=== PATIENT | female | born 1950 ===

== ENCOUNTER 2023-12-14 06:57 | Inpatient (IN) | payer MEDICARE, OTHER, SELFPAY ==
[2023-12-14] VITALS (9 sets, daily range): BP systolic 97–155; BP diastolic 64–88; BMI 22.2
--- NOTE | 2023-12-14 07:18 | PTCARENOTE ---
Rec'd Pt as transfer from [facility], A,A+Ox3, denies pain. R radial dsg intact with tiny spot of bloody drainage noted. Heparin drip infusing at 3.8 ml/hr. CV WATER TRUCK DRIVER notified.
--- NOTE | 2023-12-14 08:16 | HPS.HSE ---
Addendum entered and electronically signed by FAMILIA Lopez 12/15/23 07:37:
STS RISK SCORE
Procedure Type:�Isolated CABG
PERIOPERATIVE OUTCOME ESTIMATE %
Operative Mortality 3.9%
Morbidity & Mortality 10.1%
Stroke 1.61%
Renal Failure 1.23%
Reoperation 3.51%
Prolonged Ventilation 5.26%
Deep Sternal Wound Infection 0.145%
Long Hospital Stay (>14 days) 7%
Short Hospital Stay (<6 days)* 33.1%
Clinical Summary
Planned Surgery: Isolated CABG, Urgent, First cardiovascular surgery
Demographics: 73 year old, White, female, 61.5kg, 166cm, BMI: 22.3 kg/m�
Lab Values: Creatinine: 0.8 mg/dL, Hematocrit: 34.9%, WBC Count: 6 10�/�L, Platelet Count: 532844 cells/�L
Substance Abuse: Never smoker
Risk Factors / Comorbidities: Hypertension
Vascular RF: Peripheral Artery Disease
Cardiac Status: Chronic heart failure, NYHA Class II, Ejection Fraction = 32%
Coronary Artery Disease: 2 vessels diseased, Left Main Stenosis >=50%, Proximal LAD Stenosis >=70%, Non-ST Elevation MO, MO: 1 to 7 Days
Valve Disease: Mild MR
Original Note:
Family Physician
-
Family Physician: Andrew Underwood
Chief Complaint
-
NSTEMI
History of Present Illness
Cynthia Saavedra is a 73-year-old , [id number] female, followed by Dr. Hogan, who was admitted to [facility] on senior hardware engineer of 12/13/2023 for escalating midsternal chest pressure. Patient recounts having similar
midsternal chest pressure during the past few months that worsened with reclining and after eating heavy meals. On Wednesday evening, patient sought help for the pain that remained unresolved after a few hours. Patient has known coronary disease with
prior stenting to LAD and cardiomyopathy (EF 30-35%), hypertension, hyperlipidemia, depression, PAD status post stenting of left SFA and right external iliac arteries. Patient ruled in for non-STEMI and was taken to the cardiac Blender Operator on 12/13/23
and found to have left main/two-vessel coronary disease. Patient is transferred to [facility] for CABG evaluation. Her last dose of Plavix was 12/13/2023. She is currently pain-free.
[facility] (R radial 12/12-Dr. Monique):
Left main: 70-80%
LAD: 90% proximal prior to LAD stent. Both diagonals with moderate diffuse disease
Left circumflex: 60 to 70%. 70-80% proximal OM1. Mid 90% OM 2.
Dominant RCA: Up to 50% stenosis of vessel
TTE 09/22/23:
Moderate hypokinesis of the mid to distal anterior wall with apical akinesis. Mild�moderate distal inferior hypokinesis. EF 30-35%.
Normal RV size and function.
Mild�moderate mitral regurgitation.
Medical History
Past Medical History
Past Medical History: Reports CAD (ICM w/HFrEF (30-35%)), HTN, Hypercholesterolemia, Psychiatric (depression) and Other (viral subacute thyroiditis (2022-resolved); PAD; GIB d/t diverticulitis 2013; chronic LBBB)
Past Surgical History: Reports Tonsilectomy and Other (tubal ligation, B/L cataract extraction w intraocular lens implant; breast augmentation with subsequent removal of implants 70 left superficial femoral artery stent 06/29/2023 right external
iliac artery stent 07/16/2023)
Social History
Tobacco: Non-smoker
Alcohol: Occasional
Drug: None
Living: Alone
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
Family History
Family History: Not pertinent
Allergies / Home Medications
Allergies reflects when Allergies were last updated in [facility].
Home Medications with original date entered in [facility]
Allergy/Medication List:
Allergies
Allergy/AdvReac Type Severity Reaction Status Date / Time
No Known Allergies Allergy Unverified 12/14/23 08:02
Home Medications
�Medication �Instructions �Recorded
aspirin 81 mg chewable tablet 81 mg PO DAILY 12/14/23
clopidogrel 75 mg tablet (Plavix) 75 mg PO DAILY 12/14/23
dapagliflozin propanediol 10 mg 10 mg PO DAILY 12/14/23
tablet (Farxiga)
ezetimibe 10 mg tablet (Zetia) 10 mg PO DAILY 12/14/23
furosemide 20 mg tablet (Lasix) 20 mg PO DAILY 12/14/23
metoprolol succinate 25 mg 25 mg PO DAILY 12/14/23
tablet,extended release 24 hr
(Toprol XL)
rosuvastatin 40 mg tablet 40 mg PO DAILY 12/14/23
sacubitril 24 mg-valsartan 26 mg 1 tab PO BID 12/14/23
tablet (Entresto)
valsartan 40 mg tablet 40 mg PO DAILY 12/14/23
TAKES VALSARTAN WHEN UNABLE TO RECEIVE ENTRESTO SAMPLES!!!!!
Review of Systems
-
History Source: Patient
A 12 point ROS was completed and negative except as noted: Yes
Constitutional: Reports No Symptoms
EENT: Reports No Symptoms
Respiratory: Reports No Symptoms
Cardiac: Reports See HPI
Abdomen/GI: Reports No Symptoms
: Reports No Symptoms
Musculoskeletal: Reports No Symptoms
Skin: Reports No Symptoms
Neurological: Reports No Symptoms
Endocrine: Reports No Symptoms
Hematologic/Lymphatic: Reports No Symptoms
Psych: Reports No Symptoms
Physical Exam
Physical Exam
General: Well Developed, Well Nourished, Comfortable and Conversant
HEENT: NormoCephalic, Anicteric, Moist mucous membranes, PERRLA, Maynard Conjunctivae, No Ptosis, Nose Appears Normal, Ears Appear Normal and Neck Nontender
Respiratory: Clear
Cardiac: S1/S2 and Regular Rhythm
Breast: Deferred by me
GI: Soft, Non Tender, Non Distended, Normal Bowel Sounds and No Hepatosplenomegaly
Rectal: Deferred by Provider
Genito-urinary: Deferred by me
Musculoskeletal: No Edema and Normal Gait & Station
Skin: Warm and Dry
Neuro: AO x 3, No Motor Deficits and Cranial Nerves Intact
Hematologic/Lymphatic: No Lymphadenopathy
Psych: Calm
Laboratory Results
-
Labs from [facility] (12/12):
CBC: WBC 6.8; HB 11.8; Plt 233
INR: 0.9
BMP: Na+ 134; K+ 3.9; BUN 17; Creat 0.61; Glucose 88
Data Reviewed
-
Lab Data: Labs Reviewed by me and Discussed with Physician
Old Records: Reviewed
Impression/Plan
-
IMPRESSION: NSTEMI, LM/3VCAD, ICM w/HFrEF (30-35%)
PLAN:
Last Plavix dose 12/12 >hold further doses
Continue IV Heparin
Surgeon to review imaging an discuss surgical risk/benefit and expected recovery trajectory
Need to hold ARB, Entresto, SGLT2i x 2 days prior to surgery
Preop diagnostics ordered including echocardiogram and carotid ultrasound
[2023-12-14 09:28] LABS: APTT 44.1 Sec (23.4-35.0)
--- NOTE | 2023-12-14 10:31 | CON.CAR ---
Addendum entered and electronically signed by Char Ghosh MD 12/14/23 17:12:
I saw and examined the patient.
The QUALITY ASSURANCE ASSOCIATE's note was reviewed and I agree with the note.
Comment: She is feeling well now, no cp, walking from the bathroom. exam is rrr no m/r/g, lungs cta. Ext wwp. Echo done with moderate LV depression, mild to mod mr. She is being evaluated for CAB in setting of NSTEMI, received clopidogrel
yesterday will need wash out, will continue med management otherwise. HFrEF is not decompensated, continue current medicaitons.
Will follow along.
TTE: CONCLUSIONS
Left ventricle is mildly dilated. Stage I diastolic dysfunction suggestive of
abnormal relaxation.Moderately reduced left ventricular systolic function. Left ventricular
ejection fraction is 32% by volumetric assessment.
Global hypokinesis with the anterior and anterolateral waldrop moving best.
Mild to moderate mitral regurgitation.
Compared to previous echo report from 09/22/23, the ejection fraction sounds to
be similar but the regionality of the hypokinesis described is different, but
no images available for direct comparison.
Original Note:
Consultation
Consultation Request
Date/Time Consultation Requested: 12/14/2023 08:15
Date/Time Consultation Performed: 12/14/2023 10:20
Requesting Provider: FAMILIA Lopez
Performing Provider: FAMILIA Cutler for Dr. Ghosh
Reason for Consultation: CAD, CABG evaluation
Medical History
-
Chief Complaint: Chest pressure
History of Present Illness:
Bertha Saavedra is a 73-year-old female (known to Dr. Hogan, her primary frog catcher), with coronary artery disease, ischemic cardiomyopathy, hypertension, dyslipidemia, PAD, and LBBB who presented to [facility] yesterday morning with chest
pressure. She has been having issues with chest discomfort. She changed her oral intake to smaller meals and was avoiding eating closely to bedtime. 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 She called EMS.
She was found to have an NSTEMI. She was taken for cardiac catheterization and was found to have left main/two-vessel coronary artery disease. She has been transferred to [facility] for CABG evaluation.
Past Medical History
Past Medical History: CAD, CHF (ICM), HTN, Hypercholesterolemia and Other (PAD, LBBB)
Past Surgical History: Gynecological and Tonsilectomy
Social History
Tobacco: Non-Smoker
Alcohol: None
Drug: None
Living: Alone
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
Family History
Family History: Reviewed & Not Pertinent
Allergies / Home Medications
Allergy/AdvReac Type Severity Reaction Status Date / Time
No Known Allergies Allergy Unverified 12/14/23 08:02
Review of Systems
-
History Source: Patient
All other systems: Negative unless noted
Constitutional: No Symptoms
EENT: No Symptoms
Respiratory: No Symptoms
Cardiac: No Symptoms
Abdomen/GI: No Symptoms
: No Symptoms
Musculoskeletal: No Symptoms
Skin: No Symptoms
Neurological: No Symptoms
Endocrine: No Symptoms
Hematologic/Lymphatic: No Symptoms
Physical Exam
Vital Signs
Temp Pulse Resp BP Pulse Ox
97.4 F 84 14 155/80 98
12/14/23 07:38 12/14/23 08:15 12/14/23 07:38 12/14/23 07:05 12/14/23 07:38
Physical Exam
General: Well Developed, Well Nourished, No Apparent Distress and Comfortable
HEENT: Normocephalic, Anicteric and Moist Mucous Membranes
Respiratory: Clear and Non Labored Respirations
Cardiac: S1/S2, Regular Rhythm and Peripheral Edema
Breast: Deferred by me
GI: Soft, Non Tender, Non Distended and Normal Bowel Sounds
Rectal: Deferred by Provider
Genito-urinary: No Costovertebral Tender
Musculoskeletal: No Clubbing, No Cyanosis and No Edema
Skin: Warm and Dry
Neuro: AO x 3
Hematologic/Lymphatic: No Lymphadenopathy
Psych: Calm
Impression / Plan
-
BACKGROUND: 73F with ischemic cardiomyopathy, coronary artery disease, hypertension, dyslipidemia, and PAD who initially presented to [facility] and was found to have an NSTEMI and was transferred to this facility for CABG evaluation.
Form Maker Plaster: Dr. Hogan
NSTEMI
MVCAD
-Chest pain-free at present
-Continue heparin drip
-CABG evaluation per CT surgery
-Last dose of clopidogrel 12/13/2023
-Entresto and SGLT2i will need to be held 48 hours prior to OR
ICM (LVEF 30-35%, 09/2023), chronic
-She does not appear to be in acute/decompensated heart failure
-GDMT as tolerated
-ACEi/ARB: She is on both valsartan 40 mg and Entresto...
-Beta marcelo: metoprolol succinate 25mg daily
-SGLT2: Farxiga on hold
-Diuretic: furosemide 20mg po daily to maintain euvolemia
-Outpatient note from Dr. Hogan reports she does not have prescription coverage and requires samples of all name-brand medications
-Update echocardiogram, lowest documented LVEF was 25-30% in May of this year
-She declined ICD and LifeVest in the outpatient setting
-HF education provided, trend daily weight & I/O
Dyslipidemia
-Outpatient notes reflect she may require PCSK9 as she is not at goal with rosuvastatin 40 mg and ezetimibe 10mg
-Given her lack of prescription drug coverage by outpatient notes, Leqvio may be the best option
-Continue current medical therapy, fasting lipid panel in a.m.
HTN
PSVT, seen on Holter monitor
PAD, left superficial femoral artery stent (06/29/2023) & right external iliac artery stent (07/16/2023)
SUBJECTIVE:
As above.
DATA:
Echocardiogram, 09/22/2023:
Regional wall motion abnormalities include moderate hypokinesis of the mid to
distal anterior wall and apical akinesis. Mild to moderate distal inferior
hypokinesis.
The ejection fraction is estimated at 30-35%.
Diastolic function is indeterminate.
Normal right ventricular size and function.
Moderate left atrial enlargement.
Normal right atrium.
Structurally normal mitral valve without significant stenosis w/ mild to
moderate regurgitation.
Structurally normal aortic valve without significant stenosis or regurgitation.
Structurally normal tricuspid valve without significant stenosis w/ mild
regurgitation.
Estimated pulmonary artery pressure is 32 mmHg.
Structurally normal pulmonic valve without significant stenosis or
regurgitation.
Normal pericardium without effusion.
Normal aortic root.
IVC demonstrates normal respiratory variation.
Data Reviewed
-
Medical Tests (Nuc Med, Echo etc): Report Reviewed by me (Cardiac catheterization)
Labs: Labs Reviewed by me
Old Records: Reviewed (Outpatient ECW notes)
--- NOTE | 2023-12-14 11:17 | CM ---
Chart reviewed. Patient is indepedent of ADLS, lives alone in a 2nd floor apartment of a [facility], [address], 0 [address]. Patient's landlords are out of town for 2 weeks. Patient has 4 children who live at least [address] away[address] on [address] Surgery
Evaluation for plan of care. CM to follow
[2023-12-14] MEDS: FARXIGA 10 MG PO (12:25)
[2023-12-14] MEDS: TOPROL XL 25 MG PO (12:25)
[2023-12-14] MEDS: LOW STRENGTH ASPIRIN 81 MG PO (12:25)
[2023-12-14] MEDS: ZETIA 10 MG PO (12:25)
[2023-12-14] MEDS: CRESTOR 40 MG PO (12:25)
[2023-12-14] MEDS: LASIX 20 MG PO (12:26)
[2023-12-14 16:08] LABS: APTT 102.3 Sec (23.4-35.0)
[2023-12-14] MEDS: HEPARIN 25000 UNITS/250 ML IV (18:47)
[2023-12-14 21:40] LABS: APTT 94.2 Sec (23.4-35.0)
--- NOTE | 2023-12-14 22:39 | PTCARENOTE ---
Heparin gtt infusing at 750 units/hr. Tele- SR w/ BBBC. VSS. Assessment completed as documented. Currently has no c/o chest pain/discomfort at this time. R radial site is c/d/i. Currently in bed; call meagan w/in reach.
[2023-12-15] VITALS (7 sets, daily range): BP systolic 95–136; BP diastolic 55–75; BMI 22.0
[2023-12-15 03:35] LABS: Hematocrit 34.9 % (37.0-47.0); Hemoglobin 12.2 g/dL (12.0-16.0); Mean Corpuscular Volume 88.8 fL (81.0-99.0); Mean Platelet Volume 9.9 fL (7.4-10.4); Platelet Count 236 10^3/uL (130-400); Red Blood Cell Count 3.93 10^6/uL (4.20-5.40); Red Cell Dist. Width 15.2 % (11.5-14.5)
[2023-12-15 03:46] LABS: INR 1.03; PT 13.3 Sec (11.4-14.6)
[2023-12-15 03:48] LABS: APTT 131.5 Sec (23.4-35.0)
[2023-12-15 03:58] LABS: ALT (SGPT) 13 U/L (0-35); AST (SGOT) 45 U/L (14-36); Alkaline Phosphatase 58 U/L (38-126); Blood Urea Nitrogen 22 mg/dl (7-17); Calcium 9.1 mg/dl (8.4-10.2); Carbon Dioxide 20 mmol/L (22-30); Chloride 99 mmol/L (98-107); Estimated Creatinine Clearance 57 ml/min; Glucose 84 mg/dl (70-99); HDL Cholesterol 91 mg/dl; Magnesium 2.2 mg/dl (1.6-2.3); Sodium 132 mmol/L (135-145); Total Bilirubin 0.6 mg/dl (0.2-1.3); Total Protein 6.1 g/dl (6.3-8.2); Triglyceride 90 mg/dl (10-149); Very Low Density Lipoprotein 18 mg/dl (0-30); eGFR > 60.00
[2023-12-15 04:09] LABS: LDL Cholesterol, Calculated 529 mg/dl; Total Cholesterol 638 mg/dl (50-199)
--- NOTE | 2023-12-15 06:16 | W.PN.CT ---
Addendum entered and electronically signed by Vincenzo Owusu MD 12/15/23 14:07:
I saw and examined the patient.
The PA's note was reviewed and I agree with the note.
Comment:
I met with Mrs. Saavedra at the bedside. We reviewed her [facility] findings as well as went through her index event in March and then her serial echocardiograms. She tells me her main symptoms are indigestion type. She has been on plavix since her stent
in March and last dose was 12/12. She understands that her ventricular is not normal, and that her mitral valve pathology is mild-mod in severity. Given her plavix and since she remains comfortable without chest pain, we will give her a 5-7 day
washout period. She is aware that one of my partners will be by and likely taking over her case for next week. For now, no plans for surgery this week.
Original Note:
Today's Communication / Plan
-
-no CP overnight
-continue iv Heparin (renewed), ASA, Crestor, Zetia, Toprol, Lasix
-significant CAD with 70-80% LM, 90% prox LAD, 60-70% Circ, 70-80% proximal OM1, 90% mid OM 2.
-will need to hold Farxiga 3 days prior to surgery
-holding Plavix (last dose 12/13/23)
-s/p Echo (EF 32 % with wma, mild-mod MR), Carotid US (50-69% LICA and <50% SUJATHA), Chest CT
-2v-CXR pending
-Surgeon to review imaging an discuss surgical risk/benefit and expected recovery trajectory
Assessment / Plan
-
Impression:
- Unstable angina/ NSTEMI- admitted to [facility] on 12/13/23, transferred to on 12/14/23 for evaluation for CABG (last Plavix 12/13/23)- currently, on iv Heparin
- Cath 12/13/23 with LM/mv-CAD
- ICM, EF 32% by Echo 12/13/23
- Chronic LBBB
- PAD- s/p L SFA stent 06/29/23 and R external iliac stent 07/16/23
- Carotid dz with 50-69% LICA
- HTN/HLD
- Depression
- Viral subacute thyroditis 2022 - resolved
- Hx GIB d/t diverticulitis 2013
- Hx breast augmentation with subsequent removal of implants
- b/l cataract extraction with intraocular lens implant
[facility] (R radial 12/13/23-Dr. Monique):
-Left main: 70-80%
-LAD: 90% proximal prior to LAD stent. Both diagonals with moderate diffuse disease
-Left circumflex: 60 to 70%. 70-80% proximal OM1. Mid 90% OM 2.
-Dominant RCA: Up to 50% stenosis of vessel
Echo 12/13/23:
-Left ventricle is mildly dilated. Stage I diastolic dysfunction suggestive of abnormal relaxation.
-Moderately reduced left ventricular systolic function. Left ventricular ejection fraction is 32% by volumetric assessment.
-Global hypokinesis with the anterior and anterolateral waldrop moving best.
-Mild to moderate mitral regurgitation.
-Compared to previous echo report from 09/22/23, the ejection fraction sounds to be similar but the regionality of the hypokinesis described is different, but no images available for direct comparison.
TTE 09/22/23:
Moderate hypokinesis of the mid to distal anterior wall with apical akinesis. Mild�moderate distal inferior hypokinesis. EF 30-35%.
Normal RV size and function.
Mild�moderate mitral regurgitation.
Chest CT 12/14/23:
-Mild dependent atelectasis in the posterior lungs.
-Mild peripheral interstitial fibrosis in the mid to lower lungs, with no honeycombing.
-No significant pleural effusion or pericardial effusion.
Carotid US 12/14/23:
-Right: Atherosclerotic plaque involving the carotid arterial system with velocity measurements consistent with less than 50% stenosis. Antegrade flow in the right vertebral artery.
-Left: Atherosclerotic plaque involving the carotid arterial system with velocity measurements consistent with 50-69% stenosis involving the mid left ICA. Antegrade flow in the left vertebral artery.
Discussed patient care with: Nursing and Care Team
Subjective
-
Date of Service: December 14, 2023
Objective Data
-
APTT 94.2 Sec (23.4-35.0) H 12/14/23 21:16
Vital Signs
Vital Signs
Temp Pulse Resp BP Pulse Ox
98 F 80 16 118/72 95
12/14/23 22:23 12/14/23 22:30 12/14/23 22:23 12/14/23 22:20 12/14/23 22:23
CT Intake/Output/Weight
12/14/23 12/14/23 12/15/23
06:59 18:59 06:59
Output Total 100 / 100
Balance -100 / -100
SaO2: 95
Data Reviewed
-
Lab Results: Results Reviewed
Medications: Active Meds Reviewed
CT Scan: Report Reviewed
ECG: Report Reviewed and Image Reviewed
[2023-12-15] MEDS: FLUSH (NSS) 1 FLUSH IV (07:45)
[2023-12-15] MEDS: ZETIA 10 MG PO (07:45)
[2023-12-15] MEDS: CRESTOR 40 MG PO (07:45)
[2023-12-15] MEDS: LOW STRENGTH ASPIRIN 81 MG PO (07:45)
[2023-12-15] MEDS: TOPROL XL 25 MG PO (07:45)
[2023-12-15] MEDS: LASIX 20 MG PO (07:46)
[2023-12-15] MEDS: FARXIGA 10 MG PO (07:46)
[2023-12-15 08:13] LABS: Urine Albumin Trace (Neg - Trace); Urine Bilirubin 1+ (Negative); Urine Character Clear (Clear); Urine Color Yellow; Urine Glucose 2+ (Negative); Urine Ketone 3+ (Negative); Urine Leukocyte Negative (Negative); Urine Nitrite Negative (Negative); Urine Occult Blood Negative (Negative); Urine Urobilinogen Negative (Neg - 1+)
--- NOTE | 2023-12-15 09:14 | W.PN.CD ---
Today's Communication / Plan
-
await ct surg eval for cab
continue current medications, including heparin gtt that requires intensive lab monitoring
continue tele
Impression / Plan
-
BACKGROUND: 73F with ischemic cardiomyopathy, coronary artery disease, hypertension, dyslipidemia, and PAD who initially presented to [facility] and was found to have an NSTEMI and was transferred to this facility for CABG evaluation.
Conference Planning Manager: Dr. Hogan
NSTEMI
MVCAD
-Chest pain-free at present
-Continue heparin drip
-CABG evaluation per CT surgery
-Last dose of clopidogrel 12/13/2023
-Entresto and SGLT2i will need to be held prior to surgery --48 hours and 72 hours respectfully
ICM (LVEF 30-35%, 09/2023), chronic
-She does not appear to be in acute/decompensated heart failure
-wt stabie
-GDMT as tolerated
-ACEi/ARB: She is on both valsartan 40 mg and Entresto...
-Beta marcelo: metoprolol succinate 25mg daily
-SGLT2: Farxiga on hold
-Diuretic: furosemide 20mg po daily to maintain euvolemia
-Outpatient note from Dr. Hogan reports she does not have prescription coverage and requires samples of all name-brand medications
-Update echocardiogram, lowest documented LVEF was 25-30% in May of this year, 32% on echo 12/15/23
-She declined ICD and LifeVest in the outpatient setting
-HF education provided, trend daily weight & I/O
Dyslipidemia
-Outpatient notes reflect she may require PCSK9 as she is not at goal with rosuvastatin 40 mg and ezetimibe 10mg
-Given her lack of prescription drug coverage by outpatient notes, Leqvio may be the best option
-Continue current medical therapy, fasting lipid panel in a.m.
HTN
PSVT, seen on Holter monitor
PAD, left superficial femoral artery stent (06/29/2023) & right external iliac artery stent (07/16/2023)
SUBJECTIVE:
no complaints, no cp or sob
DATA:
TTE: 12/14/23 CONCLUSIONS
Left ventricle is mildly dilated. Stage I diastolic dysfunction suggestive of
abnormal relaxation. Moderately reduced left ventricular systolic function. Left ventricular
ejection fraction is 32% by volumetric assessment.
Global hypokinesis with the anterior and anterolateral waldrop moving best.
Mild to moderate mitral regurgitation.
Compared to previous echo report from 09/22/23, the ejection fraction sounds to
be similar but the regionality of the hypokinesis described is different, but
no images available for direct comparison.
Echocardiogram, 09/22/2023:
Regional wall motion abnormalities include moderate hypokinesis of the mid to
distal anterior wall and apical akinesis. Mild to moderate distal inferior
hypokinesis.
The ejection fraction is estimated at 30-35%.
Diastolic function is indeterminate.
Normal right ventricular size and function.
Moderate left atrial enlargement.
Normal right atrium.
Structurally normal mitral valve without significant stenosis w/ mild to
moderate regurgitation.
Structurally normal aortic valve without significant stenosis or regurgitation.
Structurally normal tricuspid valve without significant stenosis w/ mild
regurgitation.
Estimated pulmonary artery pressure is 32 mmHg.
Structurally normal pulmonic valve without significant stenosis or
regurgitation.
Normal pericardium without effusion.
Normal aortic root.
IVC demonstrates normal respiratory variation.
Physical Exam
Vital Signs/Labs
Vital Signs
Temp Pulse Resp BP Pulse Ox
97.7 F 78 16 128/75 97
12/15/23 06:55 12/15/23 07:30 12/15/23 06:55 12/15/23 06:57 12/15/23 06:55
12/14/23 12/15/23 12/16/23
06:59 06:59 06:59
Actual Weight 60.8 kg
12/15/23 03:16
12/15/23 03:16
PT 13.3 Sec (11.4-14.6) 12/15/23 03:16
INR 1.03 12/15/23 03:16
APTT 131.5 Sec (23.4-35.0) H 12/15/23 03:16
Magnesium 2.2 mg/dl (1.6-2.3) 12/15/23 03:16
Triglycerides 90 mg/dl (10-149) 12/15/23 03:16
LDL Cholesterol, Calc 529 mg/dl 12/15/23 03:16
VLDL Cholesterol, Calc 18 mg/dl (0-30) 12/15/23 03:16
HDL Cholesterol 91 mg/dl 12/15/23 03:16
Physical Exam
Constitutional: No acute distress
Cardiovascular: Rhythm & rate is regular, Pedal edema is absent, JVD pressure is normal, Systolic murmur absent and Diastolic murmur absent
Respiratory: Respiratory effort normal, Lungs clear to auscul., Wheeze Absent, Crackles Absent and Rhonchi Absent
Neuro/Psych: AO x 3
Data Reviewed
-
Date of Service: December 15, 2023
EKG: Other (tele sinus with lbbb)
[2023-12-15 09:27] LABS: Glycohemoglobin (HgbA1c) 5.2 % (4.0-5.6)
--- NOTE | 2023-12-15 10:14 | CM ---
Chart reviewed. Patient is independent of ADLS, lives alone in a apartment on the [address]nd floor, [address], [address]. CM to follow for plan of care after the patient meets with CT Surgery. CM to follow
--- NOTE | 2023-12-15 10:24 | PTCARENOTE ---
The patient requested to have her left hand IV removed as it was hurting her. I inserted a #20 in her left forearm and removed the old one. Heparin is now running in her new site at 550 units/hr. Her vital signs are stable, NSR is noted on the
monitor, she has no complaints of pain or discomfort.
[2023-12-15 13:06] LABS: APTT 56.1 Sec (23.4-35.0)
--- NOTE | 2023-12-15 19:00 | PTCARENOTE ---
report received from previous RN, walking rounds done, assumed care of pt. pt in bed, AAOx4. pt denies any pain at this time. VSS. SR w BBB on monitor, HR 70s-80s. POX 96% on room air. skin CDI. PIV intact and patent. Heparin gtt infusing @
750u/kg/hr per protocol. see worklist for full assessment, VS, and interventions.
[2023-12-15 20:10] LABS: APTT 72.3 Sec (23.4-35.0)
[2023-12-16] VITALS (38 sets, daily range): BP systolic 91–146; BP diastolic 43–97; BMI 22.2
[2023-12-16] MEDS: HEPARIN 25000 UNITS/250 ML IV (03:01)
[2023-12-16 03:04] LABS: Hematocrit 31.1 % (37.0-47.0); Hemoglobin 10.8 g/dL (12.0-16.0); Mean Corp Hgb Conc. 34.7 g/dL (33.0-37.0); Mean Corpuscular Volume 92.3 fL (81.0-99.0); Platelet Count 190 10^3/uL (130-400); Red Blood Cell Count 3.37 10^6/uL (4.20-5.40); Red Cell Dist. Width 14.9 % (11.5-14.5); White Blood Cell Count 5.7 10^3/uL (4.8-10.8)
[2023-12-16 03:24] LABS: APTT 143.5 Sec (23.4-35.0)
--- NOTE | 2023-12-16 04:02 | PTCARENOTE ---
Pt rang to report that she had had chest pain rating 5-6/10 while walking to bathroom. Reports it was a 'quick spurt of pain that is now completely gone.' EKG obtained. NSR. Saman LOGAN made aware and no furthers orders placed. Educated pt to report
any other recurring chest pain.
[2023-12-16] MEDS: NITROSTAT (SUBLINGUAL) 0.4 MG SL (04:43)
[2023-12-16] MEDS: NITROGLYCERIN PREMIX 250 IV (04:53)
--- NOTE | 2023-12-16 05:23 | W.PN.CT ---
Today's Communication / Plan
-
-pt c/o belching/indigestion pain (anginal equivalent) coming back from the bathroom around 4:30am. It resolved spontaneously in 1-2 min with rest.
Pt had another episode of chest pressure 6-7/10 at 4:40 am while resting in bed. BP 120s-140s. Gave 1 sl Nitro, started Nitro drip, uptitrated to 40. 2L O2 started. CP resolved - sbp 120s
-PTT was 143.5 at 2:50am and Heparin rate was decreased by 200 per protocol
-current drips: Heparin 650 u/hr, Nitro 40
-continue iv Heparin (renewed), ASA, Crestor, Zetia, Toprol, Lasix
-significant CAD with 70-80% LM, 90% prox LAD, 60-70% Circ, 70-80% proximal OM1, 90% mid OM 2.
-will need to hold Farxiga 3 days prior to surgery
-tentative plan was for CABG on 12/[address] Hickey
-will leave pt NPO, on bedrest, and discuss with Dr. Hickey and Cardiology (last Plavix dose was 12/13/23)
Assessment / Plan
-
Impression:
- Unstable angina/ NSTEMI- admitted to [facility] on 12/13/23, transferred to on 12/14/23 for evaluation for CABG (last Plavix 12/13/23)- currently, on iv Heparin
- Cath 12/13/23 with LM/mv-CAD
- ICM, EF 32% by Echo 12/13/23
- Hx PSVT on Holter monitor
- Chronic LBBB
- PAD- s/p L SFA stent 06/29/23 and R external iliac stent 07/16/23
- Carotid dz with 50-69% LICA
- HTN/HLD
- Depression
- Viral subacute thyroditis 2022 - resolved
- Hx GIB d/t diverticulitis 2013
- Hx breast augmentation with subsequent removal of implants
- b/l cataract extraction with intraocular lens implant
LHC (R radial 12/13/23-Dr. Monique):
-Left main: 70-80%
-LAD: 90% proximal prior to LAD stent. Both diagonals with moderate diffuse disease
-Left circumflex: 60 to 70%. 70-80% proximal OM1. Mid 90% OM 2.
-Dominant RCA: Up to 50% stenosis of vessel
Echo 12/13/23:
-Left ventricle is mildly dilated. Stage I diastolic dysfunction suggestive of abnormal relaxation.
-Moderately reduced left ventricular systolic function. Left ventricular ejection fraction is 32% by volumetric assessment.
-Global hypokinesis with the anterior and anterolateral waldrop moving best.
-Mild to moderate mitral regurgitation.
-Compared to previous echo report from 09/22/23, the ejection fraction sounds to be similar but the regionality of the hypokinesis described is different, but no images available for direct comparison.
TTE 09/22/23:
Moderate hypokinesis of the mid to distal anterior wall with apical akinesis. Mild�moderate distal inferior hypokinesis. EF 30-35%.
Normal RV size and function.
Mild�moderate mitral regurgitation.
Chest CT 12/14/23:
-Mild dependent atelectasis in the posterior lungs.
-Mild peripheral interstitial fibrosis in the mid to lower lungs, with no honeycombing.
-No significant pleural effusion or pericardial effusion.
Carotid US 12/14/23:
-Right: Atherosclerotic plaque involving the carotid arterial system with velocity measurements consistent with less than 50% stenosis. Antegrade flow in the right vertebral artery.
-Left: Atherosclerotic plaque involving the carotid arterial system with velocity measurements consistent with 50-69% stenosis involving the mid left ICA. Antegrade flow in the left vertebral artery.
Discussed patient care with: Nursing and Care Team
Subjective
-
Date of Service: December 16, 2023
Objective Data
-
Lab Results
12/15/23 03:16
PT 13.3 Sec (11.4-14.6) 12/15/23 03:16
INR 1.03 12/15/23 03:16
APTT 72.3 Sec (23.4-35.0) H 12/15/23 19:52
Vital Signs
Vital Signs
Temp Pulse Resp BP Pulse Ox
97.6 F 84 16 95/55 96
12/15/23 23:10 12/15/23 23:08 12/15/23 23:10 12/15/23 23:08 12/15/23 23:10
CT Intake/Output/Weight
12/15/23 12/15/23 12/16/23
06:59 18:59 06:59
Intake Total 200 / 200 960 / 960
Output Total 300 / 300
Balance 200 / 100 660 / 660
SaO2: 96
Physical Exam
-
General: Awake and AOx3
Cardiovascular: Regular rate & rhythm and Murmur (soft 1/6 systolic)
Respiratory: Decreased Breath Sounds
Extremities: No Edema
Data Reviewed
-
Lab Results: Results Reviewed
Medications: Active Meds Reviewed
Chest X-Ray: Report Reviewed and Image Reviewed
CT Scan: Report Reviewed
ECG: Report Reviewed and Image Reviewed
--- NOTE | 2023-12-16 05:34 | PTCARENOTE ---
Pt rang to report that she had chest pain rating 7/10 while walking to bathroom. Reports pain as pressure and radiating to left arm. Saman LOGAN made aware and at bedside. EKG ordered and obtained. NSR. 2L O2 NC applied for comfort. POX 97%. BP
143/71. 1 SL nitro administered per order. Pt states some relief rating 5/10. Nitro gtt ordered and administered. See worklist for titration protocol. Nitro gtt now infusing at 40mcg/min w/ complete relief of chest pain. BP 136/60. Educated pt to
minimize exertion to avoid chest pain. Saman LOGAN ordered pt to be NPO this AM. Pt verbalizes understanding. Pt is now resting in bed; call rhodes is within reach. Educated pt to use call rhodes if chest pain returns.
[2023-12-16] MEDS: LOW STRENGTH ASPIRIN 81 MG PO (08:12)
[2023-12-16] MEDS: FARXIGA 10 MG PO (08:12)
[2023-12-16] MEDS: ZETIA 10 MG PO (08:12)
[2023-12-16] MEDS: CRESTOR 40 MG PO (08:12)
[2023-12-16] MEDS: LASIX 20 MG PO ×2 (08:14→19:55)
[2023-12-16] MEDS: TOPROL XL 25 MG PO (08:14)
[2023-12-16 11:02] LABS: APTT 80.3 Sec (23.4-35.0)
--- NOTE | 2023-12-16 12:54 | W.PN.CD ---
Today's Communication / Plan
-
profoundly elevated LDL, chest pain free this AM, wean nitro, surgical plans pending
Impression / Plan
-
BACKGROUND: 73F with ischemic cardiomyopathy, coronary artery disease, hypertension, dyslipidemia, and PAD who initially presented to [facility] and was found to have an NSTEMI and was transferred to this facility for CABG evaluation.
Public Health Staff Nurse: Dr. Hogan
NSTEMI
MVCAD
-Chest pain-free at present after concern for possible anginal equivalent symptoms overnight, continue to wean nitro gtt
-Continue heparin drip
-CABG evaluation per CT surgery
-Last dose of clopidogrel 12/13/2023
-Entresto and SGLT2i will need to be held prior to surgery --48 hours and 72 hours respectfully
ICM (LVEF 30-35%, 09/2023), chronic
-She does not appear to be in acute/decompensated heart failure
-wt stabie
-GDMT as tolerated
-ACEi/ARB: previously on Entresto - now held pending surgery
-Beta marcelo: metoprolol succinate 25mg daily
-SGLT2: Farxiga - ensure held 72 hours prior to OR
-Diuretic: furosemide 20mg po daily to maintain euvolemia
-Outpatient note from Dr. Hogan reports she does not have prescription coverage and requires samples of all name-brand medications
-Update echocardiogram, lowest documented LVEF was 25-30% in May of this year, 32% on echo 12/15/23
-She declined ICD and LifeVest in the outpatient setting
-HF education provided, trend daily weight & I/O
Dyslipidemia
-LDL 529 this morning; this is on high intensity statin and ezetimibe
-Given her lack of prescription drug coverage by outpatient notes, Leqvio may be the best option for a third agent, but she will likely require multiple agents to achieve goal LDL; will discuss referral to [place] [facility] with patient
-Continue current medical therapy
HTN
PSVT, seen on Holter monitor
PAD, left superficial femoral artery stent (06/29/2023) & right external iliac artery stent (07/16/2023)
SUBJECTIVE:
no complaints, no cp or sob
DATA:
TTE: 12/14/23 CONCLUSIONS
Left ventricle is mildly dilated. Stage I diastolic dysfunction suggestive of
abnormal relaxation. Moderately reduced left ventricular systolic function. Left ventricular
ejection fraction is 32% by volumetric assessment.
Global hypokinesis with the anterior and anterolateral waldrop moving best.
Mild to moderate mitral regurgitation.
Compared to previous echo report from 09/22/23, the ejection fraction sounds to
be similar but the regionality of the hypokinesis described is different, but
no images available for direct comparison.
Echocardiogram, 09/22/2023:
Regional wall motion abnormalities include moderate hypokinesis of the mid to
distal anterior wall and apical akinesis. Mild to moderate distal inferior
hypokinesis.
The ejection fraction is estimated at 30-35%.
Diastolic function is indeterminate.
Normal right ventricular size and function.
Moderate left atrial enlargement.
Normal right atrium.
Structurally normal mitral valve without significant stenosis w/ mild to
moderate regurgitation.
Structurally normal aortic valve without significant stenosis or regurgitation.
Structurally normal tricuspid valve without significant stenosis w/ mild
regurgitation.
Estimated pulmonary artery pressure is 32 mmHg.
Structurally normal pulmonic valve without significant stenosis or
regurgitation.
Normal pericardium without effusion.
Normal aortic root.
IVC demonstrates normal respiratory variation.
Physical Exam
Vital Signs/Labs
Vital Signs
Temp Pulse Resp BP Pulse Ox
36.7 C 82 18 99/65 97
12/16/23 10:45 12/16/23 09:00 12/16/23 10:45 12/16/23 07:40 12/16/23 10:45
12/15/23 12/16/23 12/17/23
06:59 06:59 06:59
Actual Weight 60.8 kg 61.5 kg
12/16/23 02:50
12/15/23 03:16
PT 13.3 Sec (11.4-14.6) 12/15/23 03:16
INR 1.03 12/15/23 03:16
APTT 80.3 Sec (23.4-35.0) H 12/16/23 10:41
Magnesium 2.2 mg/dl (1.6-2.3) 12/15/23 03:16
Triglycerides 90 mg/dl (10-149) 12/15/23 03:16
LDL Cholesterol, Calc 529 mg/dl 12/15/23 03:16
VLDL Cholesterol, Calc 18 mg/dl (0-30) 12/15/23 03:16
HDL Cholesterol 91 mg/dl 12/15/23 03:16
Physical Exam
Constitutional: No acute distress
Cardiovascular: Rhythm & rate is regular, Pedal edema is absent and JVD pressure is normal
Respiratory: Respiratory effort normal
Neuro/Psych: Alert, Oriented and AO x 3
Data Reviewed
-
Date of Service: December 16, 2023
Medical Decision Making: Reviewed Test Results and Test Interpretation
EKG: Report Reviewed by me
Echo: Report Reviewed by me
X-Ray/CT/US/MRI/NUC/PET: Report Reviewed by me
Labs: Labs Reviewed by me
--- NOTE | 2023-12-16 14:51 | CM ---
Preoperative and postoperative instructions and restrictions discussed with the patient along with showering guidelines. Patient is agreeable to a home visit by the CT Transitional RN. Patient is independent of ADLS, lives alone in a apartment
above a house, [address], 0 [address]. Patient's landlords who live below will be on vacation next week, but patient with supportive children and siblings who will help to assist. Plan is for the patient to return home with CT Transitional RN. CM to
follow
[2023-12-16 17:55] LABS: APTT 86.1 Sec (23.4-35.0)
--- NOTE | 2023-12-16 18:00 | PTCARENOTE ---
Pt received this am with no c/o of any chest pain or sob. Room air sat 89%. Iv heparin and Nitro infusing as ordered. Pt c/o of mild headache this am. Nitro rate decreased to 30mcg. Pt remains chest pain free.
[2023-12-16] MEDS: TYLENOL 650 MG PO (22:18)
--- NOTE | 2023-12-16 23:18 | PTCARENOTE ---
Pt pain free at this time on IV Heparin and IV NTG. PO dose of lasix started shortly after change of shift. Pt aware of need to maintain accurate I@O and fluid restriction. Sinus with BBB on telemetry.
[2023-12-17 01:45] VITALS: BP 136/73
[2023-12-17 01:49] VITALS: BMI 22.2
--- NOTE | 2023-12-17 02:10 | PTCARENOTE ---
At 0140 Pt with regular rapid ht rate. no c/o cp but c/o pain upper abd. Maalox Plus tablet ordered but pt refused, stating she didn't want to take anything unless she needed to for her heart. pt encouraged to call if upper abd pain persisted. AM
labs drawn
[2023-12-17 02:54] LABS: Hematocrit 29.6 % (37.0-47.0); Hemoglobin 10.1 g/dL (12.0-16.0); Mean Corp Hgb Conc. 34.1 g/dL (33.0-37.0); Mean Corpuscular Hgb 31.4 pg (27.0-31.0); Mean Corpuscular Volume 91.9 fL (81.0-99.0); Mean Platelet Volume 10.1 fL (7.4-10.4); Platelet Count 188 10^3/uL (130-400); Red Blood Cell Count 3.22 10^6/uL (4.20-5.40); Red Cell Dist. Width 14.7 % (11.5-14.5); White Blood Cell Count 7.7 10^3/uL (4.8-10.8)
[2023-12-17 03:00] LABS: APTT 93.5 Sec (23.4-35.0)
[2023-12-17 03:06] LABS: Blood Urea Nitrogen 24 mg/dl (7-17); Carbon Dioxide 21 mmol/L (22-30); Chloride 99 mmol/L (98-107); Estimated Creatinine Clearance 57 ml/min; Glucose 95 mg/dl (70-99); Potassium 4.1 mmol/L (3.5-5.1); Sodium 133 mmol/L (135-145); eGFR > 60.00
[2023-12-17] MEDS: TYLENOL 650 MG PO ×2 (05:04→18:11)
--- NOTE | 2023-12-17 05:14 | PTCARENOTE ---
Pt with c/o lower back pain, medicated with Tylenol.
--- NOTE | 2023-12-17 06:12 | W.PN.CT ---
Addendum entered and electronically signed by David Hickey MD 12/17/23 08:41:
I saw and examined the patient.
The PA's note was reviewed and I agree with the note.
Comment:
I had a long conversation with Mrs. Saavedra at her bedside yesterday. We reviewed her pathology, discussed the proposed operative interventions, reviewed the periprocedural risks (including, but not limited to, , stroke, [place], arrhythmia, PPM
requirement, PNA, YANELI/F, bleeding/infection), reviewed the expected in-hospital postprocedural course and outpatient recovery. All questions were to the best my abilities. The patient is agreeable to proceed. My colleague, Dr. Vincenzo Owusu, has
OR availability to accommodate this patient this coming 12/21/2023. I discussed this with the patient this morning and she is agreeable. No major overnight events.
Original Note:
Today's Communication / Plan
-
-no issues overnight, no CP
-drips: Heparin 650, Nitro 30- continue
-Lasix increased to 20 mg bid (UO 450/1900 in 12/24 hrs)
-continue iv Heparin (renewed), ASA, Crestor, Zetia, Toprol, Lasix
-significant CAD with 70-80% LM, 90% prox LAD, 60-70% Circ, 70-80% proximal OM1, 90% mid OM 2.
-will need to hold Farxiga 3 days prior to surgery
-tentative plan was for CABG on 12/[address] Hickey
Assessment / Plan
-
Impression:
- Unstable angina/ NSTEMI- admitted to [facility] on 12/13/23, transferred to on 12/14/23 for evaluation for CABG (last Plavix 12/13/23)- currently, on iv Heparin
- Cath 12/13/23 with LM/mv-CAD
- ICM, EF 32% by Echo 12/13/23
- Hx PSVT on Holter monitor
- Chronic LBBB
- PAD- s/p L SFA stent 06/29/23 and R external iliac stent 07/16/23
- Carotid dz with 50-69% LICA
- HTN/HLD
- Depression
- Viral subacute thyroditis 2022 - resolved
- Hx GIB d/t diverticulitis 2013
- Hx breast augmentation with subsequent removal of implants
- b/l cataract extraction with intraocular lens implant
LHC (R radial 12/13/23-Dr. Monique):
-Left main: 70-80%
-LAD: 90% proximal prior to LAD stent. Both diagonals with moderate diffuse disease
-Left circumflex: 60 to 70%. 70-80% proximal OM1. Mid 90% OM 2.
-Dominant RCA: Up to 50% stenosis of vessel
Echo 12/13/23:
-Left ventricle is mildly dilated. Stage I diastolic dysfunction suggestive of abnormal relaxation.
-Moderately reduced left ventricular systolic function. Left ventricular ejection fraction is 32% by volumetric assessment.
-Global hypokinesis with the anterior and anterolateral waldrop moving best.
-Mild to moderate mitral regurgitation.
-Compared to previous echo report from 09/22/23, the ejection fraction sounds to be similar but the regionality of the hypokinesis described is different, but no images available for direct comparison.
TTE 09/22/23:
Moderate hypokinesis of the mid to distal anterior wall with apical akinesis. Mild�moderate distal inferior hypokinesis. EF 30-35%.
Normal RV size and function.
Mild�moderate mitral regurgitation.
Chest CT 12/14/23:
-Mild dependent atelectasis in the posterior lungs.
-Mild peripheral interstitial fibrosis in the mid to lower lungs, with no honeycombing.
-No significant pleural effusion or pericardial effusion.
Carotid US 12/14/23:
-Right: Atherosclerotic plaque involving the carotid arterial system with velocity measurements consistent with less than 50% stenosis. Antegrade flow in the right vertebral artery.
-Left: Atherosclerotic plaque involving the carotid arterial system with velocity measurements consistent with 50-69% stenosis involving the mid left ICA. Antegrade flow in the left vertebral artery.
Discussed patient care with: Nursing and Care Team
Subjective
-
Date of Service: December 17, 2023
Objective Data
-
Lab Results
12/16/23 02:50
12/15/23 03:16
PT 13.3 Sec (11.4-14.6) 12/15/23 03:16
INR 1.03 12/15/23 03:16
APTT 86.1 Sec (23.4-35.0) H 12/16/23 17:32
Vital Signs
Vital Signs
Temp Pulse Resp BP Pulse Ox
98.0 F 86 20 108/54 95
12/16/23 22:56 12/16/23 22:08 12/16/23 22:56 12/16/23 22:08 12/16/23 22:56
CT Intake/Output/Weight
12/16/23 12/16/23 12/17/23
06:59 18:59 06:59
Intake Total 200 / 1160
Output Total 1450 / 1700 250 / 1700
Balance 200 / 860 -1450 / -1700 -250 / -1700
SaO2: 95
Physical Exam
-
General: Awake and AOx3
Cardiovascular: Regular rate & rhythm, No Murmurs and No Rub
Respiratory: Clear
Extremities: Edema +1 (2+DPs b/l)
Data Reviewed
-
Lab Results: Results Reviewed
Medications: Active Meds Reviewed
Chest X-Ray: Report Reviewed and Image Reviewed
ECG: Report Reviewed and Image Reviewed
[2023-12-17 07:30] VITALS: BP 112/48
[2023-12-17] MEDS: LOW STRENGTH ASPIRIN 81 MG PO (08:17)
[2023-12-17] MEDS: CRESTOR 40 MG PO (08:17)
[2023-12-17] MEDS: FARXIGA 10 MG PO (08:17)
[2023-12-17] MEDS: ZETIA 10 MG PO (08:18)
[2023-12-17] MEDS: TOPROL XL 25 MG PO (08:18)
[2023-12-17] MEDS: LASIX 20 MG PO ×2 (08:18→15:46)
--- NOTE | 2023-12-17 08:49 | W.PN.CD ---
Today's Communication / Plan
-
feeling well, no more anginal pain, can wean nitro gtt
Impression / Plan
-
BACKGROUND: 73F with ischemic cardiomyopathy, coronary artery disease, hypertension, dyslipidemia, and PAD who initially presented to [facility] and was found to have an NSTEMI and was transferred to this facility for CABG evaluation. [employer] Checker:
Samira
NSTEMI
MVCAD
-Chest pain-free at present, continue to wean nitro gtt (patient having headache and no recurrent anginal symptoms)
-Continue heparin drip
-CABG evaluation per CT surgery
-Last dose of clopidogrel 12/13/2023
-Entresto and SGLT2i will need to be held prior to surgery --48 hours and 72 hours respectfully
ICM (LVEF 30-35%, 09/2023), chronic
-She does not appear to be in acute/decompensated heart failure
-weight stable
-GDMT as tolerated
-ACEi/ARB: previously on Entresto - now held pending surgery
-Beta marcelo: metoprolol succinate 25mg daily
-SGLT2: Farxiga - ensure held 72 hours prior to OR
-Diuretic: furosemide 20mg po daily to maintain euvolemia
-Outpatient note from Dr. Hogan reports she does not have prescription coverage and requires samples of all name-brand medications
-Update echocardiogram, lowest documented LVEF was 25-30% in May of this year, 32% on echo 12/15/23
-She declined ICD and LifeVest in the outpatient setting
-HF education provided, trend daily weight & I/O
Dyslipidemia
-LDL 529 12/16/23; this is on high intensity statin and ezetimibe
-patient notes she has switched to a high fat low carb diet and saw a concomitant increase in her cholesterol from 300s to 700s in outpatient setting
-only begun treatment with statin in recent years
-Given her lack of prescription drug coverage by outpatient notes, Leqvio may be the best option for a third agent, but she will likely require multiple agents to achieve goal LDL; patient interested in outpatient consultation with [facility] / will refer
-Continue current medical therapy while inpatient
PAD
-multiple prior lower extremity revascularizations
-would likely benefit from low dose Xarelto 2.5 BID in outpatient setting
HTN
PSVT, seen on Holter monitor
PAD, left superficial femoral artery stent (06/29/2023) & right external iliac artery stent (07/16/2023)
SUBJECTIVE:
no complaints, no cp or sob
DATA:
TTE: 12/14/23 CONCLUSIONS
Left ventricle is mildly dilated. Stage I diastolic dysfunction suggestive of
abnormal relaxation. Moderately reduced left ventricular systolic function. Left ventricular
ejection fraction is 32% by volumetric assessment.
Global hypokinesis with the anterior and anterolateral waldrop moving best.
Mild to moderate mitral regurgitation.
Compared to previous echo report from 09/22/23, the ejection fraction sounds to
be similar but the regionality of the hypokinesis described is different, but
no images available for direct comparison.
Echocardiogram, 09/22/2023:
Regional wall motion abnormalities include moderate hypokinesis of the mid to
distal anterior wall and apical akinesis. Mild to moderate distal inferior
hypokinesis.
The ejection fraction is estimated at 30-35%.
Diastolic function is indeterminate.
Normal right ventricular size and function.
Moderate left atrial enlargement.
Normal right atrium.
Structurally normal mitral valve without significant stenosis w/ mild to
moderate regurgitation.
Structurally normal aortic valve without significant stenosis or regurgitation.
Structurally normal tricuspid valve without significant stenosis w/ mild
regurgitation.
Estimated pulmonary artery pressure is 32 mmHg.
Structurally normal pulmonic valve without significant stenosis or
regurgitation.
Normal pericardium without effusion.
Normal aortic root.
IVC demonstrates normal respiratory variation.
Physical Exam
Vital Signs/Labs
Vital Signs
Temp Pulse Resp BP Pulse Ox
36.6 C 99 20 136/73 95
12/17/23 07:26 12/17/23 01:45 12/17/23 07:26 12/17/23 01:45 12/17/23 07:26
12/16/23 12/17/23 12/18/23
06:59 06:59 06:59
Actual Weight 61.5 kg 61.3 kg
12/17/23 02:03
12/17/23 02:04
PT 13.3 Sec (11.4-14.6) 12/15/23 03:16
INR 1.03 12/15/23 03:16
APTT 93.5 Sec (23.4-35.0) H 12/17/23 02:04
Magnesium 2.0 mg/dl (1.6-2.3) 12/17/23 02:04
Triglycerides 90 mg/dl (10-149) 12/15/23 03:16
LDL Cholesterol, Calc 529 mg/dl 12/15/23 03:16
VLDL Cholesterol, Calc 18 mg/dl (0-30) 12/15/23 03:16
HDL Cholesterol 91 mg/dl 12/15/23 03:16
Physical Exam
Constitutional: No acute distress, Comfortable and Confusion
Cardiovascular: Rhythm & rate is regular, Pedal edema is absent, JVD pressure is normal, Diastolic murmur absent and Systolic murmur present (04/10 LUSB)
Respiratory: Respiratory effort normal and Lungs clear to auscul.
Neuro/Psych: Alert, Oriented and AO x 3
Data Reviewed
-
Date of Service: December 17, 2023
Medical Decision Making: Reviewed Test Results and Test Interpretation
EKG: Report Reviewed by me
X-Ray/CT/US/MRI/NUC/PET: Report Reviewed by me
Medical Tests (PFT, Pathology etc): Report Reviewed by me
Labs: Labs Reviewed by me
[2023-12-17 11:26] VITALS: BP 91/51
[2023-12-17] MEDS: HEPARIN 25000 UNITS/250 ML IV (14:58)
[2023-12-17 15:23] VITALS: BP 104/59
--- NOTE | 2023-12-17 15:36 | CM ---
Chart reviewed. Patient is independent of ADLS, lives alone in a apartment, [address], 0 [address]. Patient's landlord who lives below is away next week on vacation. Patient with supportive children, who are willing to help. Plan is for the patient to
return home with CT Transitional RN. CM to follow
--- NOTE | 2023-12-17 17:26 | PTCARENOTE ---
Pt received this am with no c/o. Ambulating in the room and hallway. Denies any chest pain or sob. IV Heparin and Nitro infusing as ordered.
[2023-12-17 19:33] VITALS: BP 93/51
[2023-12-17 22:22] VITALS: BP 106/58
[2023-12-17] MEDS: MAALOX PLUS 1 TABLET PO (22:24)
[2023-12-18] VITALS (20 sets, daily range): BP systolic 78–139; BP diastolic 48–75; BMI 22.1
--- NOTE | 2023-12-18 00:36 | W.PN.CT ---
Today's Communication / Plan
-
-No major issues overnight. Denies CP/SOB
-Cont. NTG and Heparin gtt
-Cont. current meds (ASA, Crestor, Zetia, Toprol, Lasix; hold Farxiga 72hrs prior to OR)
-Ongoing preop workup
-For CABG by Dr. Hickey on 12/21
-Will cont. closely monitor
Assessment / Plan
-
Impression:
- Unstable angina/ NSTEMI- admitted to [facility] on 12/13/23, transferred to on 12/14/23 for evaluation for CABG (last Plavix 12/13/23)- currently, on iv Heparin
- Cath 12/13/23 with LM/2V CAD
- ICM, EF 32% by Echo 12/13/23
- Hx PSVT on Holter monitor
- Chronic LBBB
- PAD- s/p L SFA stent 06/29/23 and R external iliac stent 07/16/23
- Carotid dz with 50-69% LICA
- HTN/HLD
- Depression
- Viral subacute thyroditis 2022 - resolved
- Hx GIB d/t diverticulitis 2013
- Hx breast augmentation with subsequent removal of implants
- b/l cataract extraction with intraocular lens implant
LH (R radial 12/13/23-Dr. Monique):
-Left main: 70-80%
-LAD: 90% proximal prior to LAD stent. Both diagonals with moderate diffuse disease
-Left circumflex: 60 to 70%. 70-80% proximal OM1. Mid 90% OM 2.
-Dominant RCA: Up to 50% stenosis of vessel
Echo 12/13/23:
-Left ventricle is mildly dilated. Stage I diastolic dysfunction suggestive of abnormal relaxation.
-Moderately reduced left ventricular systolic function. Left ventricular ejection fraction is 32% by volumetric assessment.
-Global hypokinesis with the anterior and anterolateral waldrop moving best.
-Mild to moderate mitral regurgitation.
-Compared to previous echo report from 09/22/23, the ejection fraction sounds to be similar but the regionality of the hypokinesis described is different, but no images available for direct comparison.
TTE 09/22/23:
Moderate hypokinesis of the mid to distal anterior wall with apical akinesis. Mild�moderate distal inferior hypokinesis. EF 30-35%.
Normal RV size and function.
Mild�moderate mitral regurgitation.
Plan:
-No chest pain overnight
-Remains on Heparin and NTG gtt
-Plavix washout, last dose 12/13/23
-Ongoing preop workup
-Placed Farxiga on hold, holding 72hrs prior to OR
-For CABG, +/- MVR by Dr. Owusu on Wednesday 12/20
Discussed patient care with: Cardiology, Nursing, Respiratory Therapy, Pharmacy and Care Team
Subjective
-
Date of Service: December 18, 2023
No chest pain/sob overnight
Objective Data
-
Lab Results
12/17/23 02:04
PT 13.3 Sec (11.4-14.6) 12/15/23 03:16
INR 1.03 12/15/23 03:16
APTT 93.5 Sec (23.4-35.0) H 12/17/23 02:04
Vital Signs
Vital Signs
Temp Pulse Resp BP Pulse Ox
98.1 F 84 18 106/58 95
12/17/23 22:17 12/17/23 22:22 12/17/23 22:17 12/17/23 22:22 12/17/23 22:17
CT Intake/Output/Weight
12/17/23 12/17/23 12/18/23
06:59 18:59 06:59
Output Total 450 / 1900 450 / 450
Balance -450 / -1900 -450 / -450
SaO2: 95 (RA)
Physical Exam
-
General: Awake, Oriented and AOx3
Cardiovascular: Regular rate & rhythm
Incision: Clean, Dry, Intact and Dressing Intact
Extremities: No Edema
Data Reviewed
-
Lab Results: Results Reviewed
Medications: Active Meds Reviewed
Chest X-Ray: Report Reviewed and Image Reviewed
ECG: Report Reviewed and Image Reviewed
--- NOTE | 2023-12-18 01:31 | PTCARENOTE ---
Pt. received at change of shift, NSR with BBB on tele with HR 80s. BP 93/51, pt. reports intermittent dizziness when standing and headaches. No complaints of chest pain. Nitro gtt titrated down to 20mcg/min. Heparin gtt infusing at 650units/hr.
Pt remains CP free with BP 106/58. Pt with complaints of abdominal discomfort and feelings of gas pains, Maalox tablet administered per order. Plan of care discussed and pt. verbalizes understanding. Ambulating independently in room without
difficulty. Can make needs known. Call rhodes within reach.
--- NOTE | 2023-12-18 03:00 | PTCARENOTE ---
Pt woke up with complaints of 4/10 CP. HR in 120s and BP 138/74. Nitro gtt increased to 30mcg/min. Repeat BP 125/57. Pt reports relief of CP.
[2023-12-18 03:39] LABS: Hematocrit 28.3 % (37.0-47.0); Hemoglobin 9.9 g/dL (12.0-16.0); Mean Corpuscular Volume 88.7 fL (81.0-99.0); Mean Platelet Volume 9.9 fL (7.4-10.4); Platelet Count 181 10^3/uL (130-400); Red Blood Cell Count 3.19 10^6/uL (4.20-5.40); Red Cell Dist. Width 14.8 % (11.5-14.5); White Blood Cell Count 6.5 10^3/uL (4.8-10.8)
[2023-12-18 03:54] LABS: APTT 100.4 Sec (23.4-35.0)
[2023-12-18 04:33] LABS: TSH 2.52 uIU/ml (0.47-4.68)
[2023-12-18] MEDS: NITROGLYCERIN PREMIX 250 IV (06:19)
[2023-12-18] MEDS: TOPROL XL 25 MG PO (08:10)
[2023-12-18] MEDS: ZETIA 10 MG PO (08:10)
[2023-12-18] MEDS: LOW STRENGTH ASPIRIN 81 MG PO (08:11)
[2023-12-18] MEDS: FLUSH (NSS) 1 FLUSH IV (08:11)
[2023-12-18] MEDS: LASIX 20 MG PO ×2 (08:11→16:13)
[2023-12-18] MEDS: CRESTOR 40 MG PO (08:11)
--- NOTE | 2023-12-18 10:12 | PTCARENOTE ---
The patient is aaox3, vss, NSR with a LBB noted. Sinus tach is noted when she is up and ambulating. Heparin gtt running at 650 units/hr. Nitroglycerin gtt running at 30 mcg/min. She has no complaints of a chest pain nor a headache. However she does
complain of dizziness at times but only when she lifts her arms up to plug in the IV pump. I instructed her to ring for assistance when needing to plug in the IV pumps.
--- NOTE | 2023-12-18 16:30 | PTCARENOTE ---
The patient complained of a 4/0 chest pain. She described it as a slight burning with pressure. She states that it radiated, 'twinges', down her left arm. She stated that it didn't feel like heartburn. I was going to increase her nitro gtt however
she asked to go to the bathroom first. While in the bathroom, she began to burp multiple times. When she came out of the bathroom, she stated that she felt much better since she burped. Nitro gtt remains at 30 mcg/min.
--- NOTE | 2023-12-18 21:00 | PTCARENOTE ---
Pt. remains SR with BBB on tele with HR in 80s. BP noted to be 78/54, rechecked on B/L arms with no improvement. Pt denies dizziness and CP but does state she feels more weak and tired. Nitro gtt stopped. BP 10 minutes later 86/67, then up to
90/52. PA made aware and instructed RN to hold Nitro gtt X 1 hour, and restart gtt at 5mcg/min if systolic BP is above 90. Pt. with no complaints of CP at this time. Encouraged to ring for assistance as needed for ambulation. Can make needs
known. Call rhodes within reach.
--- NOTE | 2023-12-18 21:54 | PTCARENOTE ---
BP 93/59. Per PA, Nitro gtt restarted at 5mcg/min. Pt. with no complaints of CP at this time. Heparin gtt continues to infuse at 650units/hr. Plan of care discussed and pt. verbalizes understanding.
[2023-12-18] MEDS: MAALOX PLUS 1 TABLET PO (22:48)
[2023-12-19] VITALS (20 sets, daily range): BP systolic 105–144; BP diastolic 47–80; BMI 21.9
[2023-12-19] MEDS: HEPARIN 25000 UNITS/250 ML IV (04:23)
[2023-12-19 06:02] LABS: APTT 83.1 Sec (23.4-35.0)
[2023-12-19 06:17] LABS: Blood Urea Nitrogen 18 mg/dl (7-17); Calcium 9.1 mg/dl (8.4-10.2); Carbon Dioxide 24 mmol/L (22-30); Chloride 99 mmol/L (98-107); Estimated Creatinine Clearance 65 ml/min; Glucose 90 mg/dl (70-99); Magnesium 2.2 mg/dl (1.6-2.3); Potassium 3.9 mmol/L (3.5-5.1); Sodium 133 mmol/L (135-145); eGFR > 60.00
--- NOTE | 2023-12-19 06:30 | W.PN.CT ---
Today's Communication / Plan
-
-No major issues overnight
-NTG gtt was d/c'd last night d/t SBP 70's
-Had 2/10 chest pain with NTG off, subsequently able to resume NTG gtt @ 10 mcg with resolution of chest pain
-Cont. NTG and Heparin gtt
-Cont. current meds (ASA, Crestor, Zetia, Toprol, Lasix; hold Farxiga 72hrs prior to OR)
-Ongoing preop workup/medical optimization
-Plavix washout (last dose 12/13/23)
-For CABG, +/- MVR by Dr. Owusu on Wednesday 12/20
-Will cont. closely monitor
Assessment / Plan
-
Impression:
- Unstable angina/ NSTEMI- admitted to [facility] on 12/13/23, transferred to on 12/14/23 for evaluation for CABG (last Plavix 12/13/23)- currently, on iv Heparin
- Cath 12/13/23 with LM/2V CAD
- ICM, EF 32% by Echo 12/13/23
- Hx PSVT on Holter monitor
- Chronic LBBB
- PAD- s/p L SFA stent 06/29/23 and R external iliac stent 07/16/23
- Carotid dz with 50-69% LICA
- HTN/HLD
- Depression
- Viral subacute thyroditis 2022 - resolved
- Hx GIB d/t diverticulitis 2013
- Hx breast augmentation with subsequent removal of implants
- b/l cataract extraction with intraocular lens implant
LHC (R radial 12/13/23-Dr. Monique):
-Left main: 70-80%
-LAD: 90% proximal prior to LAD stent. Both diagonals with moderate diffuse disease
-Left circumflex: 60 to 70%. 70-80% proximal OM1. Mid 90% OM 2.
-Dominant RCA: Up to 50% stenosis of vessel
Echo 12/13/23:
-Left ventricle is mildly dilated. Stage I diastolic dysfunction suggestive of abnormal relaxation.
-Moderately reduced left ventricular systolic function. Left ventricular ejection fraction is 32% by volumetric assessment.
-Global hypokinesis with the anterior and anterolateral waldrop moving best.
-Mild to moderate mitral regurgitation.
-Compared to previous echo report from 09/22/23, the ejection fraction sounds to be similar but the regionality of the hypokinesis described is different, but no images available for direct comparison.
TTE 09/22/23:
Moderate hypokinesis of the mid to distal anterior wall with apical akinesis. Mild�moderate distal inferior hypokinesis. EF 30-35%.
Normal RV size and function.
Mild�moderate mitral regurgitation.
Discussed patient care with: Cardiology, Nursing, Respiratory Therapy, Pharmacy and Care Team
Subjective
-
Date of Service: December 19, 2023
C/O 2/10 chest pain with NTG off last night d/t SBP 70's. CP resolved following resumption of NTG @ 10 mcg/min
Objective Data
-
Lab Results
12/18/23 03:00
12/19/23 05:26
PT 13.3 Sec (11.4-14.6) 12/15/23 03:16
INR 1.03 12/15/23 03:16
APTT 83.1 Sec (23.4-35.0) H 12/19/23 05:26
Vital Signs
Vital Signs
Temp Pulse Resp BP Pulse Ox
98.3 F 90 18 133/70 94
12/19/23 05:18 12/19/23 05:00 12/19/23 05:18 12/19/23 05:00 12/19/23 05:18
CT Intake/Output/Weight
12/18/23 12/18/23 12/19/23
06:59 18:59 06:59
Intake Total 240 / 240
Output Total 700 / 1150 550 / 1050 500 / 1050
Balance -700 / -1150 -310 / -810 -500 / -810
SaO2: 94 (RA)
Data Reviewed
-
Lab Results: Results Reviewed
Medications: Active Meds Reviewed
Chest X-Ray: Report Reviewed and Image Reviewed
ECG: Report Reviewed and Image Reviewed
[2023-12-19] MEDS: FLUSH (NSS) 1 FLUSH IV (07:43)
[2023-12-19] MEDS: CRESTOR 40 MG PO (07:43)
[2023-12-19] MEDS: LASIX 20 MG PO ×2 (07:43→16:04)
[2023-12-19] MEDS: LOW STRENGTH ASPIRIN 81 MG PO (07:43)
[2023-12-19] MEDS: ZETIA 10 MG PO (07:43)
[2023-12-19] MEDS: TOPROL XL 25 MG PO (07:43)
--- NOTE | 2023-12-19 12:58 | PTCARENOTE ---
The patient is ambulatory in the halls. Her vitals remain stable. NSR with a 1st degree AVB noted on the monitor. Her heparin gtt is running at 650 units/hr. Nitroglycerin running at 10 mcg/min. She has no complaints of discomfort at this time.
--- NOTE | 2023-12-19 14:18 | W.PN.CD ---
Today's Communication / Plan
-
decrease nitro gtt and assess response.
Impression / Plan
-
BACKGROUND: 73F with ischemic cardiomyopathy, coronary artery disease, hypertension, dyslipidemia, and PAD who initially presented to [facility] and was found to have an NSTEMI and was transferred to this facility for CABG evaluation. Director Process:
Samira
NSTEMI
MVCAD
-Chest pain-free at present,she has some pain last night, couldn't distinguish between angina or reflux was treated for both with increased nitro gtt
-now feeling week, can back down on nitro and reassess.
-Continue heparin drip
-CABG evaluation per CT surgery---tentatively 12/[address] Owusu
-Last dose of clopidogrel 12/13/2023
-Entresto and SGLT2i will need to be held prior to surgery --48 hours and 72 hours respectfully
ICM (LVEF 30-35%, 09/2023), chronic
-She does not appear to be in acute/decompensated heart failure
-weight stable
-GDMT as tolerated
-ACEi/ARB: previously on Entresto - now held pending surgery
-Beta marcelo: metoprolol succinate 25mg daily
-SGLT2: Farxiga - ensure held 72 hours prior to OR
-Diuretic: furosemide 20mg po daily to maintain euvolemia
-Outpatient note from Dr. Hogan reports she does not have prescription coverage and requires samples of all name-brand medications
-Update echocardiogram, lowest documented LVEF was 25-30% in May of this year, 32% on echo 12/15/23
-She declined ICD and LifeVest in the outpatient setting
-HF education provided, trend daily weight & I/O
Dyslipidemia
-LDL 529 12/16/23; this is on high intensity statin and ezetimibe
-patient notes she has switched to a high fat low carb diet and saw a concomitant increase in her cholesterol from 300s to 700s in outpatient setting
-only begun treatment with statin in recent years
-Given her lack of prescription drug coverage by outpatient notes, Leqvio may be the best option for a third agent, but she will likely require multiple agents to achieve goal LDL; patient interested in outpatient consultation with [facility] / will refer
-Continue current medical therapy while inpatient
PAD
-multiple prior lower extremity revascularizations
-would likely benefit from low dose Xarelto 2.5 BID in outpatient setting
HTN
PSVT, seen on Holter monitor, Sinus tachycardia at times.
PAD, left superficial femoral artery stent (06/29/2023) & right external iliac artery stent (07/16/2023)
SUBJECTIVE:
she had cp last night that felt like burning but radiated.
DATA:
TTE: 12/14/23 CONCLUSIONS
Left ventricle is mildly dilated. Stage I diastolic dysfunction suggestive of
abnormal relaxation. Moderately reduced left ventricular systolic function. Left ventricular
ejection fraction is 32% by volumetric assessment.
Global hypokinesis with the anterior and anterolateral waldrop moving best.
Mild to moderate mitral regurgitation.
Compared to previous echo report from 09/22/23, the ejection fraction sounds to
be similar but the regionality of the hypokinesis described is different, but
no images available for direct comparison.
Echocardiogram, 09/22/2023:
Regional wall motion abnormalities include moderate hypokinesis of the mid to
distal anterior wall and apical akinesis. Mild to moderate distal inferior
hypokinesis.
The ejection fraction is estimated at 30-35%.
Diastolic function is indeterminate.
Normal right ventricular size and function.
Moderate left atrial enlargement.
Normal right atrium.
Structurally normal mitral valve without significant stenosis w/ mild to
moderate regurgitation.
Structurally normal aortic valve without significant stenosis or regurgitation.
Structurally normal tricuspid valve without significant stenosis w/ mild
regurgitation.
Estimated pulmonary artery pressure is 32 mmHg.
Structurally normal pulmonic valve without significant stenosis or
regurgitation.
Normal pericardium without effusion.
Normal aortic root.
IVC demonstrates normal respiratory variation.
Physical Exam
Vital Signs/Labs
Vital Signs
Temp Pulse Resp BP Pulse Ox
98.5 F 84 20 119/69 95
12/19/23 10:59 12/19/23 11:02 12/19/23 10:59 12/19/23 11:02 12/19/23 10:59
12/18/23 12/19/23 12/20/23
06:59 06:59 06:59
Actual Weight 61.1 kg 60.7 kg
12/18/23 03:00
12/19/23 05:26
PT 13.3 Sec (11.4-14.6) 12/15/23 03:16
INR 1.03 12/15/23 03:16
APTT 83.1 Sec (23.4-35.0) H 12/19/23 05:26
Magnesium 2.2 mg/dl (1.6-2.3) 12/19/23 05:26
Triglycerides 90 mg/dl (10-149) 12/15/23 03:16
LDL Cholesterol, Calc 529 mg/dl 12/15/23 03:16
VLDL Cholesterol, Calc 18 mg/dl (0-30) 12/15/23 03:16
HDL Cholesterol 91 mg/dl 12/15/23 03:16
TSH 2.52 uIU/ml (0.47-4.68) 12/18/23 03:00
Physical Exam
Constitutional: No acute distress
Cardiovascular: Rhythm & rate is regular, Pedal edema is absent, JVD pressure is normal, Systolic murmur absent and Diastolic murmur absent
Respiratory: Respiratory effort normal, Lungs clear to auscul., Wheeze Absent, Crackles Absent and Rhonchi Absent
Neuro/Psych: AO x 3
Data Reviewed
-
Date of Service: December 19, 2023
EKG: Other (tele sinus with sinus tachycardia)
--- NOTE | 2023-12-19 15:03 | PTCARENOTE ---
Pt c/o some lightheadedness while ambulating, no c/o chest pain. Ntg drip decreased to 8 mcg/min, as per Dr order. BP 132/60
--- NOTE | 2023-12-19 20:08 | PTCARENOTE ---
Pt remains in SR with BBB on tele with HR in the 80s. BP 105/58. Nitro gtt currently infusing at 8mcg/min and Heparin gtt infusing at 650units/hr. No complaints of CP at this time. Ambulating independently in room without difficulty. Plan of
care discussed. Call rhodes within reach.
[2023-12-20 02:45] VITALS: BP 107/59
[2023-12-20 02:47] VITALS: BMI 22.0
[2023-12-20] MEDS: MAALOX PLUS 1 TABLET PO ×2 (02:53→22:36)
[2023-12-20 03:19] LABS: Hemoglobin 10.1 g/dL (12.0-16.0); Mean Corp Hgb Conc. 34.8 g/dL (33.0-37.0); Mean Corpuscular Hgb 32.2 pg (27.0-31.0); Mean Corpuscular Volume 92.4 fL (81.0-99.0); Mean Platelet Volume 10.3 fL (7.4-10.4); Platelet Count 187 10^3/uL (130-400); Red Blood Cell Count 3.14 10^6/uL (4.20-5.40); Red Cell Dist. Width 14.7 % (11.5-14.5); White Blood Cell Count 5.4 10^3/uL (4.8-10.8)
[2023-12-20 03:32] LABS: APTT 81.9 Sec (23.4-35.0)
[2023-12-20 03:40] LABS: Blood Urea Nitrogen 21 mg/dl (7-17); Calcium 9.3 mg/dl (8.4-10.2); Carbon Dioxide 24 mmol/L (22-30); Chloride 98 mmol/L (98-107); Estimated Creatinine Clearance 65 ml/min; Glucose 94 mg/dl (70-99); Magnesium 2.1 mg/dl (1.6-2.3); Potassium 3.9 mmol/L (3.5-5.1); Sodium 135 mmol/L (135-145); eGFR > 60.00
--- NOTE | 2023-12-20 05:26 | W.PN.CT ---
Addendum entered and electronically signed by Jazmín Khna PA-C 12/20/23 11:41:
additional diagnosis:
Hyponatremia
Original Note:
Today's Communication / Plan
-
-No major issues overnight
-No CP/SOB overnight
-Cont. NTG and Heparin gtt
-Cont. current meds (ASA, Crestor, Zetia, Toprol, Lasix; hold Farxiga 72hrs prior to OR)
-Ongoing preop workup/medical optimization
-Plavix washout (last dose 12/13/23)
-For CABG, +/- MVR by Dr. Owusu on Wednesday 12/20
-Will cont. closely monitor
Assessment / Plan
-
Impression:
- Unstable angina/ NSTEMI- admitted to [facility] on 12/13/23, transferred to on 12/14/23 for evaluation for CABG (last Plavix 12/13/23)- currently, on iv Heparin
- Cath 12/13/23 with LM/2V CAD
- ICM, EF 32% by Echo 12/13/23
- Hx PSVT on Holter monitor
- Chronic LBBB
- PAD- s/p L SFA stent 06/29/23 and R external iliac stent 07/16/23
- Carotid dz with 50-69% LICA
- HTN/HLD
- Depression
- Viral subacute thyroditis 2022 - resolved
- Hx GIB d/t diverticulitis 2013
- Hx breast augmentation with subsequent removal of implants
- b/l cataract extraction with intraocular lens implant
LHC (R radial 12/13/23-Dr. Monique):
-Left main: 70-80%
-LAD: 90% proximal prior to LAD stent. Both diagonals with moderate diffuse disease
-Left circumflex: 60 to 70%. 70-80% proximal OM1. Mid 90% OM 2.
-Dominant RCA: Up to 50% stenosis of vessel
Echo 12/13/23:
-Left ventricle is mildly dilated. Stage I diastolic dysfunction suggestive of abnormal relaxation.
-Moderately reduced left ventricular systolic function. Left ventricular ejection fraction is 32% by volumetric assessment.
-Global hypokinesis with the anterior and anterolateral waldrop moving best.
-Mild to moderate mitral regurgitation.
-Compared to previous echo report from 09/22/23, the ejection fraction sounds to be similar but the regionality of the hypokinesis described is different, but no images available for direct comparison.
TTE 09/22/23:
Moderate hypokinesis of the mid to distal anterior wall with apical akinesis. Mild�moderate distal inferior hypokinesis. EF 30-35%.
Normal RV size and function.
Mild�moderate mitral regurgitation.
Discussed patient care with: Cardiology, Nursing, Respiratory Therapy, Pharmacy and Care Team
Subjective
-
Date of Service: December 20, 2023
No issues overnight. Denies CP/SOB
Objective Data
-
Lab Results
12/20/23 02:41
12/20/23 02:41
PT 13.3 Sec (11.4-14.6) 12/15/23 03:16
INR 1.03 12/15/23 03:16
APTT 81.9 Sec (23.4-35.0) H 12/20/23 02:41
Vital Signs
Vital Signs
Temp Pulse Resp BP Pulse Ox
98 F 81 16 107/59 94
12/20/23 02:43 12/20/23 02:45 12/20/23 02:43 12/20/23 02:45 12/20/23 02:45
CT Intake/Output/Weight
12/19/23 12/19/23 12/20/23
06:59 18:59 06:59
Intake Total 452.4 / 452.4
Output Total 500 / 1050 700 / 1700 1000 / 1700
Balance -500 / -717.6 -247.6 / -1247.6 -1000 / -1247.6
SaO2: 94 (RA)
Physical Exam
-
General: Awake, Oriented and AOx3
Cardiovascular: Regular rate & rhythm, No Murmurs, No Rub and No Gallop
Respiratory: Clear
Extremities: Other (+trace edema )
Data Reviewed
-
Lab Results: Results Reviewed
Medications: Active Meds Reviewed
Chest X-Ray: Report Reviewed and Image Reviewed
ECG: Report Reviewed and Image Reviewed
[2023-12-20 07:29] VITALS: BP 124/71
--- NOTE | 2023-12-20 07:33 | W.PN.CD ---
Today's Communication / Plan
-
CABG tentatively planned for tomorrow
Impression / Plan
-
BACKGROUND: 73F with ischemic cardiomyopathy, coronary artery disease, hypertension, dyslipidemia, and PAD who initially presented to [facility] and was found to have an NSTEMI and was transferred to this facility for CABG evaluation. Multiplex Operator:
Samira
NSTEMI
MVCAD
-Had 20 min 'heartburn' last night resolved with belching. Occurred as often does when she lay down to go to sleep.
-Continue heparin drip
- Reviewed angiogram: CABG most appropriate therapy given prox LAD involvement with severe LV dysfunction. Not sure graft to RCA will stay patent as lesion to my eye in 30% range
-CABG evaluation per CT surgery---tentatively 12/[address] Owusu
-Last dose of clopidogrel 12/13/2023
-Entresto and SGLT2i will need to be held prior to surgery --48 hours and 72 hours respectfully
ICM (LVEF 30-35%, 09/2023), chronic
-She does not appear to be in acute/decompensated heart failure
-weight stable
-GDMT as tolerated
-ACEi/ARB: previously on Entresto - now held pending surgery
-Beta marcelo: metoprolol succinate 25mg daily
-SGLT2: Farxiga - ensure held 72 hours prior to OR
-Diuretic: furosemide 20mg po daily to maintain euvolemia
-Outpatient note from Dr. Hogan reports she does not have prescription coverage and requires samples of all name-brand medications
-Update echocardiogram, lowest documented LVEF was 25-30% in May of this year, 32% on echo 12/15/23
-She declined ICD and LifeVest in the outpatient setting
-HF education provided, trend daily weight & I/O
Dyslipidemia
-LDL 529 12/16/23; this is on high intensity statin and ezetimibe
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 She will need PSK9i therapy postop as outpt
-patient notes she has switched to a high fat low carb diet and saw a concomitant increase in her cholesterol from 300s to 700s in outpatient setting
-only begun treatment with statin in recent years
-Given her lack of prescription drug coverage by outpatient notes, Leqvio may be the best option for a third agent, but she will likely require multiple agents to achieve goal LDL; patient interested in outpatient consultation with [facility] / will refer
-Continue current medical therapy while inpatient
PAD
-multiple prior lower extremity revascularizations
-may benefit from low dose Xarelto 2.5 BID in outpatient setting. Will leave this to primary specimen processor.
HTN
PSVT, seen on Holter monitor, Sinus tachycardia at times.
PAD, left superficial femoral artery stent (06/29/2023) & right external iliac artery stent (07/16/2023)
SUBJECTIVE:
Reflux type sxs last night
DATA:
TTE: 12/14/23 CONCLUSIONS
Left ventricle is mildly dilated. Stage I diastolic dysfunction suggestive of
abnormal relaxation. Moderately reduced left ventricular systolic function. Left ventricular
ejection fraction is 32% by volumetric assessment.
Global hypokinesis with the anterior and anterolateral walrdop moving best.
Mild to moderate mitral regurgitation.
Compared to previous echo report from 09/22/23, the ejection fraction sounds to
be similar but the regionality of the hypokinesis described is different, but
no images available for direct comparison.
Echocardiogram, 09/22/2023:
Regional wall motion abnormalities include moderate hypokinesis of the mid to
distal anterior wall and apical akinesis. Mild to moderate distal inferior
hypokinesis.
The ejection fraction is estimated at 30-35%.
Diastolic function is indeterminate.
Normal right ventricular size and function.
Moderate left atrial enlargement.
Normal right atrium.
Structurally normal mitral valve without significant stenosis w/ mild to
moderate regurgitation.
Structurally normal aortic valve without significant stenosis or regurgitation.
Structurally normal tricuspid valve without significant stenosis w/ mild
regurgitation.
Estimated pulmonary artery pressure is 32 mmHg.
Structurally normal pulmonic valve without significant stenosis or
regurgitation.
Normal pericardium without effusion.
Normal aortic root.
IVC demonstrates normal respiratory variation.
Physical Exam
Vital Signs/Labs
Vital Signs
Temp Pulse Resp BP Pulse Ox
98.0 F 80 16 124/71 96
12/20/23 07:28 12/20/23 07:29 12/20/23 07:28 12/20/23 07:29 12/20/23 07:28
12/19/23 12/20/23 12/21/23
06:59 06:59 06:59
Actual Weight 133 lb 13.129 oz 134 lb 4.184 oz
12/20/23 02:41
12/20/23 02:41
PT 13.3 Sec (11.4-14.6) 12/15/23 03:16
INR 1.03 12/15/23 03:16
APTT 81.9 Sec (23.4-35.0) H 12/20/23 02:41
Magnesium 2.1 mg/dl (1.6-2.3) 12/20/23 02:41
Triglycerides 90 mg/dl (10-149) 12/15/23 03:16
LDL Cholesterol, Calc 529 mg/dl 12/15/23 03:16
VLDL Cholesterol, Calc 18 mg/dl (0-30) 12/15/23 03:16
HDL Cholesterol 91 mg/dl 12/15/23 03:16
TSH 2.52 uIU/ml (0.47-4.68) 12/18/23 03:00
Physical Exam
Constitutional: No acute distress
EENT: Anicteric
Cardiovascular: Rhythm & rate is regular, S1S2 is normal and Murmur/rub/gallop absent
Respiratory: Respiratory effort normal, Lungs clear to auscul. and Wheeze Absent
GI: Soft and Non tender
Neuro/Psych: AO x 3 and Motor deficits absent
Data Reviewed
-
Date of Service: December 20, 2023
[2023-12-20] MEDS: LOW STRENGTH ASPIRIN 81 MG PO (08:18)
[2023-12-20] MEDS: FLUSH (NSS) 1 FLUSH IV (08:18)
[2023-12-20] MEDS: CRESTOR 40 MG PO (08:18)
[2023-12-20] MEDS: ZETIA 10 MG PO (08:18)
[2023-12-20] MEDS: LASIX 20 MG PO ×2 (08:18→16:08)
[2023-12-20] MEDS: TOPROL XL 25 MG PO (08:18)
--- NOTE | 2023-12-20 11:04 | PN.CDI ---
CDI
- -
CDI:
Physician Documentation Request
Admit Date: 12/14/23 06:[address] Surgery,
Clinical Indicators:
Patient admitted with NSTEMI; PMH includes HFrEF.
12/15 (23:18) RN note, 'Pt aware of need to maintain accurate I@O and fluid restriction'
Sodium levels:
12/15/23 12/17/23 12/19/23
03:16 02:04 05:26
Sodium 132 L 133 L 133 L
Based on the above, could you clarify in the progress notes, the appropriate diagnosis, if significant, that supports the above abnormalities and additional evaluation, monitoring and/or treatment rendered:
Hyponatremia
Abnormal lab value, clinically insignificant
Other, please specify
Use of terms such as suspected, likely, concern for, or probable (associated with a specific diagnosis that is being evaluated, monitored, or treated as if it exists) are acceptable and can be coded in the inpatient setting, when documented at the
time of discharge.
Thank you,
Cherry Coto RN BSN
CDI Specialist
available via tiger text
Please use your independent medical judgment in providing your response.
[2023-12-20 11:18] VITALS: BP 121/72
--- NOTE | 2023-12-20 11:27 | CM ---
plan is for CABG tomorrow.
[2023-12-20 15:32] VITALS: BP 119/65
--- NOTE | 2023-12-20 15:53 | PTCARENOTE ---
The patient is worried that her children won't be able to have access to her care post CABG. She stated that she knows there is a one person main contact. However she would like all of her children to be able to get updates on her condition while
they are here at the hospital.
[2023-12-20] MEDS: HEPARIN 25000 UNITS/250 ML IV (19:24)
[2023-12-20 20:25] VITALS: BP 125/65
[2023-12-20 23:24] VITALS: BP 114/68
[2023-12-20] MEDS: XANAX 0.25 MG PO (23:25)
[2023-12-21] VITALS (10 sets, daily range): BP systolic 48–130; BP diastolic 32–73; BMI 21.9
--- NOTE | 2023-12-21 04:25 | PTCARENOTE ---
Tele remains SR w/ BBBC. Pt c/o heartburn, PRN Maalox Plus administered w/ good relief. 1st round of prep completed by Vannessa FRANCISCO. IV Heparin gtt infusing at 6.5ml/hr, and IV Nitroglycerin infusing at 8mcg/min. Pt aware to remain NPO at midnight. POC
ongoing. Call rhodes within reach.
[2023-12-21 05:36] LABS: APTT 88.6 Sec (23.4-35.0)
[2023-12-21] MEDS: LOPRESSOR 25 MG PO (05:53)
[2023-12-21] MEDS: BACTROBAN 2% OINTMENT 1 APPLIC NASAL ×2 (05:54→21:23)
[2023-12-21] MEDS: PROTONIX 40 MG PO (05:54)
[2023-12-21] MEDS: MAGNESIUM OXIDE 500 MG PO (05:54)
--- NOTE | 2023-12-21 06:36 | W.CVOR.SURPR ---
CVOR Surgeon Immed Pre Op
-
I have examined this patient prior to performance of the scheduled procedure.
The patient's condition is unchanged from the time of the dictated/written History and
Physical and the patient is able to undergo the scheduled procedure.
Low EF CABG + SHANTELL Clip, will assess MV on JONATHAN, functional and appears mild-mod
[2023-12-21 07:01] LABS: ACT+ - POC 85 Seconds (82-134)
[2023-12-21 07:17] LABS: Urine Albumin Trace (Neg - Trace); Urine Bilirubin Negative (Negative); Urine Character Clear (Clear); Urine Color Yellow; Urine Glucose Negative (Negative); Urine Ketone Negative (Negative); Urine Leukocyte Negative (Negative); Urine Nitrite Negative (Negative); Urine Occult Blood Negative (Negative); Urine Specific Gravity 1.015 (<1.030); Urine Urobilinogen Negative (Neg - 1+)
[2023-12-21 08:53] LABS: ACT+ - POC 365 Seconds (82-134)
[2023-12-21 09:06] LABS: ACT+ - POC 705 Seconds (82-134)
[2023-12-21 09:19] LABS: B.E. - POC -0.9 mmol/L; Glucose - POC 98 mg/dl (70-99); HCO3 - POC 22 mmol/L (21-29); Hematocrit - POC 30 % PCV (37-47); Hemodilution- POC Yes; Hemoglobin Calculated - POC 10.2; Ionized Calcium - POC 1.14 mmol/L (1.12-1.27); PCO2 - POC 31 mmHg (35-45); PO2 - POC 410 mmHg (80-100); POC Comment PRE; Potassium - POC 3.1 mmol/L (3.6-5.0); Sodium - POC 137 mmol/L (135-145); pH - POC 7.47 (7.35-7.45)
[2023-12-21 09:34] LABS: ACT+ - POC 779 Seconds (82-134)
[2023-12-21 09:55] LABS: B.E. - POC 5.4 mmol/L; Glucose - POC 145 mg/dl (70-99); HCO3 - POC 30 mmol/L (21-29); Hematocrit - POC 20 % PCV (37-47); Hemodilution- POC Yes; Hemoglobin Calculated - POC 6.9; Ionized Calcium - POC 0.97 mmol/L (1.12-1.27); PCO2 - POC 44 mmHg (35-45); PO2 - POC 430 mmHg (80-100); POC Comment CPB; Potassium - POC 4.7 mmol/L (3.6-5.0); Sodium - POC 133 mmol/L (135-145); pH - POC 7.45 (7.35-7.45)
[2023-12-21 10:05] LABS: B.E. - POC 3.5 mmol/L; Glucose - POC 148 mg/dl (70-99); HCO3 - POC 28 mmol/L (21-29); Hematocrit - POC 28 % PCV (37-47); Hemodilution- POC Yes; Hemoglobin Calculated - POC 9.4; Ionized Calcium - POC 1.03 mmol/L (1.12-1.27); O2 Saturation %Calculated-POC 99.9 5 (92-96); PCO2 - POC 40 mmHg (35-45); PO2 - POC 328 mmHg (80-100); POC Comment CPB; Potassium - POC 4.1 mmol/L (3.6-5.0); Sodium - POC 135 mmol/L (135-145); pH - POC 7.45 (7.35-7.45)
[2023-12-21 10:10] LABS: ACT+ - POC 811 Seconds (82-134)
[2023-12-21 10:46] LABS: B.E. - POC 3.2 mmol/L; Glucose - POC 142 mg/dl (70-99); HCO3 - POC 27 mmol/L (21-29); Hematocrit - POC 27 % PCV (37-47); Hemodilution- POC Yes; Ionized Calcium - POC 1.01 mmol/L (1.12-1.27); PCO2 - POC 36 mmHg (35-45); PO2 - POC 404 mmHg (80-100); POC Comment WARM; Potassium - POC 4.3 mmol/L (3.6-5.0); Sodium - POC 137 mmol/L (135-145); pH - POC 7.48 (7.35-7.45)
[2023-12-21 11:00] LABS: ACT+ - POC 690 Seconds (82-134)
--- NOTE | 2023-12-21 11:10 | CM ---
Chart reviewed. Patient is in the OR today. Patient is independent of ADLS, lives in an apartment, [address], [address]. Patient with supportive children. Plan is for the patient to return home with CT Transitional RN. CM to follow
[2023-12-21] MEDS: CRESTOR PO (11:21)
[2023-12-21 11:22] LABS: B.E. - POC 2.6 mmol/L; Glucose - POC 149 mg/dl (70-99); HCO3 - POC 26 mmol/L (21-29); Hematocrit - POC 27 % PCV (37-47); Hemodilution- POC Yes; Ionized Calcium - POC 1.33 mmol/L (1.12-1.27); PCO2 - POC 32 mmHg (35-45); PO2 - POC 390 mmHg (80-100); POC Comment CPB; Potassium - POC 4.4 mmol/L (3.6-5.0); Sodium - POC 138 mmol/L (135-145); pH - POC 7.51 (7.35-7.45)
[2023-12-21] MEDS: TOPROL XL PO (11:22)
[2023-12-21] MEDS: LOW STRENGTH ASPIRIN PO (11:22)
[2023-12-21] MEDS: LASIX PO (11:22)
[2023-12-21] MEDS: ZETIA PO (11:22)
[2023-12-21 11:35] LABS: ACT+ - POC 632 Seconds (82-134)
[2023-12-21 11:52] LABS: Glucose - POC 124 mg/dl (70-99); HCO3 - POC 25 mmol/L (21-29); Hematocrit - POC 23 % PCV (37-47); Hemodilution- POC Yes; Hemoglobin Calculated - POC 7.8; Ionized Calcium - POC 1.13 mmol/L (1.12-1.27); PCO2 - POC 29 mmHg (35-45); PO2 - POC 490 mmHg (80-100); POC Comment CPB; Potassium - POC 5.4 mmol/L (3.6-5.0); Sodium - POC 137 mmol/L (135-145); pH - POC 7.55 (7.35-7.45)
[2023-12-21 12:04] LABS: ACT+ - POC 628 Seconds (82-134)
[2023-12-21 12:51] LABS: B.E. - POC 0.8 mmol/L; Glucose - POC 145 mg/dl (70-99); HCO3 - POC 26 mmol/L (21-29); Hematocrit - POC 31 % PCV (37-47); Hemodilution- POC Yes; Hemoglobin Calculated - POC 10.6; O2 Saturation %Calculated-POC 99.9 5 (92-96); PCO2 - POC 44 mmHg (35-45); PO2 - POC 360 mmHg (80-100); POC Comment WARM; Potassium - POC 4.7 mmol/L (3.6-5.0); Sodium - POC 140 mmol/L (135-145); pH - POC 7.38 (7.35-7.45)
[2023-12-21 12:54] LABS: ACT+ - POC 101 Seconds (82-134)
--- NOTE | 2023-12-21 13:33 | CON.INTV ---
Consultation
Consultation Request
Date/Time Consultation Requested: 12/21/2023-2 PM
Date/Time Consultation Performed: 12/21/2023-2:15 PM
Requesting Provider: Cardiovascular surgery
Performing Provider: Dr. Saunders
Reason for Consultation: Postoperative ventilator/critical care management
Medical History
-
Chief Complaint: CAD
History of Present Illness:
73-year-old female with a history of ischemic cardiomyopathy, CAD, hypertension, hyperlipidemia and PAD found to have NSTEMI with further evaluation necessitating Impella/CABG/MVR and kitchen operator consulted for postoperative ventilator/critical care
management 12/21/2023. Patient is intubated postoperatively and review of systems was unobtainable. Operative records were reviewed. Pressors and inotropes were reviewed.
Past Medical History
Past Medical History: None (Xkqudxnlhtjdcc-jbnftrbz-VS 30%. CAD. Hypertension. Hyperlipidemia. PAD-left superficial femoral artery stent 06/2023/right external iliac stent 07/2023. PSVT. Depression. Viral thyroiditis 2022. GIB due to
diverticulitis 2013. Tonsillectomy. Tubal ligation. Bilateral cataract. Breast aug)
Social History
Tobacco: Non-smoker
Alcohol: Occasional
Drug: None
Living: Alone
Occupational Exposures: No known asbestos exposure
Environmental Exposures: No known tuberculosis exposure
Family History
Family History: Reviewed & Not Pertinent
Allergies / Home Medications
Allergies
Allergy/AdvReac Type Severity Reaction Status Date / Time
No Known Allergies Allergy Unverified 12/14/23 08:02
Home Medications
�Medication �Instructions �Recorded �Confirmed �Last Taken �Type
aspirin 81 mg chewable tablet 81 mg PO DAILY 12/14/23 12/14/23 12/12/23 10:00 History
clopidogrel 75 mg tablet (Plavix) 75 mg PO DAILY 12/14/23 12/14/23 12/13/23 10:00 History
dapagliflozin propanediol 10 mg 10 mg PO DAILY 12/14/23 12/14/23 12/13/23 10:00 History
tablet (Farxiga)
ezetimibe 10 mg tablet (Zetia) 10 mg PO DAILY 12/14/23 12/14/23 12/13/23 10:00 History
furosemide 20 mg tablet (Lasix) 20 mg PO DAILY 12/14/23 12/14/23 12/13/23 10:00 History
metoprolol succinate 25 mg 25 mg PO DAILY 12/14/23 12/14/23 12/13/23 10:00 History
tablet,extended release 24 hr
(Toprol XL)
rosuvastatin 40 mg tablet 40 mg PO DAILY 12/14/23 12/14/23 12/13/23 17:30 History
sacubitril 24 mg-valsartan 26 mg 1 tab PO BID 12/14/23 12/14/23 Unknown History
tablet (Entresto)
valsartan 40 mg tablet 40 mg PO DAILY 12/14/23 12/14/23 12/13/23 10:00 History
Review of Systems
-
Unable to Obtain full review of systems at this time due to: Patient Intubation
Vitals / Labs / Diagnostic Testing
Vital Signs
Temp Pulse Resp BP Pulse Ox
97.8 F 81 16 115/73 94
12/21/23 05:12 12/21/23 05:53 12/21/23 05:12 12/21/23 05:53 12/21/23 05:12
Laboratory Results
12/21/23
05:08
APTT 88.6 H
Diagnostic Testing:
Physical Exam
-
Exam:
Well-nourished and well-developed in no apparent distress
HEENT-atraumatic, normocephalic, oral tracheal intubation
Heart-regular rate and rhythm-no murmurs, rubs or gallops
Chest-clear to auscultation, no wheezes, crackles, median sternotomy bandage is not removed
Abdomen soft nondistended
Extremities-no cyanosis, clubbing, edema and good peripheral pulses
Integument-intact, no rashes, lesions or ecchymosis
Neurologically not alert, not oriented, not moving any of his extremities sedated on a ventilator
Assessment
-
73-year-old female with a history of ischemic cardiomyopathy, CAD, hypertension, hyperlipidemia and PAD found to have NSTEMI with further evaluation necessitating Impella/CABG/MVR and kitchen operator consulted for postoperative ventilator/critical care
management 12/21/2023.
Severe CAD with preop EF 20-30%
Status post CABG/Impella-Dr. Owusu-12/21/2023
Ischemic cardiomyopathy-EF 20-30%
Moderate mitral regurgitation
Mild kocrqy-owghnxbaba-fjlzjitrri 10.1
Conditions present prior to admission:
Qehohcfaptdbkt-yhlmmwqu-PU 20-30 %.
CAD.
Hypertension.
Hyperlipidemia.
PAD-left superficial femoral artery stent 06/2023/right external iliac stent 07/2023.
PSVT.
Depression.
Viral thyroiditis 2022.
GIB due to diverticulitis 2013.
Tonsillectomy. Tubal ligation. Bilateral cataract. Breast augmentation
Plan
Ventilator settings reviewed
FiO2 will be weaned
Minute ventilation will be adjusted
Arterial blood gases will be monitored
Spontaneous breathing trial will be attempted with hopeful extubation after anesthesia/sedation wear off
Pulmonary artery catheter parameters will be followed
Pressors/antihypertensive/inotropes/diuretics will be provided as needed
Impella device per cardiology and cardiovascular surgery-likely in for 48-72 hours
Monitor chest tube output
Monitor hemoglobin
Monitor platelet count and coags
Transfuse blood product if needed
CT surgery following chest tubes
Monitor blood sugar
Insulin drip per protocol
Aspiration precautions
VAP prevention protocol
DVT prophylaxis
Early nutrition
Early mobilization
Critical care statement: A total of 50 minutes of critical care time was provided for this patient today. This includes management of ventilator, spontaneous breathing trial, arterial blood gases, pressors, of unstable vital signs, evaluation of the
patient at bedside, reviewing the patient's pertinent medical records including radiographs, microbiology, laboratory evaluations, and discussion with primary team and critical care nursing.
Diagnostic data:
Chest x-ray 12/15/2023-NAD
CT chest 12/14/23-mild dependent atelectasis, mild peripheral interstitial fibrosis, no honeycombing,
Echocardiogram-transesophageal 12/21/2023-EF 20%, moderate concentric left ventricular hypertrophy, stage I diastolic dysfunction, moderate mitral regurgitation, mitral regurgitation etiology is likely functional due to papillary muscle dysfunction
and leaflet restriction, mild sessile erythema
Data Reviewed
-
EKG: Report reviewed by me
Radiology: Report reviewed by me
CT Scan: Report reviewed by me
Labs: Labs reviewed by me
Old Records: Reviewed
Critical Care Time (in minutes): 50
--- NOTE | 2023-12-21 14:10 | W.PN.CT.SURG ---
Addendum entered and electronically signed by Vincenzo Owusu MD 12/21/23 15:11:
Procedure(s) Performed:
1. Standard sternotomy with aortic and right atrial cannulation
2. Harvesting of bilateral internal mammary arteries, both were not usable with significant amount of plaque and cholesterol with poor flow on flow probe assessment
3. Coronary artery bypass grafting x 4 (In situ LLOYD to LAD -additional vein graft to the distal LAD off of the flynn of OM 3 vein graft from the aorta, Ao to RSVG to OM1, Ao to RSVG to OM 3)
4. Revision of vein graft of OM 3 with an additional piece of vein to extend the length
5. Left atrial appendage exclusion with 35 mm clip
6. Placement of a left ventricular assist device, direct aortic using a 10 mm dacron woven graft of the distal ascending aorta tunneled to the left supraclavicular region (5.5 Impella VAD)
7. Endoscopic vein harvesting of right lower extremity (along with open harvest segment)
8. Transesophageal echocardiography
9. Placement of temporary atrial ventricular pacing wires
Original Note:
CT Surgery Operative Note
-
CARDIAC SURGERY OPERATIVE REPORT
Preoperative Diagnosis: Multivessel Coronary Artery Disease with proximal left anterior descending artery stenosis status post PCI and MS
Postoperative Diagnosis: Same, acute on chronic ischemic heart failure
Procedure(s) Performed:
1. Standard sternotomy with aortic and right atrial cannulation
2. Harvesting of bilateral internal mammary arteries, both were not usable with significant amount of plaque and cholesterol with poor flow on flow probe assessment
3. Coronary artery bypass grafting x 3 (In situ LLOYD to LAD -additional vein graft to the distal LAD off of the flynn of OM 3 vein graft from the aorta, Ao to RSVG to OM1, Ao to RSVG to OM 3)
4. Revision of vein graft of OM 3 with an additional piece of vein to extend the length
5. Left atrial appendage exclusion with 35 mm clip
6. Placement of a left ventricular assist device, direct aortic using a 10 mm dacron woven graft of the distal ascending aorta tunneled to the left supraclavicular region (5.5 Impella VAD)
7. Endoscopic vein harvesting of right lower extremity (along with open harvest segment)
8. Transesophageal echocardiography
9. Placement of temporary atrial ventricular pacing wires
Date of Surgery: 12/21/2023
Comorbidities:
1. History of MS status post stenting in March
2. Presentation with new NSTEMI, proximal LAD disease
3. Newly diagnosed ischemic cardiomyopathy with LVEF of 30% and regional wall motion abnormality
4. Functional mitral valve insufficiency, mild to moderate [type IIIb]
5. Left bundle branch block
6. Significant hyperlipidemia
7. Hypertension
8. Acute on chronic ischemic myopathy, systolic and diastolic dysfunction with LVEF of 20% at time of surgery and dilated left ventricle, cardiac index at that time was 1.4-1.5
Attending Surgeon: Vincenzo Owusu MD, MS
Assistants: Melany Campbell PA-C (present and necessary to media assistant, endoscopic vein harvest, retraction, suction, exposure, suture management, and wound closure under my direction)
Anesthesiology: Drake Chang MD and Mavis Olsen CRNA
Scrub and Circulating RNs: Bernard Morales RN, Najma Bermudez RN
Mother Tester: Melany Oleary CCP
Anesthesia: GETA
EBL: per perfusion records
Products: 2 prbcs, 2 ffp, 2 plts
CPB Time: 200 minutes
Aortic Cross Clamp Time: 140 minutes
Implants:
1. 35mm SHANTELL CLip, SN [id number]
2. 5.5 Impella, SN [id number]
3. Hemashield [place], 10mm graft, SN [id number]
Indication(s) for Procedures: This is a 73-year-old female who recently had an MS and underwent a PCI/stent in March 2023. She had recurrent symptoms with chest pressure and was ruled in for NSTEMI. Repeat left heart cath demonstrated new
proximal LAD stenosis with involvement of her left main. She also had diffuse disease of the left circumflex system. Given that she was on Plavix at baseline for her stent, she was given a period to washout. Her repeat echocardiogram here
demonstrated functional mitral valve insufficiency graded as mild to moderate with tethering the posterior leaflet. There is significant regional wall motion abnormalities as well as dilated cardiomyopathy secondary to ischemia resulting in both
systolic and diastolic dysfunction. At the time of her surgery she was aware that mitral valve intervention may be necessary as well as temporary ventricular assist device support given her poor left ventricular function to start off
Conduit(s) Quality:
LLOYD -poor/not usable, significant atherosclerotic disease with casting of cholesterol deposits resulting in poor flow.
FANNIE�only the distal segment of the FANNIE was usable. The majority of the FANNIE itself also had significant atherosclerotic disease with casting of cholesterol and plaque deposits.
RSVG -good/some varicosities as well as dilation and inflammation/thickening of the vein graft, but overall far better conduit than her IMAs.
Target(s) Quality:
OM1 - Decent sized target with excellent mean flow and PI on flowprobe
OM3 - Marginal target, very small, 1mm, diffusely diseased, mean flow of 10-12ccmin with a PI of 3-5
LAD - Decent sized target, 1.5mm to 2.0mm probe fit, excellent mean flow of 50-60cc/min, PI of 2-3 (the initial LLOYD graft had very poor flow probe numbers and was diseased, I left the graft anastomosis and performed a distal vein to LAD
anastomosis.
Findings: Her left ventricular ejection fraction before the surgery on JONATHAN was approximately 20% with severe regional wall motion abnormalities as well as a dilated left ventricle. After the initial clamp running coronary bypass grafting using the
[place], her EF was extremely poor at approximately 10 to 15% with continued regional wall motion abnormality towards the anterior and septal total region. She then progressed into ventricular tachycardia requiring cardioversion x 1. Flow probe
assessment of all the graft demonstrated poor mean flow and very high pulsatility index in the left EZEKIEL. As I inspected the EZEKIEL closer, it was apparent that she had significant atherosclerotic disease of the vessel and its very segments. At this
point additional vein was harvested from her leg. I attempted to harvest a segment of her right internal mammary artery but again it was heavily diseased with atherosclerosis and plaque. Due to this I opted to rearrest her at this point, revise
her vein graft to the first OM as it was somewhat short and also performed a vein graft to the distal LAD. Due to the long pump run and poor EF starting the case, I elected to place a 5.5 direct aortic Impella via a 10 mm woven Dacron graft of the
distal ascending aorta tunneled to the left supraclavicular fossa. The aorta was placed after performing an aortotomy and visualizing it across the aortic valve. Upon removal of the cross-clamp, I started the flows that are initially P5 and had
suction events and slowly came down to P3 where she settled out. Her LV was much better in terms of decompression and size and her mitral valve insufficiency was essentially gone. Flow probe assessment of this graft was excellent with a mean flow
in the 50s to 60s with a pulsatility index of 2-3. Test dosing antegrade down this graft demonstrated a mean flow in the 50 to 60s at a pressure of 80 mmHg. She no longer had any arrhythmias after revising her grafts. The vein graft to the LAD
was performed distal to the previous EZEKIEL to LAD anastomosis. The vein graft to the LAD was taken off the flynn of the vein graft leading to OM 3. She was on 3 of dobutamine, low-dose Levophed and also required blood products as she was anemic
starting off from the case and coagulopathic. She received a total of 2 PRBCs, 1 FFP with 1 planning for the ICU, and 1 platelet in the OR and 1 in the ICU. Cardiac index 30 the case was approximate 1.4-1.6 with inotropic support. Following
placement of the Impella and the new bypass graft, cardiac index was above 2. Of note, during placement of the Tensed she essentially went asystolic or into complete heart block. This resolved once the Tensed was pulled back and repositioned. The
left atrial appendage was verified prophy of any thrombus or debris preoperatively and found to be totally occlusive and flush to the base after applying a 35 mm clip.
Description of Procedure: The patient was taken to the operating room. Their identity and procedure to be performed were verified and they were positioned supine on the operating table. Induction via general anesthesia with endotracheal intubation
was performed and central venous access and arterial monitoring were inserted. A preoperative transesophageal echocardiogram was performed to assess cardiac function and valvular function. The patient was then prepped and draped from chin to feet in
a sterile fashion. A preoperative time-out was performed with all members of the team present. A midline chest incision was performed along with median sternotomy. Simultaneous endoscopic access of the right lower extremity for saphenous vein
harvest was obtained along with administration of an initial 5,000 units of IV heparin. A RulTract sternal retractor was positioned to exposure the left internal mammary bed. The mammary was harvested and found to have good flow. A bulldog clamp was
applied to the distal end of the mammary after dividing it. It was wrapped in a papaverine soaked RayTec and replaced back into the left hemithorax. The RulTract was exchanged for a median sternal retractor. The innominate vein was isolated. Full
heparinization was given (a total of 53,000 units for the entire case). We created a pericardial well. The aortic cannulation site was chosen where it was soft, pliable, and free of calcium. Cannulation was performed with an arterial cannula in the
mid arch of the aorta and a triple-stage venous cannula through the right atrial appendage. The arterial cannula line had an appropriate bounce and correlating pressures with test dosing. Next, a root vent/antegrade cannula was inserted into the
ascending aorta. The ACT was confirmed to be over 400 and retrograde autologous priming was performed before commencing cardiopulmonary bypass. The pulmonary artery was away from the aorta to facilitate a clamp site. The aortic cross-clamp
was placed after decreasing the flow on the bypass and mean arterial pressure. A total of 1.2L initial dose of antegrade Del-Nido cardioplegia solution was given and planned for re-dosing every 75 minutes as necessary. There was rapid
electro-mechanical arrest of the heart at 300 cc of cardioplegia. The left ventricle was observed for distention on echocardiogram and manual palpation. Cold slush was placed into a sponge and topically on the RV while we systemically cooled to 34
degrees centigrade.
I positioned the heart to expose the third OM. A [place] blade was used to expose the coronary and perform the arteriotomy. Coronary Blair scissors were used to enlarge the incision. The saphenous vein was trimmed and beveled to an appropriate size.
The distal anastomosis was performed using 8-0 prolene in an end-to-side fashion and secured with a micro core knot. Antegrade cardioplegia was administered into the graft. Appropriate hemostasis and flow were confirmed. The graft was measured for
length to the aorta and cut. A suitable site on the first obtuse marginal was chosen. We dissected and prepared the distal target in a similar fashion. An end-to-side anastomosis was created with a 7-0 prolene. Antegrade cardioplegia was
administered into the graft. Appropriate hemostasis and flow were confirmed. The graft was measured for length to the aorta and cut. A suitable target on the mid/distal left anterior descending was identified. We dissected and prepared the distal
target in a similar fashion. We retrieved the LLOYD from the chest and created a pericardial opening while being cognizant of the phrenic nerve to facilitate the course of the mammary. The distal end of the mammary was prepped and beveled to size. We
verified orientation and length of the EZEKIEL and sluggish but somewhat acceptable flow visual. An end-to-side anastomosis was created with a 7-0 prolene. We temporarily released the bulldog clamp on the mammary to inspect flow. Perfusion to the LAD
territory was visualized and hemostasis was confirmed. The bull clamp was replaced on the mammary. The heart was filled and the root was distended with antegrade cardioplegia to make final assessment of graft length and orientation. We created 2
aortotomies using a #11 blade then a 4.0mm aortic punch. The proximal anastomoses were created in an end-to-side fashion using 6-0 prolene. At the the same time, we re-warmed to 36.5 degrees centigrade. The bulldog clamp was removed from the
mammary. Temporary bipolar ventricular pacing wires were placed on the base of the right ventricle along with atrial wires at the RA/SVC junction. The patient was placed in a Trendelenburg position and flows on bypass were lowered. The aortic cross
clamp was removed and flows were slowly brought back up. A 30-gauge needle was used to de-air the vein grafts. All bypass grafts were inspected and were free from kinking or twisting, the OM1 graft looked a little under tension. The distal and
proximal anastomoses appeared hemostatic. After verifying acceptable parameters, we initiated weaning from cardiopulmonary bypass. Once we were off cardiopulmonary bypass, the venous cannula was clamped and removed. JONATHAN revealed poor cardiac
function and at this time flow probe assessment off cardiopulmonary bypass revealed poor flow in the LLOYD to LAD. There is also somewhat depressed flow into the first OM graft. I then inspected the EZEKIEL graft and felt that there were several
segments that were heavily calcified. Due to this I was concerned that the EZEKIEL graft was not functioning as appropriate. Cardiopulmonary bypass was then reinstituted and the Rultract retractor was placed to expose the FANNIE. At the same time
additional vein graft was harvested from the lower leg. The mid section of the FANNIE graft was then harvested. I then transected the distal end after placing 2 medium clips. There was sluggish flow in the FANNIE graft as well. Further inspection of
the proximal end of the FANNIE graft demonstrated significant atherosclerotic disease. This was clipped with 3 large close. Essentially, the FANNIE graft was also not usable and a poor conduit. At this point the vein had been harvested and was found
to be a good conduit. The cross-clamp was reapplied to the distal ascending aorta and additional 800 cc of cardioplegia was given with rapid arrest at approximately 180 to 200 cc of cardioplegia. The vein graft to the first OM was then revised and
extended with the vein interposition graft. The distal LAD was then dissected in a similar fashion a small coronary arteriotomy was created and extended with Blair scissors. The new vein graft was then anastomosed in an end-to-side fashion with
7-0 Prolene. Test dosing of antegrade down the vein graft yielded excellent mean flows at a pressure of 80 mmHg. Hemostasis was confirmed. The vein graft was then taken off the flynn of one of the proximal anastomoses. Due to a long clamp around,
and poor left ventricular function I anticipate that she would need some sort of ventricular support aside from chemical support. The root vent was removed and the puncture site was enlarged using a 4 oh punch to accommodate a beveled 10 mm graft.
The graft was sewn in end-to-side fashion with 5-0 Prolene in a running fashion. Additional hemostatic agent was placed around the suture line. The graft was then brought up and tunneled to the left supraclavicular fossa maintaining orientation.
The 5.5 Impella device was then inserted into the graft and the sheath was secured using heavy silk ties. Aortotomy was created below the proximal anastomoses and aortic valve was visualized. The temporary ventricular assist device was then placed
across the aortic valve and oriented towards the apex. The aortotomy was closed with 4-0 Prolene in 2 layers. De-airing maneuvers were then performed. The head was then lowered and flows were dropped on the heart-lung machine and the cross-clamp
was removed. We gave her some time to reperfuse, the Impella device was set initially at P5 and then dropped down to P3. The LV was much better decompressed and her mitral valve insufficiency had improved to trace. I continued to wean off of
cardiopulmonary bypass instituting chemical support as needed. Once you are off, the venous line was clamped and removed. A test dose of protamine was administered and the patient was monitored for any adverse reaction before resuming protamine.
Once half of the protamine dose was delivered, pump suckers were turned off and the systolic blood pressure was lowered for aortic decannulation. The aortic cannula was removed and pursestrings were tied down. All cannulation sites were oversewn
with a 4-0 prolene. The mammary beds were inspected and hemostasis was confirmed. Hemostatic agents were packed around the Impella insertion site as well as proximal anastomoses and aortotomy. Once the mediastinum was hemostatic, 19Fr Nickolas drains
were placed in the left and right pleural cavities and two 24Fr Nickolas drains were placed within the pericardium. The sternum was approximated with 4 #7 single and 3 #8 double stainless steel wires. Fascia was approximated with #1 vicryl suture. The
subcutaneous, dermis and epidermis were closed in layers in a running fashion. The skin wound was cleansed and dressed. StatLock's were placed along the driveline of the Impella device. A Biopatch was placed over the insertion site of the graft
and covered in Tegaderm.
All instrument, sponge, and needle counts were confirmed to be correct x 2 at the end of the operation. The patient was transferred to the cardiac intensive care unit in critical but stable condition.
I, Dr. Vincenzo Owusu, was present, scrubbed for, and performed all critical elements of this procedure.
Vincenzo Owusu MD, MS
Cardiothoracic Surgeon
[facility]
This operative dictation was created using the [employer] dictation system. Please excuse any grammatical, typographical, or 'sound alike' errors
--- NOTE | 2023-12-21 14:12 | W.PN.UPDATE ---
Update Note
Progress Note Update
IV fluids: 2200
U.O.:� 600
UF:� 2000
Blood:� 1 plts, 2FFP, 2PRBCs
Wires:� A+V
Inotropes:� Dobutamine
Pressors:� Levo @2
Sedatives:� Precedex
�
NEURO: sedated on precedex, pupils +3mm B/L
RESP: #8OT 23> 14/500/60/5 Lungs clear B/L. 2 mediastinal (10cc on arrival) and R/L pleural (10cc on arrival) chest tubes to -20cm suction. Sanguineous drainage
CV: RRR +S1, S2, no S3, no�rub, no murmur. Dermabond to median sternotomy. RIJ w/[place] locked @ 48cm. PA 27/10; CVP 4; C.O 2.7/CI 1.4
ABD: round, soft, no BS
EXT: no edema, +2/4 DP pulses B/L, no femoral bruit, BLE ROSALIE wrap intact; Left radial A-line intact
: [place] with clear yellow urine
�
A/P: POD #0 s/p CABG x4 with Impella 5.5 placement
JONATHAN: EF�10-15%
- wean and extubate
- Monitor CT and urine output
- Follow up labs and CXR
- Wean levophed for maps >65
- Wean dobutamine for CI >2
- Maintain Impella at p4 as able to prevent retrograde flow
- repeat TTE on for possible explant
- Will need eventual GDMT
- Cards consulted
�
# acute surgical blood loss anemia-expected
- trend CBC
- Tranfusion goals - Hgb >7 Plts >50
�
# Hyperglycemia
- insulin infusion x 24h
�
# Hyperlipidemia
- resume�statin when tolerating PO
CPT 37149
[2023-12-21] MEDS: DILAUDID 0.5 MG IV ×2 (14:19→18:39)
[2023-12-21 14:20] LABS: Glucose - Point of Care 170 mg/dl (70-99)
[2023-12-21] MEDS: NSS 500 IV (14:20)
[2023-12-21] MEDS: NEURONTIN PO ×3 (14:21→21:23)
[2023-12-21] MEDS: TYLENOL PO (14:21)
[2023-12-21] MEDS: ANCEF 10 IV ×2 (14:21)
[2023-12-21 14:22] LABS: B.E. 2.3 mmol/L; HCO3 24.8 mmol/L (21-28); Ionized Calcium 1.08 mMOL/L (1.15-1.33); O2 Saturation % 99.7 % (94-98); PCO2 29 mmHg (32-35); PO2 164 mmHg (83-108); Potassium 3.7 mMOL/L (3.5-5.1); Sodium 135 mMOL/L (136-145); pH 7.54 (7.35-7.45)
--- NOTE | 2023-12-21 14:26 | W.PN.CD ---
Today's Communication / Plan
-
Follow telemetry
Continue post operative care
Impression / Plan
-
BACKGROUND: 73F with ischemic cardiomyopathy, coronary artery disease, hypertension, dyslipidemia, and PAD who initially presented to [facility] and was found to have an NSTEMI and was transferred to this facility for CABG evaluation.
Job Captain: Dr. Hogan
NSTEMI
MVCAD s/p CABG x4 by Dr. Owusu 12/21/2023
-In situ LLOYD to LAD -additional vein graft to the distal LAD off of the flynn of OM 3 vein graft from the aorta, Ao to RSVG to OM1, Ao to RSVG to OM 3
-Pre LVEF 20% with severe RWMA, post 10-15% -> placement of 5.5 Impella (P3)
-On Levophed at 3 and dobutamine at 3
-CI improved post Impella 1.5 -> over 2
-Postoperative EKG with unchanged left bundle branch block
ICM (LVEF 30-35%, 09/2023), chronic
-LVEF declined prompting Impella
-GDMT as tolerated
-ACEi/ARB: previously on Entresto - ON HOLD
-Beta marcelo: metoprolol tartrate - transition to succinate prior to discharge
-SGLT2: Farxiga - ON HOLD
-Diuretic: Daily assessment
-Outpatient note from Dr. Hogan reports she does not have prescription coverage and requires samples of all name-brand medications
-Update echocardiogram, lowest documented LVEF was 25-30% in May of this year, 32% on echo 12/15/23
-She declined ICD and LifeVest in the outpatient setting
-HF education provided, trend daily weight & I/O
Dyslipidemia
-LDL 529 12/16/23; this is on high intensity statin and ezetimibe
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 She will need PSK9i therapy postoperative as an outpatient.
-Given her lack of prescription drug coverage by outpatient notes, Leqvio may be the best option for a third agent, but she will likely require multiple agents to achieve goal LDL
-Patient interested in outpatient consultation with [place] [facility] / will refer
-Patient notes she has switched to a high fat low carb diet and saw a concomitant increase in her cholesterol from 300s to 700s in outpatient setting
-Continue current medical therapy while inpatient
PAD
-Multiple prior lower extremity revascularizations
-May benefit from low dose Xarelto 2.5 BID in outpatient setting. Will leave this to primary material attendant.
HTN
PSVT, seen on Holter monitor, Sinus tachycardia at times.
PAD, left superficial femoral artery stent (06/29/2023) & right external iliac artery stent (07/16/2023)
SUBJECTIVE:
Intubated and sedated. Operative notes reviewed.
DATA:
TTE, 12/14/23:
Left ventricle is mildly dilated. Stage I diastolic dysfunction suggestive of
abnormal relaxation. Moderately reduced left ventricular systolic function. Left ventricular
ejection fraction is 32% by volumetric assessment.
Global hypokinesis with the anterior and anterolateral waldrop moving best.
Mild to moderate mitral regurgitation.
Compared to previous echo report from 09/22/23, the ejection fraction sounds to
be similar but the regionality of the hypokinesis described is different, but
no images available for direct comparison.
Echocardiogram, 09/22/2023:
Regional wall motion abnormalities include moderate hypokinesis of the mid to
distal anterior wall and apical akinesis. Mild to moderate distal inferior
hypokinesis.
The ejection fraction is estimated at 30-35%.
Diastolic function is indeterminate.
Normal right ventricular size and function.
Moderate left atrial enlargement.
Normal right atrium.
Structurally normal mitral valve without significant stenosis w/ mild to
moderate regurgitation.
Structurally normal aortic valve without significant stenosis or regurgitation.
Structurally normal tricuspid valve without significant stenosis w/ mild
regurgitation.
Estimated pulmonary artery pressure is 32 mmHg.
Structurally normal pulmonic valve without significant stenosis or
regurgitation.
Normal pericardium without effusion.
Normal aortic root.
IVC demonstrates normal respiratory variation.
Physical Exam
Vital Signs/Labs
Vital Signs
Temp Pulse Resp BP Pulse Ox
96.3 F L 97 14 115/73 99
12/21/23 14:22 12/21/23 14:20 12/21/23 14:22 12/21/23 05:53 12/21/23 14:22
12/20/23 12/21/23 12/22/23
06:59 06:59 06:59
Actual Weight 60.9 kg 60.5 kg
PT 13.3 Sec (11.4-14.6) 12/15/23 03:16
INR 1.03 12/15/23 03:16
APTT 88.6 Sec (23.4-35.0) H 12/21/23 05:08
Magnesium 2.1 mg/dl (1.6-2.3) 12/20/23 02:41
Triglycerides 90 mg/dl (10-149) 12/15/23 03:16
LDL Cholesterol, Calc 529 mg/dl 12/15/23 03:16
VLDL Cholesterol, Calc 18 mg/dl (0-30) 12/15/23 03:16
HDL Cholesterol 91 mg/dl 12/15/23 03:16
TSH 2.52 uIU/ml (0.47-4.68) 12/18/23 03:00
Physical Exam
Constitutional: No acute distress and Comfortable
EENT: Anicteric and Moist mucous membranes
Cardiovascular: Rhythm & rate is regular, Pedal edema is absent and S1S2 is normal
Respiratory: Lungs clear to auscul. and Other (mechanical ventilation via ETT tube)
GI: Soft, Distention absent, Flat, Non tender and Normal bowel sounds
Neuro/Psych: Other (sedated)
Other: Skin (warm and dry without edema)
Data Reviewed
-
Date of Service: December 21, 2023
Labs: Labs Reviewed by me
Old Records: Reviewed
--- NOTE | 2023-12-21 14:30 | PTCARENOTE ---
Pt arrived from CVOR to CVICU at 1400. Pt intubated and sedated on Precedex. Pt SR with HR 90's. BP labile. On/off Levo and Nitro. PA 24/14, CVP 9, CO 2.91, CI 1.74, SVR 7227. Impella 5.[address] via left chest at 33.5cm. Right IJ swan-agustin
catheter 45cm. AV wires in place. Pt on Levo and Dobutamine gtt. #8ET tube in place, vent set to SIMV, 40% FiO2, pulse oximetry 99%. Chest tubes x4 in place, no sign of air leak or crepitus, drainage red in color. Hypoactive bowel sounds. Medrano
catheter draining clear yellow urine. Midsternal incision approximated and NIB INSPECTOR. Right groin puncture approximated and NIB INSPECTOR. Right leg incision ROSALIE wrap overlay in place. Left radial [place] in place. Remains on insulin gtt per glycemic protocol.
Warming blanket in place.
[2023-12-21 14:38] LABS: Hematocrit 19.7 % (37.0-47.0); Mean Corp Hgb Conc. 36.3 g/dL (33.0-37.0); Mean Corpuscular Volume 85.4 fL (81.0-99.0); Platelet Count 111 10^3/uL (130-400); Red Blood Cell Count 2.26 10^6/uL (4.20-5.40); Red Cell Dist. Width 15.6 % (11.5-14.5); White Blood Cell Count 14.7 10^3/uL (4.8-10.8)
[2023-12-21 14:39] LABS: Lactic Acid 1.5 mmol/L (0.7-2.0)
[2023-12-21 14:58] LABS: ALT (SGPT) 22 U/L (0-35); AST (SGOT) 41 U/L (14-36); Albumin 2.5 g/dl (3.5-5.0); Alkaline Phosphatase 51 U/L (38-126); Blood Urea Nitrogen 16 mg/dl (7-17); Carbon Dioxide 24 mmol/L (22-30); Chloride 102 mmol/L (98-107); Estimated Creatinine Clearance 65 ml/min; Glucose 148 mg/dl (70-99); LDH 315 U/L (120-246); Magnesium 2.9 mg/dl (1.6-2.3); Potassium 3.6 mmol/L (3.5-5.1); Sodium 135 mmol/L (135-145); Total Bilirubin 1.1 mg/dl (0.2-1.3); Total Protein 4.3 g/dl (6.3-8.2); eGFR > 60.00
[2023-12-21 15:07] LABS: INR 1.55; PT 18.4 Sec (11.4-14.6)
[2023-12-21 15:08] LABS: APTT 40.1 Sec (23.4-35.0); Fibrinogen 385 MG/DL (199-459)
[2023-12-21 15:23] LABS: Glucose - Point of Care 179 mg/dl (70-99)
[2023-12-21] MEDS: CALCIUM CHLORIDE 10% SYRINGE 50 MG IV (15:24)
[2023-12-21] MEDS: CALCIUM CHLORIDE 10% SYRINGE 50 ML IV (15:24)
[2023-12-21] MEDS: PACERONE PO (15:25)
[2023-12-21 16:11] LABS: Glucose - Point of Care 159 mg/dl (70-99)
[2023-12-21] MEDS: KCL 50 IV (16:39)
[2023-12-21 16:58] LABS: Glucose - Point of Care 152 mg/dl (70-99)
--- NOTE | 2023-12-21 17:00 | PTCARENOTE ---
Pt received 250 LR bolus. 2 units PRBC. 1 PLT.
[2023-12-21 17:07] LABS: Mixed Venous O2 Saturation 54.8 %
--- NOTE | 2023-12-21 17:20 | PTCARENOTE ---
Chest x-ray to be redone. X-ray plate behind back when pt appeared to go into CHB, lost BP tracing on Mandi and Impella tracing dampened. Epicardial pacing initiated. 2 amps calcium given.
[2023-12-21] MEDS: CALCIUM CHLORIDE 10% SYRINGE 500 MG IV ×2 (17:27→17:28)
[2023-12-21] MEDS: ANCEF 5 IV (17:28)
--- NOTE | 2023-12-21 17:30 | PTCARENOTE ---
1800 rectal ASA held at this time as per CT FRUIT INSPECTOR
[2023-12-21 17:33] LABS: HCO3 24.3 mmol/L (21-28); O2 Saturation % 99.3 % (94-98); PCO2 42 mmHg (32-35); PO2 133 mmHg (83-108); Potassium 4.5 mMOL/L (3.5-5.1); Sodium 136 mMOL/L (136-145); pH 7.37 (7.35-7.45)
[2023-12-21 17:35] LABS: Ionized Calcium 1.58 mMOL/L (1.15-1.33)
[2023-12-21 17:44] LABS: INR 1.31; PT 16.1 Sec (11.4-14.6)
[2023-12-21 17:46] LABS: Hematocrit 27.6 % (37.0-47.0); Hemoglobin 9.6 g/dL (12.0-16.0); Mean Corp Hgb Conc. 34.8 g/dL (33.0-37.0); Mean Corpuscular Hgb 30.6 pg (27.0-31.0); Mean Corpuscular Volume 87.9 fL (81.0-99.0); Mean Platelet Volume 10.2 fL (7.4-10.4); Platelet Count 167 10^3/uL (130-400); Red Blood Cell Count 3.14 10^6/uL (4.20-5.40); Red Cell Dist. Width 15.4 % (11.5-14.5); White Blood Cell Count 17.2 10^3/uL (4.8-10.8)
[2023-12-21 17:48] LABS: Blood Urea Nitrogen 15 mg/dl (7-17); Calcium 10.7 mg/dl (8.4-10.2); Carbon Dioxide 24 mmol/L (22-30); Chloride 107 mmol/L (98-107); Estimated Creatinine Clearance 65 ml/min; Glucose 134 mg/dl (70-99); LDH 364 U/L (120-246); Potassium 4.5 mmol/L (3.5-5.1); Sodium 139 mmol/L (135-145); eGFR > 60.00
[2023-12-21 17:55] LABS: Glucose - Point of Care 132 mg/dl (70-99)
[2023-12-21] MEDS: SODIUM BICARBONATE 50 MEQ IV (18:00)
[2023-12-21 18:07] LABS: APTT 32.9 Sec (23.4-35.0)
[2023-12-21 18:07] LABS: B.E. -2.2 mmol/L; HCO3 22.3 mmol/L (21-28); O2 Saturation % 99.1 % (94-98); PCO2 36 mmHg (32-35); PO2 157 mmHg (83-108)
[2023-12-21] MEDS: ALBUMIN 5% 250 IV (18:07)
--- NOTE | 2023-12-21 18:19 | RESPNOTE ---
Addendum entered by Guillaume Ibarra, RT 12/21/23 18:21:
Extubation @1815.
Original Note:
Respiratory: patient extubated without incident. No stridor no wheeze.
--- NOTE | 2023-12-21 18:20 | PTCARENOTE ---
Pt extubated at 1815 to 6L nasal cannula. Pt able to state name and , pt AAOx3.
[2023-12-21 18:54] LABS: Glucose - Point of Care 116 mg/dl (70-99)
[2023-12-21] MEDS: LR 250 ML IV (19:10)
--- NOTE | 2023-12-21 19:30 | PTCARENOTE ---
assumed care of patient @ 1900. recieved pt laying in bed, AOx3. Forgetful, very anxious. OK per CTPA to have precedex at 0.1. NSR on tele. Doppler pedals, + radials. BP labile between 50s-140s. PAP 20s/10s, CVP around 8. AV wires set to DDD
50,5,4. Lungs clear, diminished throughout on 6L NC satting 99 percent. BS hypoactive. Medrano present draining clear yellow urine. Sternal insicion STRIPPER COLOR CDI, R leg aquacel with armando wrap CDI. Impella insertion in L upper chest wall small old blood. R
a, line, PIV x2, R IJ cordis with swan at 45. central lines leveled, zeroed. Impella at 33.5, on p6. Recieved with insulin per protocol, nitro at 25, milronone at 0.375, levo at 4, precedex turned on at 0.1.
[2023-12-21 20:26] LABS: Mixed Venous O2 Saturation 73.7 %
[2023-12-21 20:29] LABS: HCO3 26.5 mmol/L (21-28); O2 Saturation % 99.6 % (94-98); PCO2 40 mmHg (32-35); PO2 177 mmHg (83-108); pH 7.43 (7.35-7.45)
[2023-12-21 20:30] LABS: Ionized Calcium 1.52 mMOL/L (1.15-1.33)
[2023-12-21 20:34] LABS: Hematocrit 22.5 % (37.0-47.0); Hemoglobin 8.1 g/dL (12.0-16.0); Mean Corpuscular Volume 86.2 fL (81.0-99.0); Mean Platelet Volume 9.9 fL (7.4-10.4); Platelet Count 151 10^3/uL (130-400); Red Blood Cell Count 2.61 10^6/uL (4.20-5.40); Red Cell Dist. Width 15.8 % (11.5-14.5); White Blood Cell Count 13.8 10^3/uL (4.8-10.8)
[2023-12-21 20:39] LABS: Lactic Acid 1.6 mmol/L (0.7-2.0)
[2023-12-21 20:45] LABS: ALT (SGPT) 21 U/L (0-35); AST (SGOT) 46 U/L (14-36); Albumin 2.6 g/dl (3.5-5.0); Alkaline Phosphatase 42 U/L (38-126); Blood Urea Nitrogen 16 mg/dl (7-17); Calcium 10.1 mg/dl (8.4-10.2); Carbon Dioxide 26 mmol/L (22-30); Chloride 105 mmol/L (98-107); Estimated Creatinine Clearance 65 ml/min; Glucose 115 mg/dl (70-99); Magnesium 2.3 mg/dl (1.6-2.3); Potassium 4.3 mmol/L (3.5-5.1); Sodium 140 mmol/L (135-145); Total Bilirubin 2.1 mg/dl (0.2-1.3); Total Protein 4.3 g/dl (6.3-8.2); eGFR > 60.00
[2023-12-21 21:10] LABS: Glucose - Point of Care 122 mg/dl (70-99)
[2023-12-21] MEDS: SENOKOT-S PO (21:21)
[2023-12-21] MEDS: ASPIR LOW (ENTERIC COATED) 81 MG PO (21:22)
[2023-12-21] MEDS: TYLENOL 1000 MG PO (21:22)
[2023-12-21] MEDS: PACERONE 200 MG PO (21:23)
[2023-12-21 21:24] LABS: INR 1.29; PT 15.9 Sec (11.4-14.6)
[2023-12-21] MEDS: DILAUDID 0.25 MG IV (21:58)
--- NOTE | 2023-12-21 22:00 | PTCARENOTE ---
ctpa stated to not get q4hr labs - just AM labs
[2023-12-21 23:08] LABS: Glucose - Point of Care 122 mg/dl (70-99)
[2023-12-22] VITALS (10 sets, daily range): BP systolic 79–162; BP diastolic 50–86; BMI 26.3; BMI 24.5
--- NOTE | 2023-12-22 | PTCARENOTE ---
2U PRBC ordered and started. pt c/o pain in shoulders and back, pain meds given see mar. On/Off levo. Impella on p4 no issues. no other change in assessment
[2023-12-22] MEDS: ROXICODONE 5 MG PO ×2 (00:04→06:18)
[2023-12-22 00:14] LABS: Glucose - Point of Care 100 mg/dl (70-99)
[2023-12-22] MEDS: ANCEF 5 IV ×2 (02:00→10:46)
[2023-12-22] MEDS: DILAUDID 0.5 MG IV ×5 (02:50→23:32)
[2023-12-22 03:26] LABS: Mixed Venous O2 Saturation 76.6 %
[2023-12-22 03:29] LABS: Ionized Calcium 1.29 mMOL/L (1.15-1.33)
[2023-12-22 03:34] LABS: Hematocrit 29.3 % (37.0-47.0); Hemoglobin 10.7 g/dL (12.0-16.0); Mean Corp Hgb Conc. 36.5 g/dL (33.0-37.0); Mean Corpuscular Hgb 29.4 pg (27.0-31.0); Mean Corpuscular Volume 80.5 fL (81.0-99.0); Mean Platelet Volume 9.8 fL (7.4-10.4); Platelet Count 139 10^3/uL (130-400); Red Blood Cell Count 3.64 10^6/uL (4.20-5.40); White Blood Cell Count 10.9 10^3/uL (4.8-10.8)
[2023-12-22 03:36] LABS: ALT (SGPT) 27 U/L (0-35); AST (SGOT) 59 U/L (14-36); Albumin 2.6 g/dl (3.5-5.0); Alkaline Phosphatase 54 U/L (38-126); Blood Urea Nitrogen 17 mg/dl (7-17); Calcium 9.3 mg/dl (8.4-10.2); Carbon Dioxide 26 mmol/L (22-30); Chloride 105 mmol/L (98-107); Estimated Creatinine Clearance 65 ml/min; Glucose 114 mg/dl (70-99); LDH 314 U/L (120-246); Magnesium 2.2 mg/dl (1.6-2.3); Potassium 4.2 mmol/L (3.5-5.1); Sodium 140 mmol/L (135-145); Total Bilirubin 1.7 mg/dl (0.2-1.3); Total Protein 4.4 g/dl (6.3-8.2); eGFR > 60.00
[2023-12-22 03:37] LABS: INR 1.21; PT 15.2 Sec (11.4-14.6)
[2023-12-22 03:39] LABS: D-Dimer 1.45 ug/mlFEU (0.00-0.50)
[2023-12-22 03:43] LABS: Fibrinogen 352 MG/DL (199-459)
--- NOTE | 2023-12-22 04:01 | W.PN.CT ---
Today's Communication / Plan
-
Plan:
-No major issues overnight. Hemodynamically and neurologically intact
-Successfully extubated on 12/21/23 @ 1820
-Impella is intact @ P-4
-On Amiodarone gtt @ 0.5 mg/min, Milrinone @ 0.375, Levophed @3, Precedex @ 0.1, and Insulin gtt per protocol
-Last CI 1.85-> 1.69, MVO2 76.6, U/O since OR 1040 mL
-Monitor chest tube output: 2 meds 165/335, R/L pleurals 95/205
-Cont. current meds (ASA, Lipitor, Amiodarone gtt, hold PO Amiodarone and BB; will add Plavix for vein graft)
-Maintain swan and a-line while on Milrinone and Impella
-Keep rojas another day to monitor I/O's
-Keep in bed supine while requiring Impella support
-Maintain temporary PW
-Maintain cordis
-Wean off of O2 as tolerated
-Encourage use of IS
-Repeat echo today
Assessment / Plan
-
Assessment:
-S/P Sternotomy with aortic and right atrial cannulation/CABG x 4 (In situ LLOYD to LAD -additional vein graft to the distal LAD off of the flynn of OM 3 vein graft from the aorta, Ao to RSVG to OM1, Ao to RSVG to OM 3)- unable to utilize BIMA d/t
severe atherosclerosis and plaque/Revision of vein graft of OM 3 with an additional piece of vein to extend the length/Endoscopic vein harvesting of right lower extremity (along with open harvest segment)/Left atrial appendage exclusion with 35 mm
clip/Placement of 5.5 Impella VA, by Dr. Owusu, 12/21/23, pod#1
Assessment:
- Unstable angina/ NSTEMI- admitted to [facility] on 12/13/23, transferred to on 12/14/23 for evaluation for CABG (last Plavix 12/13/23)
- Cath 12/13/23 with LM/2V CAD
- LVEF 10-20% intraop, improved to 30-35% post Impella placement
- ICM, EF 32% by Echo 12/13/23
- Functional mild-moderate MR
- Hx PSVT on Holter monitor
- Chronic LBBB
- PAD- s/p L SFA stent 06/29/23 and R external iliac stent 07/16/23
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
- Carotid dz with 50-69% LICA
- HTN/HLD
- Depression
- Viral subacute thyroditis 2022 - resolved
- Hx GIB d/t diverticulitis 2013
- Hx breast augmentation with subsequent removal of implants
- b/l cataract extraction with intraocular lens implant
-Intraop VT s/p shock x 1
-Intraop CHB vs Asystole
-Intaop Cardiogenic shock (CI 1.4-1.6 on inotropic support) S/P Impella placement
-Intraop and postop blood loss/Anemia (transfused 6u PRBCs)
-Intraop and postop thrombocytopenia (transfused 2 {5pks} plts)
-Intraop and postop coagulopathy (transfused 2u FFPs)
-Acute postop atelectasis
-Acute postop hypovolemia with subsequent hypervolemia
-Acute postop vasal vagal episode with SBP 50's
-Acute postop ectopies S/p amiodarone gtt @ 0.5 mg/min
Discussed patient care with: Cardiology, Nursing, Respiratory Therapy, Pharmacy and Care Team
Subjective
Procedure
-S/P Sternotomy with aortic and right atrial cannulation/CABG x 4 (In situ LLOYD to LAD -additional vein graft to the distal LAD off of the flynn of OM 3 vein graft from the aorta, Ao to RSVG to OM1, Ao to RSVG to OM 3)- unable to utilize BIMA d/t
severe atherosclerosis and plaque/Revision of vein graft of OM 3 with an additional piece of vein to extend the length/Endoscopic vein harvesting of right lower extremity (along with open harvest segment)/Left atrial appendage exclusion with 35 mm
clip/Placement of 5.5 Impella VA, by Dr. Owusu, 12/21/23
-
Date of Service: December 22, 2023
Pt c/o incisional pain, otherwise feels well
Objective Data
-
PT 15.2 Sec (11.4-14.6) H 12/22/23 03:12
INR 1.21 12/22/23 03:12
APTT 32.9 Sec (23.4-35.0) 12/21/23 17:25
Vital Signs
Vital Signs
Temp Pulse Resp BP Pulse Ox
96.3 F L 74 10 79/50 100
12/22/23 03:00 12/22/23 03:00 12/22/23 03:00 12/22/23 03:00 12/22/23 03:00
CT Intake/Output/Weight
12/21/23 12/21/23 12/22/23
06:59 18:59 06:59
Intake Total 92.4 / 452.4 2005.9 / 2625.8 619.9 / 2625.8
Output Total 1250 / 2550 905 / 1465 560 / 1465
Balance -1157.6 / -2097.6 1100.9 / 1160.8 59.9 / 1160.8
SaO2: 100 (2L)
Physical Exam
-
General: Awake, Oriented and AOx3
Cardiovascular: Regular rate & rhythm, No Murmurs and No Rub
Respiratory: Decreased Breath Sounds (at bases, otherwise clear)
Sternum: Stable
Incision: Clean, Dry, Intact and Dressing Intact
Extremities: No Edema
Data Reviewed
-
Lab Results: Results Reviewed
Medications: Active Meds Reviewed
Chest X-Ray: Report Reviewed and Image Reviewed
ECG: Report Reviewed and Image Reviewed
[2023-12-22 04:04] LABS: Glucose - Point of Care 130 mg/dl (70-99)
--- NOTE | 2023-12-22 04:30 | PTCARENOTE ---
pt calm, resting, precedex turned off at 0330. labs drawn and sent. at 0400, pt became irate with staff, angry at CTPA, having paranoid thoughts. BP went to 180s. pt then complained of pain, stat dose of dilaudid ordered and given. precedex turned
back on. pt more calm now.
[2023-12-22 06:06] LABS: Glucose - Point of Care 96 mg/dl (70-99)
[2023-12-22] MEDS: TYLENOL 1000 MG PO (06:17)
--- NOTE | 2023-12-22 06:40 | PTCARENOTE ---
pt washed with CHG, turned, new sheets and gown. no dumping from chest tubes
[2023-12-22 07:04] LABS: B.E. - POC 2.2 mmol/L; Glucose - POC 157 mg/dl (70-99); HCO3 - POC 26 mmol/L (21-29); Hematocrit - POC 27 % PCV (37-47); Hemodilution- POC Yes; Hemoglobin Calculated - POC 9.2; O2 Saturation %Calculated-POC 99.9 5 (92-96); PCO2 - POC 36 mmHg (35-45); PO2 - POC 300 mmHg (80-100); POC Comment POST; Potassium - POC 4.2 mmol/L (3.6-5.0); Sodium - POC 137 mmol/L (135-145); pH - POC 7.46 (7.35-7.45)
[2023-12-22] MEDS: LEVOPHED 250 IV (07:10)
--- NOTE | 2023-12-22 07:37 | W.PN.INTV ---
Today's Communication / Plan
Recommendations
Supplemental oxygen
Impella continues
Blood products as needed
Maintain PA line and arterial line
Milrinone continues
Repeat echocardiogram
Assessment
-
73-year-old female with a history of ischemic cardiomyopathy, CAD, hypertension, hyperlipidemia and PAD found to have NSTEMI with further evaluation necessitating Impella/CABG/MVR and magazine repairer consulted for postoperative ventilator/critical care
management 12/21/2023.
Severe CAD with preop EF 20-30%
Status post CABG/Impella-Dr. Owusu-12/21/2023
Ischemic cardiomyopathy-EF 20-30%
Moderate mitral regurgitation
Mild xohcfc-petbzjksvo-cpxhjasivb 10.1
Conditions present prior to admission:
Vlalxnvttmcjaa-bxoocvfj-HE 20-30 %.
CAD.
Hypertension.
Hyperlipidemia.
PAD-left superficial femoral artery stent 06/2023/right external iliac stent 07/2023.
PSVT.
Depression.
Viral thyroiditis 2022.
GIB due to diverticulitis 2013.
Tonsillectomy. Tubal ligation. Bilateral cataract. Breast augmentation
Plan
Tolerated extubation
Wean FiO2
Encourage incentive spirometry
Increase activity
Aspiration precautions
Pulmonary artery catheter and arterial line continue
Pressors and inotropes as needed
Continue to monitor chest tube output
Follow hemoglobin
Continue to follow platelet count and coags
Transfuse blood product as needed-has obtained 6 units packed red blood cells
CT surgery following chest tubes as well
Impella device per cardiology and cardiovascular surgery-likely in for 48-72 hours
Repeat echocardiogram 12/22/2023
Follow blood sugar
Insulin drip continues
Early nutrition
Early mobilization
DVT prophylaxis
Critical care statement: A total of 35 minutes of critical care time was provided for this patient today. This includes management of ventilator, spontaneous breathing trial, arterial blood gases, pressors, of unstable vital signs, evaluation of the
patient at bedside, pressor management, monitoring chest tube, reviewing the patient's pertinent medical records including radiographs, microbiology, laboratory evaluations, and discussion with primary team and critical care nursing.
Diagnostic data:
Chest x-ray 12/15/2023-NAD
CT chest 12/14/23-mild dependent atelectasis, mild peripheral interstitial fibrosis, no honeycombing,
Echocardiogram-transesophageal 12/21/2023-EF 20%, moderate concentric left ventricular hypertrophy, stage I diastolic dysfunction, moderate mitral regurgitation, mitral regurgitation etiology is likely functional due to papillary muscle dysfunction
and leaflet restriction, mild sessile erythema
Subjective Dataa
Subjective Data
Date of Service:
Date of Service: December 22, 2023
Chief Complaint: Telecommunications Equipment Installer Follow Up, Pulmonary Follow Up and Vent Management Follow Up
Subjective:
Tolerated extubation, pain controlled, no complaints of shortness of breath, abdominal pain
Review of Systems
General: Other (Per HPI)
Objective Data
Data Reviewed
Vital Signs / I&O / Oxygen:
Vital Signs
Temp Pulse Resp BP Pulse Ox
96.1 F L 80 25 100/51 100
12/22/23 06:00 12/22/23 06:10 12/22/23 06:10 12/22/23 04:00 12/22/23 06:02
Intake and Output
12/21/23 12/22/23 12/23/23
06:59 06:59 06:59
Intake Total 452.4 / 452.4 2905.5 / 2905.5
Output Total 2550 / 2550 1580 / 1580
Balance -2097.6 / -2097.6 1325.5 / 1325.5
SaO2 [SIMV] 99
SaO2 100
Nasal Cannula flow liters per 2
minute
Physical Exam
General: Respiratory Distress (n) and Comfortable
HEENT: Normocephalic and Anicteric
Cardiovascular: Regular Rhythm and Murmur
Respiratory: Wheeze (n), Crackles (Basilar), Rhonchi (n), Non-Labored Respirations, Accessory Resp Muscle Use (n) and Stridor (n)
GI: Soft, Non Distended and Non Tender
Neurology: Awake, Alert and No Motor Deficits
Skin: Warm, Good Color, Cyanosis (n), Jaundice and Rash (n)
Labs/Micro/Reports
Laboratory Results
12/21/23 12/21/23 12/21/23
14:15 17:24 17:25
PT 18.4 H 16.1 H
INR 1.55 1.31
APTT 40.1 H Cancelled 32.9
pH 7.54 H 7.37
pCO2 29 L 42 H
pO2 164 H 133 H
HCO3 24.8 24.3
O2 Delivery Level Not Reportable
12/21/23 12/21/23 12/21/23
18:00 20:19 20:47
PT Cancelled
INR Cancelled
APTT
pH 7.40 7.43
pCO2 36 H 40 H
pO2 157 H 177 H
HCO3 22.3 26.5
O2 Delivery Level
12/21/23 12/22/23
21:05 03:12
PT 15.9 H 15.2 H
INR 1.29 1.21
APTT
pH
pCO2
pO2
HCO3
O2 Delivery Level
[2023-12-22 07:48] LABS: Glucose - Point of Care 94 mg/dl (70-99)
--- NOTE | 2023-12-22 07:52 | W.PN.ANS.POP ---
Anesthesia Post Operative
- Anesthesia Post Op Note
Vital Signs Stable-See Nursing Note: Yes (remains on levo/amio/milrinone gtts)
Airway Patent: Yes
Adequate Pain Control: Yes
Change in Mental Status: No
Current Postoperative Nausea & Vomiting: No
Anesthesia Complications: No
General Anesthetic Recall: No
Unplanned Admission: No
Post Op Hydration Adequate: Yes
[2023-12-22 08:03] LABS: Glucose - Point of Care 101 mg/dl (70-99)
--- NOTE | 2023-12-22 08:14 | PTCARENOTE ---
Assumed care of patient at 0700. Pt is awake, alert, and oriented. Pt with continued complaints of 4/10 sternal pain. Pt currently SR with BBB, HR 80. BP 106/58 MAP 74. PA 29/12, CVP 7, CO 3.34, CI 2.00, SVR 1460. Impella 5.[address] at 33.5cm,
secured in place. Impella set to P4. AV wire in place, set to DDD, 50/5/4/0.5/0.8. Pulse oximetry 98% on 2L nasal cannula. Chest tubes x4 in place, mediastinal x2 and left/right pleural chest tubes. No sign of air leak or crepitus, drainage red in
color. Bowel sounds hypoactive, tolerating sips of water. Medrano catheter in place draining yellow urine. Midsternal incision approximated and BIOMASS POWER PLANT SUPERINTENDENT. Right leg incision with ROSALIE wrap overlay in place. Right groin puncture approximated and BIOMASS POWER PLANT SUPERINTENDENT. Right
radial [place] remains intact. Right IJ cordis in place with Aspen-Dayron catheter in place at 45cm. Pt remains on Levo, Amiodarone, Milrinone, and insulin. Pt currently resting comfortably at this time.
--- NOTE | 2023-12-22 08:48 | W.PN.UPDATE ---
Update Note
Progress Note Update
73 y/o F s/p CABG x4 and Impella 5.5 placement. Currently, doing well. Extubated on POD #0 and now on 2LNC.
This AM, patient is on milrinone @ 0.375 mcg/kg/min, Amiodarone 0.5mg/hr, Levophed 3mg/hr, and insulin infusion. Patient's Impella 5.5 remains locked at 53.5cm at the LACW and dressing is C/D/I. CVP 8, PA 28/17, MAP 77, CI 2.0, and SVR 1460. TTE
are bedside and a ramp down trial was preformed.
Plan:
Maintain Impella support today with repeat TTE tomorrow. Possible impella removal later this week. Will start low dose heparin infusion around 4pm with PTT goal 40-60. Continue to trend labs and UOP.
Critical Care Time: 50 minutes
CPT code 26627
--- NOTE | 2023-12-22 08:53 | W.PN.CD ---
Today's Communication / Plan
-
Re-weigh.
Wean inotropes and impella as hemodynamics will tolerate. Try P3 and re-evaluate.
Check LDH/Bilirubin/lactate routinely while Impella in place.
Impression / Plan
-
Impression/Plan: 73F with ischemic cardiomyopathy, coronary artery disease, hypertension, dyslipidemia, and PAD who initially presented to [facility] and was found to have an NSTEMI and was transferred to this facility for CABG.
#NSTEMI/MVCAD
-Acute on chronic.
-s/p CABG x 4 (in situ LLOYD to LAD with additional vein graft to the distal LAD off of the flynn of OM 3 vein graft from the aorta, Ao to RSVG to OM1, Ao to RSVG to OM 3) by Dr. Owusu 12/21/2023.
-Pre CABG LVEF = 20% with severe RWMA. Post CABG LVEF = 10-15%, prompting placement of 5.5 Impella (P3).
-MAP consistently > 65 mmHg.
-PADP = 12 mmHg, RAP = 7 mmHg.
-CI = 2.0 L/min/m2.
-Wean impella/inotropes as hemodynamics will tolerate. Routine LDH/Bilirubin/lactate.
-Continue aspirin, clopidogrel, rosuvastatin.
#ICM
-Chronic, progressive.
-LVEF 30-35% at 09/2023, 10% post CABG.
-Decline in LVEF prompted Impella 5.5.
-GDMT on hold.
-Outpatient note from Dr. Hogan reports she does not have prescription coverage and requires samples of all name-brand medications.
-She declined ICD and LifeVest in the outpatient setting
-HF education provided, trend daily weight & I/O.
-Assess for diuretics on a daily basis.
#Dyslipidemia
-Chronic, stable.
-LDL 529 12/16/23; this is on high intensity statin and ezetimibe.
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 She will need PSK9i therapy postoperative as an outpatient.
-Given her lack of prescription drug coverage by outpatient notes, inclisiran may be the best option for a third agent, but she will likely require multiple agents to achieve goal LDL
-Patient interested in outpatient consultation with [place] [facility]. We will refer as an outpatient.
-Continue current medical therapy while inpatient.
#PAD
-Chronic, stable.
-Multiple prior lower extremity revascularizations
-May benefit from low dose rivaroxaban 2.5 BID in outpatient setting. Will leave this to primary inserter.
#HTN
#PSVT seen on Holter monitor
#LBBB
Ob/Gyn: Dr. Hogan
Critical Care Time = 45 minutes.
Subjective/Interval History:
The patient underwent CABG x4 yesterday.
BIMA could not be used due to the severity of her atherosclerosis, even within the EZEKIEL's.
The patient's LVEF fell post CABG, prompting placement of an Impella 5.5 (distal ascending aorta, tunneled to left supraclavicular region).
Extubated yesterday.
Hemoglobin dropped to 8.1. Transfused 2 units of PRBCs. Hbg increased to 10.7.
Dexmedetomidine turned off around 3:30 AM. Around 4:00 the patient became agitated with paranoid thoughts, anger at staff.
Hydromorphone IV given and dexmedetomidine turned back on with good effect.
Impella at P4. LDH 314. Total bilirubin 2.1 --> 1.7.
Weight documented at 72.8 kg (previously 60.5 kg). I suspect this is documentation error.
DATA:
Intraprocedural JONATHAN, 12/21/2023:
CONCLUSIONS
Severe LV dysfunction. Overall LVEF calculates to 20% by Alvarado's rule.
Left ventricle is mildly dilated.
Moderate concentric left ventricular hypertrophy.
Stage I Diastolic dysfunction.
Mildly dilated left atrium.
Trace pulmonic insufficiency.
Moderate mitral regurgitation.
MR etiology is likely functional due to papillary muscle dysfunction and
leaflet restriction.
Mild sessile atheroma seen in the descending aorta and distal arch.
POST OPERATIVE FINDINGS
The patient underwent a CABG. SHANTELL ligation, and placement of an Impella 5.0.
Postop rhythm remains sinus. RV function appears normal. Overall LVEF is
approximately 30 - 35% with improved anterior, lateral, and inferior wall
segment motion. There is still septal dyskinesia present. The Impella 5.[address] place approximately 4.6 to 5.1 cm distal to the AV annulus. Trace AI
noted around the Impella device. Minimal MR noted. TV and PV function appear
normal. Aortic scan is unchanged.
TTE, 12/14/23:
Left ventricle is mildly dilated. Stage I diastolic dysfunction suggestive of
abnormal relaxation. Moderately reduced left ventricular systolic function. Left ventricular
ejection fraction is 32% by volumetric assessment.
Global hypokinesis with the anterior and anterolateral waldrop moving best.
Mild to moderate mitral regurgitation.
Compared to previous echo report from 09/22/23, the ejection fraction sounds to
be similar but the regionality of the hypokinesis described is different, but
no images available for direct comparison.
Echocardiogram, 09/22/2023:
Regional wall motion abnormalities include moderate hypokinesis of the mid to
distal anterior wall and apical akinesis. Mild to moderate distal inferior
hypokinesis.
The ejection fraction is estimated at 30-35%.
Diastolic function is indeterminate.
Normal right ventricular size and function.
Moderate left atrial enlargement.
Normal right atrium.
Structurally normal mitral valve without significant stenosis w/ mild to
moderate regurgitation.
Structurally normal aortic valve without significant stenosis or regurgitation.
Structurally normal tricuspid valve without significant stenosis w/ mild
regurgitation.
Estimated pulmonary artery pressure is 32 mmHg.
Structurally normal pulmonic valve without significant stenosis or
regurgitation.
Normal pericardium without effusion.
Normal aortic root.
IVC demonstrates normal respiratory variation.
Physical Exam
Vital Signs/Labs
Vital Signs
Temp Pulse Resp BP Pulse Ox
35.8 C L 80 29 100/51 97
12/22/23 08:00 12/22/23 08:10 12/22/23 08:10 12/22/23 04:00 12/22/23 08:39
12/20/23 12/21/23 12/22/23
11:59 11:59 11:59
Actual Weight 60.9 kg 60.5 kg 72.8 kg
PT 15.2 Sec (11.4-14.6) H 12/22/23 03:12
INR 1.21 12/22/23 03:12
APTT 32.9 Sec (23.4-35.0) 12/21/23 17:25
Magnesium 2.2 mg/dl (1.6-2.3) 12/22/23 03:12
Triglycerides 90 mg/dl (10-149) 12/15/23 03:16
LDL Cholesterol, Calc 529 mg/dl 12/15/23 03:16
VLDL Cholesterol, Calc 18 mg/dl (0-30) 12/15/23 03:16
HDL Cholesterol 91 mg/dl 12/15/23 03:16
TSH 2.52 uIU/ml (0.47-4.68) 12/18/23 03:00
Physical Exam
Constitutional: No acute distress and Comfortable
EENT: Anicteric and Moist mucous membranes
Cardiovascular: Rhythm & rate is regular, Pedal edema is absent, JVD pressure is normal, S1S2 is normal and Other (Impella hum.)
Respiratory: Respiratory effort normal and Other (Decreased throughout.)
GI: Soft, Distention absent, Flat, Non tender and Normal bowel sounds
Neuro/Psych: AO x 3
Data Reviewed
-
Date of Service: December 22, 2023
Medical Decision Making: Reviewed Test Results, Independent Historian Assessment, Test Interpretation and Review of Case with other Provider
EKG: Tracing Personally Visualized and interpreted and Report Reviewed by me
Echo: Report Reviewed by me
X-Ray/CT/US/MRI/NUC/PET: Image Personally Visualized and interpreted and Report Reviewed by me
Labs: Labs Reviewed by me
Old Records: Reviewed
[2023-12-22] MEDS: BACTROBAN 2% OINTMENT 1 APPLIC NASAL ×2 (09:02→21:05)
[2023-12-22] MEDS: FLEXBUMIN 100 IV ×2 (09:02→16:12)
[2023-12-22] MEDS: PLAVIX 75 MG PO (09:05)
[2023-12-22] MEDS: CRESTOR 40 MG PO (09:05)
[2023-12-22] MEDS: PROTONIX 40 MG PO (09:05)
[2023-12-22] MEDS: SENOKOT-S PO ×3 (09:05→21:05)
[2023-12-22] MEDS: LOW STRENGTH ASPIRIN 81 MG PO (09:05)
[2023-12-22] MEDS: ZETIA 10 MG PO (09:06)
[2023-12-22] MEDS: MAGNESIUM OXIDE 500 MG PO (09:06)
[2023-12-22] MEDS: FLEXERIL 5 MG PO (09:06)
[2023-12-22] MEDS: NEURONTIN PO ×4 (09:07→21:17)
[2023-12-22] MEDS: PACERONE PO ×2 (09:09→22:09)
[2023-12-22 09:34] LABS: Hematocrit 30.6 % (37.0-47.0); Mean Corp Hgb Conc. 35.9 g/dL (33.0-37.0); Mean Corpuscular Hgb 28.9 pg (27.0-31.0); Mean Corpuscular Volume 80.5 fL (81.0-99.0); Mean Platelet Volume 10.1 fL (7.4-10.4); Platelet Count 142 10^3/uL (130-400); Red Cell Dist. Width 16.8 % (11.5-14.5); White Blood Cell Count 10.8 10^3/uL (4.8-10.8)
[2023-12-22 09:36] LABS: Mixed Venous O2 Saturation 75.9 %
[2023-12-22 10:24] LABS: Glucose - Point of Care 85 mg/dl (70-99)
[2023-12-22 10:28] LABS: ALT (SGPT) 30 U/L (0-35); AST (SGOT) 61 U/L (14-36); Albumin 2.7 g/dl (3.5-5.0); Alkaline Phosphatase 57 U/L (38-126); Blood Urea Nitrogen 18 mg/dl (7-17); Calcium 9.3 mg/dl (8.4-10.2); Carbon Dioxide 26 mmol/L (22-30); Chloride 105 mmol/L (98-107); Estimated Creatinine Clearance 65 ml/min; Glucose 92 mg/dl (70-99); Potassium 3.8 mmol/L (3.5-5.1); Sodium 137 mmol/L (135-145); Total Bilirubin 1.1 mg/dl (0.2-1.3); Total Protein 4.5 g/dl (6.3-8.2); eGFR > 60.00
[2023-12-22] MEDS: LASIX 20 MG IV (10:46)
--- NOTE | 2023-12-22 11:37 | CM ---
Chart reviewed. Patient is independent of ADLS, lives alone in a apartment, [address], 0 [address]. Patient with supportive children. Patient remains in critical care with an Impella. Plan is for the patient to return home with CT Transitional RN. CM
to follow
[2023-12-22 12:29] LABS: Glucose - Point of Care 95 mg/dl (70-99)
[2023-12-22] MEDS: DILAUDID 0.25 MG IV (12:33)
--- NOTE | 2023-12-22 12:36 | PTCARENOTE ---
Echo completed this morning. Pt received 20mg IV Lasix. Repeat labs collected. Pt remains SR with BBB, HR 84. BP 107/61 MAP 77. PA 30/14, CVP 11. CO 3.52, CI 2.11, SVR 1318. Impella remains at P4. AV wires remain in place set to backup rate of 50.
Pulse oximetry 97% on 2L nasal cannula. Chest tubes remain unchanged. Urine output improving s/p Lasix. Pt refused breakfast and lunch. Tolerated PO medications, however refused most morning medications. [place]-Dayron catheter, cordis, and Mandi remain
in place. Core temp reading 95.8, Guzman hugger in place, temp now at 96.6. Pt currently on Amio, Milrinone, Levo, and Insulin.
[2023-12-22 12:38] LABS: Mixed Venous O2 Saturation 72.7 %
[2023-12-22] MEDS: NSS IV (12:47)
[2023-12-22 12:50] LABS: Hematocrit 26.9 % (37.0-47.0); Hemoglobin 9.7 g/dL (12.0-16.0); Mean Corp Hgb Conc. 36.1 g/dL (33.0-37.0); Mean Corpuscular Hgb 29.3 pg (27.0-31.0); Mean Corpuscular Volume 81.3 fL (81.0-99.0); Mean Platelet Volume 10.2 fL (7.4-10.4); Platelet Count 121 10^3/uL (130-400); Red Blood Cell Count 3.31 10^6/uL (4.20-5.40); Red Cell Dist. Width 16.9 % (11.5-14.5); White Blood Cell Count 8.3 10^3/uL (4.8-10.8)
[2023-12-22 12:56] LABS: Lactic Acid 1.1 mmol/L (0.7-2.0)
[2023-12-22 13:31] LABS: ALT (SGPT) 28 U/L (0-35); AST (SGOT) 54 U/L (14-36); Albumin 3.2 g/dl (3.5-5.0); Alkaline Phosphatase 54 U/L (38-126); Blood Urea Nitrogen 18 mg/dl (7-17); Carbon Dioxide 22 mmol/L (22-30); Chloride 103 mmol/L (98-107); Estimated Creatinine Clearance 65 ml/min; Glucose 93 mg/dl (70-99); Potassium 3.7 mmol/L (3.5-5.1); Sodium 138 mmol/L (135-145); Total Bilirubin 1.1 mg/dl (0.2-1.3); Total Protein 4.9 g/dl (6.3-8.2); eGFR > 60.00
[2023-12-22 14:14] LABS: Glucose - Point of Care 94 mg/dl (70-99)
[2023-12-22] MEDS: TYLENOL PO ×2 (15:13→21:18)
[2023-12-22] MEDS: NOVOLIN R INSULIN INFUSION 100 IV (15:37)
[2023-12-22] MEDS: PRIMACOR 20 MG 100 IV (15:37)
[2023-12-22 16:21] LABS: Glucose - Point of Care 93 mg/dl (70-99)
[2023-12-22 16:21] LABS: Glucose - Point of Care 99 mg/dl (70-99)
[2023-12-22] MEDS: HEPARIN 25000 UNITS/250 ML IV (16:48)
[2023-12-22 16:58] LABS: APTT 33.5 Sec (23.4-35.0); Hematocrit 26.5 % (37.0-47.0); Hemoglobin 9.6 g/dL (12.0-16.0); Mean Corp Hgb Conc. 36.2 g/dL (33.0-37.0); Mean Corpuscular Hgb 29.2 pg (27.0-31.0); Mean Corpuscular Volume 80.5 fL (81.0-99.0); Mean Platelet Volume 9.9 fL (7.4-10.4); Platelet Count 123 10^3/uL (130-400); Red Blood Cell Count 3.29 10^6/uL (4.20-5.40); Red Cell Dist. Width 17.2 % (11.5-14.5); White Blood Cell Count 8.5 10^3/uL (4.8-10.8)
--- NOTE | 2023-12-22 17:00 | PTCARENOTE ---
Heparin gtt started per order. Pt remains SR with BBB. HR 90's. BP 124/68 MAP 86. PA 35/22, CVP 15, CO 4.13, CI 2.47, SVR 1317. Impella remains P4. AV wires remain connected with no pacing activity noted. Remains on Amio, Milrinone, and Insulin.
[2023-12-22] MEDS: PACERONE 200 MG PO (17:11)
[2023-12-22 17:12] LABS: Glucose - Point of Care 94 mg/dl (70-99)
[2023-12-22] MEDS: KCL 50 IV ×2 (18:09→19:49)
--- NOTE | 2023-12-22 18:15 | PTCARENOTE ---
Repeat labs collected and reviewed. Potassium replaced per order.
[2023-12-22 18:16] LABS: Glucose - Point of Care 98 mg/dl (70-99)
[2023-12-22] MEDS: CORDARONE 518 MG IV (18:27)
[2023-12-22 19:19] LABS: Glucose - Point of Care 104 mg/dl (70-99)
--- NOTE | 2023-12-22 20:00 | PTCARENOTE ---
Received pt from [facility]. Pt is resting in bed, S/P CABG x4 with impella in place on 12/20. pt is AAOx4, anxious, states pain is 12/13, see MAR. NSR with BBB on monitor, VSS. Heart sound audible, radial pulses palpable, DP pulses present with
doppler, +2 upper and lower extremity edema, impella 5.5 insertion site ascending Aorta, catheter exit site left chest, 3 points of fixation, temp epicardial AV wires set to DDD, see worklist for details. Lung sounds diminished throughout, spo2 98%
on 2LNC, x2 MS and X2 pleural CT to -20 wall suction, no air leaks, no tidaling, no crepitus. hypoactive BS x4 quadrants, abdomen soft non tender. pt voiding clear yellow urine via roajs catheter, previous shift reported low UO, will continue to
monitor. Surgical sites all maintained. right IJ cordis, swan @45cm, right radial A-line, and PIVs x2, all maintained, leveled, and zeroed. Milrinone, Amiodarone, heparin, insulin gtts infusing. call rhodes within reach. will continue to monitor.
[2023-12-22 20:59] LABS: Glucose - Point of Care 93 mg/dl (70-99)
[2023-12-22] MEDS: MAGNESIUM OXIDE PO (21:05)
--- NOTE | 2023-12-22 22:00 | PTCARENOTE ---
Pt assessment unchanged. Pt refused to take any PO medications. Pt was educated on the importance of oral medication in her recovery. Pt stated that she is unable to swallow. Pt denies pain in throat. pt was AAOx4, speaking without difficulty,
productive cough was present. pt was able to swallow sips of water without difficulty. CVPA discussed the importance of taking all medications but pt continued to refused. will continue to monitor.
[2023-12-22 23:10] LABS: Glucose - Point of Care 119 mg/dl (70-99)
[2023-12-22 23:40] LABS: APTT 59.4 Sec (23.4-35.0)
[2023-12-23] VITALS (27 sets, daily range): BP systolic 86–136; BP diastolic 42–76; BMI 25.8
--- NOTE | 2023-12-23 | PTCARENOTE ---
Pt assessment unchanged. NSR on monitor, VSS. Ongoing pain management via repositioning and medication, see MAR. Pt continues to experience anxiety about her recovery, pt was reassured and provided education about post op recovery by RN and CVPA.
A-line has become positional. Per Dr Owusu medication should be titrated by implella BP. call rhodes within reach. will continue to monitor.
[2023-12-23] MEDS: FLEXBUMIN 100 IV ×2 (00:53→08:23)
[2023-12-23 01:02] LABS: Glucose - Point of Care 99 mg/dl (70-99)
[2023-12-23 01:57] LABS: Glucose - Point of Care 111 mg/dl (70-99)
[2023-12-23] MEDS: TORADOL 15 MG IV (02:05)
[2023-12-23 03:18] LABS: Glucose - Point of Care 109 mg/dl (70-99)
[2023-12-23 03:21] LABS: Mixed Venous O2 Saturation 74.1 %
[2023-12-23 03:35] LABS: INR 1.29; PT 16.1 Sec (11.4-14.6)
[2023-12-23 03:36] LABS: APTT 63.7 Sec (23.4-35.0); Fibrinogen 405 MG/DL (199-459)
--- NOTE | 2023-12-23 03:41 | W.PN.CT ---
Today's Communication / Plan
-
-pod #2
-no significant issues overnight
-anxious, feels down, refuses narcotics 'they are going to kill me', refuses po meds 'can't swallow, too tired'. Pt appears to swallow sips of water without problems.
-CI 2.19, CO 3.66, mVO2 74.1. Drips: Milrinone 0.375, Amio 0.5, Heparin 500 units/hr (Ptt goal 40-60), Insulin 1.3, Nitro on and off
-Impella at p4 flow overnight, decreased to p3 at 6:30am per Dr. Owusu
-CT output: 2 meds 90/210, b/l pleur 35/195 in 12/24 hrs
-am labs are pending
-Echo 12/21:
Limited follow up study with Impella in place.
Severely reduced left ventricular systolic function. Left ventricular ejection fraction is 20-25%.
Global hypokinesis with more pronounced inferior hypokinesis.
LVEF is similar when Impella set at P4 vs P2.
-repeat Echo today (ordered)
-low UO 10-25 per hr - maintain Medrano
-continue weaning off Impella and drips as tolerated
-encourage IS
-maintain Cordis, Medrano and pw
Assessment / Plan
-
Assessment:
-S/P Sternotomy with aortic and right atrial cannulation/CABG x 4 (In situ LLOYD to LAD -additional vein graft to the distal LAD off of the flynn of OM 3 vein graft from the aorta, Ao to RSVG to OM1, Ao to RSVG to OM 3)- unable to utilize BIMA d/t
severe atherosclerosis and plaque/Revision of vein graft of OM 3 with an additional piece of vein to extend the length/Endoscopic vein harvesting of right lower extremity (along with open harvest segment)/Left atrial appendage exclusion with 35 mm
clip/Placement of 5.5 Impella VA, by Dr. Owusu, 12/21/23, pod#2
Assessment:
- Unstable angina/ NSTEMI- admitted to [facility] on 12/13/23, transferred to on 12/14/23 for evaluation for CABG (last Plavix 12/13/23)
- Cath 12/13/23 with LM/2V CAD
- LVEF 10-20% intraop, improved to 30-35% post Impella placement
- ICM, EF 32% by Echo 12/13/23
- Functional mild-moderate MR
- Hx PSVT on Holter monitor
- Chronic LBBB
- PAD- s/p L SFA stent 06/29/23 and R external iliac stent 07/16/23
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
- Carotid dz with 50-69% LICA
- HTN/HLD
- Depression
- Viral subacute thyroditis 2022 - resolved
- Hx GIB d/t diverticulitis 2013
- Hx breast augmentation with subsequent removal of implants
- b/l cataract extraction with intraocular lens implant
-Intraop VT s/p shock x 1
-Intraop CHB vs Asystole
-Intaop Cardiogenic shock (CI 1.4-1.6 on inotropic support) S/P Impella placement
-Intraop and postop blood loss/Anemia (transfused 6u PRBCs)
-Intraop and postop thrombocytopenia (transfused 2 {5pks} plts)
-Intraop and postop coagulopathy (transfused 2u FFPs)
-Acute postop atelectasis
-Acute postop hypovolemia with subsequent hypervolemia
-Acute postop vasal vagal episode with SBP 50's
-Acute postop ectopies S/p amiodarone gtt @ 0.5 mg/min
-Acute postop Impella management (CPT code 37940)
Discussed patient care with: Nursing and Care Team
Subjective
Procedure
-S/P Sternotomy with aortic and right atrial cannulation/CABG x 4 (In situ LLOYD to LAD -additional vein graft to the distal LAD off of the flynn of OM 3 vein graft from the aorta, Ao to RSVG to OM1, Ao to RSVG to OM 3)- unable to utilize BIMA d/t
severe atherosclerosis and plaque/Revision of vein graft of OM 3 with an additional piece of vein to extend the length/Endoscopic vein harvesting of right lower extremity (along with open harvest segment)/Left atrial appendage exclusion with 35 mm
clip/Placement of 5.5 Impella VA, by Dr. Owusu, 12/21/23
-
Date of Service: December 23, 2023
Objective Data
-
PT 15.2 Sec (11.4-14.6) H 12/22/23 03:12
INR 1.21 12/22/23 03:12
APTT 59.4 Sec (23.4-35.0) H 12/22/23 23:04
Vital Signs
Vital Signs
Temp Pulse Resp BP Pulse Ox
98.9 F 70 11 105/64 97
12/23/23 00:00 12/23/23 00:00 12/23/23 00:00 12/23/23 00:00 12/23/23 00:00
CT Intake/Output/Weight
12/22/23 12/22/23 12/23/23
06:59 18:59 06:59
Intake Total 899.6 / 2991.4 896.3 / 1337.2 440.9 / 1337.2
Output Total 675 / 1640 655 / 865 210 / 865
Balance 224.6 / 1351.4 241.3 / 472.2 230.9 / 472.2
SaO2: 97
Physical Exam
-
General: Awake and AOx3
Cardiovascular: Regular rate & rhythm, No Murmurs and No Rub
Respiratory: Decreased Breath Sounds
Sternum: Stable
Incision: Clean, Dry and Dressing Intact
Extremities: Edema +1 (DPs are by Doppler b/l (R is harder to find than L))
Data Reviewed
-
Lab Results: Results Reviewed
Medications: Active Meds Reviewed
Chest X-Ray: Report Reviewed and Image Reviewed
ECG: Report Reviewed and Image Reviewed
[2023-12-23] MEDS: DILAUDID 0.5 MG IV (03:46)
--- NOTE | 2023-12-23 04:00 | PTCARENOTE ---
Pt assessment unchanged. NSR with BBB on monitor, VSS. Continued pain management, see MAR. Nitro gtt on and off throughout the night. PTT resulted as 63.7, no change in heparin rate per CVPA. Call rhodse within reach. Will continue to monitor.
[2023-12-23 04:02] LABS: ALT (SGPT) 22 U/L (0-35); AST (SGOT) 41 U/L (14-36); Albumin 3.7 g/dl (3.5-5.0); Alkaline Phosphatase 58 U/L (38-126); Blood Urea Nitrogen 20 mg/dl (7-17); Calcium 8.9 mg/dl (8.4-10.2); Carbon Dioxide 19 mmol/L (22-30); Chloride 104 mmol/L (98-107); Estimated Creatinine Clearance 57 ml/min; Glucose 104 mg/dl (70-99); Potassium 4.5 mmol/L (3.5-5.1); Sodium 139 mmol/L (135-145); Total Protein 5.3 g/dl (6.3-8.2); eGFR > 60.00
[2023-12-23 04:13] LABS: D-Dimer 0.89 ug/mlFEU (0.00-0.50)
[2023-12-23 04:30] LABS: Hematocrit 23.2 % (37.0-47.0); Hemoglobin 8.3 g/dL (12.0-16.0); Mean Corp Hgb Conc. 35.8 g/dL (33.0-37.0); Mean Corpuscular Volume 81.1 fL (81.0-99.0); Red Blood Cell Count 2.86 10^6/uL (4.20-5.40); Red Cell Dist. Width 17.2 % (11.5-14.5); White Blood Cell Count 8.3 10^3/uL (4.8-10.8)
[2023-12-23 04:31] LABS: Mean Platelet Volume 10.4 fL (7.4-10.4); Platelet Count 98 10^3/uL (130-400)
[2023-12-23] MEDS: PRIMACOR 20 MG 100 IV ×2 (04:54→17:26)
[2023-12-23 05:02] LABS: Glucose - Point of Care 95 mg/dl (70-99)
[2023-12-23 07:01] LABS: HCO3 23.5 mmol/L (21-28); Ionized Calcium 1.21 mMOL/L (1.15-1.33); O2 Saturation % 99.4 % (94-98); PCO2 37 mmHg (32-35); PO2 142 mmHg (83-108); pH 7.41 (7.35-7.45)
--- NOTE | 2023-12-23 07:04 | W.PN.CD ---
Today's Communication / Plan
-
Bumetanide 1 mg IV BID.
Check hemolysis labs (LDH, peripheral smear, bilirubin, INR, haptoglobin, reticulocytes).
If she tolerates P3 for 1-2 hours, decrease to P2.
If she tolerates P2, I would advocate for impella removal today for suspected hemolysis.
BP is maintained on milrinone and VERY low impella suppport.
Impression / Plan
-
Impression/Plan: 73F with ischemic cardiomyopathy, coronary artery disease, hypertension, dyslipidemia, and PAD who initially presented to [facility] and was found to have an NSTEMI and was transferred to this facility for CABG.
#NSTEMI/MVCAD
-Acute on chronic.
-s/p CABG x 4 (in situ LLOYD to LAD with additional vein graft to the distal LAD off of the flynn of OM 3 vein graft from the aorta, Ao to RSVG to OM1, Ao to RSVG to OM 3) by Dr. Owusu 12/21/2023.
-Pre CABG LVEF = 20% with severe RWMA. Post CABG LVEF = 10-15%, prompting placement of 5.5 Impella (P4).
-MAP consistently > 65 mmHg.
-PADP = 12 mmHg, RAP = 7 mmHg.
-CI = 2.4 L/min/m2.
-Check hemolysis labs - falling platelets/Hbg suggest possibly hemolysis due to impella.
-Rapid impella weaning this morning. Currently on P3. If he tolerates for 1-2 hours, reduce to P2 and monitor. If tolerates P2, would advocate for removal today.
-Continue aspirin, clopidogrel, rosuvastatin.
-It is time to start diuresing more aggressively while we have adequate hemodynamic support. Start bumetanide 1 mg IV BID and monitor. Low threshold for a bumetanide gtt.
#ICM
-Chronic, progressive.
-LVEF 30-35% at 09/2023, 20% post CABG.
-Decline in LVEF prompted Impella 5.5.
-GDMT on hold.
-Outpatient note from Dr. Hogan reports she does not have prescription coverage and requires samples of all name-brand medications.
-She declined ICD and LifeVest in the outpatient setting
-HF education provided, trend daily weight & I/O.
-Bumetanide 1 mg IV BID.
-Impella weaning as above.
#Dyslipidemia
-Chronic, stable.
-LDL 529 12/16/23; this is on high intensity statin and ezetimibe.
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 She will need PSK9i therapy postoperative as an outpatient.
-Given her lack of prescription drug coverage by outpatient notes, inclisiran may be the best option for a third agent, but she will likely require multiple agents to achieve goal LDL
-Patient interested in outpatient consultation with [place] [facility]. We will refer as an outpatient.
-Continue current medical therapy while inpatient.
#PAD
-Chronic, stable.
-Multiple prior lower extremity revascularizations
-May benefit from low dose rivaroxaban 2.5 BID in outpatient setting. Will leave this to primary setter helper.
#HTN
#PSVT seen on Holter monitor
#LBBB
Public Health Director: Dr. Hogan
Critical Care Time = 45 minutes.
Subjective/Interval History:
Weight yesterday was probably accurate.
CTS staff report a significant amount of volume given during procedure and post operatively.
Impella decreased to P3 as of 6:30 this morning.
Furosemide 20 mg IV given yesterday.
BP remains stable on milrinone 0.375 mcg/kg/hour.
Hbg has fallen again from 9.6 to 8.3.
Platelets down to 98.
DATA:
Intraprocedural JONATHAN, 12/21/2023:
CONCLUSIONS
Severe LV dysfunction. Overall LVEF calculates to 20% by Alvarado's rule.
Left ventricle is mildly dilated.
Moderate concentric left ventricular hypertrophy.
Stage I Diastolic dysfunction.
Mildly dilated left atrium.
Trace pulmonic insufficiency.
Moderate mitral regurgitation.
MR etiology is likely functional due to papillary muscle dysfunction and
leaflet restriction.
Mild sessile atheroma seen in the descending aorta and distal arch.
POST OPERATIVE FINDINGS
The patient underwent a CABG. SHANTELL ligation, and placement of an Impella 5.0.
Postop rhythm remains sinus. RV function appears normal. Overall LVEF is
approximately 30 - 35% with improved anterior, lateral, and inferior wall
segment motion. There is still septal dyskinesia present. The Impella 5.[address] place approximately 4.6 to 5.1 cm distal to the AV annulus. Trace AI
noted around the Impella device. Minimal MR noted. TV and PV function appear
normal. Aortic scan is unchanged.
TTE, 12/14/23:
Left ventricle is mildly dilated. Stage I diastolic dysfunction suggestive of
abnormal relaxation. Moderately reduced left ventricular systolic function. Left ventricular
ejection fraction is 32% by volumetric assessment.
Global hypokinesis with the anterior and anterolateral waldrop moving best.
Mild to moderate mitral regurgitation.
Compared to previous echo report from 09/22/23, the ejection fraction sounds to
be similar but the regionality of the hypokinesis described is different, but
no images available for direct comparison.
Echocardiogram, 09/22/2023:
Regional wall motion abnormalities include moderate hypokinesis of the mid to
distal anterior wall and apical akinesis. Mild to moderate distal inferior
hypokinesis.
The ejection fraction is estimated at 30-35%.
Diastolic function is indeterminate.
Normal right ventricular size and function.
Moderate left atrial enlargement.
Normal right atrium.
Structurally normal mitral valve without significant stenosis w/ mild to
moderate regurgitation.
Structurally normal aortic valve without significant stenosis or regurgitation.
Structurally normal tricuspid valve without significant stenosis w/ mild
regurgitation.
Estimated pulmonary artery pressure is 32 mmHg.
Structurally normal pulmonic valve without significant stenosis or
regurgitation.
Normal pericardium without effusion.
Normal aortic root.
IVC demonstrates normal respiratory variation.
Physical Exam
Vital Signs/Labs
Vital Signs
Temp Pulse Resp BP Pulse Ox
36.5 C 94 10 118/73 97
12/23/23 06:00 12/23/23 06:20 12/23/23 06:20 12/23/23 06:18 12/23/23 06:20
12/21/23 12/22/23 12/23/23
11:59 11:59 11:59
Actual Weight 60.5 kg 67.7 kg 71.4 kg
12/23/23 03:14
12/23/23 03:14
PT 16.1 Sec (11.4-14.6) H 12/23/23 03:14
INR 1.29 12/23/23 03:14
APTT 63.7 Sec (23.4-35.0) H 12/23/23 03:14
Magnesium 2.0 mg/dl (1.6-2.3) 12/23/23 03:14
Triglycerides 90 mg/dl (10-149) 12/15/23 03:16
LDL Cholesterol, Calc 529 mg/dl 12/15/23 03:16
VLDL Cholesterol, Calc 18 mg/dl (0-30) 12/15/23 03:16
HDL Cholesterol 91 mg/dl 12/15/23 03:16
TSH 2.52 uIU/ml (0.47-4.68) 12/18/23 03:00
Physical Exam
Constitutional: No acute distress and Comfortable
EENT: Anicteric and Moist mucous membranes
Cardiovascular: Other (Impella hum is present.)
Respiratory: Respiratory effort normal and Other (Decreased at bases.)
GI: Soft, Distention absent, Flat, Non tender and Normal bowel sounds
Neuro/Psych: AO x 3
Other: Cath Site (Impella subclavian access site is C/D/I.)
Data Reviewed
-
Date of Service: December 23, 2023
Medical Decision Making: Reviewed Test Results, Tests Ordered, Independent Historian Assessment and Test Interpretation
EKG: Tracing Personally Visualized and interpreted and Report Reviewed by me
Echo: Tracing Personally Visualized and interpreted and Report Reviewed by me
X-Ray/CT/US/MRI/NUC/PET: Image Personally Visualized and interpreted and Report Reviewed by me
Medical Tests (PFT, Pathology etc): Report Reviewed by me
Labs: Labs Reviewed by me
Old Records: Reviewed
[2023-12-23] MEDS: TYLENOL PO (07:17)
--- NOTE | 2023-12-23 07:35 | W.PN.INTV ---
Today's Communication / Plan
Recommendations
Wean pressors and inotropes
Impella wean
Monitor chest tube output
Bumex initiated
Repeat echocardiogram
Assessment
-
73-year-old female with a history of ischemic cardiomyopathy, CAD, hypertension, hyperlipidemia and PAD found to have NSTEMI with further evaluation necessitating Impella/CABG/MVR and male model consulted for postoperative ventilator/critical care
management 12/21/2023.
Severe CAD with preop EF 20-30%
Status post CABG/Impella-Dr. Owusu-12/21/2023
Ischemic cardiomyopathy-EF 20-30%
Moderate mitral regurgitation
Mild viapon-hqrilnmghw-pfcmnifdey 10.1
Conditions present prior to admission:
Qpaknuagokhmta-nzxeoaom-XA 20-30 %.
CAD.
Hypertension.
Hyperlipidemia.
PAD-left superficial femoral artery stent 06/2023/right external iliac stent 07/2023.
PSVT.
Depression.
Viral thyroiditis 2022.
GIB due to diverticulitis 2013.
Tonsillectomy. Tubal ligation. Bilateral cataract. Breast augmentation
Plan
Tolerated extubation
Supplemental oxygen as needed
Encourage incentive spirometry
Aspiration precautions per protocol
Pulmonary artery catheter and arterial line continue
Pressors and inotropes as needed-begin to wean
Bumex drip initiated
Continue to monitor chest tube output
Follow hemoglobin
Continue to follow platelet count and coags
Transfuse blood product as needed-has obtained 6 units packed red blood cells
CT surgery following chest tubes as well
Impella device per cardiology and cardiovascular surgery-begin to wean and potentially remove 12/23/2023-EF 20-25%
Repeat echocardiogram 12/23/2023-pending
Repeat echocardiogram 12/22/2023
Monitor blood sugar
Insulin drip continues
Early nutrition
Early mobilization when Impella device removed
DVT prophylaxis
Critical care statement: A total of 36 minutes of critical care time was provided for this patient today. This includes management of ventilator, spontaneous breathing trial, arterial blood gases, pressors, of unstable vital signs, evaluation of the
patient at bedside, pressor management, monitoring chest tube, reviewing the patient's pertinent medical records including radiographs, microbiology, laboratory evaluations, and discussion with primary team and critical care nursing.
Diagnostic data:
Chest x-ray 12/15/2023-NAD
CT chest 12/14/23-mild dependent atelectasis, mild peripheral interstitial fibrosis, no honeycombing,
Echocardiogram-transesophageal 12/21/2023-EF 20%, moderate concentric left ventricular hypertrophy, stage I diastolic dysfunction, moderate mitral regurgitation, mitral regurgitation etiology is likely functional due to papillary muscle dysfunction
and leaflet restriction, mild sessile erythema
Subjective Dataa
Subjective Data
Date of Service:
Date of Service: December 23, 2023
Chief Complaint: Tassel Snipper Follow Up, Pulmonary Follow Up and Vent Management Follow Up
Subjective:
Some shortness of breath, difficulties taking a deep breath, noted chest pain, abdominal pain, or weakness
Review of Systems
General: Other (Per HPI)
Objective Data
Data Reviewed
Vital Signs / I&O / Oxygen:
Vital Signs
Temp Pulse Resp BP Pulse Ox
97.6 F 94 10 118/73 98
12/23/23 07:00 12/23/23 06:20 12/23/23 07:00 12/23/23 06:18 12/23/23 07:00
Intake and Output
12/22/23 12/23/23 12/24/23
06:59 06:59 06:59
Intake Total 2905.5 / 2991.4 1795.4 / 1844.7 49.3 / 49.3
Output Total 1580 / 1640 1325 / 1395 70 / 70
Balance 1325.5 / 1351.4 470.4 / 449.7 -20.7 / -20.7
SaO2 [SIMV] 99
SaO2 98
Nasal Cannula flow liters per 2
minute
Physical Exam
General: Respiratory Distress (n) and Comfortable
HEENT: Normocephalic and Anicteric
Cardiovascular: Regular Rhythm and Murmur
Respiratory: Wheeze (n), Crackles (Basilar), Rhonchi (n), Non-Labored Respirations, Accessory Resp Muscle Use (n) and Stridor (n)
GI: Soft, Non Distended and Non Tender
Neurology: Awake, Alert and No Motor Deficits
Skin: Warm, Good Color, Cyanosis (n), Jaundice and Rash (n)
Labs/Micro/Reports
Lab Data
12/23/23 03:14
12/23/23 03:14
Laboratory Results
12/22/23 12/22/23 12/23/23
16:38 23:04 03:14
PT 16.1 H
INR 1.29
APTT 33.5 59.4 H 63.7 H
pH
pCO2
pO2
HCO3
O2 Delivery Level
12/23/23
06:49
PT
INR
APTT
pH 7.41
pCO2 37 H
pO2 142 H
HCO3 23.5
O2 Delivery Level
[2023-12-23] MEDS: CARDENE 200 IV (08:00)
--- NOTE | 2023-12-23 08:00 | PTCARENOTE ---
Assumed care of patient. Walking rounds completed with previous RN. Pt assessed while she was lying in bed. Pt alert and oriented x4. Pt rates pain 'all over 9/10', refuses oral pain medication and wants only IV pain medications. Pt denies nausea.
Pt very weak and needs significant encouragement to move extremities. Extremity strength equal throughout. SR with 1st degree AVB and BBB on tele with rates in the 80s. BP controlled with nitro, changed to cardene per Dr. Owusu for afterload
reduction. Bilateral radial pulses palpable. Bilateral DP pulses weakly palpable, confirmed with doppler. CI 2.07, SVR 1947. PA pressures 30s/10s. CVP 8-10. Epicardial AV wires to back up VVI 30/4/0.8. POX 98% on 2L NC. Lungs diminished throughout,
crackles in b/l bases. Occasional dry nonproductive cough noted. Mediastinal chest tubes x2 y-sited to 1 atrium draining dark red fluid. Right and left pleural chest tubes y-sited to 1 atrium draining serosanguineous fluid. Significant milking
required to maintain patency of pleural CTs. Output WNL. No air leaks, tidaling, crepitus noted. Abdomen soft, round, nontender. Hypoactive BS. NPO at this time for possible OR return to d/c impella. Medrano catheter draining clear yellow urine.
Sternal incision approximated with skin glue, LOCOMOTIVE MECHANIC APPRENTICE, ecchymotic. Left chest wall impella exit site WNL. Chest tube sites covered, dressing CDI. Right groin puncture site approximated with skin glue, CINTHIA. Right SVG harvest covered with Aquacel, with
old drainage. Right IJ cordis intact with swan floated to 47cm. Right radial nely intact. All lines flushed, leveled, zeroed. Left arm PIV sites intact. Impella to P3, tolerating. See MAR for medication administration. See worklist for complete
nursing assessment. Plan of care reviewed and patient reluctantly in agreement.
[2023-12-23 08:16] LABS: Reticulocyte Count 1.8 % (0.4-2.8)
[2023-12-23] MEDS: OFIRMEV 100 IV (08:19)
[2023-12-23] MEDS: BACTROBAN 2% OINTMENT 1 APPLIC NASAL ×2 (08:20→20:46)
[2023-12-23] MEDS: ROXICODONE PO (08:20)
[2023-12-23] MEDS: LOW STRENGTH ASPIRIN 81 MG PO (08:20)
[2023-12-23] MEDS: CRESTOR 40 MG PO (08:20)
[2023-12-23] MEDS: PROTONIX 40 MG PO (08:24)
[2023-12-23] MEDS: NEURONTIN 100 MG PO ×3 (08:24→21:29)
[2023-12-23] MEDS: PACERONE 200 MG PO ×3 (08:24→21:31)
[2023-12-23] MEDS: FLEXERIL 5 MG PO (08:24)
[2023-12-23] MEDS: ZETIA 10 MG PO (08:24)
[2023-12-23] MEDS: MAGNESIUM OXIDE 500 MG PO ×2 (08:24→20:48)
[2023-12-23] MEDS: PLAVIX 75 MG PO (08:24)
[2023-12-23] MEDS: SENOKOT-S 1 TABLET PO ×2 (08:25→20:48)
[2023-12-23 08:33] LABS: LDH 212 U/L (120-246)
[2023-12-23] MEDS: ATIVAN 0.5 MG PO (08:47)
[2023-12-23] MEDS: BUMEX 50 IV (09:28)
[2023-12-23] MEDS: NSS 500 IV (09:29)
[2023-12-23 10:17] LABS: Glucose - Point of Care 107 mg/dl (70-99)
[2023-12-23 10:17] LABS: Glucose - Point of Care 97 mg/dl (70-99)
[2023-12-23 10:17] LABS: Glucose - Point of Care 123 mg/dl (70-99)
[2023-12-23 11:02] LABS: APTT 57.4 Sec (23.4-35.0)
[2023-12-23 11:19] LABS: Absolute Neutrophils -Man Diff 6.9 10^3/uL (1.4-6.5); Band Neutrophils 9 % (0-3); Lymphocytes 8 % (20-51); Metamyelocytes 2 % (-); Monocytes 6 % (2-9); Segmented Neutrophils 75 % (42-75)
[2023-12-23 11:22] LABS: Anisocytosis 1+; Hypochromasia 1+; Normal RBC Morphology No; Platelets Checked Yes
[2023-12-23 11:23] LABS: Acanthocytes 1+; Ovalocytes FEW; Total Cells Counted 100
--- NOTE | 2023-12-23 11:30 | PTCARENOTE ---
Pt taken to OR for impella removal. Pt stable prior to transport.
--- NOTE | 2023-12-23 11:30 | CM ---
Chart reviewed. Patient is going back to the OR to have Impella removed. Patient is independent of ADLS, lives alone in a apartment, [address], [address]. Patient with a supportive family. Plan is for the patient to return home with CT Transitional
RN. CM to follow
--- NOTE | 2023-12-23 13:00 | PTCARENOTE ---
Pt received from [facility]. Pt drowsy, but oriented x4. CPOT score 0. SR with LBBB on tele with rates in the 80s. BP supported with levophed. CI 2.11, SVR 1223. PA pressures 30s/10s. CVP 12. Bilateral radial pulses palpable. Bilateral DP pulses weakly
palpable, confirmed with doppler. Epicardial v-wires backed up to 30/4/0.8, no pacing noted. POX 94% on 2L NC. Lungs diminished throughout. Mediastinal chest tubes x2 y-sited to 1 atrium to -20cm suction draining dark red fluid. Right and Left
pleural chest tubes y-sited to 1 atrium to -20cm suction draining serosanguineous fluid. No air leaks, tidaling, crepitus. CT output WNL. Unable to do IS at this time. Abdomen soft, round, nontender. Hypoactive BS. Medrano catheter draining adequate
amounts of clear yellow urine. Sternal incision approximated with skin glue, ecchymotic. Left upper chest wall (old impella exit site) approximated with skin glue, AUTOMOTIVE SALESPERSON. Right groin puncture site approximated and AUTOMOTIVE SALESPERSON. Right SVG harvest site covered
with Aquacel-old drainage noted. Right IJ cordis intact with swan @ 47cm. Right radial nely intact. All lines flushed, leveled, zeroed with appropriate waveform. Left arm PIVx2 intact. Gtts: Levo, Amio, Bumex, Milrinone, NSS KVOx2. Post op EKG and
labs completed.
[2023-12-23 13:02] LABS: Glucose - Point of Care 148 mg/dl (70-99)
--- NOTE | 2023-12-23 13:05 | W.CVOR.SURPR ---
[facility] Surgeon Immed Pre Op
-
I have examined this patient prior to performance of the scheduled procedure.
The patient's condition is unchanged from the time of the dictated/written History and
Physical and the patient is able to undergo the scheduled procedure.
I spoke with the patient and her son immediately prior to this procedure. All questions answered to the best of my abilities.
--- NOTE | 2023-12-23 13:06 | W.IMMPOSTOP ---
Addendum entered and electronically signed by David Hickey MD 12/23/23 14:14:
[id number]
Original Note:
Surgical Immed Post Op Note
-
CARDIAC SURGERY OPERATIVE NOTE:
Preoperative Dx:
Reduced LVEF
Status post coronary artery bypass grafting x 4 and excision of left atrial appendage.
Post cardiotomy cardiogenic shock requiring inotropic and mechanical circulatory support with placement of Impella 5.5
Cardiac recovery on bedside echocardiogram with weaning of Impella 5.5
Postoperative Dx:
Same
Procedure:
Removal of Impella 5.5
Completion JONATHAN assessment
Surgeon:
David Hickey M.D.
Winding Rack Operator:
Vincenzo Niño P.A.-C.
Anesthesia:
GET
Complications:
None
Transfusions:
None
Condition:
Guarded to CVICU w/ stable hemodynamics
Extubated in operating room following procedure
[2023-12-23 13:07] LABS: Hematocrit 22.9 % (37.0-47.0); Hemoglobin 8.1 g/dL (12.0-16.0)
[2023-12-23] MEDS: NOVOLOG FLEXPEN-MODERATE RESISTANCE SC (13:51)
[2023-12-23] MEDS: ANCEF 10 IV (14:09)
[2023-12-23] MEDS: TYLENOL 1000 MG PO ×2 (14:09→21:30)
--- NOTE | 2023-12-23 15:10 | PTCARENOTE ---
CT PA notified of CI 1.95.
--- NOTE | 2023-12-23 16:30 | PTCARENOTE ---
Pt reassessed. Remains drowsy but oriented. SR with LBBB on tele with rates in the 80s. BP stable 112/50. CI 2.02 SVR 1258. PA pressures 30s/10s. CVP 12. Bilateral feet edema +1. POX 94% on RA. Surgical sites stable. CT output WNL. Medrano draining
adequate amounts of clear yellow urine. All lines remain intact. Pt turned from side to side and repositioned, no significant dumps from chest tubes. Pt tolerated. No other acute changes from previous assessment. Gtts: Amio, Milrinone, Bumex.
[2023-12-23 16:48] LABS: Glucose - Point of Care 168 mg/dl (70-99)
[2023-12-23] MEDS: NOVOLOG FLEXPEN-MODERATE RESISTANCE 1 UNITS SC (17:04)
[2023-12-23] MEDS: ROXICODONE 5 MG PO ×2 (17:19→21:29)
[2023-12-23] MEDS: CORDARONE 518 MG IV (17:25)
--- NOTE | 2023-12-23 20:26 | PTCARENOTE ---
Assumed care of patient at 1900. Patient resting in bed, daughter at bedside. Patient AOx4, no neuro deficits noted, affect is flat, endorses some feelings of anxiety. Patient SR LBBB on the monitor, HR 70-80's, pressure
[2023-12-23] MEDS: ANCEF 5 IV (20:47)
[2023-12-23] MEDS: ENTRESTO 24 MG/26 MG 1 TAB PO (20:51)
--- NOTE | 2023-12-23 21:12 | PTCARENOTE ---
Assumed care of patient at 1900. Patient resting in bed, daughter at bedside. Patient AOx4, no neuro deficits noted, affect is flat, c/o some feelings of mild anxiety. Patient SR LBBB on the monitor, HR 70-80's, art line pressure WNL. AV wires in
place with temporary pacemaker settings 30/4/0.8. CO 4.12, CI 2.47. DP pulses weakly palpable, present with doppler. +1 generalized nonpitting edema, +2 lower extremity pitting edema. Lungs CTA, no adventitious breath sounds noted, CT x4 in place to
wall suction. Patient placed on 2LNC for SpO2 90-91, then SpO2 94-97%, frequently clearing her throat, IS encouraged, ANGIE ordered Mucinex after patient agreed. BS hypoactive, patient tolerating sips of clears, poor appetite no n/v. Medrano catheter in
place draining clear, yellow urine. Midsternal incision WOOD SCALER with dermabond, R groin site WOOD SCALER CDI, RSVG with aquacell dressing no drainage, LCW Impella site intact with dermabond WOOD SCALER, R art line dressing CDI, RIJ Cordis swan-agustin dressing CDI. PIV x2
in L wrist and forearm, 18 and 20 g respectively, INT dressing CDI. On Bumex (held at 2000 per provider order), Milirinone, amiodarone, and Cordis/VIP KVO. See worklist for I&O values. POC discussed with the patient, in agreement. Mineral
encouraged. Assessment of needs ongoing.
[2023-12-23] MEDS: MUCINEX 600 MG PO (21:32)
[2023-12-23 21:37] LABS: Glucose - Point of Care 207 mg/dl (70-99)
[2023-12-23] MEDS: NOVOLOG FLEXPEN 2 UNITS SC (22:18)
--- NOTE | 2023-12-23 22:58 | PTCARENOTE ---
Care of patient continued. C/o of pain in sternum, Oxycodone given, see MAR. Encouraged the patient to cough and deep breathe to clear respiratory secretions. Lines leveled and zeroed, CO 3.55 CI 2.13. VSS, patient made comfortable in bed, call rhodes
within reach.
--- NOTE | 2023-12-23 23:38 | PTCARENOTE ---
MAP intermittently <65, Levo restarted per ANGIE.
[2023-12-24] VITALS (38 sets, daily range): BP systolic 52–127; BP diastolic 31–96; BMI 24.9
[2023-12-24] MEDS: LEVOPHED 250 IV
--- NOTE | 2023-12-24 02:15 | PTCARENOTE ---
Patient sleeping intermittently. Patient A+A+Ox3 during periods of care. No c/o pain or discomfort. C.O. 3.76 C.I. 2.25 SVR 1276 PAP 27/02 (16) CVP 10. Assessment/Interventions as documented.
[2023-12-24 03:52] LABS: Mixed Venous O2 Saturation 65.5 %
[2023-12-24 04:06] LABS: Hemoglobin 8.4 g/dL (12.0-16.0); Mean Corpuscular Hgb 28.7 pg (27.0-31.0); Mean Corpuscular Volume 81.9 fL (81.0-99.0); Mean Platelet Volume 10.4 fL (7.4-10.4); Platelet Count 122 10^3/uL (130-400); Red Blood Cell Count 2.93 10^6/uL (4.20-5.40); Red Cell Dist. Width 17.1 % (11.5-14.5); White Blood Cell Count 13.8 10^3/uL (4.8-10.8)
[2023-12-24 04:27] LABS: ALT (SGPT) 23 U/L (0-35); AST (SGOT) 38 U/L (14-36); Albumin 3.4 g/dl (3.5-5.0); Alkaline Phosphatase 74 U/L (38-126); Blood Urea Nitrogen 22 mg/dl (7-17); Calcium 7.9 mg/dl (8.4-10.2); Carbon Dioxide 22 mmol/L (22-30); Chloride 96 mmol/L (98-107); Estimated Creatinine Clearance 57 ml/min; Glucose 188 mg/dl (70-99); Magnesium 2.4 mg/dl (1.6-2.3); Potassium 3.8 mmol/L (3.5-5.1); Sodium 133 mmol/L (135-145); Total Bilirubin 0.6 mg/dl (0.2-1.3); Total Protein 5.1 g/dl (6.3-8.2); eGFR > 60.00
[2023-12-24] MEDS: ANCEF 5 IV ×2 (04:40→12:20)
[2023-12-24 04:45] LABS: INR 1.24; PT 15.7 Sec (11.4-14.6)
[2023-12-24 04:46] LABS: Fibrinogen 430 MG/DL (199-459)
[2023-12-24 04:49] LABS: D-Dimer 2.16 ug/mlFEU (0.00-0.50)
--- NOTE | 2023-12-24 05:30 | PTCARENOTE ---
Patient A+A+Ox3. No neurological deficits noted. No c/o pain or discomfort. Patient given CHG bath and linens changed. Chest tube dressing changed. AM lab work collected and sent. EKG completed. Portable CXR completed. C.O. 3.76 C.I. 2.25
SVR 1272 CVP 10 PAP 28/14 (19). Bed scale weight 68.9 kg. Patient back to sleep. Assessment/Interventions as documented.
[2023-12-24] MEDS: TYLENOL PO (05:55)
[2023-12-24] MEDS: BUMEX 50 IV (06:01)
[2023-12-24] MEDS: PRIMACOR 20 MG 100 IV ×2 (06:07→23:28)
--- NOTE | 2023-12-24 06:36 | W.PN.CT ---
Addendum entered and electronically signed by Tami Espinosa PA-C 12/24/23 11:27:
Response to query: Acute on chronic combined systolic/diastolic heart failure
Addendum entered and electronically signed by David Hickey MD 12/24/23 08:52:
I saw and examined the patient.
The PA's note was reviewed and I agree with the note.
Comment:
Neuro: Intact, pain well-controlled this morning, hold Dilaudid (patient felt paranoid post receiving this medication), continue oxy/Flexeril/gabapentin
CV: Status post removal of Impella 5.5 yesterday. Hemodynamics are stable. Current pressures: 116/54, 37/22, CVP 18, CI/CO: 2.25/3.76, MVO2 65.5 while on milrinone at 0.375, Amio at 0.5, Levophed intermittently at 1-2. Maintain chest tubes today,
will hopefully be able to remove some of the chest tubes tomorrow. Wean milrinone to 0.3, DC amio
Pulm: Encourage incentive spirometry, out of bed. Currently on 2 L nasal cannula with SpO2 94%.
GI: Tolerating p.o. quite well good appetite today.
: On Bumex drip at 0.5, excellent diuresis with clear yellow urine, creatinine 0.8
Heme: Hemoglobin is 8.4 from 8.1, platelets 122 (up from 98)
ID: WBC 13.8, on periprocedural antibiotics (Ancef x 1 more dose)
Endo: Insulin sliding scale, follow blood sugars, may need to adjust sliding scale as necessary
FEN: Sodium is 133, potassium 3.8, mag 2.4; albumin is 3.4
Prophylaxis: SCDs to bilateral lower extremities while in bed, Protonix, out of bed/pressure ulcer prophylaxis
Dispo: ICU full code
Original Note:
Today's Communication / Plan
-
-pod #3
-no issues overnight
-pt is more complaint, has no difficulty taking po meds. Stopped iv Dilaudid (felt paranoid)
-CI 2.25, CO 3.76, SVR 1276, mvO2 65.5. Drips: Milrinone 0.375, Amio 0.5, Levo 1-2 on and off, Bumex 0.5 to restart at 6 am
-CT output: 2 meds 15/130, b/l pleur 30/430 in 12/24 hrs
-K 3.8- gave 40 KCL
-diuresed well with Bumex drip (UO 1160/3091 in 12/24 hrs)
-current meds (ASA, Zetia, Crestor, Amio, Plavix, Entresto, Mucinex, Protonix). Holding BB while on inotrops
-encourage IS, OOB
Assessment / Plan
-
Assessment:
-S/P Sternotomy with aortic and right atrial cannulation/CABG x 4 (In situ LLOYD to LAD -additional vein graft to the distal LAD off of the flynn of OM 3 vein graft from the aorta, Ao to RSVG to OM1, Ao to RSVG to OM 3)- unable to utilize BIMA d/t
severe atherosclerosis and plaque/Revision of vein graft of OM 3 with an additional piece of vein to extend the length/Endoscopic vein harvesting of right lower extremity (along with open harvest segment)/Left atrial appendage exclusion with 35 mm
clip/Placement of 5.5 Impella VA, by Dr. Owusu, 12/21/23, pod#3
Assessment:
- Unstable angina/ NSTEMI- admitted to [facility] on 12/13/23, transferred to on 12/14/23 for evaluation for CABG (last Plavix 12/13/23)
- Cath 12/13/23 with LM/2V CAD
- LVEF 10-20% intraop, improved to 30-35% post Impella placement
- ICM, EF 32% by Echo 12/13/23
- Functional mild-moderate MR
- Hx PSVT on Holter monitor
- Chronic LBBB
- PAD- s/p L SFA stent 06/29/23 and R external iliac stent 07/16/23
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
- Carotid dz with 50-69% LICA
- HTN/HLD
- Depression
- Viral subacute thyroditis 2022 - resolved
- Hx GIB d/t diverticulitis 2013
- Hx breast augmentation with subsequent removal of implants
- b/l cataract extraction with intraocular lens implant
-Intraop VT s/p shock x 1
-Intraop CHB vs Asystole
-Intaop Cardiogenic shock (CI 1.4-1.6 on inotropic support) S/P Impella placement
-Intraop and postop blood loss/Anemia (transfused 6u PRBCs)
-Intraop and postop thrombocytopenia (transfused 2 {5pks} plts)
-Intraop and postop coagulopathy (transfused 2u FFPs)
-Acute postop atelectasis
-Acute postop hypovolemia with subsequent hypervolemia
-Acute postop vasal vagal episode with SBP 50's
-Acute postop ectopies S/p amiodarone gtt @ 0.5 mg/min
-Acute postop Impella management (CPT code 78828)
Discussed patient care with: Nursing and Care Team
Subjective
Procedure
-S/P Sternotomy with aortic and right atrial cannulation/CABG x 4 (In situ LLOYD to LAD -additional vein graft to the distal LAD off of the flynn of OM 3 vein graft from the aorta, Ao to RSVG to OM1, Ao to RSVG to OM 3)- unable to utilize BIMA d/t
severe atherosclerosis and plaque/Revision of vein graft of OM 3 with an additional piece of vein to extend the length/Endoscopic vein harvesting of right lower extremity (along with open harvest segment)/Left atrial appendage exclusion with 35 mm
clip/Placement of 5.5 Impella VA, by Dr. Owusu, 12/21/23
-
Date of Service: December 24, 2023
Objective Data
-
PT 16.1 Sec (11.4-14.6) H 12/23/23 03:14
INR 1.29 12/23/23 03:14
APTT 57.4 Sec (23.4-35.0) H 12/23/23 10:31
Vital Signs
Vital Signs
Temp Pulse Resp BP Pulse Ox
98.2 F 83 19 116/52 96
12/24/23 03:00 12/24/23 03:00 12/24/23 03:00 12/24/23 02:00 12/24/23 03:00
CT Intake/Output/Weight
12/23/23 12/23/23 12/24/23
06:59 18:59 06:59
Intake Total 899.1 / 1844.7 1267.9 / 1688.1 420.2 / 1688.1
Output Total 670 / 1395 2446 / 3651 1205 / 3651
Balance 229.1 / 449.7 -1178.1 / -1962.9 -784.8 / -2.9
SaO2: 96
Physical Exam
-
General: Awake and AOx3
Cardiovascular: Regular rate & rhythm, No Murmurs and No Rub
Respiratory: Decreased Breath Sounds
Sternum: Stable
Incision: Clean, Dry and Dressing Intact
Abdomen: soft, nontender, + bowel sounds
Extremities: Edema +1 b/l , DPs are by Doppler b/l
Data Reviewed
-
Lab Results: Results Reviewed
Medications: Active Meds Reviewed
Chest X-Ray: Report Reviewed and Image Reviewed
ECG: Report Reviewed and Image Reviewed
--- NOTE | 2023-12-24 07:13 | W.PN.CD ---
Today's Communication / Plan
-
Maintain bumetanide gtt at 0.5 mg/hour.
Wean off of milrinone.
Keep CI > 2.0. Favor continued invasive monitoring while weaning milrinone given her dahlia post operative course.
Chest tube/pain management per CTS.
Incentive spirometry.
Ambulate when possible.
Impression / Plan
-
Impression/Plan: 73F with ischemic cardiomyopathy, coronary artery disease, hypertension, dyslipidemia, and PAD who initially presented to [facility] and was found to have an NSTEMI and was transferred to this facility for CABG.
#NSTEMI/MVCAD
-Acute on chronic.
-s/p CABG x 4 (in situ LLOYD to LAD with additional vein graft to the distal LAD off of the flynn of OM 3 vein graft from the aorta, Ao to RSVG to OM1, Ao to RSVG to OM 3) by Dr. Owusu 12/21/2023.
-Pre CABG LVEF = 20% with severe RWMA. Post CABG LVEF = 10-15%, prompting placement of 5.5 Impella, explanted on 12/23/2023.
-PADP = 13 mmHg, RAP = 9 mmHg.
-CI = 2.25 L/min/m2.
-Bumetanide gtt at 0.5 mg/hour.
-Milrinone wean started.
-Pain control/chest tube management per CTS.
-Encourage incentive spirometry and ambulation when possible.
#ICM
-Chronic, progressive.
-LVEF 30-35% at 09/2023, 20% post CABG.
-Decline in LVEF prompted Impella 5.5, removed yesterday.
-Outpatient note from Dr. Hogan reports she does not have prescription coverage and requires samples of all name-brand medications.
-She declined ICD and LifeVest in the outpatient setting
-Slowly reintroducing GDMT.
#Dyslipidemia
-Chronic, stable.
-LDL 529 12/16/23; this is on high intensity statin and ezetimibe.
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 She will need PSK9i therapy postoperative as an outpatient.
-Given her lack of prescription drug coverage by outpatient notes, inclisiran may be the best option for a third agent, but she will likely require multiple agents to achieve goal LDL
-Patient interested in outpatient consultation with [facility]. We will refer as an outpatient.
-Continue current medical therapy while inpatient.
#PAD
-Chronic, stable.
-Multiple prior lower extremity revascularizations
-May benefit from low dose rivaroxaban 2.5 BID in outpatient setting. Will leave this to primary hand drawer in helper.
#HTN
#PSVT seen on Holter monitor
#LBBB
It Business Analyst: Dr. Hogan
Critical Care Time = 40 minutes.
Subjective/Interval History:
Impella surgically explanted yesterday.
Sacubitril/valsartan given last night.
Norepinephrine on/off intermittently for MAP < 65 mmHg.
DATA:
TTE, 12/23/2023:
CONCLUSIONS
Severely reduced left ventricular systolic function. Left ventricular ejection
fraction is 20%.
Global hypokinesis with abnormal (paradoxical) septal motion consistent with
left bundle branch block.
Impella visualized in the left ventricle.
Mild/moderate mitral regurgitation.
Normal right ventricular size. Reduced right ventricular systolic function.
Compared to 12/22/23: LVEF is similar. RV is better visualized, and systolic
function is reduced. MR looks mild/moderate, compared to mild on prior.
Intraprocedural JONATHAN, 12/21/2023:
CONCLUSIONS
Severe LV dysfunction. Overall LVEF calculates to 20% by Alvarado's rule.
Left ventricle is mildly dilated.
Moderate concentric left ventricular hypertrophy.
Stage I Diastolic dysfunction.
Mildly dilated left atrium.
Trace pulmonic insufficiency.
Moderate mitral regurgitation.
MR etiology is likely functional due to papillary muscle dysfunction and
leaflet restriction.
Mild sessile atheroma seen in the descending aorta and distal arch.
POST OPERATIVE FINDINGS
The patient underwent a CABG. SHANTELL ligation, and placement of an Impella 5.0.
Postop rhythm remains sinus. RV function appears normal. Overall LVEF is
approximately 30 - 35% with improved anterior, lateral, and inferior wall
segment motion. There is still septal dyskinesia present. The Impella 5.[address] approximately 4.6 to 5.1 cm distal to the AV annulus. Trace AI
noted around the Impella device. Minimal MR noted. TV and PV function appear
normal. Aortic scan is unchanged.
TTE, 12/14/23:
Left ventricle is mildly dilated. Stage I diastolic dysfunction suggestive of
abnormal relaxation. Moderately reduced left ventricular systolic function. Left ventricular
ejection fraction is 32% by volumetric assessment.
Global hypokinesis with the anterior and anterolateral waldrop moving best.
Mild to moderate mitral regurgitation.
Compared to previous echo report from 09/22/23, the ejection fraction sounds to
be similar but the regionality of the hypokinesis described is different, but
no images available for direct comparison.
Echocardiogram, 09/22/2023:
Regional wall motion abnormalities include moderate hypokinesis of the mid to
distal anterior wall and apical akinesis. Mild to moderate distal inferior
hypokinesis.
The ejection fraction is estimated at 30-35%.
Diastolic function is indeterminate.
Normal right ventricular size and function.
Moderate left atrial enlargement.
Normal right atrium.
Structurally normal mitral valve without significant stenosis w/ mild to
moderate regurgitation.
Structurally normal aortic valve without significant stenosis or regurgitation.
Structurally normal tricuspid valve without significant stenosis w/ mild
regurgitation.
Estimated pulmonary artery pressure is 32 mmHg.
Structurally normal pulmonic valve without significant stenosis or
regurgitation.
Normal pericardium without effusion.
Normal aortic root.
IVC demonstrates normal respiratory variation.
Physical Exam
Vital Signs/Labs
Vital Signs
Temp Pulse Resp BP Pulse Ox
36.4 C 80 20 112/55 96
12/24/23 06:00 12/24/23 06:00 12/24/23 06:00 12/24/23 06:00 12/24/23 06:00
12/22/23 12/23/23 12/24/23
11:59 11:59 11:59
Actual Weight 67.7 kg 71.4 kg 68.9 kg
12/24/23 03:34
12/24/23 03:34
PT 15.7 Sec (11.4-14.6) H 12/24/23 03:34
INR 1.24 12/24/23 03:34
APTT 57.4 Sec (23.4-35.0) H 12/23/23 10:31
Magnesium 2.4 mg/dl (1.6-2.3) H 12/24/23 03:34
Triglycerides 90 mg/dl (10-149) 12/15/23 03:16
LDL Cholesterol, Calc 529 mg/dl 12/15/23 03:16
VLDL Cholesterol, Calc 18 mg/dl (0-30) 12/15/23 03:16
HDL Cholesterol 91 mg/dl 12/15/23 03:16
TSH 2.52 uIU/ml (0.47-4.68) 12/18/23 03:00
Physical Exam
Constitutional: No acute distress and Comfortable
EENT: Anicteric and Moist mucous membranes
Cardiovascular: Rhythm & rate is regular, Pedal edema is absent, JVD pressure is normal, S1S2 is normal and Murmur/rub/gallop absent
Respiratory: Respiratory effort normal, Wheeze Absent, Rhonchi Absent and Crackles Present (Bilateral bases.)
GI: Soft, Distention absent, Flat, Non tender and Normal bowel sounds
Neuro/Psych: AO x 3
Data Reviewed
-
Date of Service: December 24, 2023
Medical Decision Making: Reviewed Test Results, Independent Historian Assessment and Test Interpretation
EKG: Tracing Personally Visualized and interpreted and Report Reviewed by me
Echo: Tracing Personally Visualized and interpreted and Report Reviewed by me
X-Ray/CT/US/MRI/NUC/PET: Image Personally Visualized and interpreted and Report Reviewed by me
Medical Tests (PFT, Pathology etc): Report Reviewed by me
Labs: Labs Reviewed by me
Old Records: Reviewed
--- NOTE | 2023-12-24 07:37 | W.PN.INTV ---
Today's Communication / Plan
Recommendations
Begin to deline
Bumex drip
Replace electrolytes
Increase activity
Follow echocardiogram
Wean pressors and inotropes
Assessment
-
73-year-old female with a history of ischemic cardiomyopathy, CAD, hypertension, hyperlipidemia and PAD found to have NSTEMI with further evaluation necessitating Impella/CABG/MVR and vegetable packer consulted for postoperative ventilator/critical care
management 12/21/2023.
Severe CAD with preop EF 20-30%
Status post CABG/Impella-Dr. Owusu-12/21/2023
Ischemic cardiomyopathy-EF 20-30%
Moderate mitral regurgitation
Mild vyxbom-wmtlxnhkbu-kwbaoeuhke 10.1
Conditions present prior to admission:
Krwhhckpvbkesp-wfoxysgg-BL 20-30 %.
CAD.
Hypertension.
Hyperlipidemia.
PAD-left superficial femoral artery stent 06/2023/right external iliac stent 07/2023.
PSVT.
Depression.
Viral thyroiditis 2022.
GIB due to diverticulitis 2013.
Tonsillectomy. Tubal ligation. Bilateral cataract. Breast augmentation
Plan
Respiratory status improved
Critically ill pressors with PA line on Bumex drip
Supplemental oxygen as needed-attempt to wean
Incentive spirometry encouraged
Aspiration precautions per protocol
Chest x-ray 12/23/2023-consolidation left lower lobe-suspect atelectasis, small left pleural effusion
Pulmonary artery catheter and arterial line-May be pulled later today
Pressors and inotropes are being weaned
Bumex drip will continue today-was stopped briefly-nice diuresis
Continue diuresis as tolerated
Monitor renal function, electrolytes, intake/output, lower extremity edema and weight
Replace electrolytes as needed
Continue to monitor chest tube output
Post chest tubes per surgery
Follow hemoglobin
Continue to follow platelet count and coags
Transfuse blood product as needed-has obtained 6 units packed red blood cells
CT surgery following chest tubes as well
Impella device per cardiology and cardiovascular surgery-begin to wean and potentially remove 12/23/2023-EF 20-25%
Repeat echocardiogram 12/23/2023--EF 20%, moderate mitral regurgitation
Monitor blood sugar
Insulin drip continues
Advanced nutrition
Out of bed now that Impella device has been removed
DVT prophylaxis
Critical care statement: A total of 35 minutes of critical care time was provided for this patient today. This includes management of ventilator, spontaneous breathing trial, arterial blood gases, pressors, of unstable vital signs, evaluation of the
patient at bedside, pressor management, monitoring chest tube, reviewing the patient's pertinent medical records including radiographs, microbiology, laboratory evaluations, and discussion with primary team and critical care nursing.
Diagnostic data:
Chest x-ray 12/15/2023-NAD
CT chest 12/14/23-mild dependent atelectasis, mild peripheral interstitial fibrosis, no honeycombing,
Echocardiogram-transesophageal 12/21/2023-EF 20%, moderate concentric left ventricular hypertrophy, stage I diastolic dysfunction, moderate mitral regurgitation, mitral regurgitation etiology is likely functional due to papillary muscle dysfunction
and leaflet restriction, mild sessile erythema
Subjective Dataa
Subjective Data
Date of Service:
Date of Service: December 24, 2023
Chief Complaint: Nuclear Equipment Research Engineer Follow Up, Pulmonary Follow Up and Vent Management Follow Up
Subjective:
Feels better, Impella out, Bumex drip back on, diuresed nicely, no complaints of shortness of breath at rest, pain controlled, no abdominal pain
Review of Systems
General: Other (Per HPI)
Objective Data
Data Reviewed
Vital Signs / I&O / Oxygen:
Vital Signs
Temp Pulse Resp BP Pulse Ox
97.5 F 80 20 112/55 96
12/24/23 06:00 12/24/23 06:00 12/24/23 06:00 12/24/23 06:00 12/24/23 06:00
Intake and Output
12/23/23 12/24/23 12/25/23
06:59 06:59 06:59
Intake Total 1795.4 / 1844.7 1947.4 / 1947.4
Output Total 1325 / 1395 3906 / 3906
Balance 470.4 / 449.7 -1958.6 / -8.6
SaO2 [SIMV] 99
SaO2 96
Nasal Cannula flow liters per 2
minute
Physical Exam
General: Respiratory Distress (n) and Comfortable
HEENT: Normocephalic and Anicteric
Cardiovascular: Regular Rhythm and Murmur
Respiratory: Wheeze (n), Crackles (Basilar), Rhonchi (n), Non-Labored Respirations, Accessory Resp Muscle Use (n) and Stridor (n)
GI: Soft, Non Distended and Non Tender
Neurology: Awake, Alert and No Motor Deficits
Skin: Warm, Good Color, Cyanosis (n), Jaundice and Rash (n)
Labs/Micro/Reports
Lab Data
12/24/23 03:34
12/24/23 03:34
Laboratory Results
12/23/23 12/24/23
10:31 03:34
PT 15.7 H
INR 1.24
APTT 57.4 H
[2023-12-24 07:57] LABS: Glucose - Point of Care 180 mg/dl (70-99)
[2023-12-24] MEDS: NOVOLOG FLEXPEN-MODERATE RESISTANCE 1 UNITS SC ×3 (07:58→16:55)
--- NOTE | 2023-12-24 08:00 | PTCARENOTE ---
Received pt from [facility]. Walking rounds completed. Pt assessment completed in bed. Pt is AAOx4, no neuro deficits noted. VSS B/P:135/59, HR:92. NSR with LBBB noted on monitor. Epicardial A-V wires to VVI 30-4. no pacing noted. PAP 30's/20's, CVP
15, CI 2.16. Pulses palpable, Bi-lat lower extremities weak pulses. Trace edema noted in upper extremities, +1 noted in lower extremities. Lungs clear, diminished in bases. C/Tx4, 2 Meds, 2 Pleural. no air leak, tidaling or crepitus noted. Drainage
WNL. Dressing C/D/I. I/S 500. Pt educated and encouraged to use. B/S hypoactive, abdomen soft, non-tender. Bumex, Amio, and Milrone drips running, Medrano clear, yellow urine. Urine output appropriate. IJ cordis to KVO, [place] @47cm. Right radial a-line
intact, L forearm flushes, no redness or edema. Sternal incision TANKER TRUCK DRIVER, approximated, surgical glue present. Right SVG harvest sight Aquacel with old drainage noted.
[2023-12-24] MEDS: LOW STRENGTH ASPIRIN 81 MG PO (08:09)
[2023-12-24] MEDS: KCL 40 MEQ PO (08:10)
[2023-12-24] MEDS: MUCINEX 600 MG PO ×2 (08:10→19:53)
[2023-12-24] MEDS: NEURONTIN 100 MG PO ×3 (08:11→22:06)
[2023-12-24] MEDS: ENTRESTO 24 MG/26 MG 1 TAB PO (08:11)
[2023-12-24] MEDS: MAGNESIUM OXIDE 500 MG PO ×2 (08:11→19:53)
[2023-12-24] MEDS: CRESTOR 40 MG PO (08:11)
[2023-12-24] MEDS: PLAVIX 75 MG PO (08:12)
[2023-12-24] MEDS: ZETIA 10 MG PO (08:12)
[2023-12-24] MEDS: PROTONIX 40 MG PO (08:12)
[2023-12-24] MEDS: SENOKOT-S 1 TABLET PO ×2 (08:12→19:53)
[2023-12-24] MEDS: PACERONE 200 MG PO ×3 (08:12→22:06)
[2023-12-24] MEDS: BACTROBAN 2% OINTMENT 1 APPLIC NASAL ×2 (08:15→19:53)
[2023-12-24 09:14] LABS: Mixed Venous O2 Saturation 57.8 %
[2023-12-24] MEDS: ROXICODONE 2.5 MG PO ×2 (09:33→13:55)
--- NOTE | 2023-12-24 10:00 | PTCARENOTE ---
PT OOB to chair x3 assist. Pt tolerated. Clotting noted to pleural chest tube, CT DOREEN Noyola notified and at bedside to address. New connector placed. C/T draining Serosanguineous fluid after intervention.
--- NOTE | 2023-12-24 10:36 | PN.CDI ---
CDI
- -
CDI:
Physician Documentation Request
Admit Date: 12/14/23 06:[address] surgery,
Clinical Indicators:
Patient admitted with N STEMI; s/p CABG x 4, SHANTELL exclusion and Impella placement 12/20.
12/20 CT Operative note, Postoperative Diagnosis: 'Same, acute on chronic ischemic heart failure'
Comorbidities: 'Acute on chronic ischemic myopathy, systolic and diastolic dysfunction
with LVEF of 20%
12/21 Echo Report (Impella in place) Severely reduced left ventricular systolic function. Left ventricular ejection is 20%'
12/22 Bumex gtt initiated.
PAD pressures
12/24/23
08:05 12/24/23
08:25 12/24/23
09:25
Pulmonary Artery Diastolic Pressure 22 23 22
Please clarify the appropriate diagnosis, that supports the above abnormalities and additional evaluation, monitoring and/or treatment rendered
Acute on chronic combined systolic/diastolic heart failure
Acute on chronic systolic heart failure
Acute on chronic ischemic cardiomyopathy only
Other, please specify
Use of terms such as suspected, likely, concern for, or probable (associated with a specific diagnosis that is being evaluated, monitored, or treated as if it exists) are acceptable and can be coded in the inpatient setting, when documented at the
time of discharge.
Thank you,
Cherry Coto RN BSN
CDI Specialist
available via tiger text
Please use your independent medical judgment in providing your response.
--- NOTE | 2023-12-24 11:15 | PTCARENOTE ---
B/P 80's/50's, CT PA Jazmín notified. CI 1.71. Bumex on hold as per CT PA. Pleural C/T drain 100 ml in previous hour. [address] PA notified.
--- NOTE | 2023-12-24 11:49 | CM ---
Chart reviewed. Patient is independent of ADLS, lives alone in a apartment, [address], 0 [address]. Patient with a supportive family. Plan is for the patient to return home with CT Transitional RN. CM to follow
[2023-12-24 12:02] LABS: Glucose - Point of Care 171 mg/dl (70-99)
[2023-12-24] MEDS: FLEXBUMIN 100 IV ×2 (12:19→19:53)
[2023-12-24 12:57] LABS: Hematocrit 26.3 % (37.0-47.0); Hemoglobin 9.3 g/dL (12.0-16.0); Mean Corp Hgb Conc. 35.4 g/dL (33.0-37.0); Mean Corpuscular Volume 84.8 fL (81.0-99.0); Mean Platelet Volume 10.5 fL (7.4-10.4); Mixed Venous O2 Saturation 50.1 %; Platelet Count 137 10^3/uL (130-400); Red Cell Dist. Width 16.9 % (11.5-14.5); White Blood Cell Count 14.7 10^3/uL (4.8-10.8)
[2023-12-24] MEDS: NSS IV (13:12)
--- NOTE | 2023-12-24 13:22 | W.PN.ANS.POP ---
Anesthesia Post Operative
- Anesthesia Post Op Note
Vital Signs Stable-See Nursing Note: Yes
Airway Patent: Yes (room air)
Adequate Pain Control: Yes
Change in Mental Status: No
Current Postoperative Nausea & Vomiting: No
Anesthesia Complications: No
General Anesthetic Recall: No
Unplanned Admission: No
Post Op Hydration Adequate: Yes
[2023-12-24] MEDS: TYLENOL 1000 MG PO ×2 (14:06→22:07)
[2023-12-24] MEDS: CALCIUM CHLORIDE 10% SYRINGE 60 MG IV (14:28)
--- NOTE | 2023-12-24 14:52 | PTCARENOTE ---
VSS, NSR with LBBB on monitor. B/P 102/49, HR 85. Pt receiving 1 unit PRBC. Tolerating infusion
--- NOTE | 2023-12-24 15:24 | PTCARENOTE ---
VSS, NSR with LBBB on monitor. CI:1.96, B/P: 107/48, HR:89. 1 unit PRBC completed. Pt tolerated infusion. No reactions noted. C/T output WNL.
[2023-12-24 16:34] LABS: Mixed Venous O2 Saturation 49.7 %
[2023-12-24 16:36] LABS: Mixed Venous O2 Saturation 51.7 %
[2023-12-24 16:54] LABS: Glucose - Point of Care 194 mg/dl (70-99)
[2023-12-24 17:01] LABS: Blood Urea Nitrogen 31 mg/dl (7-17); Calcium 9.4 mg/dl (8.4-10.2); Carbon Dioxide 20 mmol/L (22-30); Chloride 97 mmol/L (98-107); Estimated Creatinine Clearance 45 ml/min; Glucose 160 mg/dl (70-99); Potassium 4.3 mmol/L (3.5-5.1); Sodium 133 mmol/L (135-145); eGFR 59.12
[2023-12-24] MEDS: BUMEX 2 MG IV (17:01)
[2023-12-24 17:24] LABS: B.E. 0.1 mmol/L; HCO3 22.9 mmol/L (21-28); Ionized Calcium 1.19 mMOL/L (1.15-1.33); O2 Saturation % 99.5 % (94-98); PCO2 30 mmHg (32-35); PO2 132 mmHg (83-108); Potassium 4.1 mMOL/L (3.5-5.1); Sodium 127 mMOL/L (136-145); pH 7.49 (7.35-7.45)
[2023-12-24] MEDS: DOBUTREX 250 MG IV (17:25)
--- NOTE | 2023-12-24 17:30 | PTCARENOTE ---
CT PLANOGRAPH OPERATOR at bedside. Orders to increase Milrinone to 0.375 and Initiate Dobutamine at 2 and Bumex IVP. Orders completed.
--- NOTE | 2023-12-24 18:00 | PTCARENOTE ---
CI 2.86. CT SALE PROFESSIONAL DIGITAL MARKETING at bedside and orders received to titrate Milrinone to 0.3 and Dobutamine to 1. Pt tolerated.
--- NOTE | 2023-12-24 18:15 | PTCARENOTE ---
[place] extremely positional and unreliable values. Attempted to flush and reposition. CT FILTER PRESS TENDER HEAD notified. Anesthesia notified. Attempted to place new Mandi over a wire without success. Right radial mandi d/c by anesthesia. Hemostasis achieved. Additional
mandi attempt by anesthesia, but failed. Cuff BP cycling [id number], CT FILTER PRESS TENDER HEAD aware.
[2023-12-24] MEDS: ENTRESTO 24 MG/26 MG PO (19:47)
--- NOTE | 2023-12-24 19:53 | W.PN.UPDATE ---
Update Note
Progress Note Update
Brachial arterial line placement
A time-out was completed verifying correct patient, procedure, site, patient positioning, and special equipment. Patient was monitored with continuous bedside EKG, blood pressure, pulse ox readings.
The patient's Left brachial was prepped and draped in sterile fashion.
1% Lidocaine was used to anesthetize the area. Ultrasound was used in real time to localize the brachial artery and guide introducer needle into the arterial lumen. The catheter was threaded over the guide wire and the needle was removed with
appropriate pulsatile blood return. The catheter was then secured in place to the skin and a biopatch and sterile dressing applied.
Perfusion to the extremity distal to the point of catheter insertion was checked and found to be unchanged.
Estimated Blood Loss: 0 mL
The patient tolerated the procedure well and there were no complications.
Remains in critical condition.
--- NOTE | 2023-12-24 20:00 | PTCARENOTE ---
Addendum entered by Pily Oneil RN 12/25/23 03:58:
Addendum to add Dobutamine and milrinone gtts infusing at change of shift. See worklist for I/O details.
Original Note:
Assumed care of the patient at 1900. Patient resting in bed. ANGIE at bedside attempting arterial line restart. Patient AOx4 and pleasant. NSR with LBBB on monitor, HR 80's. Temporary pacemaker intact, settings 30/4/0.8, pedal pulses via doppler, RDP
difficult to assess, strong R posterior tibial heard with Doppler. Patient's generalized edema improved to trace, B/L LE edema +2 non-pitting. Lungs diminished at the bases, maintained on 2LNC, SpO2 96-98%. IS encouraged, patient has a weak,
infrequent, productive cough. Splinting with her heart pillow and coughing/deep breathing reinforced. CT x4 in place, dressing CDI. Good BS, abdomen SNT, appetite improved per day shift, no n/v, tolerating sips of water. Medrano catheter in place,
draining clear, yellow urine. Midsternal chest incision CDI dermabond CINTHIA, LCW site CDI CINTHIA with dermabond, R groin access site CDI TENTS ASSEMBLER dermabond, RSVG with aquacell dressing CDI, old drainage, surrounding skin ecchymotic. RIJ Cordis, [place] 47
at the neck, L forearm 20 g intact, new arterial line placed in L brachial artery. Mixed venous collected, result 64. Patient updated on plan of care, in agreement, no additional needs expressed at this time, call rhodes within reach.
[2023-12-24 20:25] LABS: B.E. 1.3 mmol/L; HCO3 24.7 mmol/L (21-28); Ionized Calcium 1.18 mMOL/L (1.15-1.33); PCO2 34 mmHg (32-35); PO2 101 mmHg (83-108); Potassium 4.3 mMOL/L (3.5-5.1); pH 7.47 (7.35-7.45)
[2023-12-24] MEDS: ROXICODONE 5 MG PO (20:44)
[2023-12-24] MEDS: CALCIUM CHLORIDE 10% SYRINGE 50 ML IV (20:53)
[2023-12-24] MEDS: CALCIUM CHLORIDE 10% SYRINGE 50 MG IV (20:53)
--- NOTE | 2023-12-24 22:00 | PTCARENOTE ---
Assumed care of patient at 1900. Patient found in bed at time of assessment. Patient is AOx4, follows all commands appropriately, moves all extremities. Lung sounds are diminished in the bases, patient is on RA with saO2 of 92%. Heart sounds are
audible, patient is SR/ST with BBB on the monitor. Patient has A+V wires with VVI settings 30/4/0.8. Patient has normal palpable radial pulses and dorsalis pedis are present with doppler. +1 BLE edema and trace generalized anasarca is present.
Patient has active BS and a rojas is present draining clear yellow urine. Patient has sternal incision approx with surg adhesive CINTHIA, R groin puncture approx with surg adhesive COMMUNITY MENTAL HEALTH WORKER, RLE incisionx2 each with aquacell dressing. Superior RLE incision
CDI inferior RLE incision has large amount of old drainage visible, but is dry. Patient has a R IJ cordis with swan @47cm as well as R FA 20G PIV. Patient has the following gtts: Milrinone@0.375, Dobut@1, Cordis/VIP KVO. Vital signs as follows:
T-98.3 BP-92/67 RR-21 BP-92/67 MAP-76 PAP-29/16 CVP-10 CI-2.30
[2023-12-24 22:54] LABS: Glucose - Point of Care 143 mg/dl (70-99)
--- NOTE | 2023-12-24 23:00 | PTCARENOTE ---
Patient resting in bed watching television. Occasional harsh cough - Minimal secretions. Sternal Precautions. C.O. 3.93 C.I. 2.35 SVR 1160. Assessment/Interventions as documented.
[2023-12-25] VITALS (56 sets, daily range): BP systolic 80–171; BP diastolic 43–149; PULSE 110; O2SAT 94–95; BMI 24.8
--- NOTE | 2023-12-25 00:45 | PTCARENOTE ---
Patient A+A+Ox3. No neurological deficit noted. No c/o pain or discomfort. Patient's left brachial arterial line positional/dampened reading below right upper arm cuff pressure. Cuff pressure 123/52(73). Levophed gtt continues - Rate increased
from 2 mcq/min (7.5 ml/hr) to 3 mcq/min (11.3 ml/hr). Right and Left Pleural chest tubes appear clotted - Physician's Coating Manager for CT Surgery, Saman Jimenez PA-C, assessed and manipulated tubes - Appear to be draining now. Patient resting in
bed, dozing intermittently. No further changes from previous assessment.
[2023-12-25] MEDS: LEVOPHED 250 IV (01:12)
[2023-12-25] MEDS: NSS 500 IV (02:07)
--- NOTE | 2023-12-25 02:30 | PTCARENOTE ---
Patient sleeping without difficulty. No c/o pain or discomfort. C.O. 5.02 C.I. 3.00. Assessment/Interventions as documented.
[2023-12-25] MEDS: FLEXBUMIN 100 IV (03:22)
[2023-12-25 03:23] LABS: Mixed Venous O2 Saturation 78.7 %
[2023-12-25 03:26] LABS: B.E. 2.4 mmol/L; HCO3 26.3 mmol/L (21-28); Ionized Calcium 1.29 mMOL/L (1.15-1.33); O2 Saturation % 99.8 % (94-98); PCO2 37 mmHg (32-35); PO2 144 mmHg (83-108); pH 7.46 (7.35-7.45)
[2023-12-25 03:39] LABS: Hematocrit 27.2 % (37.0-47.0); Hemoglobin 9.7 g/dL (12.0-16.0); Mean Corp Hgb Conc. 35.7 g/dL (33.0-37.0); Mean Corpuscular Hgb 29.7 pg (27.0-31.0); Mean Corpuscular Volume 83.2 fL (81.0-99.0); Mean Platelet Volume 10.2 fL (7.4-10.4); Platelet Count 135 10^3/uL (130-400); Red Blood Cell Count 3.27 10^6/uL (4.20-5.40); Red Cell Dist. Width 16.3 % (11.5-14.5); White Blood Cell Count 11.3 10^3/uL (4.8-10.8)
[2023-12-25 04:06] LABS: Blood Urea Nitrogen 36 mg/dl (7-17); Calcium 9.6 mg/dl (8.4-10.2); Carbon Dioxide 26 mmol/L (22-30); Chloride 99 mmol/L (98-107); Estimated Creatinine Clearance 38 ml/min; Glucose 124 mg/dl (70-99); Magnesium 2.4 mg/dl (1.6-2.3); Potassium 4.2 mmol/L (3.5-5.1); Sodium 137 mmol/L (135-145)
--- NOTE | 2023-12-25 04:30 | PTCARENOTE ---
AM labs collected and sent. C.O. 5.03 C.I. 3.01 SVR 747 CVP 10 PAP /16 (21). Mixed Venous 78.7 Ionized Calcium 1.29 Hgb 9.7 Hct 27.2. Patient sleeping. Assessment/Interventions as documented.
[2023-12-25 05:07] LABS: Haptoglobin 62 mg/dL (30-200)
--- NOTE | 2023-12-25 05:26 | W.PN.CT ---
Addendum entered and electronically signed by David Hickey MD 12/25/23 08:26:
I saw and examined the patient.
The PA's note was reviewed and I agree with the note.
Comment:
Postop day #4 status post coronary artery bypass grafting x 4/exclusion of left atrial appendage/Impella 5.5 placement
Postop day #2 status post removal of Impella 5.5
No major overnight issues. Patient with appropriate indices mixed venous O2 on current infusions.
Neuro: Intact, continue current pain regime, avoid Dilaudid
CV: Wean milrinone to 0.25 and hold, continue dobutamine at 1, intermittent Levophed as needed; DC brachial A-line�nonfunctional; DC chest tubes
Pulm: Wean to room air as tolerated, currently on 2 L at 98% SpO2; encourage incentive spirometry/out of bed
GI: Tolerating p.o.
: Medrano in place with excellent response with diuresis over last 12/24 hours (2200/3000) post IV Bumex. Creatinine 1.2 today from 1.0. Would hold on diuresis today.
Heme: Hemoglobin 9.7 from 8.4 yesterday status post 1 unit packed red blood cells; platelets 135
ID: WBC 11.3. No fevers. No antibiotics currently.
FEN: Lites okay
Prophylaxis: SCDs to bilateral lower extremities, out of bed
Dispo: ICU full code
Original Note:
Today's Communication / Plan
-
-pod #4
-no significant issues overnight, A&O x4.
-s/p 1 pRBC on 12/23 for Hg 8.4
-L brachial a-line was placed 12/23 (? accuracy)
-CI 3.01, CO 5.03, SVR 747, mvO2 78.7. Drips: Milrinone 0.30, Dobut 1, Levo 1-3
-got Bumex 2mg iv at 5 pm last night with good response (UO 2200/3000 in 12/24 hrs)
-CT output: 2 meds 5/90, b/l pleur 30/310 in 1224 hrs (CTs clotty)
-Cr is trending up - 1.2 today (1.0 on 12/23 and 0.8 preop)
-current meds (ASA, Zetia, Crestor, Amio, Plavix, Entresto, Mucinex, Protonix). Holding BB while on inotrops
-maintain swan, Cordis, a-line, Medrano, pw
-encourage IS, OOB
Assessment / Plan
-
Assessment:
-S/P Sternotomy with aortic and right atrial cannulation/CABG x 4 (In situ LLOYD to LAD -additional vein graft to the distal LAD off of the flynn of OM 3 vein graft from the aorta, Ao to RSVG to OM1, Ao to RSVG to OM 3)- unable to utilize BIMA d/t
severe atherosclerosis and plaque/Revision of vein graft of OM 3 with an additional piece of vein to extend the length/Endoscopic vein harvesting of right lower extremity (along with open harvest segment)/Left atrial appendage exclusion with 35 mm
clip/Placement of 5.5 Impella [facility], by Dr. Owusu, 12/21/23, pod#4
Assessment:
- Unstable angina/ NSTEMI- admitted to [facility] on 12/13/23, transferred to on 12/14/23 for evaluation for CABG (last Plavix 12/13/23)
- Cath 12/13/23 with LM/2V CAD
- LVEF 10-20% intraop, improved to 30-35% post Impella placement
- ICM, EF 32% by Echo 12/13/23
- Functional mild-moderate MR
- Hx PSVT on Holter monitor
- Chronic LBBB
- PAD- s/p L SFA stent 06/29/23 and R external iliac stent 07/16/23
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
- Carotid dz with 50-69% LICA
- HTN/HLD
- Depression
- Viral subacute thyroditis 2022 - resolved
- Hx GIB d/t diverticulitis 2013
- Hx breast augmentation with subsequent removal of implants
- b/l cataract extraction with intraocular lens implant
-Intraop VT s/p shock x 1
-Intraop CHB vs Asystole
-Intaop Cardiogenic shock (CI 1.4-1.6 on inotropic support) S/P Impella placement
-Intraop and postop blood loss/Anemia (transfused 7u PRBCs)
-Intraop and postop thrombocytopenia (transfused 2 {5pks} plts)
-Intraop and postop coagulopathy (transfused 2u FFPs)
-Acute postop atelectasis
-Acute postop hypovolemia with subsequent hypervolemia
-Acute postop vasal vagal episode with SBP 50's
-Acute postop ectopies S/p amiodarone gtt @ 0.5 mg/min
-Acute postop Impella management (CPT code 65056)
-Acute on chronic combined systolic/diastolic heart failure
-Acute postop hyponatremia
-YANELI
Discussed patient care with: Nursing and Care Team
Subjective
Procedure
-S/P Sternotomy with aortic and right atrial cannulation/CABG x 4 (In situ LLOYD to LAD -additional vein graft to the distal LAD off of the flynn of OM 3 vein graft from the aorta, Ao to RSVG to OM1, Ao to RSVG to OM 3)- unable to utilize BIMA d/t
severe atherosclerosis and plaque/Revision of vein graft of OM 3 with an additional piece of vein to extend the length/Endoscopic vein harvesting of right lower extremity (along with open harvest segment)/Left atrial appendage exclusion with 35 mm
clip/Placement of 5.5 Impella [facility], by Dr. Owusu, 12/21/23
-
Date of Service: December 25, 2023
Objective Data
-
PT 15.7 Sec (11.4-14.6) H 12/24/23 03:34
INR 1.24 12/24/23 03:34
APTT 57.4 Sec (23.4-35.0) H 12/23/23 10:31
Vital Signs
Vital Signs
Temp Pulse Resp BP Pulse Ox
97.8 F 100 14 115/48 98
12/25/23 02:00 12/25/23 02:16 12/25/23 02:16 12/25/23 02:00 12/25/23 02:16
CT Intake/Output/Weight
12/24/23 12/24/23 12/25/23
06:59 18:59 06:59
Intake Total 929.5 / 2197.4 1104.0 / 2025.5 921.5 / 2025.5
Output Total 1460 / 3906 1166 / 3341 2175 / 3341
Balance -530.5 / -1708.6 -62.0 / -1315.5 -1253.5 / -1315.5
SaO2: 98
Physical Exam
-
General: Awake and AOx3
Cardiovascular: Regular rate & rhythm, No Murmurs and No Rub
Respiratory: Rales (at bases. No wheeze) and Decreased Breath Sounds
Sternum: Stable
Incision: Clean, Dry and Dressing Intact
Extremities: Edema +1 (DPs and PTs by Doppler b/l (R DP difficult to find))
Data Reviewed
-
Lab Results: Results Reviewed
Medications: Active Meds Reviewed
Chest X-Ray: Report Reviewed and Image Reviewed
ECG: Report Reviewed and Image Reviewed
[2023-12-25] MEDS: TYLENOL 1000 MG PO ×3 (05:34→21:04)
[2023-12-25] MEDS: ROXICODONE 2.5 MG PO (05:36)
--- NOTE | 2023-12-25 05:45 | PTCARENOTE ---
Patient A+A+Ox3. No neurological deficits noted. Portable CXR completed. Patient given CHG bath and linens changed. Chest tube dressing changed. Teeth brushed. Face washed. Patient resting in bed. Bed scale weight 68.5 kg.
Assessment/Interventions as documented.
--- NOTE | 2023-12-25 07:01 | W.PN.INTV ---
Today's Communication / Plan
Recommendations
Wean norepinephrine and milrinone as tolerated
Arterial line will come out
PA catheter persists
Diuresis as tolerated
Increase activity
Assessment
-
73-year-old female with a history of ischemic cardiomyopathy, CAD, hypertension, hyperlipidemia and PAD found to have NSTEMI with further evaluation necessitating Impella/CABG/MVR and ciaio counter molder consulted for postoperative ventilator/critical care
management 12/21/2023.
Severe CAD with preop EF 20-30%
Status post CABG/Impella-Dr. Owusu-12/21/2023
Ischemic cardiomyopathy-EF 20-30%
Moderate mitral regurgitation
Mild wilxwo-qyiarbossy-yowsvdfzfs 10.1
Conditions present prior to admission:
Psmqhpbskiezhl-qixednpt-XU 20-30 %.
CAD.
Hypertension.
Hyperlipidemia.
PAD-left superficial femoral artery stent 06/2023/right external iliac stent 07/2023.
PSVT.
Depression.
Viral thyroiditis 2022.
GIB due to diverticulitis 2013.
Tonsillectomy. Tubal ligation. Bilateral cataract. Breast augmentation
Plan
Her respiratory status continues to improve with diuresis
Critically ill pressors with PA line on Bumex drip
Supplemental oxygen weaned to room air
Incentive spirometry encouraged
Aspiration precautions per protocol
Chest x-ray 12/23/2023-consolidation left lower lobe-suspect atelectasis, small left pleural effusion
Chest x-ray 12/25/2023-no evidence for significant pneumothorax, mild parenchymal opacification left lower lung field likely atelectasis slightly improved
Pulmonary artery catheter and arterial epve-xjashawi-Nxp be pulled later today-PA catheter while on inotropes
Pressors and inotropes are being weaned-currently on norepinephrine and milrinone
Bumex drip and diuretics as tolerated
Monitor renal function, electrolytes, intake/output, lower extremity edema and weight
Continue to replace electrolytes as needed
Follow chest tube output
Post chest tubes per surgery
Continue to monitor hemoglobin
Continue to follow platelet count and coags
Transfuse blood product as needed-has obtained 6 units packed red blood cells
CT surgery following chest tubes as well
Impella device removed 12/23/2023-EF 20-25%
Repeat echocardiogram 12/23/2023--EF 20%, moderate mitral regurgitation
Continue to follow blood sugar
Insulin supplementation as needed
Continue nutrition
Increase activity
DVT prophylaxis-mechanical
Critical care statement: A total of 36 minutes of critical care time was provided for this patient today. This includes management of ventilator, spontaneous breathing trial, arterial blood gases, pressors, of unstable vital signs, evaluation of the
patient at bedside, pressor management, monitoring chest tube, reviewing the patient's pertinent medical records including radiographs, microbiology, laboratory evaluations, and discussion with primary team and critical care nursing.
Diagnostic data:
Chest x-ray 12/15/2023-NAD
CT chest 12/14/23-mild dependent atelectasis, mild peripheral interstitial fibrosis, no honeycombing,
Echocardiogram-transesophageal 12/21/2023-EF 20%, moderate concentric left ventricular hypertrophy, stage I diastolic dysfunction, moderate mitral regurgitation, mitral regurgitation etiology is likely functional due to papillary muscle dysfunction
and leaflet restriction, mild sessile erythema
Subjective Dataa
Subjective Data
Date of Service:
Date of Service: December 25, 2023
Chief Complaint: Sky Line Yarder Follow Up, Pulmonary Follow Up and Vent Management Follow Up
Subjective:
Feels better, no shortness of breath, room air saturations adequate, still on milrinone and norepinephrine, no productive cough, abdominal pain
Review of Systems
General: Other (Per HPI)
Objective Data
Data Reviewed
Vital Signs / I&O / Oxygen:
Vital Signs
Temp Pulse Resp BP Pulse Ox
97.6 F 98 18 122/43 98
12/25/23 06:00 12/25/23 06:00 12/25/23 06:00 12/25/23 06:00 12/25/23 06:00
Intake and Output
12/24/23 12/25/23 12/26/23
06:59 06:59 06:59
Intake Total 2197.4 / 2197.4 2418.6 / 2418.6
Output Total 3906 / 3906 3616 / 3616
Balance -1708.6 / -1708.6 -1197.4 / -1197.4
SaO2 [SIMV] 99
SaO2 98
Nasal Cannula flow liters per 2
minute
Physical Exam
General: Respiratory Distress (n) and Comfortable
HEENT: Normocephalic and Anicteric
Cardiovascular: Regular Rhythm and Murmur
Respiratory: Wheeze (n), Crackles (Basilar), Rhonchi (n), Non-Labored Respirations, Accessory Resp Muscle Use (n) and Stridor (n)
GI: Soft, Non Distended and Non Tender
Neurology: Awake, Alert and No Motor Deficits
Skin: Warm, Good Color, Cyanosis (n), Jaundice and Rash (n)
Labs/Micro/Reports
Lab Data
12/25/23 03:14
12/25/23 03:14
Laboratory Results
12/24/23 12/24/23 12/25/23
17:06 20:18 03:12
pH 7.49 H 7.47 H 7.46 H
pCO2 30 L 34 37 H
pO2 132 H 101 144 H
HCO3 22.9 24.7 26.3
O2 Delivery Level
[2023-12-25] MEDS: NOVOLOG FLEXPEN-MODERATE RESISTANCE SC ×3 (08:20→17:57)
[2023-12-25 08:21] LABS: Glucose - Point of Care 105 mg/dl (70-99)
[2023-12-25] MEDS: BACTROBAN 2% OINTMENT 1 APPLIC NASAL (08:47)
[2023-12-25] MEDS: ZETIA 10 MG PO (08:47)
[2023-12-25] MEDS: MUCINEX 600 MG PO ×2 (08:47→21:05)
[2023-12-25] MEDS: CRESTOR 40 MG PO (08:47)
[2023-12-25] MEDS: PROTONIX 40 MG PO (08:47)
[2023-12-25] MEDS: MAGNESIUM OXIDE 500 MG PO ×2 (08:47→21:05)
[2023-12-25] MEDS: LOW STRENGTH ASPIRIN 81 MG PO (08:48)
[2023-12-25] MEDS: SENOKOT-S 1 TABLET PO ×2 (08:48→21:04)
[2023-12-25] MEDS: PACERONE 200 MG PO ×3 (08:48→21:04)
[2023-12-25] MEDS: PLAVIX 75 MG PO (08:48)
[2023-12-25] MEDS: NEURONTIN 100 MG PO ×3 (08:48→21:03)
--- NOTE | 2023-12-25 08:50 | PTCARENOTE ---
Received pt from overnight caregiver RN; pt AAOX3 and resting comfortably in bed; NSR with LBBB on monitor and VSS; A/V wires in placed and VVI set to 30/4/0.8 and no pacing noted; RIJ Cordis and [place] floated to 47, Left Brachial A-line and PIV x1 all
patent; Levo, Dobutamine and Milrinone infusing see flow sheet for details; lungs diminished; IS to 500; CT x4 to -2o wall suction no air leak and no crepitus noted; positive bowel sounds; Medrano catheter draining yellow urine; positive radial pulses
and lower extremity pulses present by Doppler; +1 lower extremity edema noted; all surgical sites C/D/I; see nursing documentation for further details.
--- NOTE | 2023-12-25 09:55 | PTCARENOTE ---
CTx4 removed per order.
--- NOTE | 2023-12-25 10:59 | PTCARENOTE ---
Pt OOB with RN and Cardiac Rehab; Pt brushed teeth and hair washed by RN; assessment unchanged; NSR LBBB on monitor and VSS; Dobutamine, Levo and Milrinone infusing see flow sheet for details.
--- NOTE | 2023-12-25 11:01 | W.PN.CD ---
Today's Communication / Plan
-
bumetanide gtt held today in setting of YANELI: assess to resume tomorrow, perhaps bid dosing
Impression / Plan
-
Impression/Plan: 73F with ischemic cardiomyopathy, coronary artery disease, hypertension, dyslipidemia, and PAD who initially presented to [facility] and was found to have an NSTEMI and was transferred to this facility for CABG.
#NSTEMI/MVCAD
-Acute on chronic.
-s/p CABG x 4 (in situ LLOYD to LAD with additional vein graft to the distal LAD off of the flynn of OM 3 vein graft from the aorta, Ao to RSVG to OM1, Ao to RSVG to OM 3) by Dr. Owusu 12/21/2023.
-Pre CABG LVEF = 20% with severe RWMA. Post CABG LVEF = 10-15%, prompting placement of 5.5 Impella, explanted on 12/23/2023.
-PADP = 13 mmHg, RAP = 9 mmHg.
-CI = 2.25 L/min/m2.
-ASA, Plavix, statin
-remains on milrinone 0.25, dobutamine 1, levophed 2
#ICM with acute systolic HF
-LVEF 30-35% at 09/2023, 20% post CABG.
-Decline in LVEF prompted Impella 5.5, removed 12/22.
-Outpatient note from Dr. Hogan reports she does not have prescription coverage and requires samples of all name-brand medications.
-She declined ICD and LifeVest in the outpatient setting
-GDMT: to add as levophed weaned off
-diuresis: Bumetanide gtt held today in setting of YANELI: assess to resume tomorrow, perhaps bid dosing
#Dyslipidemia
-Chronic, stable.
-LDL 529 12/16/23; this is on high intensity statin and ezetimibe.
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 She will need PSK9i therapy postoperative as an outpatient.
-Given her lack of prescription drug coverage by outpatient notes, katelynn may be the best option for a third agent, but she will likely require multiple agents to achieve goal LDL
-Patient interested in outpatient consultation with [facility]. We will refer as an outpatient.
-Continue current medical therapy while inpatient.
#PAD
-Chronic, stable.
-Multiple prior lower extremity revascularizations
-May benefit from low dose rivaroxaban 2.5 BID in outpatient setting. Will leave this to primary balance and hairspring assembler.
#HTN
#PSVT seen on Holter monitor
#LBBB
Sql Developer Dba: Dr. Hogan
Critical Care Time = 32 minutes.
Subjective/Interval History:
DATA:
TTE, 12/23/2023:
CONCLUSIONS
Severely reduced left ventricular systolic function. Left ventricular ejection
fraction is 20%.
Global hypokinesis with abnormal (paradoxical) septal motion consistent with
left bundle branch block.
Impella visualized in the left ventricle.
Mild/moderate mitral regurgitation.
Normal right ventricular size. Reduced right ventricular systolic function.
Compared to 12/22/23: LVEF is similar. RV is better visualized, and systolic
function is reduced. MR looks mild/moderate, compared to mild on prior.
Intraprocedural JONATHAN, 12/21/2023:
CONCLUSIONS
Severe LV dysfunction. Overall LVEF calculates to 20% by Alvarado's rule.
Left ventricle is mildly dilated.
Moderate concentric left ventricular hypertrophy.
Stage I Diastolic dysfunction.
Mildly dilated left atrium.
Trace pulmonic insufficiency.
Moderate mitral regurgitation.
MR etiology is likely functional due to papillary muscle dysfunction and
leaflet restriction.
Mild sessile atheroma seen in the descending aorta and distal arch.
POST OPERATIVE FINDINGS
The patient underwent a CABG. SHANTELL ligation, and placement of an Impella 5.0.
Postop rhythm remains sinus. RV function appears normal. Overall LVEF is
approximately 30 - 35% with improved anterior, lateral, and inferior wall
segment motion. There is still septal dyskinesia present. The Impella 5.[address] approximately 4.6 to 5.1 cm distal to the AV annulus. Trace AI
noted around the Impella device. Minimal MR noted. TV and PV function appear
normal. Aortic scan is unchanged.
TTE, 12/14/23:
Left ventricle is mildly dilated. Stage I diastolic dysfunction suggestive of
abnormal relaxation. Moderately reduced left ventricular systolic function. Left ventricular
ejection fraction is 32% by volumetric assessment.
Global hypokinesis with the anterior and anterolateral waldrop moving best.
Mild to moderate mitral regurgitation.
Compared to previous echo report from 09/22/23, the ejection fraction sounds to
be similar but the regionality of the hypokinesis described is different, but
no images available for direct comparison.
Echocardiogram, 09/22/2023:
Regional wall motion abnormalities include moderate hypokinesis of the mid to
distal anterior wall and apical akinesis. Mild to moderate distal inferior
hypokinesis.
The ejection fraction is estimated at 30-35%.
Diastolic function is indeterminate.
Normal right ventricular size and function.
Moderate left atrial enlargement.
Normal right atrium.
Structurally normal mitral valve without significant stenosis w/ mild to
moderate regurgitation.
Structurally normal aortic valve without significant stenosis or regurgitation.
Structurally normal tricuspid valve without significant stenosis w/ mild
regurgitation.
Estimated pulmonary artery pressure is 32 mmHg.
Structurally normal pulmonic valve without significant stenosis or
regurgitation.
Normal pericardium without effusion.
Normal aortic root.
IVC demonstrates normal respiratory variation.
Physical Exam
Vital Signs/Labs
Vital Signs
Temp Pulse Resp BP Pulse Ox
97.8 F 99 22 102/58 95
12/25/23 10:00 12/25/23 10:10 12/25/23 10:10 12/25/23 10:00 12/25/23 10:02
09/12/25/23 12/26/23
06:59 06:59 06:59
Actual Weight 68.9 kg 68.5 kg
12/25/23 03:14
12/25/23 03:14
PT 15.7 Sec (11.4-14.6) H 12/24/23 03:34
INR 1.24 12/24/23 03:34
APTT 57.4 Sec (23.4-35.0) H 12/23/23 10:31
Magnesium 2.4 mg/dl (1.6-2.3) H 12/25/23 03:14
Triglycerides 90 mg/dl (10-149) 12/15/23 03:16
LDL Cholesterol, Calc 529 mg/dl 12/15/23 03:16
VLDL Cholesterol, Calc 18 mg/dl (0-30) 12/15/23 03:16
HDL Cholesterol 91 mg/dl 12/15/23 03:16
TSH 2.52 uIU/ml (0.47-4.68) 12/18/23 03:00
Physical Exam
Constitutional: No acute distress
EENT: Moist mucous membranes
Cardiovascular: Rhythm & rate is regular, Systolic murmur absent, Pedal edema present and JVD present
Respiratory: Respiratory effort normal
Neuro/Psych: AO x 3
Data Reviewed
-
Date of Service: December 25, 2023
EKG: Other (Tele: SR 80s)
Labs: Labs Reviewed by me
Critical Care Time (in minutes): 32
[2023-12-25 11:59] LABS: Glucose - Point of Care 109 mg/dl (70-99)
--- NOTE | 2023-12-25 14:15 | PTCARENOTE ---
Brachial Left A-line removed by CVPA.
[2023-12-25] MEDS: BUMEX 1 MG IV (14:41)
--- NOTE | 2023-12-25 14:41 | W.PN.CARD.SR ---
Sheath/IABP Sheath Removal
Sheath Removal
Left Arterial Brachial:
Site appearance prior to sheath removal: Intact
Sheath removed by:: Physician operations administrative assistant
Name of associate removing sheath: Derrick Lu PA-C
Time of sheath removal: 14:05
Time hemostasis achieved: 14:15
Site appearance post sheath removal: Intact
Size of hematoma in cm: 0
Method of Hemostasis Post Sheath Removal: Manual Pressure
Dressing dry and intact?: Yes
Comments: uncomplicated removal of brachial arterial line. Ipsilateral pulse ox waveform remained unchanged. Distal extremity neurovascularly intact following removal.
[2023-12-25 14:42] LABS: Mixed Venous O2 Saturation 54.5 %
[2023-12-25] MEDS: KCL 20 MEQ PO (14:42)
--- NOTE | 2023-12-25 14:50 | PTCARENOTE ---
CI 1.60, CO 2.67 and SVR 1767; A Long CVPA notified and Mixed venous ordered and collected; Mixed venous resulted at 54.5, Bumex 1mg ordered and given.
--- NOTE | 2023-12-25 15:01 | PTCARENOTE ---
Milrinone drip increased to 0.375mcg/kg/min; see flow sheet for details.
[2023-12-25] MEDS: ROXICODONE 5 MG PO ×2 (16:17→21:03)
--- NOTE | 2023-12-25 16:21 | PTCARENOTE ---
Assessment unchanged; Sinus Tachycardia on monitor and VSS; Dobutamine and Milrinone infusing see flow sheet for details.
[2023-12-25] MEDS: PRIMACOR 20 MG 100 IV (17:02)
[2023-12-25] MEDS: DOBUTREX 250 MG IV (17:20)
[2023-12-25 17:54] LABS: Glucose - Point of Care 122 mg/dl (70-99)
--- NOTE | 2023-12-25 20:00 | PTCARENOTE ---
Assumed care of patient at 1900. Patient found in bed at time of assessment. Patient is AOx4, follows all commands appropriately, moves all extremities. Lung sounds are diminished in the bases, patient is on RA with saO2 of 92%. Heart sounds are
audible, patient is SR/ST with BBB on the monitor. Patient has A+V wires with VVI settings 30/4/0.8. Patient has normal palpable radial pulses and dorsalis pedis are present with doppler. +1 BLE edema and trace generalized anasarca is present.
Patient has active BS and a rojas is present draining clear yellow urine. Patient has sternal incision approx with surg adhesive CINTHIA, R groin puncture approx with surg adhesive MILLED LUMBER GRADER, RLE incisionx2 each with aquacell dressing. Superior RLE incision
CDI inferior RLE incision has large amount of old drainage visible, but is dry. Patient has a R IJ cordis with swan @47cm as well as R FA 20G PIV. Patient has the following gtts: Milrinone@0.375, Dobut@1, Cordis/VIP KVO. Vital signs as follows:
T-98.3 BP-92/67 RR-21 BP-92/67 MAP-76 PAP-29/16 CVP-10 CI-2.30
[2023-12-25 21:36] LABS: Glucose - Point of Care 145 mg/dl (70-99)
[2023-12-26] VITALS (47 sets, daily range): BP systolic 57–128; BP diastolic 24–81; BMI 25.7
--- NOTE | 2023-12-26 | PTCARENOTE ---
Patient reassessed. VSS. Pain treated with scheduled medications and Trina 5. Patient is in SR/ST with BBB on the monitor.
[2023-12-26] MEDS: ROXICODONE 5 MG PO ×2 (01:06→05:09)
[2023-12-26] MEDS: FLEXERIL 5 MG PO (02:45)
--- NOTE | 2023-12-26 04:00 | PTCARENOTE ---
Patient reassessed. VSS. SR/ST with BBB on the monitor. While assessing patient this RN palpated small firm bump over site of R radial puncture. Not painful or tender to patient. CT STARS SPECIALIST notified. Dimensions of bump circled with marker. Will continue
to monitor. AM labs obtained.
[2023-12-26 05:30] LABS: Mixed Venous O2 Saturation 62.2 %
[2023-12-26 05:38] LABS: Hematocrit 29.5 % (37.0-47.0); Hemoglobin 10.1 g/dL (12.0-16.0); Mean Corp Hgb Conc. 34.2 g/dL (33.0-37.0); Mean Corpuscular Hgb 30.3 pg (27.0-31.0); Mean Corpuscular Volume 88.6 fL (81.0-99.0); Mean Platelet Volume 9.2 fL (7.4-10.4); Platelet Count 131 10^3/uL (130-400); Red Blood Cell Count 3.33 10^6/uL (4.20-5.40); Red Cell Dist. Width 16.6 % (11.5-14.5); White Blood Cell Count 7.3 10^3/uL (4.8-10.8)
[2023-12-26 05:56] LABS: Blood Urea Nitrogen 39 mg/dl (7-17); Carbon Dioxide 29 mmol/L (22-30); Chloride 98 mmol/L (98-107); Estimated Creatinine Clearance 38 ml/min; Glucose 96 mg/dl (70-99); Magnesium 2.3 mg/dl (1.6-2.3); Potassium 4.1 mmol/L (3.5-5.1); Sodium 136 mmol/L (135-145)
--- NOTE | 2023-12-26 06:13 | W.PN.CT ---
Addendum entered and electronically signed by David Hickey MD 12/26/23 09:55:
I saw and examined the patient.
The PA's note was reviewed and I agree with the note.
Comment:
POD#5 status post CABG x 4 and exclusion of left atrial appendage
POD#3 status post Impella 5.5 removal
Neurologically: Previously intact following commands, moderately disoriented this morning after receiving narcotic pain medication. Will limit all further narcotic pain medication in this patient
CV: Hemodynamically stable with minor tachycardia on milrinone 0.375, dobutamine discontinued. CO/CI: 4.0/2.42; maintain [place] catheter
Pulm: Saturating well on room air
GI: Tolerating p.o.
: Continue Bumex drip at 0.5, excellent diuresis, will remove Medrano later today
Heme: Hemoglobin 10.1, platelets 131
ID: WBC 7.3, no fevers, no antibiotics
Endo: Blood sugars well-controlled
Prophylaxis: SCDs to bilateral lower extremity, out of bed, Protonix
Dispo: ICU full code
Original Note:
Today's Communication / Plan
-
-pod #5
-no significant issues overnight
-CI 2.42, CO 4.04, SVR 1267, SvO2 62.2%. Drips: Milrinone 0.375, Dobut 1, Levo off
-got Bumex 1 mg at 1400 hrs yesterday (UO 765/1940 in 12/24 hrs)
-CTs out 12/24
-Cr hopefully plateaued, 1.2->1.2 today (1.0 on 12/23 and 0.8 preop)
-current meds (ASA, Zetia, Crestor, Amio, Plavix, Entresto held, Protonix). Holding BB while on inotrops
-maintain swan, Cordis, Medrano, pw
-encourage IS, OOB
Assessment / Plan
-
Assessment:
-S/P Sternotomy with aortic and right atrial cannulation/CABG x 4 (In situ LLOYD to LAD -additional vein graft to the distal LAD off of the flynn of OM 3 vein graft from the aorta, Ao to RSVG to OM1, Ao to RSVG to OM 3)- unable to utilize BIMA d/t
severe atherosclerosis and plaque/Revision of vein graft of OM 3 with an additional piece of vein to extend the length/Endoscopic vein harvesting of right lower extremity (along with open harvest segment)/Left atrial appendage exclusion with 35 mm
clip/Placement of 5.5 Impella [facility], by Dr. Owusu, 12/21/23, pod#5
Assessment:
- Unstable angina/ NSTEMI- admitted to [facility] on 12/13/23, transferred to on 12/14/23 for evaluation for CABG (last Plavix 12/13/23)
- Cath 12/13/23 with LM/2V CAD
- LVEF 10-20% intraop, improved to 30-35% post Impella placement
- ICM, EF 32% by Echo 12/13/23
- Functional mild-moderate MR
- Hx PSVT on Holter monitor
- Chronic LBBB
- PAD- s/p L SFA stent 06/29/23 and R external iliac stent 07/16/23
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
- Carotid dz with 50-69% LICA
- HTN/HLD
- Depression
- Viral subacute thyroditis 2022 - resolved
- Hx GIB d/t diverticulitis 2013
- Hx breast augmentation with subsequent removal of implants
- b/l cataract extraction with intraocular lens implant
-Intraop VT s/p shock x 1
-Intraop CHB vs Asystole
-Intaop Cardiogenic shock (CI 1.4-1.6 on inotropic support) S/P Impella placement
-Intraop and postop blood loss/Anemia (transfused 7u PRBCs)
-Intraop and postop thrombocytopenia (transfused 2 {5pks} plts)
-Intraop and postop coagulopathy (transfused 2u FFPs)
-Acute postop atelectasis
-Acute postop hypovolemia with subsequent hypervolemia
-Acute postop vasal vagal episode with SBP 50's
-Acute postop ectopies S/p amiodarone gtt @ 0.5 mg/min
-Acute postop Impella management (CPT code 39934)
-Acute on chronic combined systolic/diastolic heart failure
-Acute postop hyponatremia
-YANELI
Subjective
Procedure
-S/P Sternotomy with aortic and right atrial cannulation/CABG x 4 (In situ LLOYD to LAD -additional vein graft to the distal LAD off of the flynn of OM 3 vein graft from the aorta, Ao to RSVG to OM1, Ao to RSVG to OM 3)- unable to utilize BIMA d/t
severe atherosclerosis and plaque/Revision of vein graft of OM 3 with an additional piece of vein to extend the length/Endoscopic vein harvesting of right lower extremity (along with open harvest segment)/Left atrial appendage exclusion with 35 mm
clip/Placement of 5.5 Impella VA, by Dr. Owusu, 12/21/23
-
Date of Service: December 26, 2023
Objective Data
-
Lab Results
12/26/23 05:20
12/26/23 05:20
PT 15.7 Sec (11.4-14.6) H 12/24/23 03:34
INR 1.24 12/24/23 03:34
APTT 57.4 Sec (23.4-35.0) H 12/23/23 10:31
Vital Signs
Vital Signs
Temp Pulse Resp BP Pulse Ox
98.8 F 99 12 120/65 94
12/26/23 06:00 12/26/23 05:05 12/26/23 06:00 12/26/23 05:00 12/26/23 06:00
CT Intake/Output/Weight
12/25/23 12/25/23 12/26/23
06:59 18:59 06:59
Intake Total 1314.6 / 2486.3 534.5 / 1067.1 532.6 / 1067.1
Output Total 2450 / 3741 1219 / 1984 / 1984
Balance -1135.4 / -1254.7 -685.5 / -917.9 -232.4 / -917.9
SaO2: 94
Physical Exam
-
General: Awake, Oriented and AOx3
Cardiovascular: Regular rate & rhythm, No Murmurs and No Rub
Respiratory: Equal and Decreased Breath Sounds
Sternum: Stable
Incision: Clean, Dry and Intact
Extremities: Edema +2 and No Erythema
Data Reviewed
-
Lab Results: Results Reviewed
Medications: Active Meds Reviewed
Chest X-Ray: Report Reviewed
CT Scan: Report Reviewed
ECG: Report Reviewed
[2023-12-26] MEDS: PRIMACOR 20 MG 100 IV ×2 (06:43→19:10)
[2023-12-26] MEDS: TYLENOL 1000 MG PO ×3 (07:03→21:08)
--- NOTE | 2023-12-26 07:15 | W.PN.INTV ---
Today's Communication / Plan
Recommendations
Oxygen weaned to room air
Encourage incentive spirometry-lower lobe atelectasis
Out of bed
Diuresis
Continue with milrinone, dobutamine and (norepinephrine recently weaned off)
Continues with PA line
Patient maintained in the ICU-educational paraprofessional will continue to follow
Assessment
-
73-year-old female with a history of ischemic cardiomyopathy, CAD, hypertension, hyperlipidemia and PAD found to have NSTEMI with further evaluation necessitating Impella/CABG/MVR and educational paraprofessional consulted for postoperative ventilator/critical care
management 12/21/2023.
Severe CAD with preop EF 20-30%
Status post CABG/Impella-Dr. Owusu-12/21/2023
Ischemic cardiomyopathy-EF 20-30%
Moderate mitral regurgitation
Mild awwsdf-aeuluzkkri-ihuvgcvbal 10.1
Conditions present prior to admission:
Cwltlbtntzwqib-nysgjukw-MP 20-30 %.
CAD.
Hypertension.
Hyperlipidemia.
PAD-left superficial femoral artery stent 06/2023/right external iliac stent 07/2023.
PSVT.
Depression.
Viral thyroiditis 2022.
GIB due to diverticulitis 2013.
Tonsillectomy. Tubal ligation. Bilateral cataract. Breast augmentation
Plan
Her respiratory status is stabilized with diuresis
Critically ill pressors with PA line was on Bumex drip converted to intravenous
Supplemental oxygen weaned to room air
Incentive spirometry encouraged
Aspiration precautions per protocol
Chest x-ray 12/23/2023-consolidation left lower lobe-suspect atelectasis, small left pleural effusion
Chest x-ray 12/25/2023-no evidence for significant pneumothorax, mild parenchymal opacification left lower lung field likely atelectasis slightly improved
Chest x-ray 12/26/2023-no pneumothorax, interval removal of chest tubes, focal atelectasis left lower lobe increased, slightly prominent central pulmonary vascular markings
Pulmonary artery catheter continues
Pressors and inotropes are being weaned-currently on norepinephrine and milrinone
Bumex and diuresis continues
Monitor renal function, electrolytes, intake/output, lower extremity edema and weight
Continue to replace electrolytes as needed
Monitor chest tube output
Chest tubes removed
Continue to monitor hemoglobin-currently 10.3
Continue to follow platelet count and coags
Transfuse blood product as needed-has obtained 6 units packed red blood cells
Impella device removed 12/23/2023-EF 20-25%
Repeat echocardiogram 12/23/2023--EF 20%, moderate mitral regurgitation
Repeat echocardiogram 12/27/2023
Monitor blood sugar
Insulin supplementation as needed
Continue nutrition
Increase activity
DVT prophylaxis-mechanical
Critical care statement: A total of 35 minutes of critical care time was provided for this patient today. This includes management of ventilator, spontaneous breathing trial, arterial blood gases, pressors, of unstable vital signs, evaluation of the
patient at bedside, pressor management, monitoring chest tube, reviewing the patient's pertinent medical records including radiographs, microbiology, laboratory evaluations, and discussion with primary team and critical care nursing.
Diagnostic data:
Chest x-ray 12/15/2023-NAD
CT chest 12/14/23-mild dependent atelectasis, mild peripheral interstitial fibrosis, no honeycombing,
Echocardiogram-transesophageal 12/21/2023-EF 20%, moderate concentric left ventricular hypertrophy, stage I diastolic dysfunction, moderate mitral regurgitation, mitral regurgitation etiology is likely functional due to papillary muscle dysfunction
and leaflet restriction, mild sessile erythema
Subjective Dataa
Subjective Data
Date of Service:
Date of Service: December 26, 2023
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
Subjective:
Continues to diurese, no complaints of shortness of breath at rest, on room air, no chest pain, productive cough and incisional pain controlled
Review of Systems
General: Other (Per HPI)
Objective Data
Data Reviewed
Vital Signs / I&O / Oxygen:
Vital Signs
Temp Pulse Resp BP Pulse Ox
98.8 F 100 11 128/57 95
12/26/23 06:00 12/26/23 06:55 12/26/23 06:55 12/26/23 06:00 12/26/23 06:55
Intake and Output
12/25/23 12/26/23 12/27/23
06:59 06:59 06:59
Intake Total 2418.6 / 2486.3 1067.1 / 1067.1
Output Total 3616 / 3741 2034 / 2034
Balance -1197.4 / -1254.7 -967.9 / -967.9
SaO2 [SIMV] 99
SaO2 95
Nasal Cannula flow liters per 2
minute
Physical Exam
General: Respiratory Distress (n) and Comfortable
HEENT: Normocephalic and Anicteric
Cardiovascular: Regular Rhythm and Murmur
Respiratory: Wheeze (n), Crackles (Basilar), Rhonchi (n), Non-Labored Respirations, Accessory Resp Muscle Use (n) and Stridor (n)
GI: Soft, Non Distended and Non Tender
Neurology: Awake, Alert and No Motor Deficits
Skin: Warm, Good Color, Cyanosis (n), Jaundice and Rash (n)
Labs/Micro/Reports
Lab Data
12/26/23 05:20
12/26/23 05:20
[2023-12-26] MEDS: BUMEX 50 IV (07:48)
--- NOTE | 2023-12-26 08:08 | PTCARENOTE ---
Received pt from sports team marketing intern RN; Pt AAOx3 and sleepy; Sinus Tachycardia on monitor and VSS; A/V wires in placed, box set to VVI 40/3/0.8 no pacing noted; RIRinku [place] floated to 47 and PIV x1 all lines leveled and zeroed; Dobutamine and
Milrinone infusing see flow sheet for details; Lungs diminished; IS to 1000; positive bowel sounds; Medrano catheter draining yellow urine; palpable radial pulses and lower extremity pulses present by Doppler; trace generalized edema noted and +1
lower extremity edema noted; all surgical sites C/D/I; see nursing documentation for further details.
CI 2.43
CO 4.04
SVR 1188
UO 15
Per A. [facility] orders Dobutamine stopped and Bumex started at 0.5mg/hr see flow sheet for details.
[2023-12-26] MEDS: MUCINEX 600 MG PO ×2 (08:50→20:14)
[2023-12-26] MEDS: MAGNESIUM OXIDE 500 MG PO ×2 (08:50→20:14)
[2023-12-26] MEDS: CRESTOR 40 MG PO (08:50)
[2023-12-26] MEDS: ZETIA 10 MG PO (08:50)
[2023-12-26] MEDS: NEURONTIN 100 MG PO ×3 (08:50→21:08)
[2023-12-26] MEDS: PLAVIX 75 MG PO (08:50)
[2023-12-26] MEDS: LOW STRENGTH ASPIRIN 81 MG PO (08:50)
[2023-12-26] MEDS: PROTONIX 40 MG PO (08:50)
[2023-12-26] MEDS: SENOKOT-S 1 TABLET PO ×2 (08:51→20:14)
[2023-12-26] MEDS: ENTRESTO 24 MG/26 MG 1 TAB PO (08:51)
[2023-12-26] MEDS: PACERONE 200 MG PO ×3 (08:51→21:08)
[2023-12-26 09:08] LABS: Glucose - Point of Care 110 mg/dl (70-99)
[2023-12-26] MEDS: NOVOLOG FLEXPEN-MODERATE RESISTANCE SC ×3 (09:10→17:43)
--- NOTE | 2023-12-26 10:50 | PTCARENOTE ---
Pt OOB to chair; NSR on monitor; SBP 60s; Dr Hickey and A Long [facility] at bedside; Levo started; pt AAO x3 and sleepy in chair; BP cuff cycle Q15m new BP 93/43; Bumex drip stopped at this time per Dr Hickey.
--- NOTE | 2023-12-26 11:24 | W.PN.CD ---
Today's Communication / Plan
-
diuresis: bumex gtt resumed then stopped again due to hypotension; had also received trial dose of entresto
-entresto stopped; back on levophed; hopeful to resume bumex in afternoon
Impression / Plan
-
Impression/Plan: 73F with ischemic cardiomyopathy, coronary artery disease, hypertension, dyslipidemia, and PAD who initially presented to [facility] and was found to have an NSTEMI and was transferred to this facility for CABG.
#NSTEMI/MVCAD
-Acute on chronic.
-s/p CABG x 4 (in situ LLOYD to LAD with additional vein graft to the distal LAD off of the flynn of OM 3 vein graft from the aorta, Ao to RSVG to OM1, Ao to RSVG to OM 3) by Dr. Owusu 12/21/2023.
-Pre CABG LVEF = 20% with severe RWMA. Post CABG LVEF = 10-15%, prompting placement of 5.5 Impella, explanted on 12/23/2023.
-PADP = 13 mmHg, RAP = 9 mmHg.
-CI = 2.25 L/min/m2.
-ASA, Plavix, statin
-on milrinone 0.375, levophed 3; dobut off
#ICM with acute systolic HF
-LVEF 30-35% at 09/2023; last echo EF 15-20%, septal dyssynchrony, moderate MR
-Decline in LVEF prompted Impella 5.5, removed 12/22.
-Outpatient note from Dr. Hogan reports she does not have prescription coverage and requires samples of all name-brand medications.
-She declined ICD and LifeVest in the outpatient setting
-GDMT: to add as levophed weaned off
-diuresis: bumex gtt resumed then stopped again due to hypotension; had also received trial dose of entresto
-entresto stopped; back on levophed; hopeful to resume bumex in afternoon
#Dyslipidemia
-Chronic, stable.
-LDL 529 12/16/23; this is on high intensity statin and ezetimibe.
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 She will need PSK9i therapy postoperative as an outpatient.
-Given her lack of prescription drug coverage by outpatient notes, inclisiran may be the best option for a third agent, but she will likely require multiple agents to achieve goal LDL
-Patient interested in outpatient consultation with [facility]. We will refer as an outpatient.
-Continue current medical therapy while inpatient.
#PAD
-Chronic, stable.
-Multiple prior lower extremity revascularizations
-May benefit from low dose rivaroxaban 2.5 BID in outpatient setting. Will leave this to primary napkin machine operator.
#HTN
#PSVT seen on Holter monitor
#LBBB
Library Manager: Dr. Hogan
Critical Care Time = 31 minutes.
Subjective/Interval History:
DATA:
TTE, 12/23/2023:
CONCLUSIONS
Severely reduced left ventricular systolic function. Left ventricular ejection
fraction is 20%.
Global hypokinesis with abnormal (paradoxical) septal motion consistent with
left bundle branch block.
Impella visualized in the left ventricle.
Mild/moderate mitral regurgitation.
Normal right ventricular size. Reduced right ventricular systolic function.
Compared to 12/22/23: LVEF is similar. RV is better visualized, and systolic
function is reduced. MR looks mild/moderate, compared to mild on prior.
Intraprocedural JONATHAN, 12/21/2023:
CONCLUSIONS
Severe LV dysfunction. Overall LVEF calculates to 20% by Alvarado's rule.
Left ventricle is mildly dilated.
Moderate concentric left ventricular hypertrophy.
Stage I Diastolic dysfunction.
Mildly dilated left atrium.
Trace pulmonic insufficiency.
Moderate mitral regurgitation.
MR etiology is likely functional due to papillary muscle dysfunction and
leaflet restriction.
Mild sessile atheroma seen in the descending aorta and distal arch.
POST OPERATIVE FINDINGS
The patient underwent a CABG. SHANTELL ligation, and placement of an Impella 5.0.
Postop rhythm remains sinus. RV function appears normal. Overall LVEF is
approximately 30 - 35% with improved anterior, lateral, and inferior wall
segment motion. There is still septal dyskinesia present. The Impella 5.[address] place approximately 4.6 to 5.1 cm distal to the AV annulus. Trace AI
noted around the Impella device. Minimal MR noted. TV and PV function appear
normal. Aortic scan is unchanged.
TTE, 12/14/23:
Left ventricle is mildly dilated. Stage I diastolic dysfunction suggestive of
abnormal relaxation. Moderately reduced left ventricular systolic function. Left ventricular
ejection fraction is 32% by volumetric assessment.
Global hypokinesis with the anterior and anterolateral waldrop moving best.
Mild to moderate mitral regurgitation.
Compared to previous echo report from 09/22/23, the ejection fraction sounds to
be similar but the regionality of the hypokinesis described is different, but
no images available for direct comparison.
Echocardiogram, 09/22/2023:
Regional wall motion abnormalities include moderate hypokinesis of the mid to
distal anterior wall and apical akinesis. Mild to moderate distal inferior
hypokinesis.
The ejection fraction is estimated at 30-35%.
Diastolic function is indeterminate.
Normal right ventricular size and function.
Moderate left atrial enlargement.
Normal right atrium.
Structurally normal mitral valve without significant stenosis w/ mild to
moderate regurgitation.
Structurally normal aortic valve without significant stenosis or regurgitation.
Structurally normal tricuspid valve without significant stenosis w/ mild
regurgitation.
Estimated pulmonary artery pressure is 32 mmHg.
Structurally normal pulmonic valve without significant stenosis or
regurgitation.
Normal pericardium without effusion.
Normal aortic root.
IVC demonstrates normal respiratory variation.
Physical Exam
Vital Signs/Labs
Vital Signs
Temp Pulse Resp BP Pulse Ox
99.5 F 108 16 98/52 93
12/26/23 11:00 12/26/23 11:18 12/26/23 11:18 12/26/23 11:18 12/26/23 11:18
12/25/23 12/26/23 12/27/23
06:59 06:59 06:59
Actual Weight 68.5 kg 71 kg
12/26/23 05:20
12/26/23 05:20
PT 15.7 Sec (11.4-14.6) H 12/24/23 03:34
INR 1.24 12/24/23 03:34
APTT 57.4 Sec (23.4-35.0) H 12/23/23 10:31
Magnesium 2.3 mg/dl (1.6-2.3) 12/26/23 05:20
Triglycerides 90 mg/dl (10-149) 12/15/23 03:16
LDL Cholesterol, Calc 529 mg/dl 12/15/23 03:16
VLDL Cholesterol, Calc 18 mg/dl (0-30) 12/15/23 03:16
HDL Cholesterol 91 mg/dl 12/15/23 03:16
TSH 2.52 uIU/ml (0.47-4.68) 12/18/23 03:00
Physical Exam
Constitutional: No acute distress
EENT: Moist mucous membranes
Cardiovascular: Rhythm & rate is regular, Pedal edema present, JVD present and Systolic murmur present
Respiratory: Respiratory effort normal and Lungs clear to auscul.
Neuro/Psych: AO x 3
Data Reviewed
-
Date of Service: December 26, 2023
EKG: Other (Tele: SR/ST 90s-100s)
Labs: Labs Reviewed by me
Critical Care Time (in minutes): 31
--- NOTE | 2023-12-26 12:50 | PTCARENOTE ---
Assessment unchanged; Sinus Tachycardia on monitor and VSS; Levo and Milrinone infusing see flow sheet for details; Pt OOB and awaiting lunch.
[2023-12-26 13:08] LABS: Glucose - Point of Care 140 mg/dl (70-99)
[2023-12-26] MEDS: NSS IV (13:09)
--- NOTE | 2023-12-26 16:28 | PTCARENOTE ---
Assessment unchanged; Sinus Tachycardia on monitor and VSS; Levo and Milrinone infusing see flow sheet for details; Medrano catheter removed per [facility] order, Pure wick in placed and educated pt on Pure wick, pt DTV by 2229.
[2023-12-26] MEDS: LEVOPHED 250 IV (16:34)
[2023-12-26 17:43] LABS: Glucose - Point of Care 136 mg/dl (70-99)
--- NOTE | 2023-12-26 20:00 | PTCARENOTE ---
assumed care of pt from previous RN. pt A&Ox4, resting in bed at time of assessment. Sinus tach on tele-monitor. temp epicardial A/V wires w/ backup settings VVI 30/4/0.8. POX 94-96% on RA. abd s/n, +BS. pt is DTV by 2229. [address]wick in place. all
surgical sites stable. R IJ cordis w/ swan floated to 47cm. all lines leveled, zeroed, flushed. PIV intact. see worklist for complete nursing assessment, interventions, VS, and I&Os.
[2023-12-26] MEDS: ROXICODONE 2.5 MG PO (21:08)
[2023-12-26 22:57] LABS: Glucose - Point of Care 145 mg/dl (70-99)
[2023-12-27] VITALS (47 sets, daily range): BP systolic 80–130; BP diastolic 45–101; PULSE 100; O2SAT 93–94; BMI 25.6
--- NOTE | 2023-12-27 | PTCARENOTE ---
assessment remains unchanged. VSS. pt DTV. see bladder scan interventions for details.
[2023-12-27 04:16] LABS: Mixed Venous O2 Saturation 70.9 %
[2023-12-27 04:18] LABS: Hematocrit 29.5 % (37.0-47.0); Mean Corp Hgb Conc. 33.9 g/dL (33.0-37.0); Mean Corpuscular Hgb 30.5 pg (27.0-31.0); Mean Corpuscular Volume 89.9 fL (81.0-99.0); Mean Platelet Volume 9.5 fL (7.4-10.4); Platelet Count 155 10^3/uL (130-400); Red Blood Cell Count 3.28 10^6/uL (4.20-5.40); Red Cell Dist. Width 16.8 % (11.5-14.5); White Blood Cell Count 9.3 10^3/uL (4.8-10.8)
[2023-12-27 05:08] LABS: Blood Urea Nitrogen 35 mg/dl (7-17); Calcium 8.4 mg/dl (8.4-10.2); Carbon Dioxide 24 mmol/L (22-30); Chloride 97 mmol/L (98-107); Estimated Creatinine Clearance 50 ml/min; Glucose 139 mg/dl (70-99); Magnesium 2.3 mg/dl (1.6-2.3); Potassium 3.9 mmol/L (3.5-5.1); Sodium 133 mmol/L (135-145); eGFR > 60.00
--- NOTE | 2023-12-27 05:23 | W.PN.CT ---
Today's Communication / Plan
-
-pod #6
-no significant issues overnight
-weaned off dobutamine, trial of Entresto dropped BP and back on Levophed.
-CI 2.52, CO 4.2, MAP 69, CVP 6, SVR 1200, SvO2 70.9%. Drips: Milrinone 0.375, Dobutamine off, Levo 2 mcg
-attempted Bumex gtt but stopped after worsened hypotension. (UO 500/1615 in 12/24 hrs). Cr 1.5->0.9 today
-CTs out 12/24
-current meds (ASA, Zetia, Crestor, Amio, Plavix, Entresto held, Protonix). Holding BB while on inotrops
-maintain swan, Cordis, Medrano out yesterday, V wire
-encourage IS, OOB
Assessment / Plan
-
Assessment:
-S/P Sternotomy with aortic and right atrial cannulation/CABG x 4 (In situ LLOYD to LAD -additional vein graft to the distal LAD off of the flynn of OM 3 vein graft from the aorta, Ao to RSVG to OM1, Ao to RSVG to OM 3)- unable to utilize BIMA d/t
severe atherosclerosis and plaque/Revision of vein graft of OM 3 with an additional piece of vein to extend the length/Endoscopic vein harvesting of right lower extremity (along with open harvest segment)/Left atrial appendage exclusion with 35 mm
clip/Placement of 5.5 Impella [facility], by Dr. Owusu, 12/21/23, pod#6
Assessment:
- Unstable angina/ NSTEMI- admitted to [facility] on 12/13/23, transferred to on 12/14/23 for evaluation for CABG (last Plavix 12/13/23)
- Cath 12/13/23 with LM/2V CAD
- LVEF 10-20% intraop, improved to 30-35% post Impella placement
- ICM, EF 32% by Echo 12/13/23
- Functional mild-moderate MR
- Hx PSVT on Holter monitor
- Chronic LBBB
- PAD- s/p L SFA stent 06/29/23 and R external iliac stent 07/16/23
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
- Carotid dz with 50-69% LICA
- HTN/HLD
- Depression
- Viral subacute thyroditis 2022 - resolved
- Hx GIB d/t diverticulitis 2013
- Hx breast augmentation with subsequent removal of implants
- b/l cataract extraction with intraocular lens implant
-Intraop VT s/p shock x 1
-Intraop CHB vs Asystole
-Intaop Cardiogenic shock (CI 1.4-1.6 on inotropic support) S/P Impella placement
-Intraop and postop blood loss/Anemia (transfused 7u PRBCs)
-Intraop and postop thrombocytopenia (transfused 2 {5pks} plts)
-Intraop and postop coagulopathy (transfused 2u FFPs)
-Acute postop atelectasis
-Acute postop hypovolemia with subsequent hypervolemia
-Acute postop vasal vagal episode with SBP 50's
-Acute postop ectopies S/p amiodarone gtt @ 0.5 mg/min
-Acute postop Impella management (CPT code 47521)
-Acute on chronic combined systolic/diastolic heart failure
-Acute postop hyponatremia
-YANELI
Subjective
Procedure
-S/P Sternotomy with aortic and right atrial cannulation/CABG x 4 (In situ LLOYD to LAD -additional vein graft to the distal LAD off of the flynn of OM 3 vein graft from the aorta, Ao to RSVG to OM1, Ao to RSVG to OM 3)- unable to utilize BIMA d/t
severe atherosclerosis and plaque/Revision of vein graft of OM 3 with an additional piece of vein to extend the length/Endoscopic vein harvesting of right lower extremity (along with open harvest segment)/Left atrial appendage exclusion with 35 mm
clip/Placement of 5.5 Impella [facility], by Dr. Owusu, 12/21/23
-
Date of Service: December 27, 2023
Objective Data
-
Lab Results
12/27/23 04:09
12/27/23 04:09
PT 15.7 Sec (11.4-14.6) H 12/24/23 03:34
INR 1.24 12/24/23 03:34
APTT 57.4 Sec (23.4-35.0) H 12/23/23 10:31
Vital Signs
Vital Signs
Temp Pulse Resp BP Pulse Ox
99.2 F 106 16 122/60 92
12/27/23 04:00 12/27/23 04:00 12/27/23 04:00 12/27/23 04:00 12/27/23 04:00
CT Intake/Output/Weight
12/26/23 12/26/23 12/27/23
06:59 18:59 06:59
Intake Total 532.6 / 1094.9 572.4 / 994.4 422.0 / 994.4
Output Total 815 / 2060 1115 / 1615 500 / 1615
Balance -282.4 / -965.1 -542.6 / -620.6 -78.0 / -620.6
SaO2: 92
Physical Exam
-
General: Awake, Oriented and AOx3
Cardiovascular: Regular rate & rhythm, No Murmurs and No Rub
Respiratory: Clear, Equal and Decreased Breath Sounds
Sternum: Stable
Incision: Clean, Dry and Intact
Extremities: Edema +2
Data Reviewed
-
Lab Results: Results Reviewed
Medications: Active Meds Reviewed
Chest X-Ray: Report Reviewed
ECG: Report Reviewed
[2023-12-27] MEDS: TYLENOL 1000 MG PO ×3 (06:25→21:41)
[2023-12-27] MEDS: KCL 40 MEQ PO (06:25)
--- NOTE | 2023-12-27 07:10 | W.PN.CD ---
Today's Communication / Plan
-
Hold diuretics for the morning.
Wean milrinone (this will take a while as half life is around 6 hours).
This will give us more blood pressure to address GDMT and re-assess diuretics.
Keep PA catheter during milrinone wean.
Impression / Plan
-
Impression/Plan: 73F with ischemic cardiomyopathy, coronary artery disease, hypertension, dyslipidemia, and PAD who initially presented to [facility] and was found to have an NSTEMI and was transferred to this facility for CABG.
#NSTEMI/MVCAD
-Acute on chronic.
-s/p CABG x 4 (in situ LLOYD to LAD with additional vein graft to the distal LAD off of the flynn of OM 3 vein graft from the aorta, Ao to RSVG to OM1, Ao to RSVG to OM 3) by Dr. Owusu 12/21/2023.
-Pre CABG LVEF = 20% with severe RWMA. Post CABG LVEF = 10-15%, prompting placement of 5.5 Impella, explanted on 12/23/2023.
-Continue ASA, clopidogrel, rosuvastatin.
-Given CI is consistently > 2, I suggest weaning the milrinone with the PA catheter in place. This is likely contributing to her hypotension, which will improve with it's withdrawal. We must be mindful of her CI.
-She probably requires a PCWP/LVEDP in the low 20's due to the LV dilation.
#ICM with acute systolic HF
-LVEF 30-35% at 09/2023; last echo EF 15-20%, septal dyssynchrony, moderate MR.
-Decline in LVEF prompted Impella 5.5, removed 12/22.
-Outpatient note from Dr. Hogan reports she does not have prescription coverage and requires samples of all name-brand medications.
-She declined ICD and LifeVest in the outpatient setting
-Currently intolerant of GDMT due to hypotension.
#Dyslipidemia
-Chronic, stable.
-LDL 529 12/16/23; this is on high intensity statin and ezetimibe.
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 She will need PSK9i therapy postoperative as an outpatient.
-Given her lack of prescription drug coverage by outpatient notes, inclisiran may be the best option for a third agent, but she will likely require multiple agents to achieve goal LDL
-Patient interested in outpatient consultation with [facility]. We will refer as an outpatient.
-Continue current medical therapy while inpatient.
#PAD
-Chronic, stable.
-Multiple prior lower extremity revascularizations
-May benefit from low dose rivaroxaban 2.5 BID in outpatient setting. Will leave this to primary slot floor supervisor.
#HTN
#PSVT seen on Holter monitor
#LBBB
Pipe Line Walker: Dr. Hogan
Critical Care Time = 39 minutes.
Subjective/Interval History:
On and off of pressors with milrinone/dobutamine.
Bumetanide held for YANELI, then restarted, then held again for hypotension.
Sacubitril/valsartan held.
Medrano catheter removed.
Weight down to 70.8 kg, baseline around 61 kg.
Cardiac index is consistently > 2.0 L/min/m2.
PADP is showing pressures no higher than 20 mmHg.
Chest tubes removed.
She remains on 2LNC.
DATA:
TTE, 12/24/2023:
CONCLUSIONS
Limited follow up study after Impella removal.
Severely reduced left ventricular systolic function. Left ventricular ejection
fraction is 15-20%.
Abnormal (paradoxical) septal motion consistent with left bundle branch block.
Moderate mitral regurgitation.
Normal right ventricular size. Reduced right ventricular systolic function.
Compared to 12/23/23: prior LVEF was 20%, with mild/moderate MR.
TTE, 12/23/2023:
CONCLUSIONS
Severely reduced left ventricular systolic function. Left ventricular ejection
fraction is 20%.
Global hypokinesis with abnormal (paradoxical) septal motion consistent with
left bundle branch block.
Impella visualized in the left ventricle.
Mild/moderate mitral regurgitation.
Normal right ventricular size. Reduced right ventricular systolic function.
Compared to 12/22/23: LVEF is similar. RV is better visualized, and systolic
function is reduced. MR looks mild/moderate, compared to mild on prior.
Intraprocedural JONATHAN, 12/21/2023:
CONCLUSIONS
Severe LV dysfunction. Overall LVEF calculates to 20% by Alvarado's rule.
Left ventricle is mildly dilated.
Moderate concentric left ventricular hypertrophy.
Stage I Diastolic dysfunction.
Mildly dilated left atrium.
Trace pulmonic insufficiency.
Moderate mitral regurgitation.
MR etiology is likely functional due to papillary muscle dysfunction and
leaflet restriction.
Mild sessile atheroma seen in the descending aorta and distal arch.
POST OPERATIVE FINDINGS
The patient underwent a CABG. SHANTELL ligation, and placement of an Impella 5.0.
Postop rhythm remains sinus. RV function appears normal. Overall LVEF is
approximately 30 - 35% with improved anterior, lateral, and inferior wall
segment motion. There is still septal dyskinesia present. The Impella 5.[address] place approximately 4.6 to 5.1 cm distal to the AV annulus. Trace AI
noted around the Impella device. Minimal MR noted. TV and PV function appear
normal. Aortic scan is unchanged.
TTE, 12/14/23:
Left ventricle is mildly dilated. Stage I diastolic dysfunction suggestive of
abnormal relaxation. Moderately reduced left ventricular systolic function. Left ventricular
ejection fraction is 32% by volumetric assessment.
Global hypokinesis with the anterior and anterolateral waldrop moving best.
Mild to moderate mitral regurgitation.
Compared to previous echo report from 09/22/23, the ejection fraction sounds to
be similar but the regionality of the hypokinesis described is different, but
no images available for direct comparison.
Echocardiogram, 09/22/2023:
Regional wall motion abnormalities include moderate hypokinesis of the mid to
distal anterior wall and apical akinesis. Mild to moderate distal inferior
hypokinesis.
The ejection fraction is estimated at 30-35%.
Diastolic function is indeterminate.
Normal right ventricular size and function.
Moderate left atrial enlargement.
Normal right atrium.
Structurally normal mitral valve without significant stenosis w/ mild to
moderate regurgitation.
Structurally normal aortic valve without significant stenosis or regurgitation.
Structurally normal tricuspid valve without significant stenosis w/ mild
regurgitation.
Estimated pulmonary artery pressure is 32 mmHg.
Structurally normal pulmonic valve without significant stenosis or
regurgitation.
Normal pericardium without effusion.
Normal aortic root.
IVC demonstrates normal respiratory variation.
Physical Exam
Vital Signs/Labs
Vital Signs
Temp Pulse Resp BP Pulse Ox
37.4 C 105 27 130/57 92
12/27/23 06:00 12/27/23 06:30 12/27/23 06:30 12/27/23 06:30 12/27/23 06:30
12/25/23 12/26/23 12/27/23
11:59 11:59 11:59
Actual Weight 68.5 kg 71 kg 70.8 kg
12/27/23 04:09
12/27/23 04:09
PT 15.7 Sec (11.4-14.6) H 12/24/23 03:34
INR 1.24 12/24/23 03:34
APTT 57.4 Sec (23.4-35.0) H 12/23/23 10:31
Magnesium 2.3 mg/dl (1.6-2.3) 12/27/23 04:09
Triglycerides 90 mg/dl (10-149) 12/15/23 03:16
LDL Cholesterol, Calc 529 mg/dl 12/15/23 03:16
VLDL Cholesterol, Calc 18 mg/dl (0-30) 12/15/23 03:16
HDL Cholesterol 91 mg/dl 12/15/23 03:16
TSH 2.52 uIU/ml (0.47-4.68) 12/18/23 03:00
Physical Exam
Constitutional: No acute distress and Comfortable
EENT: Anicteric and Moist mucous membranes
Cardiovascular: Rhythm & rate is regular, JVD pressure is normal, Pedal edema present (1-2+ non-pitting, bilateral LE's.), S1S2 is normal and Murmur/rub/gallop absent
Respiratory: Respiratory effort normal, Wheeze Absent, Rhonchi Absent and Crackles Present (Bilateral bases.)
GI: Soft, Distention absent, Flat, Non tender and Normal bowel sounds
Neuro/Psych: AO x 3
Data Reviewed
-
Date of Service: December 27, 2023
Medical Decision Making: Reviewed Test Results, Independent Historian Assessment, Test Interpretation and Review of Case with other Provider
EKG: Tracing Personally Visualized and interpreted and Report Reviewed by me
Echo: Tracing Personally Visualized and interpreted and Report Reviewed by me
X-Ray/CT/US/MRI/NUC/PET: Image Personally Visualized and interpreted and Report Reviewed by me
Medical Tests (PFT, Pathology etc): Report Reviewed by me
Labs: Labs Reviewed by me
Old Records: Reviewed
[2023-12-27 07:19] LABS: Glucose - Point of Care 132 mg/dl (70-99)
[2023-12-27] MEDS: NOVOLOG FLEXPEN-MODERATE RESISTANCE SC (07:26)
--- NOTE | 2023-12-27 08:00 | PTCARENOTE ---
pt received from previous RN, oriented, OOB in chair. SR/ST w/ BBB on the monitor, HR 90-100s. A&V wires, VVI 30/4. SBP 90-120s. Levophed gtt titrated as ordered. CI >2, PAP 20s/10s. CV~5-7. Milrinone gtt running as ordered. palpable pulses, +1 LE
edema. pt on RA, 90-92% POX. lungs diminished in bases. +productive cough per pt. IS encouraged. pt abdomen s/n, denies n/v. diet tolerated well. +BS, +flatus. DTV post straight cath overnight. sternal incision CINTHIA, approximated. LCW incision CINTHIA.
chest tube site c/d/i. R groin SNAG GRINDER. RLE aquacel intact. RIJ Dayday/cale maintained. PIV.
[2023-12-27] MEDS: PROTONIX 40 MG PO (08:23)
[2023-12-27] MEDS: CRESTOR 40 MG PO (08:23)
[2023-12-27] MEDS: NEURONTIN 100 MG PO ×3 (08:23→21:41)
[2023-12-27] MEDS: SENOKOT-S 1 TABLET PO (08:24)
[2023-12-27] MEDS: MAGNESIUM OXIDE 500 MG PO ×2 (08:24→19:40)
[2023-12-27] MEDS: ZETIA 10 MG PO (08:24)
[2023-12-27] MEDS: PLAVIX 75 MG PO (08:24)
[2023-12-27] MEDS: LOW STRENGTH ASPIRIN 81 MG PO (08:24)
[2023-12-27] MEDS: PACERONE 200 MG PO ×3 (08:24→21:41)
[2023-12-27] MEDS: COREG 3.125 MG PO ×2 (08:24→19:40)
[2023-12-27] MEDS: MUCINEX 600 MG PO ×2 (08:24→19:40)
--- NOTE | 2023-12-27 08:55 | W.PN.INTV ---
Today's Communication / Plan
Recommendations
Remains on room air, keep SpO2 >90-94%
Encourage incentive spirometry-lower lobe atelectasis
Out of bed as tolerated
Bowel regimen
Diuresis per CT surgery team
Continue with milrinone and wean as tolerated; trend CO/CI
Continues with PA catheter
Patient remains CVICU status - Web Architect service will continue to follow until transferred to CVICU-telemetry
Assessment
-
73-year-old female with a history of ischemic cardiomyopathy, CAD, hypertension, hyperlipidemia and PAD found to have NSTEMI with further evaluation necessitating Impella/CABG/MVR and dynamite cartridge crimper consulted for postoperative ventilator/critical care
management 12/21/2023.
Severe CAD with preop EF 20-30%
Status post CABG x4/Impella VAD + SHANTELL-exclusion - OR date: 12/21/2023
Ischemic cardiomyopathy-EF 15-20% via TTE on 12/24/2023
Moderate mitral regurgitation via TTE on 12/24/2023
Mild anemia-normocytic
Conditions present prior to admission:
Gaomkeiuroemxo-hcqoqilv-ZP 20-30 %.
CAD.
Hypertension.
Hyperlipidemia.
PAD-left superficial femoral artery stent 06/2023/right external iliac stent 07/2023.
PSVT.
Depression.
Viral thyroiditis 2022.
GIB due to diverticulitis 2013.
Tonsillectomy. Tubal ligation. Bilateral cataract. Breast augmentation
Plan
Her respiratory status has stabilized with diuresis
Critically ill pressors with PA line was on Bumex gtt
Supplemental oxygen weaned to room air
Incentive spirometry encouraged
Aspiration precautions per protocol
Chest x-ray 12/23/2023-consolidation left lower lobe-suspect atelectasis, small left pleural effusion
Chest x-ray 12/25/2023-no evidence for significant pneumothorax, mild parenchymal opacification left lower lung field likely atelectasis slightly improved
Chest x-ray 12/26/2023-no pneumothorax, interval removal of chest tubes, focal atelectasis left lower lobe increased, slightly prominent central pulmonary vascular markings
Pulmonary artery catheter continues - removal as per CT surgery team
Inotrope is being weaned-currently on milrinone
Diuresis as per CT surgery team; trend I/O and UOP
Monitor renal function, electrolytes, intake/output, lower extremity edema and weight
Continue to replace electrolytes as needed to keep K>4, Mg>2
Chest tubes removed
Continue to monitor hemoglobin
Continue to follow platelet count and coags
Transfuse blood product as needed-has obtained 7 units packed red blood cells, 2 u FFP and 2 units of platelets
Impella device removed 12/23/2023-EF 20-25%
Repeat echocardiogram 12/23/2023--EF 20%, moderate mitral regurgitation
Repeat echocardiogram 12/24/2023 showed LVEF 15-20% with moderate MR
Monitor blood sugar to maintain at goal 140-180mg/dL
Insulin supplementation as needed
Continue DAPT with ASA/plavix
GDMT as per cardiology
High intensity statin + zetia
Continue nutrition
Increase activity
DVT prophylaxis-SCDs
Critical care statement: A total of 37 minutes of critical care time was provided for this patient today. This includes management of ventilator, spontaneous breathing trial, arterial blood gases, pressors, of unstable vital signs, evaluation of the
patient at bedside, pressor management, monitoring chest tube, reviewing the patient's pertinent medical records including radiographs, microbiology, laboratory evaluations, and discussion with primary team and critical care nursing.
Diagnostic data:
Chest x-ray 12/15/2023-NAD
CXR 12/26/2023: Interval removal of chest tubes. No evidence for pneumothorax; Focal atelectasis in the left lower lung is increased. Lungs appear slightly less well inflated compared to recent radiograph; Slight prominence of central pulmonary
vascular markings with suggestion of slightly increased interstitial markings. Differential considerations of mild interstitial edema versus bronchitis/bronchiolitis.
CT chest 12/14/23-mild dependent atelectasis, mild peripheral interstitial fibrosis, no honeycombing,
Echocardiogram-transesophageal 12/21/2023-EF 20%, moderate concentric left ventricular hypertrophy, stage I diastolic dysfunction, moderate mitral regurgitation, mitral regurgitation etiology is likely functional due to papillary muscle dysfunction
and leaflet restriction, mild sessile erythema
TTE - 12/24/2023: Severely reduced LV systolic function with LVEF: 15-20%; abnormal septal motion consistent with LBBB. Moderate MR. Normal RV size with reduced RV systolic function
Subjective Dataa
Subjective Data
Date of Service:
Date of Service: December 27, 2023
Chief Complaint: Web Architect Follow Up, Pulmonary Follow Up and Vent Management Follow Up
Subjective:
Patient seen and evaluated today at bedside. She is on room air saturating 95%, BP 104/53 and heart rate 96. PAP: 36/22 and CO/CI: 3.45/2.07. She is currently on milrinone at 0.25mcg/kg/min. She says that she is having difficulty going to the
bathroom, and feels constipated and feels like she cannot pee. She is getting medications to help her have a bowel movement. She denies shortness of breath, she has some mild postoperative chest discomfort. She denies SCHROEDER, abdominal pain, nausea,
fevers or chills.
Review of Systems
General: Other (Negative unless mentioned above)
Objective Data
Data Reviewed
Vital Signs / I&O / Oxygen:
Vital Signs
Temp Pulse Resp BP Pulse Ox
99.4 F 99 19 100/53 91
12/27/23 08:00 12/27/23 08:30 12/27/23 08:30 12/27/23 08:30 12/27/23 08:30
Intake and Output
12/26/23 12/27/23 12/28/23
06:59 06:59 06:59
Intake Total 1067.1 / 1094.9 1093.0 / 1123.6 87.5 / 87.5
Output Total 2034 1615 / 1615
Balance -967.9 / -965.1 -522.0 / -491.4 87.5 / 87.5
SaO2 [SIMV] 99
SaO2 91
Nasal Cannula flow liters per 2
minute
Physical Exam
General: Respiratory Distress (n) and Comfortable
HEENT: Normocephalic and Anicteric
Cardiovascular: S1-S2 and Peripheral Edema (negative)
Respiratory: Wheeze (n), Crackles (Bibasilar), Rhonchi (n), Non-Labored Respirations, Accessory Resp Muscle Use (n) and Stridor (n)
GI: Soft, Non Distended and Non Tender
Neurology: Awake, Alert and Tremors (negative)
Skin: Warm, Dry, Cyanosis (n), Jaundice (negative) and Rash (n)
Labs/Micro/Reports
Lab Data
12/27/23 04:09
12/27/23 04:09
[2023-12-27] MEDS: MILK OF MAGNESIA 30 ML PO (10:22)
[2023-12-27] MEDS: PRIMACOR 20 MG 100 IV (10:23)
[2023-12-27] MEDS: DULCOLAX 10 MG RECTAL (12:15)
[2023-12-27] MEDS: BUMEX 1 MG IV (12:15)
--- NOTE | 2023-12-27 12:15 | PTCARENOTE ---
pt VSS, OOB in chair. oral hygiene performed. ECHO completed. ACCOUNT REPRESENTATIVE aware of bladder scan result, will monitor. pt c/o constipation, PRN MoM and Dulcolax suppository given. ACCOUNT REPRESENTATIVE aware of hemodynamics on current Milrinone gtt dose.
[2023-12-27] MEDS: NSS 500 IV (15:11)
--- NOTE | 2023-12-27 16:00 | PTCARENOTE ---
Addendum entered by Lexii Bull RN 12/27/23 17:43:
Roxicodone 2.5mg PO given for pain w/ decrease in pain.
Original Note:
pt VSS, OOB in chair. pt voiding in BSC, +BM. RLE aquacel removed, incision IT BUSINESS ANALYST.
[2023-12-27] MEDS: ROXICODONE 2.5 MG PO (17:02)
[2023-12-27] MEDS: SENOKOT-S PO (19:40)
--- NOTE | 2023-12-27 20:00 | PTCARENOTE ---
assumed care of pt from previous RN. pt A&Ox4, resting in chair at time of assessment. SR w/ 1st degree AVB and LBBB on tele-monitor. temp epicardial A/V wires w/ backup settings VVI 30/4/0.8. POX 92-97% on RA. IS encouraged. abd s/n, +BS. pt
confirmed +BMs throughout the day. pt voiding clear, elo urine. all surgical sites stable. R IJ cordis w/ swan floated to 47cm. all lines leveled, zeroed, flushed. PIV intact. see worklist for complete nursing assessment, interventions, VS, and
I&Os.
[2023-12-28] VITALS (32 sets, daily range): BP systolic 78–138; BP diastolic 38–77; PULSE 93–94; O2SAT 94–95; BMI 25.7
--- NOTE | 2023-12-28 | PTCARENOTE ---
assessment remains unchanged. VSS.
[2023-12-28] MEDS: ROXICODONE 2.5 MG PO ×2 (02:23→11:17)
[2023-12-28 03:03] LABS: Mixed Venous O2 Saturation 67.3 %
[2023-12-28 03:04] LABS: Ionized Calcium 1.13 mMOL/L (1.15-1.33)
[2023-12-28 03:09] LABS: Hematocrit 28.2 % (37.0-47.0); Hemoglobin 9.6 g/dL (12.0-16.0); Mean Corpuscular Hgb 29.4 pg (27.0-31.0); Mean Corpuscular Volume 86.2 fL (81.0-99.0); Mean Platelet Volume 9.6 fL (7.4-10.4); Platelet Count 181 10^3/uL (130-400); Red Blood Cell Count 3.27 10^6/uL (4.20-5.40); Red Cell Dist. Width 16.7 % (11.5-14.5); White Blood Cell Count 10.5 10^3/uL (4.8-10.8)
[2023-12-28 03:18] LABS: Blood Urea Nitrogen 32 mg/dl (7-17); Calcium 8.1 mg/dl (8.4-10.2); Carbon Dioxide 25 mmol/L (22-30); Chloride 99 mmol/L (98-107); Estimated Creatinine Clearance 50 ml/min; Glucose 110 mg/dl (70-99); Magnesium 2.5 mg/dl (1.6-2.3); Sodium 134 mmol/L (135-145); eGFR > 60.00
--- NOTE | 2023-12-28 04:00 | PTCARENOTE ---
assessment remains unchanged. VSS. AM labs collected and sent.
--- NOTE | 2023-12-28 04:17 | W.PN.CT ---
Today's Communication / Plan
-
Plan:
-No major issues overnight. Hemodynamically and neurologically intact
-Off all drips but Milrinone @ 0.25 mcg/kg/min
-Last CI 2.34, MVO2 67.3%, Medrano d/c'd with pt voiding spontaneously, 1350 mL/24hrs
-Echo yesterday 12/26 showed improved LVEF from 15-20% to 25-30%, mild-mod MR, mild TR
-Did not tolerate Entresto d/t hypotension. Hypotension has improved, on Coreg @ 3.125 mg BID
-Consider 25% Albumin if further issues with hypotension, noted to be third spacing
-Received 1mg Bumex yesterday 12/26. YANELI has resolved, 1.2->1.2->0.9->0.9
-Hyponatremia is improving, 133->134. Fluid restriction
-Will replete Ca++
-Placed mag oxide on hold given mg of 2.5 today
-Wean inotrope as tolerated
-D/C swan when able to wean off Milrinone
-D/C cordis when able to wean off Milrinone
-D/C swan when able to wean off Milrinone
-Cont current meds (ASA, Plavix, Zetia, Crestor, Amiodarone, Coreg, Bumex, add Entresto if BP permits
-Encourage use of IS
-F/u 2-view cxr tomorrow
-OOB into chair/Ambulate
Assessment / Plan
-
Assessment:
-S/P Sternotomy with aortic and right atrial cannulation/CABG x 4 (In situ LLOYD to LAD -additional vein graft to the distal LAD off of the flynn of OM 3 vein graft from the aorta, Ao to RSVG to OM1, Ao to RSVG to OM 3)- unable to utilize BIMA d/t
severe atherosclerosis and plaque/Revision of vein graft of OM 3 with an additional piece of vein to extend the length/Endoscopic vein harvesting of right lower extremity (along with open harvest segment)/Left atrial appendage exclusion with 35 mm
clip/Placement of 5.5 Impella [facility], by Dr. Owusu, 12/21/23, pod#7
Assessment:
- Unstable angina/ NSTEMI- admitted to [facility] on 12/13/23, transferred to on 12/14/23 for evaluation for CABG (last Plavix 12/13/23)
- Cath 12/13/23 with LM/2V CAD
- LVEF 10-20% intraop, improved to 30-35% post Impella placement
- ICM, EF 32% by Echo 12/13/23
- Functional mild-moderate MR
- Hx PSVT on Holter monitor
- Chronic LBBB
- PAD- s/p L SFA stent 06/29/23 and R external iliac stent 07/16/23
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
- Carotid dz with 50-69% LICA
- HTN/HLD
- Depression
- Viral subacute thyroditis 2022 - resolved
- Hx GIB d/t diverticulitis 2013
- Hx breast augmentation with subsequent removal of implants
- b/l cataract extraction with intraocular lens implant
-Intraop VT s/p shock x 1
-Intraop CHB vs Asystole
-Intaop Cardiogenic shock (CI 1.4-1.6 on inotropic support) S/P Impella placement
-Intraop and postop blood loss/Anemia (transfused 7u PRBCs)
-Intraop and postop thrombocytopenia (transfused 2 {5pks} plts)
-Intraop and postop coagulopathy (transfused 2u FFPs)
-Acute postop atelectasis
-Acute postop hypovolemia with subsequent hypervolemia
-Acute postop vasal vagal episode with SBP 50's
-Acute postop ectopies S/p amiodarone gtt @ 0.5 mg/min
-Acute postop Impella management (CPT code 97343)
-Acute on chronic combined systolic/diastolic heart failure
-Acute postop hyponatremia
-YANELI
Discussed patient care with: Cardiology, Nursing, Respiratory Therapy, Pharmacy and Care Team
Subjective
Procedure
-S/P Sternotomy with aortic and right atrial cannulation/CABG x 4 (In situ LLOYD to LAD -additional vein graft to the distal LAD off of the fylnn of OM 3 vein graft from the aorta, Ao to RSVG to OM1, Ao to RSVG to OM 3)- unable to utilize BIMA d/t
severe atherosclerosis and plaque/Revision of vein graft of OM 3 with an additional piece of vein to extend the length/Endoscopic vein harvesting of right lower extremity (along with open harvest segment)/Left atrial appendage exclusion with 35 mm
clip/Placement of 5.5 Impella VA, by Dr. Owusu, 12/21/23
-
Date of Service: December 28, 2023
Pt c/o mild incisional pain, otherwise feels well
Objective Data
-
Lab Results
12/28/23 02:52
12/28/23 02:52
PT 15.7 Sec (11.4-14.6) H 12/24/23 03:34
INR 1.24 12/24/23 03:34
APTT 57.4 Sec (23.4-35.0) H 12/23/23 10:31
Vital Signs
Vital Signs
Temp Pulse Resp BP Pulse Ox
99 F 89 11 110/52 92
12/28/23 04:00 12/28/23 04:00 12/28/23 04:00 12/28/23 04:00 12/28/23 04:00
CT Intake/Output/Weight
12/27/23 12/27/23 12/28/23
06:59 18:59 06:59
Intake Total 520.6 / 1123.6 422.4 / 727.4 305.0 / 727.4
Output Total 500 / 1615 850 / 1350 500 / 1350
Balance 20.6 / -491.4 -427.6 / -622.6 -195.0 / -622.6
SaO2: 92 (RA)
Physical Exam
-
General: Awake, Oriented and AOx3
Cardiovascular: Regular rate & rhythm, No Murmurs, No Rub and No Gallop
Respiratory: Decreased Breath Sounds
Sternum: Stable
Incision: Clean, Dry, Intact and Dressing Intact
Extremities: Edema +2
Data Reviewed
-
Lab Results: Results Reviewed
Medications: Active Meds Reviewed
Chest X-Ray: Report Reviewed and Image Reviewed
ECG: Report Reviewed and Image Reviewed
[2023-12-28] MEDS: CALCIUM CHLORIDE 10% SYRINGE 50 MG IV (04:24)
[2023-12-28] MEDS: CALCIUM CHLORIDE 10% SYRINGE 50 ML IV (04:24)
[2023-12-28] MEDS: TYLENOL 1000 MG PO ×3 (05:41→20:52)
--- NOTE | 2023-12-28 08:00 | PTCARENOTE ---
received pt from [facility] shift lead nurse. pt tolerating OOB to chair, AAOx3, NSR with 1st degree HB, HR 90-100s, CVP 7, PAP 27/10, A/V wires set to VVI 30 4 0.8, +1 B/L LLE edema, palpable pulses, pox 92-94% RA, lungs diminished at the bases, +bs, abd.
round, voids, all surgical sites intact, RIJ cordis infusing KVO, piv intact
--- NOTE | 2023-12-28 08:00 | PTCARENOTE ---
received pt from night filler nurse. pt tolerating OOB to chair, AAOx3, NSR with 1st degree HB, HR 90-100s, CVP 7, PAP 27/10, A/V wires set to VVI 30 4 0.8, +1 B/L LLE edema, palpable pulses, pox 92-94% RA, lungs diminished at the bases, +bs, abd.
round, pt due to void at noon, all surgical sites intact, RIJ cordis infusing KVO, piv intact
[2023-12-28] MEDS: FLEXBUMIN 100 IV (08:08)
--- NOTE | 2023-12-28 08:10 | W.PN.INTV ---
Today's Communication / Plan
Recommendations
Remains on room air, keep SpO2 >90-94%
Encourage incentive spirometry
Out of bed as tolerated
Bowel regimen
Diuresis per CT surgery team
Continue with milrinone and wean as tolerated; trend CO/CI
Continue cardiac diet and add low sodium/fluid restriction
Continues with PA catheter
Start chemical ppx
Patient remains CVICU status - Industrial Refrigeration Mechanic service will continue to follow until transferred to CVICU-telemetry
Assessment
-
73-year-old female with a history of ischemic cardiomyopathy, CAD, hypertension, hyperlipidemia and PAD found to have NSTEMI with further evaluation necessitating Impella/CABG/MVR and motorcycle maker consulted for postoperative ventilator/critical care
management 12/21/2023.
Impression:
Severe CAD with preop EF 20-30%
Status post CABG x4/Impella VAD + SHANTELL-exclusion - OR date: 12/21/2023
Cardiogenic shock currently on milrinone infusion
Ischemic cardiomyopathy-EF 15-20% via TTE on 12/24/2023 --> now recovered LVEF to 25-30% via TTE from 12/27/2023
Mild-moderate mitral regurgitation via TTE on 12/27/2023
Mild anemia-normocytic
Conditions present prior to admission:
Tovyyebkbloeyl-ybgwrbhz-IF 20-30 %.
CAD.
Hypertension.
Hyperlipidemia.
PAD-left superficial femoral artery stent 06/2023/right external iliac stent 07/2023.
PSVT.
Depression.
Viral thyroiditis 2022.
GIB due to diverticulitis 2013.
Tonsillectomy. Tubal ligation. Bilateral cataract. Breast augmentation
Plan
Her respiratory status has stabilized with diuresis with improving CO/CI and PAP while on milrinone infusion
Critically ill with PA-catheter - previously on Bumex gtt, now being diuresed intermittently
Supplemental oxygen now weaned to room air
Incentive spirometry encouraged 10x/hr for at least 4 hrs a day
Aspiration precautions per protocol
Chest x-ray 12/23/2023-consolidation left lower lobe-suspect atelectasis, small left pleural effusion
Chest x-ray 12/25/2023-no evidence for significant pneumothorax, mild parenchymal opacification left lower lung field likely atelectasis slightly improved
Chest x-ray 12/26/2023-no pneumothorax, interval removal of chest tubes, focal atelectasis left lower lobe increased, slightly prominent central pulmonary vascular markings
Pulmonary artery catheter continues - removal as per CT surgery team
Inotrope is being weaned-currently on milrinone now down to 0.125 mcg/kg/min
Diuresis as per CT surgery team; trend I/O and UOP
Monitor renal function, electrolytes, intake/output, lower extremity edema and weight
Continue to replace electrolytes as needed to keep K>4, Mg>2
Chest tubes removed
Continue to monitor hemoglobin
Continue to follow platelet count and coags
Transfuse blood product as needed-has obtained 7 units packed red blood cells, 2 u FFP and 2 units of platelets
Impella device removed 12/23/2023-EF 20-25%
Repeat echocardiogram 12/23/2023--EF 20%, moderate mitral regurgitation
Repeat echocardiogram 12/24/2023 showed LVEF 15-20% with moderate MR
Last echo repeated on 12/27/2023 showing continued improvement in LVEF, currently at 25-30% with mild-moderate MR, mild TR with normal PA pressures (PASP: 23mmhg assuming a RAP of 3mmHg)
Monitor blood sugar to maintain at goal 140-180mg/dL
Insulin supplementation as needed
Continue DAPT with ASA/plavix
GDMT as per cardiology --> coreg started today; monitor MAP and HR
High intensity statin + zetia
Continue cardiac diet with sodium andn fluid restriction
Increase activity
DVT prophylaxis-SCDs; recommend starting chemical ppx with heparin SQ vs LMWH
Critical care statement: A total of 35 minutes of critical care time was provided for this patient today. This includes management of ventilator, spontaneous breathing trial, arterial blood gases, pressors, of unstable vital signs, evaluation of the
patient at bedside, pressor management, monitoring chest tube, reviewing the patient's pertinent medical records including radiographs, microbiology, laboratory evaluations, and discussion with primary team and critical care nursing.
Diagnostic data:
Chest x-ray 12/15/2023-NAD
CXR 12/26/2023: Interval removal of chest tubes. No evidence for pneumothorax; Focal atelectasis in the left lower lung is increased. Lungs appear slightly less well inflated compared to recent radiograph; Slight prominence of central pulmonary
vascular markings with suggestion of slightly increased interstitial markings. Differential considerations of mild interstitial edema versus bronchitis/bronchiolitis.
CT chest 12/14/23-mild dependent atelectasis, mild peripheral interstitial fibrosis, no honeycombing,
Echocardiogram-transesophageal 12/21/2023-EF 20%, moderate concentric left ventricular hypertrophy, stage I diastolic dysfunction, moderate mitral regurgitation, mitral regurgitation etiology is likely functional due to papillary muscle dysfunction
and leaflet restriction, mild sessile erythema
TTE - 12/24/2023: Severely reduced LV systolic function with LVEF: 15-20%; abnormal septal motion consistent with LBBB. Moderate MR. Normal RV size with reduced RV systolic function
TTE - 12/27/2023: Mildly dilated LV with moderate to severely reduced systolic function; LVEF is approximately 25-30% by visual estimation; Multiple wall motion abnormalities consistent with multivessel CAD; Normal RV size with reduced systolic
function; Ehsf-oy-ovmqulnm MR; Mild TR; Estimated PASP of 23 mmHg. Assuming a RAP of 3 mmHg; Compared to prior from December 24, 2023, on xkuz-am-[id number] comparison overall LV function is slightly more vigorous and estimated at 25-30% previously
15-20% and MR is stable at mild to moderate.
Subjective Dataa
Subjective Data
Date of Service:
Date of Service: December 28, 2023
Chief Complaint: Industrial Refrigeration Mechanic Follow Up, Pulmonary Follow Up and Vent Management Follow Up
Subjective:
Patient seen and evaluated today at bedside. R�IJ PA-catheter remains in place with CO/CI: 3.71/2.22 respectively, with PAP: 25/15. She remains on milrinone drip now at 0.125mcg/kg/min, with heart rate 94, BP 109/48 and saturating 95% on room air.
Afebrile overnight. She still endorses shortness of breath with difficulty 'starting' her breath. She has been having bowel movements. No abdominal pain, SCHROEDER, chest pain, fevers or chills reported.
Review of Systems
General: Other (Negative unless mentioned above)
Objective Data
Data Reviewed
Vital Signs / I&O / Oxygen:
Vital Signs
Temp Pulse Resp BP Pulse Ox
99.2 F 109 18 123/65 92
12/28/23 08:00 12/28/23 09:15 12/28/23 08:00 12/28/23 09:15 12/28/23 08:00
Intake and Output
12/27/23 12/28/23 12/29/23
06:59 06:59 06:59
Intake Total 1093.0 / 1123.6 806.4 / 850.9 316.8 / 316.8
Output Total 1615 / 1615 1550 / 1550
Balance -522.0 / -491.4 -743.6 / -699.1 316.8 / 316.8
SaO2 [SIMV] 99
SaO2 92
Nasal Cannula flow liters per 2
minute
Physical Exam
General: Respiratory Distress (n), Comfortable, Chills (negative) and Sweats (negative)
HEENT: Normocephalic and Anicteric
Cardiovascular: S1-S2 and Peripheral Edema (Trace lower extremity pitting edema bilaterally)
Respiratory: Wheeze (n), Crackles (Bibasilar), Rhonchi (n), Non-Labored Respirations, Accessory Resp Muscle Use (n) and Stridor (n)
GI: Soft, Non Distended and Non Tender
Neurology: AO x 3 and Tremors (negative)
Skin: Warm, Dry, Cyanosis (n), Jaundice (negative) and Rash (n)
Labs/Micro/Reports
Lab Data
12/28/23 02:52
12/28/23 02:52
[2023-12-28] MEDS: ZETIA 10 MG PO (08:14)
[2023-12-28] MEDS: PLAVIX 75 MG PO (08:14)
[2023-12-28] MEDS: MUCINEX 600 MG PO ×2 (08:14→20:51)
[2023-12-28] MEDS: NEURONTIN 100 MG PO ×3 (08:14→20:51)
[2023-12-28] MEDS: LOW STRENGTH ASPIRIN 81 MG PO (08:14)
[2023-12-28] MEDS: PACERONE 200 MG PO ×3 (08:15→20:51)
[2023-12-28] MEDS: BUMEX 1 MG IV (08:15)
[2023-12-28] MEDS: CRESTOR 40 MG PO (08:15)
[2023-12-28] MEDS: PROTONIX 40 MG PO (08:15)
[2023-12-28] MEDS: SENOKOT-S PO ×2 (08:37→20:52)
--- NOTE | 2023-12-28 08:58 | W.PN.CD ---
Today's Communication / Plan
-
Agree with therapy
Impression / Plan
-
Background: 73F with ischemic cardiomyopathy, coronary artery disease, hypertension, dyslipidemia, and PAD who initially presented to [facility] and was found to have an NSTEMI and was transferred to this facility for CABG. Bath Mixer: Dr. Hogan
NSTEMI/MVCAD
-s/p CABG x 4 (in situ LLOYD to LAD with additional vein graft to the distal LAD off of the flynn of OM 3 vein graft from the aorta, Ao to RSVG to OM1, Ao to RSVG to OM 3) by Dr. Owusu 12/21/2023.
-Pre CABG LVEF = 20% with severe RWMA. Post CABG LVEF = 10-15%, prompting placement of 5.5 Impella, explanted on 12/23/2023.
-Continue ASA, clopidogrel
-Milrinone weaning
-She probably requires a PCWP/LVEDP in the low 20's due to the LV dilation.
Acute systolic HF, LVEF 25-30% on milrinone on 12/27/2023
- Impella out on 12/23/2023
- On IV loop diuretic, weaning milrinone, on low dose Entresto and low dose Coreg
- Not yet on SGLT-I
- Not yet on MRA
- Volume status improving
- She will be a good candidate for WET PROCESS MILLER therapy (LBBB/poor EF) in the future, pt has declined ICD in past, WET PROCESS MILLER-P (pacer) can be discussed with her
Ischemic cardiomyopathy
- Now s/p CABG
- Meds ramping up meds
- Cost of meds an issue does not have prescription coverage, expensive meds will be a problem
- She has declined ICD in past
Severe Dyslipidemia
-Chronic, stable.
-LDL 529 12/16/23; this is on high intensity statin and ezetimibe.
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
- She will benefit PSK9i therapy as an outpatient
PAD
HTN
PSVT seen on Holter monitor
LBBB
Moderate MR
Critical Care Time = 39 minutes.
Subjective/Interval History:
Improving
Physical Exam
Vital Signs/Labs
Vital Signs
Temp Pulse Resp BP Pulse Ox
99.2 F 102 18 102/73 92
12/28/23 08:00 12/28/23 08:15 12/28/23 08:00 12/28/23 08:15 12/28/23 08:00
12/27/23 12/28/23 12/29/23
06:59 06:59 06:59
Actual Weight 70.8 kg 71.2 kg
12/28/23 02:52
12/28/23 02:52
PT 15.7 Sec (11.4-14.6) H 12/24/23 03:34
INR 1.24 12/24/23 03:34
APTT 57.4 Sec (23.4-35.0) H 12/23/23 10:31
Magnesium 2.5 mg/dl (1.6-2.3) H 12/28/23 02:52
Triglycerides 90 mg/dl (10-149) 12/15/23 03:16
LDL Cholesterol, Calc 529 mg/dl 12/15/23 03:16
VLDL Cholesterol, Calc 18 mg/dl (0-30) 12/15/23 03:16
HDL Cholesterol 91 mg/dl 12/15/23 03:16
TSH 2.52 uIU/ml (0.47-4.68) 12/18/23 03:00
Physical Exam
Constitutional: No acute distress
EENT: Anicteric
Cardiovascular: Rhythm & rate is regular, Pedal edema present and JVD present
Respiratory: Respiratory effort normal and Lungs clear to auscul. (decreased at bases)
GI: Soft and Distention absent
Neuro/Psych: AO x 3
Data Reviewed
-
Date of Service: December 28, 2023
[2023-12-28] MEDS: COREG 6.25 MG PO ×2 (09:15→20:51)
[2023-12-28] MEDS: PRIMACOR 20 MG 100 IV (09:28)
--- NOTE | 2023-12-28 11:33 | CM ---
Chart reviewed. Patient is OOB sitting in the chair. Patient is independent of ADLS, lives alone in a apartment,[address], 0 [address]. Patient expressed concerns that her children work hand kiss setter and she doesn't want to bother them. Patient wanting
more information on SNF and Acute Rehabs. PT evaluation ordered. CM to follow
--- NOTE | 2023-12-28 12:39 | PTCARENOTE ---
pt remains OOB, visitor at bedside, VSS, NSR per tele, assessment remains unchanged
[2023-12-28 13:17] LABS: Mixed Venous O2 Saturation 60.5 %
[2023-12-28] MEDS: NSS 500 IV (13:48)
--- NOTE | 2023-12-28 16:34 | PTCARENOTE ---
VS obtained, assessment unchanged. Patient assisted oob to commode, settled to chair. Perusing menu.
--- NOTE | 2023-12-28 20:00 | PTCARENOTE ---
assumed care of pt from previous RN. pt A&Ox4, resting in chair at time of assessment. sinus rhythm to sinus tachycardia w/ 1st degree AVB and LBBB on tele-monitor. temp epicardial A/V wires w/ backup settings 30/4/0.8. POX 91-93% on RA. abd s/n,
+BS. pt voiding clear, elo urine. all surgical site stable. R IJ cordis w/ KVO. PIV intact. see worklist for complete nursing assessment, interventions, VS, and I&Os.
[2023-12-29] VITALS (16 sets, daily range): BP systolic 77–120; BP diastolic 44–76; BMI 26.6
--- NOTE | 2023-12-29 | PTCARENOTE ---
assessment remains unchanged. VSS.
[2023-12-29 02:44] LABS: Mixed Venous O2 Saturation 66.4 %
[2023-12-29 02:58] LABS: Hematocrit 25.6 % (37.0-47.0); Hemoglobin 8.8 g/dL (12.0-16.0); Mean Corp Hgb Conc. 34.4 g/dL (33.0-37.0); Mean Corpuscular Hgb 29.7 pg (27.0-31.0); Mean Corpuscular Volume 86.5 fL (81.0-99.0); Platelet Count 198 10^3/uL (130-400); Red Blood Cell Count 2.96 10^6/uL (4.20-5.40); Red Cell Dist. Width 16.6 % (11.5-14.5); White Blood Cell Count 9.7 10^3/uL (4.8-10.8)
[2023-12-29 03:26] LABS: Blood Urea Nitrogen 30 mg/dl (7-17); Calcium 8.6 mg/dl (8.4-10.2); Carbon Dioxide 25 mmol/L (22-30); Chloride 99 mmol/L (98-107); Estimated Creatinine Clearance 50 ml/min; Glucose 100 mg/dl (70-99); Magnesium 2.4 mg/dl (1.6-2.3); Potassium 3.9 mmol/L (3.5-5.1); Sodium 134 mmol/L (135-145); eGFR > 60.00
--- NOTE | 2023-12-29 04:00 | PTCARENOTE ---
assessment remains unchanged. VSS. AM plan of care discussed, pt in agreement.
--- NOTE | 2023-12-29 05:00 | W.PN.CT ---
Today's Communication / Plan
-
-pod #8
-slowly improving, no issues overnight, weaned off O2 - pOx 94% on RA
-drips: Milrinone 0.125. mVO2 this am 66.5
-wean off Milrinone as tolerated
-continue iv Bumex (wt is up 23 lbs from preop, 133 preop and 156 on 12/27)
-Echo 12/26 showed improved LVEF from 15-20% to 25-30%, mild-mod MR, mild TR
-Did not tolerate Entresto d/t hypotension. Hypotension has improved, on Coreg @ 6.25 mg BID
-YANELI resolved - Cr 0.9
-encourage IS, OOB
Assessment / Plan
-
Assessment:
-S/P Sternotomy with aortic and right atrial cannulation/CABG x 4 (In situ LLOYD to LAD -additional vein graft to the distal LAD off of the flynn of OM 3 vein graft from the aorta, Ao to RSVG to OM1, Ao to RSVG to OM 3)- unable to utilize BIMA d/t
severe atherosclerosis and plaque/Revision of vein graft of OM 3 with an additional piece of vein to extend the length/Endoscopic vein harvesting of right lower extremity (along with open harvest segment)/Left atrial appendage exclusion with 35 mm
clip/Placement of 5.5 Impella VA, by Dr. Owusu, 12/21/23, pod#8
Assessment:
- Unstable angina/ NSTEMI- admitted to [facility] on 12/13/23, transferred to on 12/14/23 for evaluation for CABG (last Plavix 12/13/23)
- Cath 12/13/23 with LM/2V CAD
- LVEF 10-20% intraop, improved to 30-35% post Impella placement
- ICM, EF 32% by Echo 12/13/23
- Functional mild-moderate MR
- Hx PSVT on Holter monitor
- Chronic LBBB
- PAD- s/p L SFA stent 06/29/23 and R external iliac stent 07/16/23
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
- Carotid dz with 50-69% LICA
- HTN/HLD
- Depression
- Viral subacute thyroditis 2022 - resolved
- Hx GIB d/t diverticulitis 2013
- Hx breast augmentation with subsequent removal of implants
- b/l cataract extraction with intraocular lens implant
-Intraop VT s/p shock x 1
-Intraop CHB vs Asystole
-Intaop Cardiogenic shock (CI 1.4-1.6 on inotropic support) S/P Impella placement
-Intraop and postop blood loss/Anemia (transfused 7u PRBCs)
-Intraop and postop thrombocytopenia (transfused 2 {5pks} plts)
-Intraop and postop coagulopathy (transfused 2u FFPs)
-Acute postop atelectasis
-Acute postop hypovolemia with subsequent hypervolemia
-Acute postop vasal vagal episode with SBP 50's
-Acute postop ectopies S/p amiodarone gtt @ 0.5 mg/min
-Acute postop Impella management (CPT code 78744)
-Acute on chronic combined systolic/diastolic heart failure
-Acute postop hyponatremia
-YANELI
Discussed patient care with: Nursing and Care Team
Subjective
Procedure
-S/P Sternotomy with aortic and right atrial cannulation/CABG x 4 (In situ LLOYD to LAD -additional vein graft to the distal LAD off of the flynn of OM 3 vein graft from the aorta, Ao to RSVG to OM1, Ao to RSVG to OM 3)- unable to utilize BIMA d/t
severe atherosclerosis and plaque/Revision of vein graft of OM 3 with an additional piece of vein to extend the length/Endoscopic vein harvesting of right lower extremity (along with open harvest segment)/Left atrial appendage exclusion with 35 mm
clip/Placement of 5.5 Impella VA, by Dr. Owusu, 12/21/23
-
Date of Service: December 29, 2023
Objective Data
-
Lab Results
12/29/23 02:37
12/29/23 02:37
PT 15.7 Sec (11.4-14.6) H 12/24/23 03:34
INR 1.24 12/24/23 03:34
APTT 57.4 Sec (23.4-35.0) H 12/23/23 10:31
Vital Signs
Vital Signs
Temp Pulse Resp BP Pulse Ox
98.0 F 82 21 113/64 94
12/29/23 00:00 12/29/23 04:00 12/29/23 04:00 12/29/23 04:00 12/29/23 04:00
CT Intake/Output/Weight
12/28/23 12/28/23 12/29/23
06:59 18:59 06:59
Intake Total 384.0 / 850.9 1149.8 / 1272.8 123.0 / 1272.8
Output Total 700 / 1550 300 / 300
Balance -316.0 / -699.1 849.8 / 972.8 123.0 / 972.8
SaO2: 94
Physical Exam
-
General: Awake and AOx3
Cardiovascular: Regular rate & rhythm, No Murmurs and No Rub
Respiratory: Rales (at bases, no wheeze)
Sternum: Stable
Incision: Clean, Dry and Intact
Extremities: Edema +2 (b/l, R>L (RLE incision is cdi, bruised, no focal hematoma))
Data Reviewed
-
Lab Results: Results Reviewed
Chest X-Ray: Report Reviewed and Image Reviewed
ECG: Report Reviewed and Image Reviewed
[2023-12-29] MEDS: KCL 40 MEQ PO ×3 (06:29→20:45)
--- NOTE | 2023-12-29 07:40 | W.PN.CD ---
Today's Communication / Plan
-
Hold carvedilol.
Restart bumetanide 1 mg IV BID.
Start enalapril.
Monitor Na/Hbg.
Incentive spirometry.
Encourage ambulation.
Impression / Plan
-
Background: 73F with ischemic cardiomyopathy, coronary artery disease, hypertension, dyslipidemia, and PAD who initially presented to [facility] and was found to have an NSTEMI and was transferred to this facility for CABG.
#NSTEMI/MVCAD
-s/p CABG x 4 (in situ LLOYD to LAD with additional vein graft to the distal LAD off of the flynn of OM 3 vein graft from the aorta, Ao to RSVG to OM1, Ao to RSVG to OM 3) by Dr. Owusu 12/21/2023.
-Pre CABG LVEF = 20% with severe RWMA. Post CABG LVEF = 10-15%, prompting placement of 5.5 Impella, explanted on 12/23/2023. LVEF improved to 25-30%.
-Hbg and Na are lower. I suspect a component of dilution but will will continue to monitor.
-Continue amiodarone, ASA, clopidogrel and rosuvastatin.
-Milrinone weaning compounded with carvedilol use is contributing to hypotension. Hold carvedilol until the patient is no longer in decompenstated HF (class III indication for beta blockers in decompensated HF).
-She probably requires a PCWP/LVEDP in the low 20's due to the LV dilation.
-When the patient is more compensated, we will start metoprolol as it will have less of blood pressure effect than carvedilol. We will start enalapril this morning to decrease her afterload.
-Restart bumetanide 1 mg IV BID.
#Acute systolic HF
-LVEF 25-30% on milrinone on 12/27/2023.
-Impella out on 12/23/2023.
-Volume status improving.
-She will be a good candidate for RESEARCH PROGRAM INTERN therapy (LBBB/poor EF) in the future. Patient has declined ICD in past, RESEARCH PROGRAM INTERN-P (pacer) can be discussed with her.
#Ischemic cardiomyopathy
-Now s/p revascularization.
-LVEF now 25-30%.
-Cost of meds an issue does not have prescription coverage, expensive meds will be a problem.
-She has declined ICD in past.
#Severe Dyslipidemia
-Chronic, stable.
-LDL 529 12/16/23; this is on high intensity statin and ezetimibe, suggestive of familial hyperlipidemia.
-She will benefit PSK9i therapy as an outpatient.
#PAD
-Chronic, stable.
-Multiple prior lower extremity revascularizations
-May benefit from low dose rivaroxaban 2.5 BID in outpatient setting. Will leave this to primary coal shoveler.
#HTN
#PSVT seen on Holter monitor
#LBBB
#Moderate MR
Critical Care Time = 33 minutes.
Market Researcher: Dr. Hogan
Subjective/Interval History:
Weight is up 2.4 kg from yesterday and is higher than any prior weight (73.6 kg <--71.2 kg <-- 70.8 kg).
Hypotension early this last night (81/45 mmHg) and instructor dramatic arts (80/54 mmHg).
CI 2.28 as of 12/28/2023 @ 12:36.
Hbg has fallen from 9.6 to 8.8.
Na stable at 134.
DATA:
TTE, 12/27/2023:
CONCLUSIONS
Mildly dilated LV with moderate to severely reduced systolic function.
LVEF is approximately 25-30% by visual estimation.
Multiple wall motion abnormalities consistent with multivessel CAD.
Normal RV size with reduced systolic function.
Mild to moderate mitral regurgitation.
Mild tricuspid regurgitation.
Estimated pulmonary artery pressure of 23 mmHg. Assuming a right atrial
pressure of 3 mmHg.
Compared to prior from December 24, 2023, on [id number]-bj-[id number] comparison overall
LV function is slightly more vigorous and estimated at 25-30% previously 15-20%
and MR is stable at mild to moderate.
Physical Exam
Vital Signs/Labs
Vital Signs
Temp Pulse Resp BP Pulse Ox
36.6 C 86 20 96/47 97
12/29/23 05:00 12/29/23 06:00 12/29/23 06:00 12/29/23 06:00 12/29/23 06:00
12/27/23 12/28/23 12/29/23
11:59 11:59 11:59
Actual Weight 70.8 kg 71.2 kg 73.6 kg
12/29/23 02:37
12/29/23 02:37
PT 15.7 Sec (11.4-14.6) H 12/24/23 03:34
INR 1.24 12/24/23 03:34
APTT 57.4 Sec (23.4-35.0) H 12/23/23 10:31
Magnesium 2.4 mg/dl (1.6-2.3) H 12/29/23 02:37
Triglycerides 90 mg/dl (10-149) 12/15/23 03:16
LDL Cholesterol, Calc 529 mg/dl 12/15/23 03:16
VLDL Cholesterol, Calc 18 mg/dl (0-30) 12/15/23 03:16
HDL Cholesterol 91 mg/dl 12/15/23 03:16
TSH 2.52 uIU/ml (0.47-4.68) 12/18/23 03:00
Physical Exam
Constitutional: No acute distress and Comfortable
EENT: Anicteric and Moist mucous membranes
Cardiovascular: Pedal edema present, JVD present, S1S2 is normal and Murmur/rub/gallop absent
Respiratory: Respiratory effort normal, Wheeze Absent, Rhonchi Absent and Crackles Present
GI: Soft, Distention absent, Flat, Non tender and Normal bowel sounds
Neuro/Psych: AO x 3
Data Reviewed
-
Date of Service: December 29, 2023
Medical Decision Making: Reviewed Test Results, Independent Historian Assessment, Test Interpretation and Review of Case with other Provider
EKG: Tracing Personally Visualized and interpreted and Report Reviewed by me
Echo: Tracing Personally Visualized and interpreted and Report Reviewed by me
X-Ray/CT/US/MRI/NUC/PET: Image Personally Visualized and interpreted and Report Reviewed by me
Medical Tests (PFT, Pathology etc): Report Reviewed by me
Labs: Labs Reviewed by me
Old Records: Reviewed
--- NOTE | 2023-12-29 08:00 | PTCARENOTE ---
Assumed care of patient from shift commander RN. AAO x 3 sitting up in the chiar. C/o stiffness in legs and chest incision. Refusing pain medication at this time. SR on monitor. AV wires to back up of VVI 30. No pacing noted at present. RT IJ
cordis with Milrinone infusing. See flow sheet for totals/titrations. Lungs clear but decreased b/l . IS to 750. Abdomen soft active bowel sounds, pt has had multiple formed BMs. Sternum and Rt leg incisions well approximated and ecchymotic.
Plus 2 lower extremity edema appreciated. Pulses palpable. Plan for day discussed.
[2023-12-29] MEDS: TYLENOL PO ×2 (08:50→11:17)
[2023-12-29] MEDS: BUMEX 2 MG IV (08:51)
[2023-12-29] MEDS: LOW STRENGTH ASPIRIN 81 MG PO (08:52)
[2023-12-29] MEDS: ZETIA 10 MG PO (08:52)
[2023-12-29] MEDS: ZAROXOLYN 5 MG PO (08:52)
[2023-12-29] MEDS: NEURONTIN 100 MG PO ×3 (08:52→21:26)
[2023-12-29] MEDS: SENOKOT-S PO ×2 (08:52→19:44)
[2023-12-29] MEDS: PACERONE 200 MG PO ×3 (08:52→21:26)
[2023-12-29] MEDS: PLAVIX 75 MG PO (08:52)
[2023-12-29] MEDS: MUCINEX 600 MG PO ×2 (08:52→20:45)
[2023-12-29] MEDS: PROTONIX 40 MG PO (08:52)
[2023-12-29] MEDS: CRESTOR 40 MG PO (08:52)
--- NOTE | 2023-12-29 09:02 | W.PN.INTV ---
Today's Communication / Plan
Recommendations
Remains on room air, keep SpO2 >90-94%
Encourage incentive spirometry
Out of bed as tolerated
Bowel regimen
Diuresis per CT surgery team
Continue cardiac diet and add low sodium/fluid restriction
Recs per psych; consider 1:1
Start chemical ppx
Patient is now off milrinone drip and has been downgraded to CVICU�telemetry status. Cook Syrup Maker/Pulmonary service will now sign off. Please reconsult if there are any additional questions/concerns, or if patient's respiratory status deteriorates.
Assessment
-
73-year-old female with a history of ischemic cardiomyopathy, CAD, hypertension, hyperlipidemia and PAD found to have NSTEMI with further evaluation necessitating Impella/CABG/MVR and community organizer consulted for postoperative ventilator/critical care
management 12/21/2023.
Impression:
Severe CAD with preop EF 20-30%
Status post CABG x4/Impella VAD + SHANTELL-exclusion - OR date: 12/21/2023
Cardiogenic shock currently on milrinone infusion
Ischemic cardiomyopathy-EF 15-20% via TTE on 12/24/2023 --> now recovered LVEF to 25-30% via TTE from 12/27/2023
Mild-moderate mitral regurgitation via TTE on 12/27/2023
Mild anemia
Suicidal ideation (as of AM of 12/29/2023)
Conditions present prior to admission:
Pnxneyedlbbolo-spadcojt-PM 20-30 %.
CAD.
Hypertension.
Hyperlipidemia.
PAD-left superficial femoral artery stent 06/2023/right external iliac stent 07/2023.
PSVT.
Depression.
Viral thyroiditis 2022.
GIB due to diverticulitis 2013.
Tonsillectomy. Tubal ligation. Bilateral cataract. Breast augmentation
Plan
Her respiratory status has stabilized with diuresis with improving CO/CI and PAP while on milrinone infusion --> she is now off milrinone gtt and PA-catheter has been removed
She is back on bumex gtt - defer diuresis to CT surgery team and monitor UOP, sCr and strict I/O
She is breathing comfortably on room air saturating 96-97%
Incentive spirometry encouraged 10x/hr for at least 4 hrs a day
Aspiration precautions per protocol
Chest x-ray 12/23/2023-consolidation left lower lobe-suspect atelectasis, small left pleural effusion
Chest x-ray 12/25/2023-no evidence for significant pneumothorax, mild parenchymal opacification left lower lung field likely atelectasis slightly improved
Chest x-ray 12/26/2023-no pneumothorax, interval removal of chest tubes, focal atelectasis left lower lobe increased, slightly prominent central pulmonary vascular markings
Monitor renal function, electrolytes, intake/output, lower extremity edema and weight
Continue to replace electrolytes as needed to keep K>4, Mg>2
Patient was upset this morning and had suicidal ideation. Psychiatry consulted. Recommendations appreciated. Per psychiatry, she is not at risk of imminent suicide.
Chest tubes removed
Continue to monitor hemoglobin
Continue to follow platelet count and coags
Transfuse blood product as needed-has obtained 7 units packed red blood cells, 2 u FFP and 2 units of platelets
Impella device removed 12/23/2023-EF 20-25%
Repeat echocardiogram 12/23/2023--EF 20%, moderate mitral regurgitation
Repeat echocardiogram 12/24/2023 showed LVEF 15-20% with moderate MR
Last echo repeated on 12/27/2023 showing continued improvement in LVEF, currently at 25-30% with mild-moderate MR, mild TR with normal PA pressures (PASP: 23mmhg assuming a RAP of 3mmHg)
Monitor blood sugar to maintain at goal 140-180mg/dL
Insulin supplementation as needed
Continue DAPT with ASA/plavix
GDMT as per cardiology --> coreg started on 12/27 --> up-titrate as tolerated; monitor MAP and HR
High intensity statin + zetia
Continue cardiac diet with sodium andn fluid restriction
Increase activity
DVT prophylaxis-SCDs; recommend starting chemical ppx with heparin SQ vs LMWH
Patient is now off milrinone drip and has been downgraded to CVICU�telemetry status. Cook Syrup Maker/Pulmonary service will now sign off. Thank you for allowing us to be involved in the care of this patient. Please reconsult if there are any
additional questions/concerns, or if patient's respiratory status deteriorates.
Diagnostic data:
Chest x-ray 12/15/2023-NAD
CXR 12/26/2023: Interval removal of chest tubes. No evidence for pneumothorax; Focal atelectasis in the left lower lung is increased. Lungs appear slightly less well inflated compared to recent radiograph; Slight prominence of central pulmonary
vascular markings with suggestion of slightly increased interstitial markings. Differential considerations of mild interstitial edema versus bronchitis/bronchiolitis.
CT chest 12/14/23-mild dependent atelectasis, mild peripheral interstitial fibrosis, no honeycombing,
Echocardiogram-transesophageal 12/21/2023-EF 20%, moderate concentric left ventricular hypertrophy, stage I diastolic dysfunction, moderate mitral regurgitation, mitral regurgitation etiology is likely functional due to papillary muscle dysfunction
and leaflet restriction, mild sessile erythema
TTE - 12/24/2023: Severely reduced LV systolic function with LVEF: 15-20%; abnormal septal motion consistent with LBBB. Moderate MR. Normal RV size with reduced RV systolic function
TTE - 12/27/2023: Mildly dilated LV with moderate to severely reduced systolic function; LVEF is approximately 25-30% by visual estimation; Multiple wall motion abnormalities consistent with multivessel CAD; Normal RV size with reduced systolic
function; Oqef-wj-nkjgpdol MR; Mild TR; Estimated PASP of 23 mmHg. Assuming a RAP of 3 mmHg; Compared to prior from December 24, 2023, on aawd-iw-yotw comparison overall LV function is slightly more vigorous and estimated at 25-30% previously
15-20% and MR is stable at mild to moderate.
Total time spent today was 55 minutes for this encounter. Time includes reviewing laboratory test/imaging results, reviewing pertinent medical records, obtaining and reviewing medical history, performing an appropriate exam, ordering medications,
tests and procedures. Time also includes documentation of this encounter, coordinating patient care and communicating with other healthcare professionals. Total time does not include separately billed tests performed on this date of service.
Subjective Dataa
Subjective Data
Date of Service:
Date of Service: December 29, 2023
Chief Complaint: Cook Syrup Maker Follow Up and Pulmonary Follow Up
Subjective:
Patient seen and evaluated today at bedside. Currently on room air saturating 97%. Heart rate 86 and BP 119/50. She is very upset that she is still hospitalized and is weak and not getting enough sleep, and said that she wanted to kill herself
this morning. She is currently on suicide watch and psychiatry has been consulted. When I saw the patient she was on Bumex drip at 0.5mg/hr, making adequate urine. She says that her shortness of breath is okay at rest but when she tries to move
she still is having difficulty breathing. She is also coughing sometimes productive of yellow/beige sputum. She otherwise denies SCHROEDER, abdominal pain, nausea, fevers or chills.
Review of Systems
General: Other (Negative unless mentioned above)
Objective Data
Data Reviewed
Vital Signs / I&O / Oxygen:
Vital Signs
Temp Pulse Resp BP Pulse Ox
98.7 F 95 20 113/61 96
12/29/23 09:00 12/29/23 09:14 12/29/23 09:00 12/29/23 09:14 12/29/23 09:00
Intake and Output
12/28/23 12/29/23 12/30/23
06:59 06:59 06:59
Intake Total 806.4 / 850.9 1297.4 / 1297.4 500 / 500
Output Total 1550 / 1550 450 / 450
Balance -743.6 / -699.1 847.4 / 847.4 500 / 500
SaO2 [SIMV] 99
SaO2 96
Nasal Cannula flow liters per 2
minute
Physical Exam
General: Respiratory Distress (n), Comfortable, Chills (negative) and Sweats (negative)
HEENT: Normocephalic and Anicteric
Cardiovascular: S1-S2 and Peripheral Edema (+1 lower extremity pitting edema bilaterally)
Respiratory: Wheeze (n), Crackles (Bibasilar), Rhonchi (n), Non-Labored Respirations, Accessory Resp Muscle Use (n) and Stridor (n)
GI: Soft, Non Distended and Non Tender
Neurology: AO x 3 and Tremors (negative)
Skin: Warm, Dry, Cyanosis (n), Jaundice (negative) and Rash (n)
Labs/Micro/Reports
Lab Data
12/29/23 02:37
12/29/23 21:04
[2023-12-29] MEDS: TYLENOL 650 MG PO ×2 (09:08→17:49)
[2023-12-29] MEDS: VASOTEC 2.5 MG PO (09:14)
[2023-12-29] MEDS: BUMEX 50 IV (09:46)
--- NOTE | 2023-12-29 09:51 | PTCARENOTE ---
Extremely tearful , refusing to ambulate to bathroom and insisting on using BSC. C/o sternal discomfort, but however is refusing anything other than tylenol. Importance of increased ambulation explained. Pt ultimately used BSC. Will continue to
encourage ambulation
--- NOTE | 2023-12-29 10:37 | PTCARENOTE ---
Pt talking with Serg and made the statement ' I Just want to End it all'. CT MANAGER SOCIAL MEDIA notified after serg notified this RN. CT MANAGER SOCIAL MEDIA in to speak with her. Suicide 1:1 protocol initiated. Storage Management Consultant notified.
--- NOTE | 2023-12-29 11:15 | PTCARENOTE ---
Daughter updated by RN. States her mother has made suicidal comments in the past. Suicide protocol explained to daughter. States understanding. Case management notified. Sitter in room. Pt remains very tearful.
--- NOTE | 2023-12-29 11:29 | CON.MD ---
Consultation - Medical
-
Referring Provider:�Dr. David Hickey
Chief Complaint:�NSTEMI s/p CABG
�
History of Present Illness:�73-year-old female with PMH (as below) presented to [facility] on 12/14/2023 as a transfer from [facility] on 12/13/2023 for an NSTEMI with left main/two-vessel CAD and was transferred to [facility] for CABG. She required a Plavix washout. On 12/21/2023 she had a CABG x 4 with left atrial appendage exclusion with clip, Impella LVAD. Had expected acute surgical blood loss anemia. Repeat TTE 12/21 with EF 20-25% with acute on chronic
combined systolic/diastolic heart failure. Repeat TTE 12/22 with EF 20% and global hypokinesis. Impella removed on 12/23/2023. Repeat TTE 12/23 with EF 15-20%. Required postoperative diuresis limited by YANELI and hypotension. Repeat echocardiogram
12/27/2023 with EF 25-30%. Overall she is feeling okay. She was frustrated that people were pushing her to do better and do more. Sometimes she can do a lot sometimes she is very tired and has more difficulty. She is looking forward to getting
better and getting back home where she can be independent and get back to doing her day-to-day activities. She has some minimal chest pain but otherwise feeling okay. Denies any shortness of breath concerns at this time. Has swelling in the legs
that has been getting better recently.
�
Past Medical History:�CAD, cardiomyopathy with EF 30-35%, HTN, HLD, depression, PAD, viral subacute thyroiditis 2022, GI bleed from diverticulitis in 2013, chronic left bundle branch block
Procedure History:�Coronary stenting to LAD, stenting to the left SFA 06/29/2023 and right external iliac arteries 07/16/2023 for PAD, tonsillectomy, tubal ligation, bilateral cataract extraction with lens implant, breast augmentation with subsequent
removal of implants
Family History:�None pertinent
�
Social History:�
Functional Level Premorbidly:�Independent with all activities�
Functional Level Currently:�Mod assist transfers, mod assist of 2 for lift off and balance. Able to sidestep x 8 steps without a device. Dependent lower extremity self-care.
�
Tobacco:�Denies�
Alcohol:�Occasional
Drug use:�Denies�
�
Lives with:�Alone
24-hour assistance available:�No
Number of floors:�Second floor apartment, laundry at bottom of the steps.
# steps to enter:�12
Driving:�Yes
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
�
Allergies:�
Allergy/AdvReac Type Severity Reaction Status Date / Time
No Known Allergies Allergy Unverified 12/14/23 08:02
�
Review of Systems:�
Constitutional: (x) abNormal _fatigue
Eye: (x) Normal _
Ear/Nose/Throat: (x) Normal _
Respiratory: (x) Normal _
Cardiovascular: (x) abNormal _heart attack with bypass surgery
Gastrointestinal: (x) Normal _
Genitourinary: (x) Normal _
Musculoskeletal: (x) abNormal _general achiness
Integumentary: (x) Normal _
Neurologic: (x) Normal _
Psychiatric: (x) Normal _
Endocrine: (x) Normal _
Hematologic/Lymphatic: (x) Normal _
Allergic/Immunologic: (x) Normal _
�
Medications:�
Active Current Visit Medication List
Category Date Time Status
0.9% Sodium Chloride 500 ml [Nss] 500 ml Med 12/21/23 13:11 Active
IV CORDIS
0.9% Sodium Chloride 500 ml [Nss] 500 ml Med 12/21/23 11:00 Active
IV [id number]
Acetaminophen [Tylenol/Feverall] Med 12/21/23 13:11 Active
650 mg RECTAL Q4HPRN PRN
Acetaminophen [Tylenol] Med 12/21/23 14:00 Active
1,000 mg PO TID@0600,1400,2200
Acetaminophen [Tylenol] Med 12/21/23 13:11 Active
650 mg PO Q4HPRN PRN
Albuterol Nebs [Ventolin Nebules] Med 12/21/23 13:11 Active
2.5 mg INH R Q4HPRN PRN
Albuterol [ProAIR HFA INHALER] Med 12/21/23 13:11 Active
2 puff INH R Q4HPRN PRN
Amiodarone [Pacerone] Med 12/21/23 16:00 Active
200 mg PO TID
Aspirin Med 12/22/23 08:00 Active
300 mg RECTAL DAILYPRN PRN
Aspirin Chewable [Low Strength Aspirin] Med 12/22/23 08:00 Active
81 mg PO DAILY
Bisacodyl [Dulcolax] Med 12/21/23 13:11 Active
10 mg RECTAL DAILYPRN PRN
Bumetanide 12.5 mg/50 ml [Bumex] Med 12/29/23 09:15 Active
12.5 mg in 50 ml IV ORDERED RATE
Calcium CHLORIDE [Calcium Chloride 10% Syringe] Med 12/21/23 13:11 Active
500 mg IV PRN PRN
Calcium CHLORIDE [Calcium Chloride 10% Syringe] 1,000 Med 12/21/23 13:11 Active
mg
0.9% Sodium Chloride 50 ml [Nss] 40 ml
Syringe [Syringe-Pump] 0 ml
IV PRN
Carvedilol [Coreg] Med 12/28/23 08:00 Hold
6.25 mg PO BID
Clopidogrel Bisulfate [Plavix] Med 12/22/23 08:00 Active
75 mg PO DAILY
Docusate W/Senna [Senokot-S] Med 12/21/23 20:00 Active
1 tablet PO Q12
Enalapril [Vasotec] Med 12/29/23 09:00 Active
2.5 mg PO BID
Ezetimibe [Zetia] Med 12/14/23 12:00 Active
10 mg PO DAILY
Flush (0.9% Sodium Chloride) [Flush (Nss)] Med 12/21/23 16:00 Active
See Dose Instructions IV PER PROTOCOL
Gabapentin [Neurontin] Med 12/21/23 13:11 Active
100 mg PO TID
Guaifenesin [Mucinex] Med 12/23/23 21:30 Active
600 mg PO Q12
KCl 20 Meq/50 ml [KCl] Med 12/21/23 13:11 Active
20 meq in 50 ml IV PRN
Lorazepam [Ativan] Med 12/23/23 08:25 Active
0.5 mg PO Q6HPRN PRN
Magnesium Hydroxide [Milk of Magnesia] Med 12/21/23 13:11 Active
30 ml PO BIDPRN PRN
Magnesium Oxide Med 12/22/23 08:00 Hold
500 mg PO BID
Magnesium Sulfate 2 Gram/50 ml [Magnesium Sulfate] Med 12/21/23 13:11 Active
2 gram in 50 ml IV PRN
Meperidine [Demerol] Med 12/21/23 13:11 Active
12.5 mg IV [id number] PRN
Ondansetron Injectable [Zofran] Med 12/21/23 13:11 Active
4 mg IV Q8HPRN PRN
Oxycodone [Roxicodone] Med 12/21/23 13:11 Active
2.5 mg PO Q4HPRN PRN
Oxycodone [Roxicodone] Med 12/21/23 13:11 Active
5 mg PO Q4HPRN PRN
Pantoprazole [Protonix] Med 12/22/23 08:00 Active
40 mg PO DAILY
Potassium Chloride [KCl] Med 12/21/23 13:11 Active
40 meq PO PRN PRN
Rosuvastatin Calcium [Crestor] Med 12/14/23 12:00 Active
40 mg PO DAILY
�
Vitals:�
Temp Pulse Resp BP Pulse Ox
98.7 F 95 20 113/61 96
12/29/23 09:00 12/29/23 09:14 12/29/23 09:00 12/29/23 09:14 12/29/23 10:27
Height 5 ft 5.5 in
Actual Weight 73.6 kg
Body Mass Index (BMI) 26.6
�
Physical Exam:�
General Appearance/Observation: Well-developed, well-nourished female in no apparent distress.�
Pain/Comfort Assessment: Moderate chest pain with activity
Mood/Affect: Appropriate�
�
Integumentary/Operative Site:�Sternal incision healing well, drain sites covered. Large right leg vein graft site clean dry and intact.
�� Pressure Ulcer Evaluation: absent over heels.�
�
Eyes: Conjunctiva/Lids: normal���� Pupils: pupils equal round and reactive to light and Accommodation�
Ears/Nose/Throat: oral mucosa moist,� throat clear.������������ Lips/Teeth/Gums: normal�
Cardiovascular: Heart: regular, no murmur�
Pulses: dorsalis pedis 2+ bilaterally�
Respiratory: Respiratory Effort/Chest Expansion: normal������� Auscultation: Clear to auscultation bilaterally�
Gastrointestinal: abdomen not tender, no distension, normal abdominal bowel sounds
Genitourinary: No Medrano�
Extremities:�Edema: Mild left lower extremity edema�cyanosis: None�Trophic�changes: None
�
Neurology Exam:
Orientation: Alert, Oriented to self, Time, Place�
Memory: Intact for recent medical concerns
Comprehension: Intact
Two step command: Intact
Cranial Nerves:
�� CNII:�Pupillary light reflex: Intact����Visual Field: Intact
�� CN III, IV, : Extraocular muscles: Intact�
�� CN V:�Facial Sensation�at�Forehead: Intact,�Maxilla: Intact,�Mandible: Intact
�� CN VII:�Facial movement: Symmetric
�� CN VIII:�Hearing: Normal
�� CN IX/X:�Speech & swallow: Normal,�Position of Uvula: Midline
�� CN XI:�Shoulder shrug: Symmetric
�� CN XII:�Tongue protrusion: Midline
Sensory:
�� Light touch: Intact in bilateral upper and lower extremities
�
Reflexes:
�� Biceps: 2+ bilaterally
�� Brachioradialis: 2+ bilaterally
�� Triceps: 2+ bilaterally
�� Patellar: 2+ bilaterally
�� Achilles: 2+ bilaterally
�� Babinski: Down going bilaterally
�� Clonus: None
�� Vipul: Negative bilaterally�
Cerebellar: Dysmetria/Ataxia: None�
Musculoskeletal:Motor: (Manual muscle scale 0-5)�
Muscle SA EF WE EE FF FA HF KE DF EHL PF
Right� >4 >4 5 >4 5 5 5 5 5 5 5
Left >4 >4 5 >4 5 5 5 5 5 5 5
�
Tone: Normal in all extremities�
Range of Motion: Passively within normal limits in all extremities�
�
Lab Results
Laboratory Data
12/29/23 02:37
12/29/23 21:04
PT 15.7 Sec (11.4-14.6) H 12/24/23 03:34
INR 1.24 12/24/23 03:34
APTT 57.4 Sec (23.4-35.0) H 12/23/23 10:31
Total Bilirubin 0.6 mg/dl (0.2-1.3) 12/24/23 03:34
AST 38 U/L (14-36) H 12/24/23 03:34
ALT 23 U/L (0-35) 12/24/23 03:34
Alkaline Phosphatase 74 U/L (38-126) 12/24/23 03:34
Total Protein 5.1 g/dl (6.3-8.2) L 12/24/23 03:34
Albumin 3.4 g/dl (3.5-5.0) L 12/24/23 03:34
�
Diagnostic Results:�as per HPI�
[facility] (R radial 12/12-Dr. Monique):
Left main: 70-80%
LAD: 90% proximal prior to LAD stent. Both diagonals with moderate diffuse disease
Left circumflex: 60 to 70%. 70-80% proximal OM1. Mid 90% OM 2.
Dominant RCA: Up to 50% stenosis of vessel
TTE 09/22/23:
Moderate hypokinesis of the mid to distal anterior wall with apical akinesis. Mild�moderate distal inferior hypokinesis. EF 30-35%.
Normal RV size and function.
Mild�moderate mitral regurgitation.
�
Assessment
73-year-old F PMH (CAD, chronic systolic/diastolic CHF with EF 30-35%, HTN, HLD, depression, PAD, viral subacute thyroiditis 2022, GI bleed from diverticulitis in 2013, chronic left bundle branch block) with 12/13/2023 NSTEMI with left main/two-vessel
CAD s/p 12/21/2023 CABG x 4 with left atrial appendage exclusion with clip, postoperative anemia, acute on chronic systolic/diastolic CHF, volume overload requiring diuresis with YANELI and hypokinetic tension, resulting in ADL and amatory dysfunction.
Plan�
PM&R�PT/OT to increase independence with ADLs, improve balance, coordination, endurance, strength, mobility, community reintegration, decreased burden of care on others and family education.�
CAD with NSTEMI S/P CABG x 4: Sternal precautions.� Aspirin/statin, amiodarone, statin, beta-marcelo, BP control.� Monitor incision, pain control.�������������������������������������
Acute on chronic systolic/diastolic CHF: EF 25�30%, beta marcelo, monitor fluid status��
HTN: Bumex, Coreg, enalapril, sacubitril/valsartan, monitor closely�
HLD: Statin, Zetia
Bilateral lower extremity edema: Elevate legs, on Bumex. Increased fluid will cause more force requirement to move lower extremities which requires more strength and increases fatigue.�
Anemia: Postoperative.� Continue to monitor.�
�
Psych: Psychiatry consulted for patient with concern for suicidal ideation. Seen by psychiatry and taken off one-to-one. Patient has goals oriented towards getting home being independent. Monitor mood, medications as needed.�
Skin: monitor for pressure sores/rashes/lesions.�
Pain: acetaminophen or oxycodone as needed.� Neurontin 100 mg TID.
Bowel: Colace and Senna, PRN bisacodyl.�
Bladder: Time void, PVRs, PRN straight cath.��
GI Prophylaxis: Pantoprazole�
DVT Prophylaxis: Mechanical. Please comment on when chemoprophylaxis can start and what the medication should be.
Pulmonary: Incentive spirometry, albuterol.�Mucinex 600 mg Q12H
Safety: Continue to reinforce assistance with all transfers.�
Code Status:� Full code
Dispo�(date/plan/equipment needs): Home with family care.� Social history reviewed.�
Functional and Medical Goals:�Modified Independent with ADL�s, ambulation, transfers�
Discharge Destination:��Acute inpatient rehabilitation
�
Summary of recommendations:
-�Discharge Destination:��Acute inpatient rehabilitation
CAD with NSTEMI S/P CABG x 4: Sternal precautions.� Aspirin/statin, amiodarone, statin, beta-marcelo, BP control.� Monitor incision, pain control.�������������������������������������
Acute on chronic systolic/diastolic CHF: EF 25�30%, beta marcelo, monitor fluid status�
Psych: Psychiatry consulted for patient with concern for suicidal ideation. Seen by psychiatry and taken off one-to-one. Patient has goals oriented towards getting home being independent. Monitor mood, medications as needed.�
Pain: acetaminophen or oxycodone as needed.� Neurontin 100 mg TID.
Bowel: Colace and Senna, PRN bisacodyl.�
Bladder: Time void, PVRs, PRN straight cath.��
GI Prophylaxis: Pantoprazole�
DVT Prophylaxis: Mechanical. Please comment on when chemoprophylaxis can start and what the medication should be.
Pulmonary: Incentive spirometry, albuterol.�Mucinex 600 mg Q12H
Thank you for allowing me to care for your patient. Please contact me with any questions or concerns. Mild left greater than right
--- NOTE | 2023-12-29 11:50 | CM ---
Chart reviewed. Patient is OOB sitting in the chair. Patient very teary eyed this morning. Patient said she feels like she lost all control. Patient stated she hasn't had a good night sleep and she is emotionally exhausted. Support provided
with ideas of ways to try and gain more control and sleep while here in the hospital. Daughter at bedside. Patient is independent of ADLS, lives alone in a [address], 0 [address]. PT evaluation recommending Acute Rehab. Spoke with patient and
her daughter and they agree on [place], but unsure if [place] or [place] would be better. Patient's son would be closer to [place] and daughter is [place]. Plan is for the patient to go to Acute Rehab when medically stable.
--- NOTE | 2023-12-29 14:00 | PTCARENOTE ---
Pt unwilling to assist in care. Pt requesting staff lift her. When instructed she needed to actively assist with care pt continued to refuse. Nurse senior planning manager informed of pt possibility to injure staff . Nurse senior planning manager in to talk with patient. Pt
however after remains uninterested to assist in transferring.
--- NOTE | 2023-12-29 15:23 | W.PN.UPDATE ---
Update Note
Progress Note Update
patient seen chart reviewed. spoke with nursing. the patient is a 73 year old woman who underwent recent cabg. she has had a very difficult time post both physically and psychologically. she has been here more than two weeks. she made comments to
nsg that she had suicidal thoughts and if she had a scissor she would plunge it into her ear. she adamantly denies that she would hurt herself. says she has said this in the past and has never done anything to harm herself or any one else. her d
asked her about this and when mrs nguyễn told her what she had said d admonished her 'mom you never should say things like that'. she does have hx of depression over the years particularly when she and h were going through a divorce roughly ten
years ago . h is a market risk manager at [employer] and a marriage and family counselor and in her opinion he could not take the dishonor of getting so she filed and bore the brunt of shame re the dissolution of the marriage. in the intervening years
it has been very stressful for her. d did not speak to her for many years until recently blaming her for hurting her father when it was he who wanted the divorce and he went on to another relationship. she was able to find a home and a job but in
the same community where she was forced to see and that community all the time. her physical illness brouight more stress and conflict for her as she often felt the treatment (medications of which there were many dietary restrictions) was
very burdensome and she now feels guilty and says she has been told she brought her cardiac disease on herself. she was tried on many antidepressants none of which she felt helped enough to be worth continiung. she has always struggled with
difficulty falling and staying asleep. energy level poor given cardiac issues. she can enjoy some activities even now eg seeing kids and grands. there is nothing to suggest psychosis or bipolar
past psych hx see above patient has felt therapy helped her though not nedications
medical hx recent cabg pad htn hold cardiomyopathy currently anemic (8.8 hgb) n[ 229/68
fh + depression anxiety father suffered ptsd / alcoholism from war mother depressed anxious
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
mse alert 0x3 cooperative and very engaged speech and thought process nl mood is dysphoroic affect appropriate to emotional trend denies si said she said those things but would never harm self bc catholic /kids/ grands above aver intell insight
judgment fair
dx unspecified depression ptsd
plan no one can predict the future w certainly but it is my impression patient is not an imminent suicide risk. do not feel she needs one to one. she denies she would attempt to harm self. she has no hx suicidal attempts. she has reasons to stay
alive....family supports people who love her. offered support advised continued psychotherapy. consider renewed trial of antidep if she does not start to feel better psych will see her tomorrow.
--- NOTE | 2023-12-29 15:39 | PTCARENOTE ---
Pt cleared from suicide watch by Psych. PT remains persnickety with staff development manager. resting in bed. Ambulation encouraged, pt refusing other than BSC. Safe environment provided.
[2023-12-29 15:44] LABS: Blood Urea Nitrogen 28 mg/dl (7-17); Calcium 8.6 mg/dl (8.4-10.2); Carbon Dioxide 23 mmol/L (22-30); Chloride 96 mmol/L (98-107); Estimated Creatinine Clearance 45 ml/min; Glucose 131 mg/dl (70-99); Potassium 3.9 mmol/L (3.5-5.1); Sodium 135 mmol/L (135-145); eGFR 59.12
[2023-12-29] MEDS: NSS 500 IV (16:26)
[2023-12-29 18:28] LABS: Blood Urea Nitrogen 29 mg/dl (7-17); Calcium 8.8 mg/dl (8.4-10.2); Carbon Dioxide 25 mmol/L (22-30); Chloride 94 mmol/L (98-107); Estimated Creatinine Clearance 50 ml/min; Glucose 104 mg/dl (70-99); Potassium 3.7 mmol/L (3.5-5.1); Sodium 135 mmol/L (135-145); eGFR > 60.00
[2023-12-29] MEDS: TYLENOL 1000 MG PO (21:26)
--- NOTE | 2023-12-29 21:47 | PTCARENOTE ---
Assumed pt care. Pt OOB in chair at time of assessment. AAO x 4, reports intermittent sternal pain/discomfort with inspiration/coughing - PRN pain management reviewed. Pt stated having hallucinations with narcotic use and difficulty sleeping - PA
made aware, opioid use avoided for pain management - see MAR. Pt denied suicidal ideation upon assessment, reports lack of sleep - discussion on methods for adequate sleep provided. Pt on RA, POX 96%, weak/intermittent/non-productive cough, IS
encouraged, posterior bs clear/diminished in bases, denies SOB/LUNA. NSR with 1st degree AVB/BBB on monitor, heart tones normal, A-V epicardial wires present - set to 30/4/0.8. Pt hypotensive upon initial assessment (BP 70's/50's) denied symptoms, PA
made aware, enalapril held. Pt with 1-person assist and walker to use BSC/assistance into bed, tolerated activity well - reports legs feeling 'heavy'. Denies n/v, adequate appetite. Voiding clear/yellow. Bumex gtt d/c as ordered. Procedural sites
intact. RIJ Cordis maintained with KVO, PIV x 1 present & patent. Pt bathed with CHG cloth wipes, washed face & brushed teeth independently. Son previously at bedside and updated with plan of care. See MAR.
[2023-12-29] MEDS: VASOTEC PO (21:53)
[2023-12-30] VITALS (38 sets, daily range): BP systolic 44–120; BP diastolic 29–64; PULSE 90; O2SAT 94; BMI 24.7
[2023-12-30 03:11] LABS: Blood Urea Nitrogen 30 mg/dl (7-17); Calcium 8.8 mg/dl (8.4-10.2); Carbon Dioxide 26 mmol/L (22-30); Chloride 94 mmol/L (98-107); Estimated Creatinine Clearance 41 ml/min; Glucose 98 mg/dl (70-99); Magnesium 2.1 mg/dl (1.6-2.3); Sodium 136 mmol/L (135-145); eGFR 52.73
[2023-12-30 03:24] LABS: Hematocrit 28.4 % (37.0-47.0); Hemoglobin 9.8 g/dL (12.0-16.0); Mean Corp Hgb Conc. 34.5 g/dL (33.0-37.0); Mean Corpuscular Hgb 29.6 pg (27.0-31.0); Mean Corpuscular Volume 85.8 fL (81.0-99.0); Mean Platelet Volume 8.8 fL (7.4-10.4); Platelet Count 304 10^3/uL (130-400); Red Blood Cell Count 3.31 10^6/uL (4.20-5.40); Red Cell Dist. Width 16.5 % (11.5-14.5); White Blood Cell Count 13.2 10^3/uL (4.8-10.8)
--- NOTE | 2023-12-30 04:27 | W.PN.CT ---
Today's Communication / Plan
-
-pod #9
-no drips
-hypotensive overnight - asymptomatic, sitting in a chair, having a conversation, denies dizziness, complaints of difficulty staying asleep
-diuresed well with Metolazone and Bumex drips on 12/28 (UO 1250/4100+ in 12/24 hrs)- continue
-cleared from 1:1 precaution by Psychiatry - appreciate input
-appreciate Physiatry eval- plans for acute rehab when ready
-repleted K last night- K 4.0, Mg 2.1 this am- follow
-per Cardiology, Coreg is held, started on bid Vasotec
-appreciate everyone's input
-continue PT/OT
Assessment / Plan
-
Assessment:
-S/P Sternotomy with aortic and right atrial cannulation/CABG x 4 (In situ LLOYD to LAD -additional vein graft to the distal LAD off of the flynn of OM 3 vein graft from the aorta, Ao to RSVG to OM1, Ao to RSVG to OM 3)- unable to utilize BIMA d/t
severe atherosclerosis and plaque/Revision of vein graft of OM 3 with an additional piece of vein to extend the length/Endoscopic vein harvesting of right lower extremity (along with open harvest segment)/Left atrial appendage exclusion with 35 mm
clip/Placement of 5.5 Impella VA, by Dr. Owusu, 12/21/23, pod#9
Assessment:
- Unstable angina/ NSTEMI- admitted to [facility] on 12/13/23, transferred to on 12/14/23 for evaluation for CABG (last Plavix 12/13/23)
- Cath 12/13/23 with LM/2V CAD
- LVEF 10-20% intraop, improved to 30-35% post Impella placement
- ICM, EF 32% by Echo 12/13/23
- Functional mild-moderate MR
- Hx PSVT on Holter monitor
- Chronic LBBB
- PAD- s/p L SFA stent 06/29/23 and R external iliac stent 07/16/23
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
- Carotid dz with 50-69% LICA
- HTN/HLD
- Depression
- Viral subacute thyroditis 2022 - resolved
- Hx GIB d/t diverticulitis 2013
- Hx breast augmentation with subsequent removal of implants
- b/l cataract extraction with intraocular lens implant
-Intraop VT s/p shock x 1
-Intraop CHB vs Asystole
-Intaop Cardiogenic shock (CI 1.4-1.6 on inotropic support) S/P Impella placement
-Intraop and postop blood loss/Anemia (transfused 7u PRBCs)
-Intraop and postop thrombocytopenia (transfused 2 {5pks} plts)
-Intraop and postop coagulopathy (transfused 2u FFPs)
-Acute postop atelectasis
-Acute postop hypovolemia with subsequent hypervolemia
-Acute postop vasal vagal episode with SBP 50's
-Acute postop ectopies S/p amiodarone gtt @ 0.5 mg/min
-Acute postop Impella management (CPT code 72723)
-Acute on chronic combined systolic/diastolic heart failure
-Acute postop hyponatremia
-YANELI
Discussed patient care with: Nursing and Care Team
Subjective
Procedure
-S/P Sternotomy with aortic and right atrial cannulation/CABG x 4 (In situ LLOYD to LAD -additional vein graft to the distal LAD off of the flynn of OM 3 vein graft from the aorta, Ao to RSVG to OM1, Ao to RSVG to OM 3)- unable to utilize BIMA d/t
severe atherosclerosis and plaque/Revision of vein graft of OM 3 with an additional piece of vein to extend the length/Endoscopic vein harvesting of right lower extremity (along with open harvest segment)/Left atrial appendage exclusion with 35 mm
clip/Placement of 5.5 Impella VA, by Dr. Owusu, 12/21/23
-
Date of Service: December 30, 2023
Objective Data
-
Lab Results
12/30/23 02:28
PT 15.7 Sec (11.4-14.6) H 12/24/23 03:34
INR 1.24 12/24/23 03:34
APTT 57.4 Sec (23.4-35.0) H 12/23/23 10:31
Vital Signs
Vital Signs
Temp Pulse Resp BP Pulse Ox
97.8 F 81 18 84/58 95
12/29/23 23:16 12/30/23 03:00 12/29/23 23:16 12/30/23 02:41 12/29/23 23:16
CT Intake/Output/Weight
12/29/23 12/29/23 12/30/23
06:59 18:59 06:59
Intake Total 147.6 / 1297.4 1004 / 1574 570 / 1574
Output Total 150 / 450 2850 / 4100 1250 / 4100
Balance -2.4 / 847.4 -1846 / -2526 -680 / -2526
SaO2: 95
Physical Exam
-
General: Awake and AOx3
Cardiovascular: Regular rate & rhythm, No Murmurs and No Rub
Respiratory: Rales (at bases, no wheeze)
Sternum: Stable
Incision: Clean, Dry and Intact
Extremities: Edema +2 (b/l, R>L (RLE incision is cdi, bruised, no focal hematoma)). compression stockings are on
Data Reviewed
-
Lab Results: Results Reviewed
Medications: Active Meds Reviewed
Chest X-Ray: Report Reviewed and Image Reviewed
ECG: Report Reviewed and Image Reviewed
--- NOTE | 2023-12-30 05:09 | PTCARENOTE ---
Pt assisted OOB to BSC. Call light fell on floor during transition - pt stated she thought it was a mouse crawling on the ground. Denies any additionally auditory or visual hallucinations. Weight obtained on standing scale. Pt assisted into
recliner.
[2023-12-30] MEDS: TYLENOL 1000 MG PO ×3 (06:19→21:08)
--- NOTE | 2023-12-30 07:36 | W.PN.CD ---
Today's Communication / Plan
-
Recheck BP's this morning.
If BP > 90/50/65, would give enalapril 2.5 mg.
Restart bumetanide gtt at 0.25 mg/hour to avoid peaks and valleys.
I spoke frankly with the patient about ambulation/mobilization and that she cannot demonize or antagonize the nursing staff when they are trying to get her up to walk.
Impression / Plan
-
Background: 73F with ischemic cardiomyopathy, coronary artery disease, hypertension, dyslipidemia, and PAD who initially presented to [facility] and was found to have an NSTEMI and was transferred to this facility for CABG.
#NSTEMI/MVCAD
-s/p CABG x 4 (in situ LLOYD to LAD with additional vein graft to the distal LAD off of the flynn of OM 3 vein graft from the aorta, Ao to RSVG to OM1, Ao to RSVG to OM 3) by Dr. Owusu 12/21/2023.
-Pre CABG LVEF = 20% with severe RWMA. Post CABG LVEF = 10-15%, prompting placement of 5.5 Impella, explanted on 12/23/2023. LVEF improved to 25-30%.
-Continue amiodarone, ASA, clopidogrel and rosuvastatin.
-Hold carvedilol until the patient is no longer in decompenstated HF (class III indication for beta blockers in decompensated HF).
-She probably requires a PCWP/LVEDP in the low 20's due to the LV dilation.
-Recheck BP this AM (latest was around 2:00 AM).
-If BP > 90/50/65, would give enalapril 2.5 mg this morning and restart bumetanide gtt at 0.25 mg/hour to avoid peaks/valleys of bolus dosing.
#Acute systolic HF
-LVEF 25-30% on milrinone on 12/27/2023.
-Impella out on 12/23/2023.
-Volume status improving.
-She will be a good candidate for VERIFYING MACHINE OPERATOR therapy (LBBB/poor EF) in the future. Patient has declined ICD in past, VERIFYING MACHINE OPERATOR-P (pacer) can be discussed with her.
#Ischemic cardiomyopathy
-Now s/p revascularization.
-LVEF now 25-30%.
-Cost of meds an issue does not have prescription coverage, expensive meds will be a problem.
-She has declined ICD in past.
-We will start GDMT as her heart failure compensates.
#Severe Dyslipidemia
-Chronic, stable.
-LDL 529 12/16/23; this is on high intensity statin and ezetimibe, suggestive of familial hyperlipidemia.
-She will benefit PSK9i therapy as an outpatient.
#PAD
-Chronic, stable.
-Multiple prior lower extremity revascularizations
-May benefit from low dose rivaroxaban 2.5 BID in outpatient setting. Will leave this to primary athletics director.
#HTN
#PSVT seen on Holter monitor
#LBBB
#Moderate MR
Critical Care Time = 32 minutes.
Tennis Camp Instructor: Dr. Hogan
Subjective/Interval History:
Enalapril started yesterday in place of carvedilol to reduced afterload/SVR and avoid the negative inotropy associated with beta blockers.
Psychiatry consulted for concern of suicidal ideation - they do not feel she is an imminent danger to herself.
Asymptomatic hypotension continues, but only in the evening hours, but not necessarily with sleep.
I stopped by late in the evening and discussed with nursing. Patient's BP was 70's/50's but MAP's > 65 and the patient was mentating normally.
Evening enalapril held and bumetanide gtt turned off overnight to allow her to sleep.
Weight is down 5.4 kg from yesterday (68.2 <-- 73.6 kg).
HR has fallen, now more controlled (80's).
DATA:
TTE, 12/27/2023:
CONCLUSIONS
Mildly dilated LV with moderate to severely reduced systolic function.
LVEF is approximately 25-30% by visual estimation.
Multiple wall motion abnormalities consistent with multivessel CAD.
Normal RV size with reduced systolic function.
Mild to moderate mitral regurgitation.
Mild tricuspid regurgitation.
Estimated pulmonary artery pressure of 23 mmHg. Assuming a right atrial
pressure of 3 mmHg.
Compared to prior from December 24, 2023, on [id number] comparison overall
LV function is slightly more vigorous and estimated at 25-30% previously 15-20%
and MR is stable at mild to moderate.
Physical Exam
Vital Signs/Labs
Vital Signs
Temp Pulse Resp BP Pulse Ox
36.6 C 89 18 84/58 95
12/29/23 23:16 12/30/23 05:00 12/29/23 23:16 12/30/23 02:41 12/30/23 04:04
12/28/23 12/29/23 12/30/23
11:59 11:59 11:59
Actual Weight 71.2 kg 73.6 kg 68.2 kg
12/30/23 02:28
PT 15.7 Sec (11.4-14.6) H 12/24/23 03:34
INR 1.24 12/24/23 03:34
APTT 57.4 Sec (23.4-35.0) H 12/23/23 10:31
Magnesium 2.1 mg/dl (1.6-2.3) 12/30/23 02:28
Triglycerides 90 mg/dl (10-149) 12/15/23 03:16
LDL Cholesterol, Calc 529 mg/dl 12/15/23 03:16
VLDL Cholesterol, Calc 18 mg/dl (0-30) 12/15/23 03:16
HDL Cholesterol 91 mg/dl 12/15/23 03:16
TSH 2.52 uIU/ml (0.47-4.68) 12/18/23 03:00
Physical Exam
Constitutional: No acute distress and Comfortable
EENT: Anicteric and Moist mucous membranes
Cardiovascular: Rhythm & rate is regular, Pedal edema present (Up to the mid-quadricep.), S1S2 is normal and Murmur/rub/gallop absent
Respiratory: Respiratory effort normal, Wheeze Absent, Rhonchi Absent and Crackles Present (Bilateral bases.)
GI: Soft, Distention absent, Flat, Non tender and Normal bowel sounds
Neuro/Psych: AO x 3
Data Reviewed
-
Date of Service: December 30, 2023
Medical Decision Making: Reviewed Test Results, Independent Historian Assessment, Test Interpretation and Review of Case with other Provider
EKG: Tracing Personally Visualized and interpreted and Report Reviewed by me
Echo: Tracing Personally Visualized and interpreted and Report Reviewed by me
X-Ray/CT/US/MRI/NUC/PET: Image Personally Visualized and interpreted, Report Reviewed by me, Discussed with Physician, Discussed with Nurse and Discussed with Patient
Medical Tests (PFT, Pathology etc): Image Personally Visualized and interpreted, Report Reviewed by me, Discussed with Physician, Discussed with Nurse and Discussed with Patient
Labs: Labs Reviewed by me
Old Records: Reviewed
[2023-12-30] MEDS: MUCINEX 600 MG PO ×2 (08:48→19:08)
[2023-12-30] MEDS: PLAVIX 75 MG PO (08:48)
[2023-12-30] MEDS: ZETIA 10 MG PO (08:48)
[2023-12-30] MEDS: PACERONE 200 MG PO ×3 (08:48→21:08)
[2023-12-30] MEDS: LOW STRENGTH ASPIRIN 81 MG PO (08:48)
[2023-12-30] MEDS: CRESTOR 40 MG PO (08:48)
[2023-12-30] MEDS: NEURONTIN 100 MG PO ×3 (08:48→21:08)
[2023-12-30] MEDS: PROTONIX 40 MG PO (08:48)
[2023-12-30] MEDS: SENOKOT-S PO ×2 (08:49→19:09)
[2023-12-30] MEDS: VASOTEC PO (09:22)
[2023-12-30] MEDS: FLEXBUMIN 100 IV (09:29)
--- NOTE | 2023-12-30 09:45 | PTCARENOTE ---
assumed care of pt from previous shift RN, sinus rhythm on tele w HR 80-90, BP 70's/40's, + peripheral pulses, +2 edema to bilateral lower extremities, epicardial V wire set to VVI 30/4/0.8. Lungs diminished, pox 95% on RA, +bs, tolerating PO
intake, voids spontaneously elo urine. Right IJ cordis w KVO infusing, PIV flushes esily. Post op sites w glue intact. CT ANGIE made aware of BPs. Pt tolerating working w PT with BP in the 70's. 25% albumin ordered x1. Will monitor and readdress
bumex gtt and morning dose of vasotec.
--- NOTE | 2023-12-30 11:17 | CM ---
Chart reviewed. Patient is independent of ADLS, lives alone in a apartment, [address], 0 [address]. Patient requiring 2 person mod assist, PT evaluation recommending Acute Rehab. Dr Cerrato evaluated patient and agreeable. Patient stated she feels her
mood is much better today. Patient is very independent and has a difficult time giving up her independence and has also been in the hospital for 2 weeks. Patient and family are agreeable to [facility]. Unsure if they want [place] which is
closer to patient's son or [facility] which is closer to the patient's daughter. Family to discuss and let us know plan. [facility]. CM to follow
[2023-12-30] MEDS: BUMEX 50 IV (11:24)
[2023-12-30] MEDS: VASOTEC 2.5 MG PO (12:21)
[2023-12-30] MEDS: NSS 500 IV (12:22)
--- NOTE | 2023-12-30 12:29 | PTCARENOTE ---
VSS, sinus rhythm on tele, awaiting US left arm and 2 view.
--- NOTE | 2023-12-30 15:00 | PTCARENOTE ---
pt returned from US and Xrpanda, VSS, assisted from stretcher to chair without incident.
--- NOTE | 2023-12-30 16:10 | W.PN.UPDATE ---
Update Note
Progress Note Update
Pt seen briefly at bedside - smiling and pleasant. Says she is doing well and does not need to check in with psychiatry as she found yesterdays discussion with Dr. Lucas helpful.
Psychiatry will sign off, please call if we are needed again.
[2023-12-30 18:04] LABS: Blood Urea Nitrogen 33 mg/dl (7-17); Calcium 8.8 mg/dl (8.4-10.2); Carbon Dioxide 29 mmol/L (22-30); Chloride 91 mmol/L (98-107); Estimated Creatinine Clearance 41 ml/min; Glucose 119 mg/dl (70-99); Potassium 3.5 mmol/L (3.5-5.1); Sodium 134 mmol/L (135-145); eGFR 52.73
[2023-12-30] MEDS: KCL 40 MEQ PO (19:06)
--- NOTE | 2023-12-30 21:01 | PTCARENOTE ---
Resumed pt care. Walking rounds completed with previous RN. Pt AAO x 4, denies pain at time of assessment. RA, POX 96%, posterior BS clear/diminished in bases, intermittent cough present - IS performed to 1250. NSR with 1st degree AVB & BBB on
monitor, epicardial A-V wires to VVI 30/4. Heart tones normal, generalized anasarca, +1 LE edema, pulses +1 throughout. Pt using rolling walker to ambulate, tolerating activity - ambulated to BR. BM x 1, voiding without issue. Procedural sites
intact. RIJ cordis maintained with KVO. Bumex gtt d/c at 1999 as ordered. See JUN.
--- NOTE | 2023-12-30 23:19 | PTCARENOTE ---
Pt resting in bed - positioned onto R-side for comfort. Pt assisted into bathroom using rolling walker, voided x 1. Pt reports having back spasms and difficultly standing form a sitting position at times, assistance provided. No other changes.
[2023-12-31] VITALS (18 sets, daily range): BP systolic 89–129; BP diastolic 33–116; PULSE 91–102; O2SAT 93; BMI 24.4
[2023-12-31 03:24] LABS: Mean Corp Hgb Conc. 34.6 g/dL (33.0-37.0); Mean Corpuscular Hgb 29.7 pg (27.0-31.0); Mean Corpuscular Volume 85.8 fL (81.0-99.0); Mean Platelet Volume 8.8 fL (7.4-10.4); Platelet Count 346 10^3/uL (130-400); Red Blood Cell Count 3.03 10^6/uL (4.20-5.40); Red Cell Dist. Width 16.5 % (11.5-14.5); White Blood Cell Count 12.1 10^3/uL (4.8-10.8)
[2023-12-31 03:34] LABS: Blood Urea Nitrogen 32 mg/dl (7-17); Calcium 8.6 mg/dl (8.4-10.2); Carbon Dioxide 26 mmol/L (22-30); Chloride 94 mmol/L (98-107); Estimated Creatinine Clearance 41 ml/min; Glucose 101 mg/dl (70-99); Potassium 3.5 mmol/L (3.5-5.1); Sodium 136 mmol/L (135-145); eGFR 52.73
--- NOTE | 2023-12-31 03:59 | W.PN.CT ---
Today's Communication / Plan
-
-pod #10
-no drips
-no issues overnight
-K 3.5 - repleted
-continue diuresis
-follow BP on RUE
-continue PT/OT
-appreciate everyone's input
-
Assessment / Plan
-
Assessment:
-S/P Sternotomy with aortic and right atrial cannulation/CABG x 4 (In situ LLOYD to LAD -additional vein graft to the distal LAD off of the flynn of OM 3 vein graft from the aorta, Ao to RSVG to OM1, Ao to RSVG to OM 3)- unable to utilize BIMA d/t
severe atherosclerosis and plaque/Revision of vein graft of OM 3 with an additional piece of vein to extend the length/Endoscopic vein harvesting of right lower extremity (along with open harvest segment)/Left atrial appendage exclusion with 35 mm
clip/Placement of 5.5 Impella VA, by Dr. Owusu, 12/21/23, pod#10
Assessment:
- Unstable angina/ NSTEMI- admitted to [facility] on 12/13/23, transferred to on 12/14/23 for evaluation for CABG (last Plavix 12/13/23)
- Cath 12/13/23 with LM/2V CAD
- LVEF 10-20% intraop, improved to 30-35% post Impella placement
- ICM, EF 32% by Echo 12/13/23
- Functional mild-moderate MR
- Hx PSVT on Holter monitor
- Chronic LBBB
- PAD- s/p L SFA stent 06/29/23 and R external iliac stent 07/16/23
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
- Carotid dz with 50-69% LICA
- HTN/HLD
- Depression
- Viral subacute thyroditis 2022 - resolved
- Hx GIB d/t diverticulitis 2013
- Hx breast augmentation with subsequent removal of implants
- b/l cataract extraction with intraocular lens implant
-Intraop VT s/p shock x 1
-Intraop CHB vs Asystole
-Intaop Cardiogenic shock (CI 1.4-1.6 on inotropic support) S/P Impella placement
-Intraop and postop blood loss/Anemia (transfused 7u PRBCs)
-Intraop and postop thrombocytopenia (transfused 2 {5pks} plts)
-Intraop and postop coagulopathy (transfused 2u FFPs)
-Acute postop atelectasis
-Acute postop hypovolemia with subsequent hypervolemia
-Acute postop vasal vagal episode with SBP 50's
-Acute postop ectopies S/p amiodarone gtt @ 0.5 mg/min
-Acute postop Impella management (CPT code 58526)
-Acute on chronic combined systolic/diastolic heart failure
-Acute postop hyponatremia
-YANELI
-Acute postop L cephalic superficial thrombus
-Abnormal waveforms throughout the arteries of the left upper extremity, suggestive of central arterial stenosis by US 12/30/23
Discussed patient care with: Nursing and Care Team
Subjective
Procedure
-S/P Sternotomy with aortic and right atrial cannulation/CABG x 4 (In situ LLOYD to LAD -additional vein graft to the distal LAD off of the flynn of OM 3 vein graft from the aorta, Ao to RSVG to OM1, Ao to RSVG to OM 3)- unable to utilize BIMA d/t
severe atherosclerosis and plaque/Revision of vein graft of OM 3 with an additional piece of vein to extend the length/Endoscopic vein harvesting of right lower extremity (along with open harvest segment)/Left atrial appendage exclusion with 35 mm
clip/Placement of 5.5 Impella VA, by Dr. Owusu, 12/21/23
-
Date of Service: December 31, 2023
Objective Data
-
Lab Results
12/31/23 03:08
12/31/23 03:08
PT 15.7 Sec (11.4-14.6) H 12/24/23 03:34
INR 1.24 12/24/23 03:34
APTT 57.4 Sec (23.4-35.0) H 12/23/23 10:31
Vital Signs
Vital Signs
Temp Pulse Resp BP Pulse Ox
97.7 F 97 18 112/39 96
12/30/23 23:00 12/31/23 03:00 12/30/23 23:00 12/31/23 02:00 12/30/23 23:00
CT Intake/Output/Weight
12/30/23 12/30/23 12/31/23
06:59 18:59 06:59
Intake Total 590 / 1594 170 / 200 30 / 200
Output Total 1550 / 4400 1000 / 1600 600 / 1600
Balance -960 / -2806 -830 / -1400 -570 / -1400
SaO2: 96
Physical Exam
-
General: Awake and AOx3
Cardiovascular: Regular rate & rhythm, No Murmurs and No Rub
Respiratory: Rales (at bases, no wheeze)
Sternum: Stable
Incision: Clean, Dry and Intact
Extremities: Edema +2 (b/l, R>L (RLE incision is cdi, bruised, no focal hematoma)). compression stockings are on
Data Reviewed
-
Lab Results: Results Reviewed
Medications: Active Meds Reviewed
Chest X-Ray: Report Reviewed and Image Reviewed
ECG: Report Reviewed and Image Reviewed
[2023-12-31] MEDS: KCL 40 MEQ PO (04:43)
--- NOTE | 2023-12-31 07:20 | W.PN.CD ---
Today's Communication / Plan
-
Continue diuretics.
Ambulate. The benefit of movement cannot be overstated.
Consider metoprolol succinate 12.5 mg daily tomorrow.
Impression / Plan
-
Background: 73F with ischemic cardiomyopathy, coronary artery disease, hypertension, dyslipidemia, and PAD who initially presented to [facility] and was found to have an NSTEMI and was transferred to this facility for CABG.
#NSTEMI/MVCAD
-s/p CABG x 4 (in situ LLOYD to LAD with additional vein graft to the distal LAD off of the flynn of OM 3 vein graft from the aorta, Ao to RSVG to OM1, Ao to RSVG to OM 3) by Dr. Owusu 12/21/2023.
-Pre CABG LVEF = 20% with severe RWMA. Post CABG LVEF = 10-15%, prompting placement of 5.5 Impella, explanted on 12/23/2023. LVEF improved to 25-30%.
-Continue amiodarone, ASA, clopidogrel and rosuvastatin.
-Hold carvedilol until the patient is no longer in decompenstated HF (class III indication for beta blockers in decompensated HF).
-She probably requires a PCWP/LVEDP in the low 20's due to the LV dilation.
-Continue diuretics.
-Ambulation/incentive spirometry.
-As she compensates, we will look to start GDMT, understanding that her NIBP is inaccurate. Consider metoprolol succinate 12.5 mg daily tomorrow.
#Acute systolic HF
-LVEF 25-30% on milrinone on 12/27/2023.
-Impella out on 12/23/2023.
-Volume status improving.
-She will be a good candidate for BOX PRESS OPERATOR therapy (LBBB/poor EF) in the future. Patient has declined ICD in past, BOX PRESS OPERATOR-P (pacer) can be discussed with her.
#Ischemic cardiomyopathy
-Now s/p revascularization.
-LVEF now 25-30%.
-Cost of meds an issue does not have prescription coverage, expensive meds will be a problem.
-She has declined ICD in past.
-We will start GDMT as her heart failure compensates.
#Severe Dyslipidemia
-Chronic, stable.
-LDL 529 12/16/23; this is on high intensity statin and ezetimibe, suggestive of familial hyperlipidemia.
-She will benefit PSK9i therapy as an outpatient.
#PAD
-Chronic, stable.
-Multiple prior lower extremity revascularizations
-May benefit from low dose rivaroxaban 2.5 BID in outpatient setting. Will leave this to primary automatic nailing machine feeder.
#HTN
#PSVT seen on Holter monitor
#LBBB
#Moderate MR
Critical Care Time = 32 minutes.
Manufacturing Finance Manager: Dr. Hogan
Subjective/Interval History:
Vascular studies suggest that NIBP is falsely depressed from central arterial stenoses (known vasculopath).
Weight continues to fall on bumetanide gtt at 0.25 mg/hour.
I/O -1400 mL.
Of note, the patient is misrepresenting events, claiming she 'fell' on her way back to the bathroom and stating she must continuously call for assistance to move.
By nursing report, the patient sat down on the floor with the assistance of nursing because her legs felt weak and has complained about PT/OT rather than dedicate herself to improvement.
DATA:
TTE, 12/27/2023:
CONCLUSIONS
Mildly dilated LV with moderate to severely reduced systolic function.
LVEF is approximately 25-30% by visual estimation.
Multiple wall motion abnormalities consistent with multivessel CAD.
Normal RV size with reduced systolic function.
Mild to moderate mitral regurgitation.
Mild tricuspid regurgitation.
Estimated pulmonary artery pressure of 23 mmHg. Assuming a right atrial
pressure of 3 mmHg.
Compared to prior from December 24, 2023, on [id number] comparison overall
LV function is slightly more vigorous and estimated at 25-30% previously 15-20%
and MR is stable at mild to moderate.
Physical Exam
Vital Signs/Labs
Vital Signs
Temp Pulse Resp BP Pulse Ox
36.8 C 83 16 114/53 95
12/31/23 04:00 12/31/23 06:00 12/31/23 04:00 12/31/23 06:00 12/31/23 04:00
12/29/23 12/30/23 12/31/23
11:59 11:59 11:59
Actual Weight 73.6 kg 68.2 kg 67.6 kg
12/31/23 03:08
12/31/23 03:08
PT 15.7 Sec (11.4-14.6) H 12/24/23 03:34
INR 1.24 12/24/23 03:34
APTT 57.4 Sec (23.4-35.0) H 12/23/23 10:31
Magnesium 2.0 mg/dl (1.6-2.3) 12/31/23 03:08
Triglycerides 90 mg/dl (10-149) 12/15/23 03:16
LDL Cholesterol, Calc 529 mg/dl 12/15/23 03:16
VLDL Cholesterol, Calc 18 mg/dl (0-30) 12/15/23 03:16
HDL Cholesterol 91 mg/dl 12/15/23 03:16
TSH 2.52 uIU/ml (0.47-4.68) 12/18/23 03:00
Physical Exam
Constitutional: No acute distress and Comfortable
EENT: Anicteric and Moist mucous membranes
Cardiovascular: Rhythm & rate is regular, JVD pressure is normal, Pedal edema present, S1S2 is normal and Murmur/rub/gallop absent
Respiratory: Respiratory effort normal, Lungs clear to auscul., Wheeze Absent, Crackles Absent and Rhonchi Absent
GI: Soft, Distention absent, Flat, Non tender and Normal bowel sounds
Neuro/Psych: AO x 3
Data Reviewed
-
Date of Service: December 31, 2023
Medical Decision Making: Reviewed Test Results, Independent Historian Assessment and Test Interpretation
EKG: Tracing Personally Visualized and interpreted and Report Reviewed by me
Echo: Tracing Personally Visualized and interpreted and Report Reviewed by me
X-Ray/CT/US/MRI/NUC/PET: Image Personally Visualized and interpreted and Report Reviewed by me
Medical Tests (PFT, Pathology etc): Image Personally Visualized and interpreted and Report Reviewed by me
Labs: Labs Reviewed by me
Old Records: Reviewed
[2023-12-31] MEDS: TYLENOL PO ×2 (07:24→13:52)
[2023-12-31] MEDS: SENOKOT-S PO ×2 (07:24→19:56)
[2023-12-31] MEDS: CRESTOR 40 MG PO (07:34)
[2023-12-31] MEDS: ZETIA 10 MG PO (07:34)
[2023-12-31] MEDS: TYLENOL 650 MG PO ×2 (07:35→13:51)
[2023-12-31] MEDS: PACERONE 200 MG PO ×3 (07:35→21:04)
[2023-12-31] MEDS: VASOTEC 2.5 MG PO (07:35)
[2023-12-31] MEDS: NEURONTIN 100 MG PO ×3 (07:35→21:04)
[2023-12-31] MEDS: LOW STRENGTH ASPIRIN 81 MG PO (07:36)
[2023-12-31] MEDS: PLAVIX 75 MG PO (07:36)
[2023-12-31] MEDS: PROTONIX 40 MG PO (07:36)
[2023-12-31] MEDS: MUCINEX 600 MG PO ×2 (07:36→19:56)
[2023-12-31] MEDS: BUMEX 2 MG IV (07:38)
[2023-12-31] MEDS: ZAROXOLYN 5 MG PO (07:41)
--- NOTE | 2023-12-31 09:00 | PTCARENOTE ---
received pt from night patrol inspector nurse, pt AAOx3, pt not complaining of pain during assessment, NSR with a BBB per tele monitor, A/V wires set to VVI 30 4 0.8 palpable pulses, generalized anasarca, B/L LE +2 edema, pox 98% on RA, lungs diminished at
bases, non productive cough, IS encouraged, +bs, voids, all surgical sites intact, piv intact, RIJ cordis intact, plan of care discussed questions encouraged
--- NOTE | 2023-12-31 12:08 | PTCARENOTE ---
VSS, NSR w/ BBB per golf ball winder, pt tolerating walking to the bathroom with rolling walker, assessment remains unchanged
[2023-12-31] MEDS: NSS IV (13:52)
--- NOTE | 2023-12-31 16:34 | PTCARENOTE ---
VSS, sinus rhythm on tele, cordis removed as ordered. pt tolerated.
--- NOTE | 2023-12-31 16:39 | CM ---
spoke to pt and called daughter, daiana will have a bed foir her wednesday. both pt and daughter agreeable.
--- NOTE | 2023-12-31 20:27 | PTCARENOTE ---
Received pt from day shift; pt AAOx3 and resting comfortably in chair; NSR on monitor; PI x1; lungs diminished; positive bowel sounds; pt voiding yellow urine; palpable pulses throughout; +2 lower extremity edema; surgical sites C/D/I; see nursing
documentation for further details.
[2023-12-31] MEDS: TYLENOL 1000 MG PO (21:04)
--- NOTE | 2023-12-31 22:30 | PTCARENOTE ---
Pt transferred to IVU via bed and report given to RN.
[2024-01-01] VITALS (10 sets, daily range): BP systolic 96–122; BP diastolic 42–68; PULSE 80; O2SAT 96; BMI 24.3
--- NOTE | 2024-01-01 00:13 | PTCARENOTE ---
Transfer from to 2251- pt brought down in bed- AAOx3 plan of care discussed- pt verbalized understanding. SR w/ 1st degree and BBB on the monitor.
[2024-01-01] MEDS: TYLENOL 650 MG PO (04:10)
[2024-01-01] MEDS: TYLENOL 1000 MG PO ×3 (06:40→21:06)
[2024-01-01 08:16] LABS: Hematocrit 24.9 % (37.0-47.0); Hemoglobin 8.6 g/dL (12.0-16.0); Mean Corp Hgb Conc. 34.5 g/dL (33.0-37.0); Mean Corpuscular Hgb 30.3 pg (27.0-31.0); Mean Corpuscular Volume 87.7 fL (81.0-99.0); Mean Platelet Volume 8.6 fL (7.4-10.4); Platelet Count 321 10^3/uL (130-400); Red Blood Cell Count 2.84 10^6/uL (4.20-5.40); Red Cell Dist. Width 16.3 % (11.5-14.5); White Blood Cell Count 11.2 10^3/uL (4.8-10.8)
--- NOTE | 2024-01-01 08:30 | PTCARENOTE ---
Assumed care. Patient in bed, comfortable after receiving Tylenol earlier. Sternal incision healing. ABD dressing covering old chest tube wires and insulated V wire. Right lower leg edema, leg incision healing and approximated, ecchymosis to right
leg and foot unchanged. Weak pedal pulses, foot and leg warm to touch. SR BBB. VSS, labs collected. Call rhodes in reach
--- NOTE | 2024-01-01 08:39 | W.PN.CT ---
Today's Communication / Plan
-
-No issues overnight. Hemodynamically intact
-No drips
-Cont. diuresis. Diuresed 1050 mL/24hdrs. Sodium 133 today, down from 136 yesterday
-Replete K, 3.2
-Creatinine 1.0, down from 1.1 yesterday
-PT/OT f/u/ Ambulate
-Encourage use of IS
-Eventual rehab ([facility]) placement, likely Wednesday
-
Assessment / Plan
-
Assessment:
-S/P Sternotomy with aortic and right atrial cannulation/CABG x 4 (In situ LLOYD to LAD -additional vein graft to the distal LAD off of the flynn of OM 3 vein graft from the aorta, Ao to RSVG to OM1, Ao to RSVG to OM 3)- unable to utilize BIMA d/t
severe atherosclerosis and plaque/Revision of vein graft of OM 3 with an additional piece of vein to extend the length/Endoscopic vein harvesting of right lower extremity (along with open harvest segment)/Left atrial appendage exclusion with 35 mm
clip/Placement of 5.5 Impella [facility], by Dr. Owusu, 12/21/23, pod#11
Assessment:
- Unstable angina/ NSTEMI- admitted to [facility] on 12/13/23, transferred to on 12/14/23 for evaluation for CABG (last Plavix 12/13/23)
- Cath 12/13/23 with LM/2V CAD
- LVEF 10-20% intraop, improved to 30-35% post Impella placement
- ICM, EF 32% by Echo 12/13/23
- Functional mild-moderate MR
- Hx PSVT on Holter monitor
- Chronic LBBB
- PAD- s/p L SFA stent 06/29/23 and R external iliac stent 07/16/23
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
- Carotid dz with 50-69% LICA
- HTN/HLD
- Depression
- Viral subacute thyroditis 2022 - resolved
- Hx GIB d/t diverticulitis 2013
- Hx breast augmentation with subsequent removal of implants
- b/l cataract extraction with intraocular lens implant
-Intraop VT s/p shock x 1
-Intraop CHB vs Asystole
-Intaop Cardiogenic shock (CI 1.4-1.6 on inotropic support) S/P Impella placement
-Intraop and postop blood loss/Anemia (transfused 7u PRBCs)
-Intraop and postop thrombocytopenia (transfused 2 {5pks} plts)
-Intraop and postop coagulopathy (transfused 2u FFPs)
-Acute postop atelectasis
-Acute postop hypovolemia with subsequent hypervolemia
-Acute postop vasal vagal episode with SBP 50's
-Acute postop ectopies S/p amiodarone gtt @ 0.5 mg/min
-Acute postop Impella management (CPT code 97710)
-Acute on chronic combined systolic/diastolic heart failure
-Acute postop hyponatremia
-YANELI
-Acute postop L cephalic superficial thrombus
-Abnormal waveforms throughout the arteries of the left upper extremity, suggestive of central arterial stenosis by US 12/30/23
Discussed patient care with: Cardiology, Nursing, Respiratory Therapy, Pharmacy and Care Team
Subjective
Procedure
-S/P Sternotomy with aortic and right atrial cannulation/CABG x 4 (In situ LLOYD to LAD -additional vein graft to the distal LAD off of the flynn of OM 3 vein graft from the aorta, Ao to RSVG to OM1, Ao to RSVG to OM 3)- unable to utilize BIMA d/t
severe atherosclerosis and plaque/Revision of vein graft of OM 3 with an additional piece of vein to extend the length/Endoscopic vein harvesting of right lower extremity (along with open harvest segment)/Left atrial appendage exclusion with 35 mm
clip/Placement of 5.5 Impella [facility], by Dr. Owusu, 12/21/23
-
Date of Service: January 01, 2024
Pt c/o mild incisional pain, otherwise feels well
Objective Data
-
Lab Results
01/01/24 08:03
PT 15.7 Sec (11.4-14.6) H 12/24/23 03:34
INR 1.24 12/24/23 03:34
APTT 57.4 Sec (23.4-35.0) H 12/23/23 10:31
Vital Signs
Vital Signs
Temp Pulse Resp BP Pulse Ox
98.5 F 79 18 122/49 95
01/01/24 08:32 01/01/24 08:00 01/01/24 08:32 01/01/24 07:55 01/01/24 08:32
CT Intake/Output/Weight
12/31/23 01/01/24 01/01/24
18:59 06:59 18:59
Intake Total 130 / 130
Output Total 1250 / 1250
Balance -1120 / -1120
SaO2: 95 (RA)
Physical Exam
-
General: Awake, Oriented and AOx3
Cardiovascular: Regular rate & rhythm, No Murmurs and No Gallop
Respiratory: Decreased Breath Sounds
Sternum: Stable
Incision: Clean, Dry, Intact and Dressing Intact
Extremities: No Edema
Data Reviewed
-
Lab Results: Results Reviewed
Medications: Active Meds Reviewed
Chest X-Ray: Report Reviewed and Image Reviewed
ECG: Report Reviewed and Image Reviewed
[2024-01-01 08:40] LABS: Blood Urea Nitrogen 30 mg/dl (7-17); Calcium 8.5 mg/dl (8.4-10.2); Carbon Dioxide 26 mmol/L (22-30); Chloride 94 mmol/L (98-107); Estimated Creatinine Clearance 45 ml/min; Glucose 100 mg/dl (70-99); Potassium 3.2 mmol/L (3.5-5.1); Sodium 133 mmol/L (135-145); eGFR 59.12
[2024-01-01] MEDS: VASOTEC 2.5 MG PO (08:56)
[2024-01-01] MEDS: ZETIA 10 MG PO (08:56)
[2024-01-01] MEDS: PACERONE 200 MG PO ×3 (08:56→21:06)
[2024-01-01] MEDS: KCL 40 MEQ PO ×3 (08:57→18:44)
[2024-01-01] MEDS: CRESTOR 40 MG PO (08:57)
[2024-01-01] MEDS: TOPROL XL 12.5 MG PO (08:57)
[2024-01-01] MEDS: SENOKOT-S 1 TABLET PO (08:57)
[2024-01-01] MEDS: MUCINEX 600 MG PO ×2 (08:57→21:06)
[2024-01-01] MEDS: PROTONIX 40 MG PO (08:57)
[2024-01-01] MEDS: NEURONTIN 100 MG PO ×3 (08:57→21:06)
[2024-01-01] MEDS: LOW STRENGTH ASPIRIN 81 MG PO (08:57)
[2024-01-01] MEDS: PLAVIX 75 MG PO (08:57)
--- NOTE | 2024-01-01 10:54 | W.PN.CD ---
Addendum entered and electronically signed by Dylon Pena MD 01/01/24 13:24:
Patient was evaluated personally. I agree with the note, plan of care, documentation and assessment as below.
Briefly, 73-year-old woman with history of ischemic cardiomyopathy and severe coronary disease status post CABG x 4 on 12/21/2023. Unfortunately patient LLOYD graft was not optimal and additional vein graft was needed. Aggressive postop care with
aspirin/Plavix and rosuvastatin. Keep a goal of LDL less than 50. Unfortunately her initial LDL was 529. Most likely she will be requiring multiple medications including PCSK9 inhibitors, Zetia and high-level Crestor.
Original Note:
Today's Communication / Plan
-
Bumex and metoprolol as ordered
Monitor diuresis
Impression / Plan
-
Background: 73F with ischemic cardiomyopathy, coronary artery disease, hypertension, dyslipidemia, and PAD who initially presented to [facility] and was found to have an NSTEMI and was transferred to this facility for CABG.
#NSTEMI/MVCAD
-s/p CABG x 4 (in situ LLOYD to LAD with additional vein graft to the distal LAD off of the flynn of OM 3 vein graft from the aorta, Ao to RSVG to OM1, Ao to RSVG to OM 3) by Dr. Owusu 12/21/2023.
-Pre CABG LVEF = 20% with severe RWMA. Post CABG LVEF = 10-15%, prompting placement of 5.5 Impella, explanted on 12/23/2023. LVEF improved to 25-30%.
-Continue amiodarone, ASA, clopidogrel and rosuvastatin.
-She probably requires a PCWP/LVEDP in the low 20's due to the LV dilation..
-Ambulation/incentive spirometry.
-metoprolol added by CTS
#Acute systolic HF
-LVEF 25-30%
-Impella out on 12/23/2023.
-Volume status improving. weights trending down
-She will be a good candidate for CHAIRMAN AND CHIEF EXECUTIVE OFFICER therapy (LBBB/poor EF) in the future. Patient has declined ICD in past, CHAIRMAN AND CHIEF EXECUTIVE OFFICER-P (pacer) can be discussed with her.
#Ischemic cardiomyopathy
-Now s/p revascularization.
-LVEF now 25-30%.
-Cost of meds an issue does not have prescription coverage, expensive meds will be a problem.
-She has declined ICD in past.
-GDMT as tolerated.
#Severe Dyslipidemia
-Chronic, stable.
-LDL 529 12/16/23; this is on high intensity statin and ezetimibe, suggestive of familial hyperlipidemia.
-She will benefit PSK9i therapy as an outpatient.
#PAD
-Chronic, stable.
-Multiple prior lower extremity revascularizations
-May benefit from low dose rivaroxaban 2.5 BID in outpatient setting. Will leave this to primary personnel associate.
#HTN
#PSVT seen on Holter monitor
#LBBB
#Moderate MR
Ux Designer: Dr. Hogan
Subjective/Interval History:
Some fatigue tiredness, no CP, No SOB .
DATA:
TTE, 12/27/2023:
CONCLUSIONS
Mildly dilated LV with moderate to severely reduced systolic function.
LVEF is approximately 25-30% by visual estimation.
Multiple wall motion abnormalities consistent with multivessel CAD.
Normal RV size with reduced systolic function.
Mild to moderate mitral regurgitation.
Mild tricuspid regurgitation.
Estimated pulmonary artery pressure of 23 mmHg. Assuming a right atrial
pressure of 3 mmHg.
Compared to prior from December 24, 2023, on [id number] comparison overall
LV function is slightly more vigorous and estimated at 25-30% previously 15-20%
and MR is stable at mild to moderate.
Physical Exam
Vital Signs/Labs
Vital Signs
Temp Pulse Resp BP Pulse Ox
98.5 F 79 18 122/49 95
01/01/24 08:32 01/01/24 08:00 01/01/24 08:32 01/01/24 07:55 01/01/24 08:42
12/31/23 01/01/24 01/02/24
06:59 06:59 06:59
Actual Weight 67.6 kg 67.2 kg
01/01/24 08:03
PT 15.7 Sec (11.4-14.6) H 12/24/23 03:34
INR 1.24 12/24/23 03:34
APTT 57.4 Sec (23.4-35.0) H 12/23/23 10:31
Magnesium 2.0 mg/dl (1.6-2.3) 12/31/23 03:08
Triglycerides 90 mg/dl (10-149) 12/15/23 03:16
LDL Cholesterol, Calc 529 mg/dl 12/15/23 03:16
VLDL Cholesterol, Calc 18 mg/dl (0-30) 12/15/23 03:16
HDL Cholesterol 91 mg/dl 12/15/23 03:16
TSH 2.52 uIU/ml (0.47-4.68) 12/18/23 03:00
Physical Exam
Constitutional: No acute distress
Cardiovascular: Rhythm & rate is regular and Pedal edema present (mild LE edema)
Respiratory: Respiratory effort normal and Crackles Present (few rales at bases )
Neuro/Psych: AO x 3
Data Reviewed
-
Date of Service: January 01, 2024
Medical Tests (PFT, Pathology etc): Other (Tele: NSR 70's )
Labs: Labs Reviewed by me
[2024-01-01] MEDS: BUMEX 2 MG PO (11:32)
[2024-01-01] MEDS: ZAROXOLYN 5 MG PO (11:32)
[2024-01-01 16:54] LABS: Blood Urea Nitrogen 31 mg/dl (7-17); Calcium 8.7 mg/dl (8.4-10.2); Carbon Dioxide 28 mmol/L (22-30); Chloride 93 mmol/L (98-107); Estimated Creatinine Clearance 45 ml/min; Glucose 115 mg/dl (70-99); Potassium 3.8 mmol/L (3.5-5.1); Sodium 134 mmol/L (135-145); eGFR 59.12
--- NOTE | 2024-01-01 20:49 | PTCARENOTE ---
Pt. received at change of shift. Pt. seen and assessed in room. Pt. AOx3 and anxious. VS WNL. Complaining of upper back pain. Pt. cooperative and verbalizes understanding of plan of care. Call rhodes within reach. Continuing to monitor at this time.
[2024-01-01] MEDS: SENOKOT-S PO (21:05)
[2024-01-02] VITALS (8 sets, daily range): BP systolic 109–131; BP diastolic 50–63; BMI 24.0
[2024-01-02] MEDS: ROXICODONE 2.5 MG PO (02:29)
[2024-01-02 02:50] LABS: Mean Corp Hgb Conc. 34.6 g/dL (33.0-37.0); Mean Corpuscular Hgb 29.3 pg (27.0-31.0); Mean Corpuscular Volume 84.7 fL (81.0-99.0); Mean Platelet Volume 8.5 fL (7.4-10.4); Platelet Count 362 10^3/uL (130-400); Red Blood Cell Count 3.07 10^6/uL (4.20-5.40); Red Cell Dist. Width 16.4 % (11.5-14.5); White Blood Cell Count 11.2 10^3/uL (4.8-10.8)
[2024-01-02 03:05] LABS: Blood Urea Nitrogen 29 mg/dl (7-17); Calcium 8.7 mg/dl (8.4-10.2); Carbon Dioxide 25 mmol/L (22-30); Chloride 95 mmol/L (98-107); Estimated Creatinine Clearance 45 ml/min; Glucose 109 mg/dl (70-99); Magnesium 2.1 mg/dl (1.6-2.3); Sodium 133 mmol/L (135-145); eGFR 59.12
[2024-01-02] MEDS: TYLENOL PO ×2 (05:08→22:01)
--- NOTE | 2024-01-02 05:55 | W.PN.CT ---
Today's Communication / Plan
-
Plan:
-No issues overnight. Hemodynamically intact
-No drips
-Cont. diuresis. Diuresed ~2L/24hdrs. Sodium 133 today, down from 134 yesterday
-Creatinine 1.0, down from 1.1 yesterday
-PT/OT f/u/ Ambulate
-Encourage use of IS
-[facility] placement tomorrow, 01/02
-
Assessment / Plan
-
Assessment:
-S/P Sternotomy with aortic and right atrial cannulation/CABG x 4 (In situ LLOYD to LAD -additional vein graft to the distal LAD off of the flynn of OM 3 vein graft from the aorta, Ao to RSVG to OM1, Ao to RSVG to OM 3)- unable to utilize BIMA d/t
severe atherosclerosis and plaque/Revision of vein graft of OM 3 with an additional piece of vein to extend the length/Endoscopic vein harvesting of right lower extremity (along with open harvest segment)/Left atrial appendage exclusion with 35 mm
clip/Placement of 5.5 Impella [facility], by Dr. Owusu, 12/21/23, pod#12
Assessment:
- Unstable angina/ NSTEMI- admitted to [facility] on 12/13/23, transferred to on 12/14/23 for evaluation for CABG (last Plavix 12/13/23)
- Cath 12/13/23 with LM/2V CAD
- LVEF 10-20% intraop, improved to 30-35% post Impella placement
- ICM, EF 32% by Echo 12/13/23
- Functional mild-moderate MR
- Hx PSVT on Holter monitor
- Chronic LBBB
- PAD- s/p L SFA stent 06/29/23 and R external iliac stent 07/16/23
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
- Carotid dz with 50-69% LICA
- HTN/HLD
- Depression
- Viral subacute thyroditis 2023 - resolved
- Hx GIB d/t diverticulitis 2013
- Hx breast augmentation with subsequent removal of implants
- b/l cataract extraction with intraocular lens implant
-Intraop VT s/p shock x 1
-Intraop CHB vs Asystole
-Intaop Cardiogenic shock (CI 1.4-1.6 on inotropic support) S/P Impella placement
-Intraop and postop blood loss/Anemia (transfused 7u PRBCs)
-Intraop and postop thrombocytopenia (transfused 2 {5pks} plts)
-Intraop and postop coagulopathy (transfused 2u FFPs)
-Acute postop atelectasis
-Acute postop hypovolemia with subsequent hypervolemia
-Acute postop vasal vagal episode with SBP 50's
-Acute postop ectopies S/p amiodarone gtt @ 0.5 mg/min
-Acute postop Impella management (CPT code 81337)
-Acute on chronic combined systolic/diastolic heart failure
-Acute postop hyponatremia
-YANELI
-Acute postop L cephalic superficial thrombus
-Abnormal waveforms throughout the arteries of the left upper extremity, suggestive of central arterial stenosis by US 12/30/23
Discussed patient care with: Cardiology, Nursing, Respiratory Therapy, Pharmacy and Care Team
Subjective
Procedure
-S/P Sternotomy with aortic and right atrial cannulation/CABG x 4 (In situ LLOYD to LAD -additional vein graft to the distal LAD off of the flynn of OM 3 vein graft from the aorta, Ao to RSVG to OM1, Ao to RSVG to OM 3)- unable to utilize BIMA d/t
severe atherosclerosis and plaque/Revision of vein graft of OM 3 with an additional piece of vein to extend the length/Endoscopic vein harvesting of right lower extremity (along with open harvest segment)/Left atrial appendage exclusion with 35 mm
clip/Placement of 5.5 Impella [facility], by Dr. Owusu, 12/21/23
-
Date of Service: January 02, 2024
Objective Data
-
Lab Results
01/02/24 02:41
01/02/24 02:41
PT 15.7 Sec (11.4-14.6) H 12/24/23 03:34
INR 1.24 12/24/23 03:34
APTT 57.4 Sec (23.4-35.0) H 12/23/23 10:31
Vital Signs
Vital Signs
Temp Pulse Resp BP Pulse Ox
98.7 F 73 18 122/53 98
01/02/24 03:00 01/02/24 03:00 01/01/24 22:49 01/02/24 02:28 01/01/24 22:49
CT Intake/Output/Weight
01/01/24 01/01/24 01/02/24
06:59 18:59 06:59
Intake Total 460 / 610 150 / 610
Output Total 1225 / 1925 700 / 1925
Balance -765 / -1315 -550 / -1315
SaO2: 98 (RA)
Physical Exam
-
General: Awake, Oriented and AOx3
Cardiovascular: Regular rate & rhythm, No Murmurs, No Rub and No Gallop
Respiratory: Decreased Breath Sounds (at bases, otherwise clear)
Sternum: Stable
Incision: Clean, Dry, Intact and Dressing Intact
Extremities: Other (+trace edema)
Data Reviewed
-
Lab Results: Results Reviewed
Medications: Active Meds Reviewed
Chest X-Ray: Report Reviewed and Image Reviewed
ECG: Report Reviewed and Image Reviewed
[2024-01-02] MEDS: TYLENOL 650 MG PO ×3 (06:03→23:56)
--- NOTE | 2024-01-02 09:00 | W.PN.CD ---
Today's Communication / Plan
-
-Continue p.o. diuresis today.
-Stable for discharge to rehab
Impression / Plan
-
Background: 73F with ischemic cardiomyopathy, coronary artery disease, hypertension, dyslipidemia, and PAD who initially presented to [facility] and was found to have an NSTEMI and was transferred to this facility for CABG.
#NSTEMI/MVCAD
-s/p CABG x 4 (in situ LLOYD to LAD with additional vein graft to the distal LAD off of the flynn of OM 3 vein graft from the aorta, Ao to RSVG to OM1, Ao to RSVG to OM 3) by Dr. Owusu 12/21/2023.
-Pre CABG LVEF = 20% with severe RWMA. Post CABG LVEF = 10-15%, prompting placement of 5.5 Impella, explanted on 12/23/2023. LVEF improved to 25-30%.
-Continue amiodarone, ASA, clopidogrel and rosuvastatin.
-She probably requires a PCWP/LVEDP in the low 20's due to the LV dilation..
-Ambulation/incentive spirometry.
-metoprolol added by CTS
#Acute systolic HF
-LVEF 25-30%
-Impella out on 12/23/2023.
-Volume status improving. weights trending down
-She will be a good candidate for REMOTE MORTGAGE UNDERWRITER therapy (LBBB/poor EF) in the future. Patient has declined ICD in past, REMOTE MORTGAGE UNDERWRITER-P (pacer) can be discussed with her.
#Ischemic cardiomyopathy
-Now s/p revascularization.
-LVEF now 25-30%.
-Cost of meds an issue does not have prescription coverage, expensive meds will be a problem.
-She has declined ICD in past.
-GDMT as tolerated.
#Severe Dyslipidemia
-Chronic, stable.
-LDL 529 12/16/23; this is on high intensity statin and ezetimibe, suggestive of familial hyperlipidemia.
-She will benefit PSK9i therapy as an outpatient.
#PAD
-Chronic, stable.
-Multiple prior lower extremity revascularizations
-May benefit from low dose rivaroxaban 2.5 BID in outpatient setting. Will leave this to primary latent print examiner.
#HTN
#PSVT seen on Holter monitor
#LBBB
#Moderate MR
Pattern Assembler: Dr. Hogan
Subjective/Interval History:
Some fatigue tiredness, no CP, No SOB .
DATA:
TTE, 12/27/2023:
CONCLUSIONS
Mildly dilated LV with moderate to severely reduced systolic function.
LVEF is approximately 25-30% by visual estimation.
Multiple wall motion abnormalities consistent with multivessel CAD.
Normal RV size with reduced systolic function.
Mild to moderate mitral regurgitation.
Mild tricuspid regurgitation.
Estimated pulmonary artery pressure of 23 mmHg. Assuming a right atrial
pressure of 3 mmHg.
Compared to prior from December 24, 2023, on [id number] comparison overall
LV function is slightly more vigorous and estimated at 25-30% previously 15-20%
and MR is stable at mild to moderate.
Physical Exam
Vital Signs/Labs
Vital Signs
Temp Pulse Resp BP Pulse Ox
98.4 F 73 18 122/53 96
01/02/24 07:56 01/02/24 03:00 01/02/24 07:56 01/02/24 02:28 01/02/24 07:56
01/01/24 01/02/24 01/03/24
06:59 06:59 06:59
Actual Weight 67.2 kg 66.4 kg
01/02/24 02:41
01/02/24 02:41
PT 15.7 Sec (11.4-14.6) H 12/24/23 03:34
INR 1.24 12/24/23 03:34
APTT 57.4 Sec (23.4-35.0) H 12/23/23 10:31
Magnesium 2.1 mg/dl (1.6-2.3) 01/02/24 02:41
Triglycerides 90 mg/dl (10-149) 12/15/23 03:16
LDL Cholesterol, Calc 529 mg/dl 12/15/23 03:16
VLDL Cholesterol, Calc 18 mg/dl (0-30) 12/15/23 03:16
HDL Cholesterol 91 mg/dl 12/15/23 03:16
TSH 2.52 uIU/ml (0.47-4.68) 12/18/23 03:00
Physical Exam
Constitutional: No acute distress and Comfortable
EENT: Anicteric and Moist mucous membranes
Cardiovascular: Rhythm & rate is regular, Pedal edema is absent and JVD pressure is normal
Respiratory: Respiratory effort normal, Lungs clear to auscul. and Wheeze Absent
GI: Soft, Non tender and Normal bowel sounds
Neuro/Psych: Oriented and AO x 3
Data Reviewed
-
Date of Service: January 02, 2024
Medical Decision Making: Reviewed Test Results, Independent Historian Assessment and Test Interpretation
EKG: Tracing Personally Visualized and interpreted
Echo: Report Reviewed by me
Labs: Labs Reviewed by me
Old Records: Reviewed
[2024-01-02] MEDS: ZETIA 10 MG PO (09:01)
[2024-01-02] MEDS: VASOTEC 2.5 MG PO (09:01)
[2024-01-02] MEDS: TOPROL XL 12.5 MG PO (09:01)
[2024-01-02] MEDS: SENOKOT-S 1 TABLET PO ×2 (09:02→18:55)
[2024-01-02] MEDS: MUCINEX 600 MG PO ×2 (09:02→18:55)
[2024-01-02] MEDS: NEURONTIN 100 MG PO ×3 (09:02→22:01)
[2024-01-02] MEDS: LOW STRENGTH ASPIRIN 81 MG PO (09:02)
[2024-01-02] MEDS: PACERONE 200 MG PO ×3 (09:02→22:01)
[2024-01-02] MEDS: BUMEX 2 MG PO (09:03)
[2024-01-02] MEDS: PLAVIX 75 MG PO (09:03)
[2024-01-02] MEDS: PROTONIX 40 MG PO (09:03)
[2024-01-02] MEDS: CRESTOR 40 MG PO (09:03)
[2024-01-02] MEDS: ZAROXOLYN 5 MG PO (09:04)
--- NOTE | 2024-01-02 09:38 | PTCARENOTE ---
Assumed care, mildly anxious at times, offered reassurance. Patient up in the chair, walking into the bathroom, needs encouragement with activity, using rolling walker. Sternal incision dry and approximated. Chest tube sites covered with dressing,
dry and intact. NSR on telemetry, has insulated A & V wires. Edema improving to RLE. VSS, call rhodes in reach
[2024-01-02] MEDS: KCL 40 MEQ PO (10:23)
[2024-01-02] MEDS: TYLENOL 1000 MG PO (12:50)
[2024-01-03] MEDS: ROXICODONE 2.5 MG PO (01:19)
[2024-01-03 04:07] VITALS: BP 111/52
[2024-01-03 04:54] LABS: Blood Urea Nitrogen 26 mg/dl (7-17); Calcium 8.6 mg/dl (8.4-10.2); Carbon Dioxide 30 mmol/L (22-30); Chloride 91 mmol/L (98-107); Estimated Creatinine Clearance 57 ml/min; Glucose 96 mg/dl (70-99); Potassium 3.9 mmol/L (3.5-5.1); Sodium 133 mmol/L (135-145); eGFR > 60.00
--- NOTE | 2024-01-03 05:25 | W.PN.CT ---
Today's Communication / Plan
-
Plan:
-No issues overnight. Hemodynamically intact
-No drips
-Cont. diuresis, on Bumex 2mg po daily. Avoid IV diuresis today per [facility]
-Monitor hyponatremia, 133. Fluid restriction, diuresis
-Creatinine is at baseline, 0.8 today
-PT/OT f/u/ Ambulate
-Encourage use of IS
-[facility] placement today, 01/02
-
Assessment / Plan
-
Assessment:
-S/P Sternotomy with aortic and right atrial cannulation/CABG x 4 (In situ LLOYD to LAD -additional vein graft to the distal LAD off of the flynn of OM 3 vein graft from the aorta, Ao to RSVG to OM1, Ao to RSVG to OM 3)- unable to utilize BIMA d/t
severe atherosclerosis and plaque/Revision of vein graft of OM 3 with an additional piece of vein to extend the length/Endoscopic vein harvesting of right lower extremity (along with open harvest segment)/Left atrial appendage exclusion with 35 mm
clip/Placement of 5.5 Impella [facility], by Dr. Owusu, 12/21/23, pod#13
Assessment:
- Unstable angina/ NSTEMI- admitted to [facility] [address] on 12/13/23, transferred to on 12/14/23 for evaluation for CABG (last Plavix 12/13/23)
- Cath 12/13/23 with LM/2V CAD
- LVEF 10-20% intraop, improved to 30-35% post Impella placement
- ICM, EF 32% by Echo 12/13/23
- Functional mild-moderate MR
- Hx PSVT on Holter monitor
- Chronic LBBB
- PAD- s/p L SFA stent 06/29/23 and R external iliac stent 07/16/23
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
- Carotid dz with 50-69% LICA
- HTN/HLD
- Depression
- Viral subacute thyroditis 2022 - resolved
- Hx GIB d/t diverticulitis 2013
- Hx breast augmentation with subsequent removal of implants
- b/l cataract extraction with intraocular lens implant
-Intraop VT s/p shock x 1
-Intraop CHB vs Asystole
-Intaop Cardiogenic shock (CI 1.4-1.6 on inotropic support) S/P Impella placement
-Intraop and postop blood loss/Anemia (transfused 7u PRBCs)
-Intraop and postop thrombocytopenia (transfused 2 {5pks} plts)
-Intraop and postop coagulopathy (transfused 2u FFPs)
-Acute postop atelectasis
-Acute postop hypovolemia with subsequent hypervolemia
-Acute postop vasal vagal episode with SBP 50's
-Acute postop ectopies S/p amiodarone gtt @ 0.5 mg/min
-Acute postop Impella management (CPT code 81995)
-Acute on chronic combined systolic/diastolic heart failure
-Acute postop hyponatremia
-YANELI
-Acute postop L cephalic superficial thrombus
-Abnormal waveforms throughout the arteries of the left upper extremity, suggestive of central arterial stenosis by US 12/30/23
Discussed patient care with: Cardiology, Nursing, Respiratory Therapy, Pharmacy and Care Team
Subjective
Procedure
-S/P Sternotomy with aortic and right atrial cannulation/CABG x 4 (In situ LLOYD to LAD -additional vein graft to the distal LAD off of the flynn of OM 3 vein graft from the aorta, Ao to RSVG to OM1, Ao to RSVG to OM 3)- unable to utilize BIMA d/t
severe atherosclerosis and plaque/Revision of vein graft of OM 3 with an additional piece of vein to extend the length/Endoscopic vein harvesting of right lower extremity (along with open harvest segment)/Left atrial appendage exclusion with 35 mm
clip/Placement of 5.5 Impella [facility], by Dr. Owusu, 12/21/23
-
Date of Service: January 03, 2024
Pt c/o mild incisional pain, otherwise feels well
Objective Data
-
Lab Results
01/02/24 02:41
01/03/24 04:14
PT 15.7 Sec (11.4-14.6) H 12/24/23 03:34
INR 1.24 12/24/23 03:34
APTT 57.4 Sec (23.4-35.0) H 12/23/23 10:31
Vital Signs
Vital Signs
Temp Pulse Resp BP Pulse Ox
98.5 F 75 16 111/52 94
01/03/24 04:08 01/03/24 04:07 01/03/24 04:08 01/03/24 04:07 01/03/24 04:08
CT Intake/Output/Weight
01/02/24 01/02/24 01/03/24
06:59 18:59 06:59
Intake Total 150 / 610 640 / 640
Output Total 700 / 1925 1350 / 1350
Balance -550 / -1315 -710 / -710
SaO2: 94 (RA)
Physical Exam
-
General: Awake, Oriented and AOx3
Cardiovascular: Regular rate & rhythm, No Murmurs, No Rub and No Gallop
Respiratory: Decreased Breath Sounds
Sternum: Stable
Incision: Clean, Dry, Intact and Dressing Intact
Extremities: Other (+trace edema)
Data Reviewed
-
Lab Results: Results Reviewed
Medications: Active Meds Reviewed
Chest X-Ray: Report Reviewed and Image Reviewed
ECG: Report Reviewed and Image Reviewed
[2024-01-03 06:00] VITALS: BMI 23.7
[2024-01-03] MEDS: TYLENOL 1000 MG PO ×2 (06:03→13:12)
[2024-01-03 08:18] VITALS: BP 119/61
[2024-01-03 08:45] VITALS: BP 117/54
[2024-01-03 08:54] VITALS: BP 117/54; PULSE 74
--- NOTE | 2024-01-03 09:08 | W.PN.CD ---
Today's Communication / Plan
-
Restart dapagliflozin 10 mg daily.
Transfer to [facility] today.
Impression / Plan
-
Background: 73F with ischemic cardiomyopathy, coronary artery disease, hypertension, dyslipidemia, and PAD who initially presented to [facility] and was found to have an NSTEMI and was transferred to this facility for CABG.
#NSTEMI/MVCAD
-s/p CABG x 4 (in situ LLOYD to LAD with additional vein graft to the distal LAD off of the flynn of OM 3 vein graft from the aorta, Ao to RSVG to OM1, Ao to RSVG to OM 3) by Dr. Owusu 12/21/2023.
-Pre CABG LVEF = 20% with severe RWMA. Post CABG LVEF = 10-15%, prompting placement of 5.5 Impella, explanted on 12/23/2023. LVEF improved to 25-30%.
-Continue amiodarone, ASA, clopidogrel and rosuvastatin.
-She probably requires a PCWP/LVEDP in the low 20's due to the LV dilation..
-Ambulation/incentive spirometry.
#Acute systolic HF
-LVEF 25-30%.
-Impella out on 12/23/2023.
-Volume status improving. Weights trending down.
-She will be a good candidate for STATEMENT CLERKS MANAGER therapy (LBBB/poor EF) in the future. Patient has declined ICD in past, STATEMENT CLERKS MANAGER-P (pacer) can be discussed with her.
-Continue bumetanide 2 mg PO daily, metoprolol succinate and enalapril.
#Ischemic cardiomyopathy
-Now s/p revascularization.
-LVEF now 25-30%.
-Cost of meds an issue does not have prescription coverage, expensive meds will be a problem.
-She has declined ICD in past.
-GDMT as tolerated. She is now tolerating beta marcelo/ACEI. Restart dapagliflozin 10 mg daily.
#Severe Dyslipidemia
-Chronic, stable.
-LDL 529 12/16/23; this is on high intensity statin and ezetimibe, suggestive of familial hyperlipidemia.
-She will benefit from PSK9i therapy as an outpatient.
#PAD
-Chronic, stable.
-Multiple prior lower extremity revascularizations
-May benefit from low dose rivaroxaban 2.5 BID in outpatient setting. Will leave this to primary web machine tender.
#HTN
#PSVT seen on Holter monitor
#LBBB
#Moderate MR
#Dispo
-[facility] today.
Fire Assistant: Dr. Hogan
Subjective/Interval History:
Weight continues to fall.
Blood pressure is stable.
She is tolerating the addition of metoprolol succinate 12.5 mg daily.
DATA:
TTE, 12/27/2023:
CONCLUSIONS
Mildly dilated LV with moderate to severely reduced systolic function.
LVEF is approximately 25-30% by visual estimation.
Multiple wall motion abnormalities consistent with multivessel CAD.
Normal RV size with reduced systolic function.
Mild to moderate mitral regurgitation.
Mild tricuspid regurgitation.
Estimated pulmonary artery pressure of 23 mmHg. Assuming a right atrial
pressure of 3 mmHg.
Compared to prior from December 24, 2023, on [id number] comparison overall
LV function is slightly more vigorous and estimated at 25-30% previously 15-20%
and MR is stable at mild to moderate.
Physical Exam
Vital Signs/Labs
Vital Signs
Temp Pulse Resp BP Pulse Ox
36.7 C 75 18 111/52 96
01/03/24 08:15 01/03/24 04:07 01/03/24 08:15 01/03/24 04:07 01/03/24 08:15
01/01/24 01/02/24 01/03/24
11:59 11:59 11:59
Actual Weight 67.2 kg 66.4 kg 65.6 kg
01/02/24 02:41
01/03/24 04:14
PT 15.7 Sec (11.4-14.6) H 12/24/23 03:34
INR 1.24 12/24/23 03:34
APTT 57.4 Sec (23.4-35.0) H 12/23/23 10:31
Magnesium 2.1 mg/dl (1.6-2.3) 01/02/24 02:41
Triglycerides 90 mg/dl (10-149) 12/15/23 03:16
LDL Cholesterol, Calc 529 mg/dl 12/15/23 03:16
VLDL Cholesterol, Calc 18 mg/dl (0-30) 12/15/23 03:16
HDL Cholesterol 91 mg/dl 12/15/23 03:16
TSH 2.52 uIU/ml (0.47-4.68) 12/18/23 03:00
Physical Exam
Constitutional: No acute distress and Comfortable
EENT: Anicteric and Moist mucous membranes
Cardiovascular: Rhythm & rate is regular, Pedal edema is absent, JVD pressure is normal, S1S2 is normal and Murmur/rub/gallop absent
Respiratory: Respiratory effort normal, Lungs clear to auscul., Wheeze Absent, Crackles Absent and Rhonchi Absent
GI: Soft, Distention absent, Flat, Non tender and Normal bowel sounds
Neuro/Psych: AO x 3
Data Reviewed
-
Date of Service: January 03, 2024
Medical Decision Making: Reviewed Test Results, Independent Historian Assessment, Test Interpretation and Review of Case with other Provider
EKG: Tracing Personally Visualized and interpreted and Report Reviewed by me
Echo: Tracing Personally Visualized and interpreted and Report Reviewed by me
X-Ray/CT/US/MRI/NUC/PET: Image Personally Visualized and interpreted and Report Reviewed by me
Medical Tests (PFT, Pathology etc): Image Personally Visualized and interpreted and Report Reviewed by me
Labs: Labs Reviewed by me
Old Records: Reviewed
[2024-01-03] MEDS: TOPROL XL 12.5 MG PO (09:12)
[2024-01-03] MEDS: LOW STRENGTH ASPIRIN 81 MG PO (09:13)
[2024-01-03] MEDS: KCL 20 MEQ PO (09:13)
[2024-01-03] MEDS: PROTONIX 40 MG PO (09:13)
[2024-01-03] MEDS: BUMEX 2 MG PO (09:13)
[2024-01-03] MEDS: PLAVIX 75 MG PO (09:14)
[2024-01-03] MEDS: VASOTEC 2.5 MG PO (09:14)
[2024-01-03] MEDS: NEURONTIN 100 MG PO (09:14)
[2024-01-03] MEDS: SENOKOT-S 1 TABLET PO (09:14)
[2024-01-03] MEDS: MUCINEX 600 MG PO (09:14)
[2024-01-03] MEDS: ZETIA 10 MG PO (09:14)
[2024-01-03] MEDS: CRESTOR 40 MG PO (09:15)
[2024-01-03] MEDS: PACERONE 200 MG PO (09:15)
[2024-01-03 10:35] VITALS: BP 122/59; PULSE 96; O2SAT 98
--- NOTE | 2024-01-03 11:32 | CM ---
Reviewed chart. Mrs. Saavedra was transferred to IVU. Telephone call to [facility] Liaison to confirm bed availability. [facility] Liaison sttaes they can accept Mrs. Saavedra to [facility] today. Met with Mrs. Saavedra to update her.
The telephone number for report is ([phone]). Medial work-up in progress. The discharge plan is to go to [facility] when medically stable.
--- NOTE | 2024-01-03 11:33 | W.DCSUMMARY ---
Addendum entered and electronically signed by FAMILIA Francis 01/03/24 12:57:
dapagliflozin was started prior to discharge by cardiology.
Original Note:
Discharge Summary
Discharge Data
Date of Admission: 12/14/23
Date of Discharge: 01/03/24
Total time spent discharging patient (in min): 50
-
Pending Results: No
Hospital Course
Primary care physician:
Dr. Andrew Underwood
Outpatient pole setter:
Tyler Hogan
Inpatient consultants:
CBC, intensivists
Procedures:
1. Coronary artery bypass grafting x 4 (In situ LLOYD to LAD -additional vein graft to the distal LAD off of the flynn of OM 3 vein graft from the aorta, Ao to RSVG to OM1, Ao to RSVG to OM 3), Revision of vein graft of OM 3 with an additional piece
of vein to extend the length, Left atrial appendage exclusion with 35 mm clip, and Placement of a left ventricular assist device, direct aortic using a 10 mm dacron woven graft of the distal ascending aorta tunneled to the left supraclavicular
region (5.5 Impella VAD)
2. Removal of Impella 5.5 on 12/22
Primary Diagnosis:
1. Multivessel Coronary Artery Disease with proximal left anterior descending artery stenosis status post PCI and VA
Secondary Diagnoses:
1. History of VA status post stenting in March
2. Presentation with new NSTEMI, proximal LAD disease
3. Newly diagnosed ischemic cardiomyopathy with LVEF of 30% and regional wall motion abnormality
4. Functional mitral valve insufficiency, mild to moderate [type IIIb]
5. Left bundle branch block
6. Significant hyperlipidemia
7. Hypertension
8. Acute on chronic ischemic myopathy, systolic and diastolic dysfunction with LVEF of 20% at time of surgery and dilated left ventricle, cardiac index at that time was 1.4-1.5
9. Anxiety/Depression
HPI: 73-year-old , [id number] female, followed by Dr. 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 Patient recounts having similar midsternal chest
pressure during the past few months that worsened with reclining and after eating heavy meals. On Wednesday evening, patient sought help for the pain that remained unresolved after a few hours. Patient has known coronary disease with prior stenting
to LAD and cardiomyopathy (EF 30-35%), hypertension, hyperlipidemia, depression, PAD status post stenting of left SFA and right external iliac arteries. Patient ruled in for non-STEMI and was taken to the cardiac Client Experience Manager on 12/13/23 and found to
have left main/two-vessel coronary disease. Patient is transferred to [facility] for CABG evaluation. She was eventually taken for CABG with Dr. Owusu on 12/20.
Hospital course: Patient was admitted to [facility] on 12/12 with a non-STEMI. Left heart cath revealed left main and two vessel coronary artery disease. She was then started on an IV heparin infusion and [facility] [place] [facility]. On 12/15 patient began to have chest pain and was started on nitroglycerin infusion. She was diuresed with Lasix until 12/20 when she was taken to the OR with Dr. Owusu. Intraoperatively both RIMAs were unusable and she
had an Impella 5 5 placed. She returned to the CVICU on dobutamine, Levophed, insulin, and Precedex infusions. She was hypotensive upon arrival she was given 2 units of packed cells, 1 pool of platelets, 1 albumin, and lactated Ringer's in
addition to the blood products that she received in the OR. Patient was then stabilized and started on milrinone infusion and weaned down on dobutamine. Patient woke up was following commands however while she was bearing down patient would have
episodes of complete heart block and required intermittent pacing from her epicardial wires. Patient also was having episodes of bigeminy trigeminy and short runs of VT therefore she was started on amiodarone infusion at 0.5 mg an hour. Patient
was eventually weaned off Precedex and patient was extubated by 1819. Precedex was resumed due to severe anxiety. On 12/21 postoperative day #1 patient received 2 additional units of packed red blood cells overnight and Impella was weaned to P4.
Milrinone remained at 0.375 along with insulin and Levophed infusions. She was diuresed with 20 mg of IV Lasix and repeat echocardiogram showed an EF of 20-25%. Drips were maintained and P level was maintained on P4. Low-dose heparin infusion was
also started. 25% albumins were added to help patient recruit fluid. On 12/22 postoperative day #2 Impella was decreased to P3. Repeat echocardiogram showed an EF of 20-25 with septal dyssynchrony. Cardene was added for afterload reduction and
Impella was removed later that afternoon. Bumex was started and Entresto was started later that afternoon. On 12/23 postoperative day #3 patient remained hemodynamically stable index was stable at 2.25 and milrinone was decreased to 0.3. Amio drip
was discontinued. Bumex drip was started from 6 AM to 8 PM. Repeat echocardiogram showed an EF of 10 to 15% and dobutamine was added at 2mcg/kg/min. It was then later decreased to 1 mcg/kg/min due to tachycardia. Mixed venous stabilized. On
12/24 postoperative day #4, patient's index dropped to 1.6 after weaning milrinone therefore milrinone was increased back up to 0.375 with appropriate mixed venous response. Patient was then diuresed with 1 mg of Bumex and Entresto was held due to
hypotension. Chest tubes were removed. 12/25 postoperative day #5 patient was weaned off dobutamine however another dose of Entresto was trialed again and she became hypotensive and Levophed was added for blood pressure support. Milrinone remained
at 0.375 and index remained stable throughout the day. Medrano catheter was removed. On 12/26 postoperative day # 6, milrinone was weaned to 0.2 5 repeat echocardiogram showed EF of 30%. Patient was started on Coreg 3.125 twice daily and diuresed
with 2 mg of Bumex. On 12/27 postop day 7 patient's milrinone infusion was weaned to 0.125 and Coreg was increased to 6.25. She was again diuresed with 1 mg of Bumex and was started on 25% albumin and [place] catheter was removed and physical
therapy was consulted. On 12/28 postoperative day #8, patient's milrinone was weaned off and enalapril was started per cardiology and Coreg was discontinued. Bumex drip was started and patient had adequate response to infusion. On 12/29
postoperative day #9 due to hypotension enalapril was decreased to 2.5 mg daily. She was again diuresed with a Bumex drip at 0.25 mg x 12 hours ultrasound was performed of the left upper extremity which showed a small hematoma therefore, blood
pressures were only checked utilizing the right upper extremity. At that time the blood pressure was greater on the right than the left. On 12/30 postoperative day #10 patient was diuresed with metolazone and IV pushes of Bumex. She continued
working with physical therapy however improving. On 12/31 postoperative day #11, patient was started on metoprolol XL 12.5 mg. She tolerated the metoprolol well. On 01/01 postoperative day #12 patient was transition to Bumex 2 mg p.o. daily with
potassium repletion. And she was accepted to [facility]. On 01/02 postoperative day #13 patient was deemed stable for discharge. Epicardial wires were cut at the skin.
Home medication changes:
see below
Discharge Plan
-
Patient Disposition: Acute Rehab Facility
Discharge Diagnosis/Procedures: Sternotomy with aortic and right atrial cannulation/CABG x 4 (In situ LLOYD to LAD -additional vein graft to the distal LAD off of the flynn of OM 3 vein graft from the aorta, Ao to RSVG to OM1, Ao to RSVG to OM 3)-
unable to utilize BIMA d/t severe atherosclerosis and plaque/Revision of vein graft of OM 3 with an additional piece of vein to extend the length/Endoscopic vein harvesting of right lower extremity (along with open harvest segment)/Left atrial
appendage exclusion with 35 mm clip/Placement of 5.5 Impella VA, by Dr. Owusu, 12/21/23
Condition: Fair
Diet: Low Sodium and Restrict fluids to 64 oz
Activity: No strenuous activity
Driving Restrictions: Not until seen by your Dr
Bathing Restrictions: OK to Shower
Other Services: Cardiac Rehab
Specialty Instructions: Weigh Daily- Call MD for wt gain/loss 3 lbs overnight/5 lbs in 1 week
Activity Restrictions/Additional Instructions:
ACTIVITY:
-No strenuous activity: no heavy lifting, pushing, pulling anything over 15 pounds for one month
-continue to use stairs as tolerated
DRIVING RESTRICTIONS:
-No driving for one month or until approved by your surgeon
WOUND CARE:
-Shower daily. Use soap & water.
-No lotions, creams or powders on incision area.
DIET:
-continue a low fat/low cholesterol diet.
-IF you are diabetic, continue carb controlled diet.
CARDIAC REHAB:
-Please make appointment to start in 5-6 weeks with your local hospital program. (See Cardiac Rehabilitation Discharge Booklet).
SPECIALTY INSTRUCTIONS:
-Weigh yourself daily. Call your physician for any weight gain/loss of 3 lbs overnight or 5 lbs in one week.
-REPORT any clicking noise or uneven appearance of your sternum to your surgeon immediately.
-If you smoke, you are instructed to quit. The [place] smoking hotline phone number is [phone]
Referrals:
CT Transitional Care Nurse [Outside] (The Cardiothoracic Transitional Care Nurse will call you to set up a visit in 1-2 days.)
Andrew Underwood MD [Family Provider] -
Tyler Hogan DO [Active] - 02/08/24 1:40 pm
Vincenzo Owusu MD [Active] - 01/20/24 1:45 pm
Prescriptions:
New
enalapril maleate 2.5 mg Tablet
2.5 mg PO DAILY Qty: 0 0RF
metoprolol succinate 25 mg Tablet Extended Release 24 Hr
12.5 mg PO DAILY Qty: 0 0RF
acetaminophen 325 mg Tablet
650 mg PO Q4HPRN PRN (Reason: mild pain,headache,temp >101F ) Qty: 0 0RF
bumetanide 2 mg Tablet
2 mg PO DAILY Qty: 0 0RF
sennosides-docusate sodium 8.6-50 mg Tablet
1 tab PO Q12 Qty: 0 0RF
potassium chloride 20 mEq Tablet,Er Particles/Crystals
20 meq PO DAILY Qty: 0 0RF
lorazepam 0.5 mg Tablet
0.5 mg PO Q6HPRN PRN (Reason: anxiety) Qty: 30 0RF
bisacodyl 10 mg Suppository
10 mg NC DAILYPRN PRN (Reason: constipation ) Qty: 0 0RF
pantoprazole 40 mg Tablet,Delayed Release (Dr/Ec)
40 mg PO DAILY Qty: 0 0RF
magnesium oxide 500 mg magnesium Tablet
250 mg PO DAILY Qty: 0 0RF
oxycodone 5 mg Tablet
2.5 mg PO Q4HPRN PRN (Reason: severe pain) Qty: 15 0RF
Continued
aspirin 81 mg Tablet,Chewable
81 mg PO DAILY
clopidogrel [Plavix] 75 mg Tablet
75 mg PO DAILY
ezetimibe [Zetia] 10 mg Tablet
10 mg PO DAILY
rosuvastatin 40 mg Tablet
40 mg PO DAILY
Discontinued
furosemide [Lasix] 20 mg Tablet
20 mg PO DAILY
metoprolol succinate [Toprol XL] 25 mg Tablet Extended Release 24 Hr
25 mg PO DAILY
valsartan 40 mg Tablet
40 mg PO DAILY
Patient Comments:
patient takes this only when she runs out of Entresto samples (does not have drug prescription coverage)
dapagliflozin propanediol [Farxiga] 10 mg Tablet
10 mg PO DAILY
Entresto 24-26 mg Tablet
1 tab PO BID
Discharge Orders:
Discharge Patient (As Directed); Ordered 01/03/24
Ordered By: Nandini Yeung
Care Plan Goals
Care Plan Goals:
Problem: Readiness for enhanced knowledge related to diagnosis and treatment plan
Goal: Understand your diagnosis and treatment plan needs, including medications if applicable.
Instructions: Know your diagnosis, underlying causes and treatment plan options, including medications if applicable. Consult with your health care team to learn about your diagnosis and treatment plan, including medications if applicable.
Discharge Date and Time
Print Language: SOUTH AFR[place]
[2024-01-03] MEDS: FARXIGA 10 MG PO (13:12)
== END 2024-01-03 13:45 | DRG 1 ==
LOC: IVU 06:57
PROVIDERS: Anesthesiology; Clinical Nurse Specialist Acute Care; Nurse Practitioner; Physician Assistant Medical; Physician Assistant Surgical; Student in an Organized Health Care Education/Training Program; Thoracic Surgery (Cardiothoracic Vascular Surgery); ADMITTING PHYSICIAN Thoracic Surgery (Cardiothoracic Vascular Surgery); CONSULT PHYSICIAN Internal Medicine Cardiovascular Disease; CONSULT PHYSICIAN Internal Medicine Critical Care Medicine; CONSULT PHYSICIAN Physical Medicine & Rehabilitation; FAMILY PHYSICIAN Internal Medicine
PROC: B24BZZ4 Ultrasonography of Heart with Aorta, Transesophageal (ICD-10-PCS; 2023-12-21)
PROC: 02110Z9 Bypass Coronary Artery, Two Arteries from Left Internal Mammary, Open Approach (ICD-10-PCS; 2023-12-21)
PROC: 30233N1 Transfusion of Nonautologous Red Blood Cells into Peripheral Vein, Percutaneous Approach (ICD-10-PCS; 2023-12-21)
PROC: 02HA0RZ Insertion of Short-term External Heart Assist System into Heart, Open Approach (ICD-10-PCS; 2023-12-21)
PROC: 30233K1 Transfusion of Nonautologous Frozen Plasma into Peripheral Vein, Percutaneous Approach (ICD-10-PCS; 2023-12-21)
PROC: 30233R1 Transfusion of Nonautologous Platelets into Peripheral Vein, Percutaneous Approach (ICD-10-PCS; 2023-12-21)
PROC: 021109W Bypass Coronary Artery, Two Arteries from Aorta with Autologous Venous Tissue, Open Approach (ICD-10-PCS; 2023-12-21)
PROC: 5A1221Z Performance of Cardiac Output, Continuous (ICD-10-PCS; 2023-12-21)
PROC: X2HX0F9 Insertion of Conduit to Short-term External Heart Assist System into Thoracic Aorta, Ascending, Open Approach, New Technology Group 9 (ICD-10-PCS; 2023-12-21)
PROC: 02L70CK Occlusion of Left Atrial Appendage with Extraluminal Device, Open Approach (ICD-10-PCS; 2023-12-21)
PROC: 06BP4ZZ Excision of Right Saphenous Vein, Percutaneous Endoscopic Approach (ICD-10-PCS; 2023-12-21)
PROC: 5A0221D Assistance with Cardiac Output using Impeller Pump, Continuous (ICD-10-PCS; 2023-12-21)
PROC: 02PW3RZ Removal of Short-term External Heart Assist System from Thoracic Aorta, Descending, Percutaneous Approach (ICD-10-PCS; 2023-12-23)
PROC: 03HY32Z Insertion of Monitoring Device into Upper Artery, Percutaneous Approach (ICD-10-PCS; 2023-12-24)
DX: I21.4 Non-ST elevation (NSTEMI) myocardial infarction (principal); I50.43 Acute on chronic combined systolic (congestive) and diastolic (congestive) heart failure; R57.0 Cardiogenic shock; D62 Acute posthemorrhagic anemia; N17.9 Acute kidney failure, unspecified; I44.2 Atrioventricular block, complete; I47.20 Ventricular tachycardia, unspecified; D68.9 Coagulation defect, unspecified; J98.11 Atelectasis; E87.1 Hypo-osmolality and hyponatremia; I82.612 Acute embolism and thrombosis of superficial veins of left upper extremity; I25.10 Atherosclerotic heart disease of native coronary artery without angina pectoris; I11.0 Hypertensive heart disease with heart failure; I73.9 Peripheral vascular disease, unspecified; I34.0 Nonrheumatic mitral (valve) insufficiency; E78.00 Pure hypercholesterolemia, unspecified; F32.A Depression, unspecified; I25.5 Ischemic cardiomyopathy; I44.7 Left bundle-branch block, unspecified; F43.10 Post-traumatic stress disorder, unspecified; D69.59 Other secondary thrombocytopenia; F41.9 Anxiety disorder, unspecified; E86.1 Hypovolemia; Z79.02 Long term (current) use of antithrombotics/antiplatelets; Z79.82 Long term (current) use of aspirin; Z79.899 Other long term (current) drug therapy; Z95.5 Presence of coronary angioplasty implant and graft; Z95.820 Peripheral vascular angioplasty status with implants and grafts
CPT/HCPCS: 93308; 70355; 71045; 71046; 71250; 80048; 80053; 80061; 81003; 82330; 82565; 82805; 82810; 82962; 83010; 83036; 83605; 83615; 83735; 84132; 84302; 84443; 85014; 85018; 85027; 85045; 85379; 85384; 85610; 85730; 86850; 86900; 86901; 86920; 87070; 93005; 93312; 93320; 93321; 93325; 93880; 93931; 94002; 97116; 97163; 97167; 97530; 97535; J2260; P9016; P9045; P9047; P9059; P9073